=== PATIENT | female | born 1995 | race Caucasian/White ===

== ENCOUNTER 2016-10-02 14:37 | Emergency (ER) | payer OTHER, SELFPAY ==
[2016-10-02] MEDS ORDERED: AMOXICILLIN 500 MG CAP As Ordered ONE (18:23)
[2016-10-02] MEDS ORDERED: ONDANSETRON 4 MG ORAL DISINTEGRATING TAB (S0181) As Ordered ONE (18:23)
[2016-10-02] MEDS ORDERED: ACETAMINOPHEN 325 MG TAB As Ordered ONE (18:23)
--- NOTE | 2016-10-02 18:48 | EDDOCDS ---
Physician Documentation [facility] Name: Dilcia Spence Age: 21 yrs Sex: Female : 1995 Arrival Date: 10/02/2016 Time: 14:37 Bed Triage 2 Private MD: NO PRIMARY PHYSICIAN, . Disposition: 10/02/16 18:37 Discharged to Home/Self Care. Impression: Acute pharyngitis, Vomiting. - Condition is Stable. - Discharge Instructions: Nausea and Vomiting, Pharyngitis. - Prescriptions for Amoxicillin 500 mg Oral Capsule - take 1 capsule by ORAL route every 8 hours for 10 days; 30 tablet. ZOFRAN ODT 4 mg - dissolve 1 tablet by ORAL route 4 times per day As needed do not chew, do not swallow whole; 10 tablet. Albuterol Sulfate 90 mcg/actuation Inhalation HFA Aerosol Inhaler - inhale 2 puff by INHALATION route every 4 hours As needed; 1 Inhaler. - Medication Reconciliation, Local Pharmacy Hours, Work Release Form - 2 day form. - [facility]; When: Call to arrange an appointment; Reason: Recheck today's complaints, Continuance of care. - Problem is new. - Symptoms are unchanged. Historical: - Allergies: Cinnamon; - Home Meds: 1. Mucinex oral oral Unknown (Last dose: 10/02/2016 11:00) 2. Tylenol 325 mg oral tab 2 tabs (Last dose: 10/01/2016) - PMHx: none; - PSHx: none; - Social history: Smoking status: Patient uses tobacco products, current every day smoker. No barriers to communication noted, The patient speaks fluent Nigerian, Speaks appropriately for age. - Family history: Not pertinent. - : The pt / caregiver states he / she is not on anticoagulants. Home medication list is obtained from the patient. - Exposure Risk Screening:: None identified. 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 8 in. (172.72 cm) (R); Pain 4/10; 18:07 BP 159 / 94; Pulse 99; Resp 18; Temp 98.2(TE); Pulse Ox 96% on R/A; Pain 8/10; sew 14:40 Body Mass Index 39.53 (117.93 kg, 172.72 cm) gr2 MDM: 18:17 Strep Screen, Nursing ordered. mo1 18:18 Ondansetron ODT Oral Disintegrating Tablet 4 mg PO once ordered. mo1 18:18 Acetaminophen Tablet 975 mg PO once ordered. mo1 18:23 Amoxicillin 500 mg PO once ordered. mo1 18:30 GATS (NEGATIVE STREP SCREEN) Ordered. EDMS Administered Medications: 18:26 Drug: Amoxicillin 500 mg [amoxicillin 500 mg capsule (1 caps)] Route: PO; ld5 18:27 Drug: Ondansetron ODT 4 mg [ondansetron 4 mg disintegrating tablet (1 tabs)] Route: PO; ld5 18:27 Drug: Acetaminophen 975 mg [acetaminophen 325 mg tablet (3 tabs)] Route: PO; ld5 Signatures: Dispatcher [employer] EDMS Adelia Alston,RN RN ld5 Adelso Laura PA PA mo1 Syed SuRN RN jf3 MTDD
--- NOTE | 2016-10-02 18:48 | EDDOCDS ---
Nurse's Notes [facility] Name: Dilcia Spence Age: 21 yrs Sex: Female : 1995 Arrival Date: 10/02/2016 Time: 14:37 Bed Triage 2 Private MD: NO PRIMARY PHYSICIAN, . Diagnosis: Acute pharyngitis;Vomiting Presentation: 10/02 15:00 Presenting complaint: Patient states: Cough for past couple of days. Feels as though ld5 she has difficulty getting a good breath. "I also have stomach pains". Adult Sepsis Screening: The patient does not have new or worsening altered mentation. Patient's respiratory rate is less than 22. Systolic blood pressure is greater than 100. Patient has a qSOFA score of 0- Negative Sepsis Screen. Suicide/Homicide risk assessment- the patient denies having any suicidal and/or homicidal ideations and does not present with any other emotional, behavioral or mental health complaints. 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 Transition of care: patient was not received from another setting of care. 15:00 Acuity: BHAVIK Level 4 ld5 15:00 Method Of Arrival: Walkin/Carried/Asstd ld5 Triage Assessment: 15:03 General: Appears in no apparent distress. Pain: Location: abdomen Pain currently is 7 ld5 out of 10 on a pain scale. HIV screening NA for this visit Offered previously. Neurological: Level of Consciousness is awake, alert. Respiratory: Onset: The symptoms/episode began/occurred 2-3 days ago, Airway is patent Respiratory effort is even, unlabored, Reports cough that is non-productive. 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 Mucinex oral oral Unknown (Last dose: 10/02/2016 11:00) 2. Tylenol 325 mg oral tab 2 tabs (Last dose: 10/01/2016) - PMHx: none; - PSHx: none; - Social history: Smoking status: Patient uses tobacco products, current every day smoker. No barriers to communication noted, The patient speaks fluent Greek, Speaks appropriately for age. - Family history: Not pertinent. - : The pt / caregiver states he / she is not on anticoagulants. Home medication list is obtained from the patient. - Exposure Risk Screening:: None identified. Screenin:45 Screening information is obtained from the patient. Fall risk: No risks identified. jf3 Assistance ADL's: requires no assistance with activities of daily living. Abuse/DV Screen: The patient / caregiver reports he/she is: not in a situation that causes fear, pain or injury. Nutritional screening: No deficits noted. Advance Directives: There is no active DNR order. home support is adequate. Assessment: 18:45 General: Appears in no apparent distress, comfortable, Behavior is cooperative. jf3 Neurological: Level of Consciousness is awake, alert, Oriented to person, place, time. Cardiovascular: Capillary refill < 3 seconds Chest pain is denied. Respiratory: Airway is patent Respiratory effort is even, unlabored, Respiratory pattern is regular, symmetrical, Breath sounds are clear bilaterally. Derm: Skin is pink, warm & dry. Vital Signs: 14:40 BP 154 / 80; Pulse 108; Resp 18 S; Temp 98.8(O); Pulse Ox 98% on R/A; Weight 117.93 kg gr2 (R); Height 5 ft. 8 in. (172.72 cm) (R); Pain 4/10; 18:07 BP 159 / 94; Pulse 99; Resp 18; Temp 98.2(TE); Pulse Ox 96% on R/A; Pain 8/10; sew 14:40 Body Mass Index 39.53 (117.93 kg, 172.72 cm) gr2 Vitals: 14:40 Log In Time: October 02, 2016 at 14:40. gr2 18:30 Strep Screen is obtained and tested: Negative, a GATSNEG culture is ordered in [facility] ld5 and sent. ED Course: 14:39 Patient visited by Rashaun Simmons. gr2 14:39 NO PRIMARY PHYSICIAN, . is Private Physician. gr2 14:39 Patient moved to Waiting gr2 14:42 Patient visited by Rashaun Simmons. gr2 14:42 Patient moved to Pre RCE gr2 15:01 Triage Initiated ld5 15:05 Patient visited by Adelia Alston RN. ld5 17:49 Patient moved to Triage 2 kr3 18:06 Adelso Laura PA is PHCP. mo1 18:06 Joaquin Collado MD is Attending Physician. mo1 18:09 Patient visited by Kimberlee Ames. sew 18:17 Patient visited by Adelso Laura PA. mo1 18:33 GATS (NEGATIVE STREP SCREEN) Sent. ld5 18:37 [facility] is Referral Physician. mo1 18:45 The patient / caregiver is instructed regarding the plan of care and ED course. jf3 18:45 No IV's were initiated during this patient's visit. No procedures done that require jf3 assistance. Administered Medications: 18:26 Drug: Amoxicillin 500 mg [amoxicillin 500 mg capsule (1 caps)] Route: PO; ld5 18:27 Drug: Ondansetron ODT 4 mg [ondansetron 4 mg disintegrating tablet (1 tabs)] Route: PO; ld5 18:27 Drug: Acetaminophen 975 mg [acetaminophen 325 mg tablet (3 tabs)] Route: PO; ld5 Order Results: There are currently no results for this order. Outcome: 18:37 Discharge ordered by Provider. mo1 18:46 Discharge Assessment: Patient awake, alert and oriented x 3. No cognitive and/or jf3 functional deficits noted. Patient verbalized understanding of disposition instructions. patient administered narcotics - no. The following High Risk Discharge criteria are identified: None. Discharged to home ambulatory. Condition: good. Discharge instructions given to patient, Instructed on discharge instructions, follow up and referral plans. medication usage, Demonstrated understanding of instructions, medications, Pt was receptive of discharge instructions/ teaching. No special radiology studies were completed. Property :Personal belongings accompany Pt. 18:46 Patient left the ED. jf3 Signatures: Eulalia Orellana,RN RN kr3 Adelia Alston,RN RN ld5 Kimberlee Ames sew Rashaun Simmons gr2 Adelso Laura PA PA mo1 Syed Su,MONICA RN jf3 MTDD
--- NOTE | 2016-10-04 19:48 | EDDOCDS ---
Nurse's Notes [facility] Name: Dilcia Spnece Age: 21 yrs Sex: Female : 1995 Arrival Date: 10/02/2016 Time: 14:37 Bed Triage 2 Private MD: NO PRIMARY PHYSICIAN, . Diagnosis: Acute pharyngitis;Vomiting Presentation: 10/02 15:00 Presenting complaint: Patient states: Cough for past couple of days. Feels as though ld5 she has difficulty getting a good breath. "I also have stomach pains". Adult Sepsis Screening: The patient does not have new or worsening altered mentation. Patient's respiratory rate is less than 22. Systolic blood pressure is greater than 100. Patient has a qSOFA score of 0- Negative Sepsis Screen. Suicide/Homicide risk assessment- the patient denies having any suicidal and/or homicidal ideations and does not present with any other emotional, behavioral or mental health complaints. 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 Transition of care: patient was not received from another setting of care. 15:00 Acuity: BHAVIK Level 4 ld5 15:00 Method Of Arrival: Walkin/Carried/Asstd ld5 Triage Assessment: 15:03 General: Appears in no apparent distress. Pain: Location: abdomen Pain currently is 7 ld5 out of 10 on a pain scale. HIV screening NA for this visit Offered previously. Neurological: Level of Consciousness is awake, alert. Respiratory: Onset: The symptoms/episode began/occurred 2-3 days ago, Airway is patent Respiratory effort is even, unlabored, Reports cough that is non-productive. 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 Mucinex oral oral Unknown (Last dose: 10/02/2016 11:00) 2. Tylenol 325 mg oral tab 2 tabs (Last dose: 10/01/2016) - PMHx: none; - PSHx: none; - Social history: Smoking status: Patient uses tobacco products, current every day smoker. No barriers to communication noted, The patient speaks fluent Turkish, Speaks appropriately for age. - Family history: Not pertinent. - : The pt / caregiver states he / she is not on anticoagulants. Home medication list is obtained from the patient. - Exposure Risk Screening:: None identified. Screenin:45 Screening information is obtained from the patient. Fall risk: No risks identified. jf3 Assistance ADL's: requires no assistance with activities of daily living. Abuse/DV Screen: The patient / caregiver reports he/she is: not in a situation that causes fear, pain or injury. Nutritional screening: No deficits noted. Advance Directives: There is no active DNR order. home support is adequate. Assessment: 18:45 General: Appears in no apparent distress, comfortable, Behavior is cooperative. jf3 Neurological: Level of Consciousness is awake, alert, Oriented to person, place, time. Cardiovascular: Capillary refill < 3 seconds Chest pain is denied. Respiratory: Airway is patent Respiratory effort is even, unlabored, Respiratory pattern is regular, symmetrical, Breath sounds are clear bilaterally. Derm: Skin is pink, warm & dry. Vital Signs: 14:40 BP 154 / 80; Pulse 108; Resp 18 S; Temp 98.8(O); Pulse Ox 98% on R/A; Weight 117.93 kg gr2 (R); Height 5 ft. 8 in. (172.72 cm) (R); Pain 4/10; 18:07 BP 159 / 94; Pulse 99; Resp 18; Temp 98.2(TE); Pulse Ox 96% on R/A; Pain 8/10; sew 14:40 Body Mass Index 39.53 (117.93 kg, 172.72 cm) gr2 Vitals: 14:40 Log In Time: October 02, 2016 at 14:40. gr2 18:30 Strep Screen is obtained and tested: Negative, a GATSNEG culture is ordered in [facility] ld5 and sent. ED Course: 14:39 Patient visited by Rashaun Simmons. gr2 14:39 NO PRIMARY PHYSICIAN, . is Private Physician. gr2 14:39 Patient moved to Waiting gr2 14:42 Patient visited by Rashaun Simmons. gr2 14:42 Patient moved to Pre RCE gr2 15:01 Triage Initiated ld5 15:05 Patient visited by Adelia Alston RN. ld5 17:49 Patient moved to Triage 2 kr3 18:06 Adelso Laura PA is PHCP. mo1 18:06 Joaquin Collado MD is Attending Physician. mo1 18:09 Patient visited by Kimberlee Ames. sew 18:17 Patient visited by Adelso Laura PA. mo1 18:33 GATS (NEGATIVE STREP SCREEN) Sent. ld5 18:37 [facility] is Referral Physician. mo1 18:45 The patient / caregiver is instructed regarding the plan of care and ED course. jf3 18:45 No IV's were initiated during this patient's visit. No procedures done that require jf3 assistance. 10/03 15:24 T-Sheet-- Draft Copy was scanned into [employer] and attached to record. kf3 Administered Medications: 10/02 18:26 Drug: Amoxicillin 500 mg [amoxicillin 500 mg capsule (1 caps)] Route: PO; ld5 18:27 Drug: Ondansetron ODT 4 mg [ondansetron 4 mg disintegrating tablet (1 tabs)] Route: PO; ld5 18:27 Drug: Acetaminophen 975 mg [acetaminophen 325 mg tablet (3 tabs)] Route: PO; ld5 Order Results: Lab Order: GATS (NEGATIVE STREP SCREEN); SPEC'M 10/02/16 18:25 Test: GATS CULTURE (NEG STREP SCR); Value: GATS RESULT NEGATIVE FOR STREP PYOGENES (GROUP A); Status: F Outcome: 18:37 Discharge ordered by Provider. mo1 18:46 Discharge Assessment: Patient awake, alert and oriented x 3. No cognitive and/or jf3 functional deficits noted. Patient verbalized understanding of disposition instructions. patient administered narcotics - no. The following High Risk Discharge criteria are identified: None. Discharged to home ambulatory. Condition: good. Discharge instructions given to patient, Instructed on discharge instructions, follow up and referral plans. medication usage, Demonstrated understanding of instructions, medications, Pt was receptive of discharge instructions/ teaching. No special radiology studies were completed. Property :Personal belongings accompany Pt. 18:46 Patient left the ED. jf3 Signatures: Eulalia Orellana,RN RN kr3 Aydin Morales, Reg Reg kf3 Adelia Alston RN RN ld5 Kimberlee Ames sew Rashaun Simmons gr2 Adelso Laura PA PA mo1 Syed Su,MONICA ANDERSON jf3 Chart Complete MTDD
--- NOTE | 2016-10-04 19:48 | EDDOCDS ---
Physician Documentation [facility] Name: Dilcia Spence Age: 21 yrs Sex: Female : 1995 Arrival Date: 10/02/2016 Time: 14:37 Bed Triage 2 Private MD: NO PRIMARY PHYSICIAN, . Disposition: 10/02/16 18:37 Discharged to Home/Self Care. Impression: Acute pharyngitis, Vomiting. - Condition is Stable. - Discharge Instructions: Nausea and Vomiting, Pharyngitis. - Prescriptions for Amoxicillin 500 mg Oral Capsule - take 1 capsule by ORAL route every 8 hours for 10 days; 30 tablet. ZOFRAN ODT 4 mg - dissolve 1 tablet by ORAL route 4 times per day As needed do not chew, do not swallow whole; 10 tablet. Albuterol Sulfate 90 mcg/actuation Inhalation HFA Aerosol Inhaler - inhale 2 puff by INHALATION route every 4 hours As needed; 1 Inhaler. - Medication Reconciliation, Local Pharmacy Hours, Work Release Form - 2 day form. - Follow up: [facility]; When: Call to arrange an appointment; Reason: Recheck today's complaints, Continuance of care. - Problem is new. - Symptoms are unchanged. Historical: - Allergies: Cinnamon; - Home Meds: 1. Mucinex oral oral Unknown (Last dose: 10/02/2016 11:00) 2. Tylenol 325 mg oral tab 2 tabs (Last dose: 10/01/2016) - PMHx: none; - PSHx: none; - Social history: Smoking status: Patient uses tobacco products, current every day smoker. No barriers to communication noted, The patient speaks fluent Nigerian, Speaks appropriately for age. - Family history: Not pertinent. - : The pt / caregiver states he / she is not on anticoagulants. Home medication list is obtained from the patient. - Exposure Risk Screening:: None identified. 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 8 in. (172.72 cm) (R); Pain 4/10; 18:07 BP 159 / 94; Pulse 99; Resp 18; Temp 98.2(TE); Pulse Ox 96% on R/A; Pain 8/10; sew 14:40 Body Mass Index 39.53 (117.93 kg, 172.72 cm) gr2 MDM: 18:17 Strep Screen, Nursing ordered. mo1 18:18 Ondansetron ODT Oral Disintegrating Tablet 4 mg PO once ordered. mo1 18:18 Acetaminophen Tablet 975 mg PO once ordered. mo1 18:23 Amoxicillin 500 mg PO once ordered. mo1 18:30 GATS (NEGATIVE STREP SCREEN) Ordered. EDMS 10/03 15:24 T-Sheet-- Draft Copy was scanned into [employer] and attached to record. kf3 Administered Medications: 10/02 18:26 Drug: Amoxicillin 500 mg [amoxicillin 500 mg capsule (1 caps)] Route: PO; ld5 18:27 Drug: Ondansetron ODT 4 mg [ondansetron 4 mg disintegrating tablet (1 tabs)] Route: PO; ld5 18:27 Drug: Acetaminophen 975 mg [acetaminophen 325 mg tablet (3 tabs)] Route: PO; ld5 Signatures: Dispatcher [employer] EDMS Aydin Morales, Reg Reg kf3 Adelia Alston,RN RN ld5 Adelso Laura PA PA mo1 Syed Su,RN RN jf3 The chart was reviewed and I authenticate all verbal orders and agree with the evaluation and treatment provided.Attachments: 10/03 15:24 T-Sheet-- Draft Copy kf3 Chart Complete MTDD
--- NOTE | 2016-10-04 19:48 | EDDOCDS ---
Physician Documentation [facility] Name: Dilcia Spence Age: 21 yrs Sex: Female : 1995 Arrival Date: 10/02/2016 Time: 14:37 Bed Triage 2 Private MD: NO PRIMARY PHYSICIAN, . Disposition: 10/02/16 18:37 Discharged to Home/Self Care. Impression: Acute pharyngitis, Vomiting. - Condition is Stable. - Discharge Instructions: Nausea and Vomiting, Pharyngitis. - Prescriptions for Amoxicillin 500 mg Oral Capsule - take 1 capsule by ORAL route every 8 hours for 10 days; 30 tablet. ZOFRAN ODT 4 mg - dissolve 1 tablet by ORAL route 4 times per day As needed do not chew, do not swallow whole; 10 tablet. Albuterol Sulfate 90 mcg/actuation Inhalation HFA Aerosol Inhaler - inhale 2 puff by INHALATION route every 4 hours As needed; 1 Inhaler. - Medication Reconciliation, Local Pharmacy Hours, Work Release Form - 2 day form. - Follow up: [facility]; When: Call to arrange an appointment; Reason: Recheck today's complaints, Continuance of care. - Problem is new. - Symptoms are unchanged. Historical: - Allergies: Cinnamon; - Home Meds: 1. Mucinex oral oral Unknown (Last dose: 10/02/2016 11:00) 2. Tylenol 325 mg oral tab 2 tabs (Last dose: 10/01/2016) - PMHx: none; - PSHx: none; - Social history: Smoking status: Patient uses tobacco products, current every day smoker. No barriers to communication noted, The patient speaks fluent Puerto Rican, Speaks appropriately for age. - Family history: Not pertinent. - : The pt / caregiver states he / she is not on anticoagulants. Home medication list is obtained from the patient. - Exposure Risk Screening:: None identified. 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 8 in. (172.72 cm) (R); Pain 4/10; 18:07 BP 159 / 94; Pulse 99; Resp 18; Temp 98.2(TE); Pulse Ox 96% on R/A; Pain 8/10; sew 14:40 Body Mass Index 39.53 (117.93 kg, 172.72 cm) gr2 MDM: 18:17 Strep Screen, Nursing ordered. mo1 18:18 Ondansetron ODT Oral Disintegrating Tablet 4 mg PO once ordered. mo1 18:18 Acetaminophen Tablet 975 mg PO once ordered. mo1 18:23 Amoxicillin 500 mg PO once ordered. mo1 18:30 GATS (NEGATIVE STREP SCREEN) Ordered. EDMS 10/03 15:24 T-Sheet-- Draft Copy was scanned into [employer] and attached to record. kf3 Administered Medications: 10/02 18:26 Drug: Amoxicillin 500 mg [amoxicillin 500 mg capsule (1 caps)] Route: PO; ld5 18:27 Drug: Ondansetron ODT 4 mg [ondansetron 4 mg disintegrating tablet (1 tabs)] Route: PO; ld5 18:27 Drug: Acetaminophen 975 mg [acetaminophen 325 mg tablet (3 tabs)] Route: PO; ld5 Signatures: Dispatcher [employer] EDMS Aydin Morales, Reg Reg kf3 Adelia Alston,RN RN ld5 Adelso Lauar PA PA mo1 Syed Su,RN RN jf3 The chart was reviewed and I authenticate all verbal orders and agree with the evaluation and treatment provided.Attachments: 10/03 15:24 T-Sheet-- Draft Copy kf3 Chart Complete MTDD
== END 2016-10-02 18:46 | disposition home or self-care (01) ==
LOC: M ED 14:37
DX: J02.9 Acute pharyngitis, unspecified (principal); R11.2 Nausea with vomiting, unspecified; R50.9 Fever, unspecified; F17.210 Nicotine dependence, cigarettes, uncomplicated; Z91.018 Allergy to other foods

== ENCOUNTER 2016-12-23 17:31 | Emergency (ER) | payer OTHER, SELFPAY ==
[~2016-12-23] VITALS: Ht 172.7 cm; Wt 117.9 kg
[2016-12-23 23:02] VITALS: BP 159/92
== END 2016-12-23 23:04 | disposition home or self-care (01) ==
LOC: M ED 19:25
DX: N91.2 Amenorrhea, unspecified (principal); Z79.899 Other long term (current) drug therapy

== ENCOUNTER 2017-01-01 01:48 | Emergency (ER) | payer SELFPAY ==
[~2017-01-01] VITALS: Ht 172.7 cm; Wt 115.7 kg
[2017-01-01 01:52] VITALS: BP 158/92
[2017-01-01] MEDS ORDERED: MULT1TAB18 PO (01:55)
[2017-01-01] MEDS ORDERED: AMOX500C PO (03:25)
== END 2017-01-01 03:44 | disposition home or self-care (01) ==
LOC: M ED 03:34
DX: J02.9 Acute pharyngitis, unspecified (principal)

== ENCOUNTER 2017-02-26 17:50 | Emergency (ER) | payer SELFPAY ==
[~2017-02-26] VITALS: Ht 170.2 cm; Wt 115.6 kg
[~2017-02-26 17:50] MED LIST: AMOX500C PO; MULT1TAB18 PO
[2017-02-26] MEDS ORDERED: NS 1,000 ML IV ONE (18:30)
[2017-02-26] MEDS ORDERED: ONDANSETRON 4MG/2ML VIAL (J2405) IV ONE (18:30)
[2017-02-26 19:12] LABS: BASO # 0.1 K/mm3 (0.0-0.2); BASO % 0.8 % (0.0-1.0); EOS # 0.3 K/mm3 (0.0-0.50); EOS % 2.5 % (0.0-3.0); INR 0.95; LARGE UNSTAINED CELL # 0.2 K/mm3 (0.0-0.4); LYMPH # 1.9 K/mm3 (1.5-6.5); LYMPH % 15.1 % (24.0-44.0); MEAN CORPUSCULAR HEMOGLOBIN 30.4 pg (27.0-33.0); MEAN CORPUSCULAR HGB CONC 34.3 g/dl (32.0-36.5); MEAN CORPUSCULAR VOLUME 88.7 fl (80.0-96.0); MONO # 1.2 K/mm3 (0.0-0.8); MONO % 10.5 % (0.0-5.0); NEUTROPHILS # 7.7 K/mm3 (1.8-7.7); NEUTROPHILS % 69.1 % (36.0-66.0); PLATELET COUNT, AUTOMATED 311 k/mm3 (150-450); RED CELL DISTRIBUTION WIDTH 12.9 % (11.5-14.5); WHITE BLOOD COUNT 11.1 K/mm3 (4.0-10.0)
[2017-02-26 19:20] LABS: ALBUMIN/GLOBULIN RATIO 0.95 (1.00-1.93); ALKALINE PHOSPHATASE 115 U/L (45-117); ALT/SGPT 94 U/L (12-78); ANION GAP 6 MEQ/L (8-16); AST/SGOT 42 U/L (15-37); BILIRUBIN,DIRECT < 0.1 MG/DL (0.0-0.2); BILIRUBIN,TOTAL 0.3 MG/DL (0.2-1.0); BLOOD UREA NITROGEN 13 MG/DL (7-18); CALCIUM LEVEL 8.6 MG/DL (8.5-10.1); CARBON DIOXIDE LEVEL 24 MEQ/L (21-32); CHLORIDE LEVEL 107 MEQ/L (98-107); CREATININE FOR GFR 1.09 MG/DL (0.55-1.02); GLUCOSE, FASTING 96 MG/DL (70-105); POTASSIUM SERUM 3.8 MEQ/L (3.5-5.1); SODIUM LEVEL 137 MEQ/L (136-145); TOTAL PROTEIN 8.2 GM/DL (6.4-8.2)
[2017-02-26] MEDS ORDERED: ZOFR4TAB3 PO (19:41)
[2017-02-26 19:51] VITALS: BP 125/67
--- NOTE | 2017-02-27 09:25 | REP ---
Acute abdominal series: Three views. History: Abdominal pain. Comparison study: September 26, 2015. Findings: Upright chest radiograph is normal. There is no evidence of infiltrate or free subdiaphragmatic air. Heart is not enlarged. Supine and erect views of the abdomen demonstrate a normal bowel gas pattern. No mass, organomegaly, or pathologic calcification is seen. Psoas margins are intact. Flank stripes are unremarkable. Impression: Negative abdominal series. Signed by Aric Duran MD 02/27/2017 11:31 A
== END 2017-02-26 20:00 | disposition home or self-care (01) ==
LOC: M ED 18:31
DX: K52.9 Noninfective gastroenteritis and colitis, unspecified (principal)
CPT/HCPCS: 36415; 74022; 80048; 80076; 81025; 83690; 85025; 85610; 96374; 99283; J2405

== ENCOUNTER 2017-06-08 15:07 | Emergency (ER) | payer SELFPAY ==
[~2017-06-08] VITALS: Ht 170.2 cm; Wt 120.5 kg
[~2017-06-08 15:07] MED LIST changes: +ZOFR4TAB3 PO
[2017-06-08] MEDS ORDERED: NS 1,000 ML IV SCH (16:06)
[2017-06-08 16:35] LABS: BASO # 0.1 10^3/uL (0.0-0.2); BASO % 0.6 % (0.0-1.0); EOS # 0.5 10^3/uL (0.0-0.50); EOS % 3.9 % (0.0-3.0); IMMATURE GRANULOCYTE % 0.6 % (0-0); LYMPH # 2.9 10^3/uL (1.5-6.5); LYMPH % 22.6 % (24.0-44.0); MEAN CORPUSCULAR HEMOGLOBIN 29.6 pg (27.0-33.0); MEAN CORPUSCULAR HGB CONC 34.2 g/dl (32.0-36.5); MEAN CORPUSCULAR VOLUME 86.6 fl (80.0-96.0); MONO # 1.5 10^3/uL (0.0-0.8); NEUTROPHILS # 7.6 10^3/uL (1.8-7.7); NEUTROPHILS % 60.3 % (36.0-66.0); PLATELET COUNT, AUTOMATED 356 10^3/uL (150-450); RED CELL DISTRIBUTION WIDTH 12.7 % (11.5-14.5); WHITE BLOOD COUNT 12.6 10^3/uL (4.0-10.0)
[2017-06-08 16:36] LABS: ADD MORPHOLOGY? NO
[2017-06-08 16:58] LABS: CONTROL LINE HCG INT CTR LINE PRESENT
[2017-06-08 17:06] LABS: ALBUMIN 3.7 GM/DL (3.2-5.2); ALBUMIN/GLOBULIN RATIO 0.84 (1.00-1.93); ALKALINE PHOSPHATASE 90 U/L (45-117); ALT/SGPT 72 U/L (12-78); ANION GAP 7 MEQ/L (8-16); AST/SGOT 35 U/L (15-37); BILIRUBIN,DIRECT < 0.1 MG/DL (0.0-0.2); BILIRUBIN,TOTAL 0.4 MG/DL (0.2-1.0); BLOOD UREA NITROGEN 11 MG/DL (7-18); CARBON DIOXIDE LEVEL 26 MEQ/L (21-32); CHLORIDE LEVEL 106 MEQ/L (98-107); CREATININE FOR GFR 0.86 MG/DL (0.55-1.02); GLUCOSE, FASTING 93 MG/DL (70-105); POTASSIUM SERUM 3.7 MEQ/L (3.5-5.1); SODIUM LEVEL 139 MEQ/L (136-145); TOTAL PROTEIN 8.1 GM/DL (6.4-8.2)
--- NOTE | 2017-06-08 17:13 | REP ---
REASON: Ovarian cyst. COMPARISON: None. Transvesical and transvaginal imaging was performed. The uterus measures 7.7 x 3.1 x 4.1 cm. The parenchymal echo pattern is within normal limits. The endometrial echo complex measures 1.1 cm in thickness. It is slightly heterogenous. The right ovary measured 3.3 x 2.1 x 2.3 cm and is within normal limits with an RI of 0.43. The left ovary measured 2.7 x 1.8 x 3.0 cm and is within normal limits with an RI of 0.35. The urinary bladder measures 5 x 5 x 5 cm. IMPRESSION: Pelvic ultrasonography as described above, is within normal limits. Signed by Neri Rasmussen DO 06/08/2017 07:33 P
[2017-06-08] MEDS ORDERED: GASTROGRAFIN SOLUTION 30ML (Q9963) PO ONE ×2 (17:30→18:00)
[2017-06-08] MEDS ORDERED: ISOVUE-370 76% 100ML VIAL (Q9967) As Ordered ONE (18:20)
[2017-06-08] MEDS ORDERED: IBUP-1022 PO (19:32)
--- NOTE | 2017-06-08 19:53 | REP ---
REASON FOR EXAM: Left lower quadrant pain. COMPARISON: 02/12/2016 which showed fatty infiltration of the liver. CONTRAST: 100 mL [id number]. The lung bases are clear. Once again, there is diffuse low density throughout the hepatic parenchyma consistent with diffuse fatty infiltration of the liver status quo. There are no enhancing hepatic lesions. The gallbladder, spleen, pancreas, adrenal glands and kidneys are again seen to be within normal limits. The abdominal aorta and paraaortic regions are within normal limits. The bowel loops and their mesenteries are within normal limits. Once again there are small round mesenteric lymph nodes status quo. The appendix is well visualized and is unremarkable. CT PELVIS: There is no mass or adenopathy. There is no free fluid or free air. The bowel loops and their mesenteries are within normal limits. Bone window technique throughout the examination shows the osseous structures to be stable and intact. IMPRESSION: CT findings are essentially unchanged from the prior exam. There is no acute intraabdominal or intrapelvic disease. There is diffuse fatty infiltration of the liver. The examination is otherwise unremarkable. Signed by Neri Rasmussen DO 06/10/2017 05:11 P
[2017-06-08 20:12] VITALS: BP 154/86
== END 2017-06-08 20:13 | disposition home or self-care (01) ==
LOC: M ED 15:07
DX: R10.2 Pelvic and perineal pain (principal); F17.200 Nicotine dependence, unspecified, uncomplicated; K76.0 Fatty (change of) liver, not elsewhere classified
CPT/HCPCS: 74177; 76830; 76856; 80048; 80076; 81001; 83690; 84703; 85025; 87086; 93976; 99283; Q9963; Q9967

== ENCOUNTER 2017-06-27 19:55 | Emergency (ER) | payer SELFPAY ==
[~2017-06-27] VITALS: Ht 170.2 cm; Wt 117.9 kg
[~2017-06-27 19:55] MED LIST changes: +IBUP-1022 PO
[2017-06-27 19:56] VITALS: BP 133/73
[2017-06-27] MEDS: ONDANSETRON 4 MG ORAL DISINTEGRATING TAB (S0181) PO ONE (21:55)
== END 2017-06-27 21:57 | disposition home or self-care (01) ==
LOC: M ED 19:55
DX: J02.9 Acute pharyngitis, unspecified (principal); B34.9 Viral infection, unspecified; J35.1 Hypertrophy of tonsils; R11.2 Nausea with vomiting, unspecified

== ENCOUNTER 2017-08-13 19:23 | Emergency (ER) | payer SELFPAY ==
[~2017-08-13] VITALS: Ht 170.2 cm; Wt 119.1 kg
[2017-08-13 19:32] VITALS: BP 147/75
[2017-08-13] MEDS ORDERED: [UNRECOGNIZED DRUG - OTHER] PO (19:37)
[2017-08-13 20:35] LABS: MEAN CORPUSCULAR HEMOGLOBIN 29.4 pg (27.0-33.0); MEAN CORPUSCULAR HGB CONC 33.5 g/dl (32.0-36.5); MEAN CORPUSCULAR VOLUME 87.9 fl (80.0-96.0); PLATELET COUNT, AUTOMATED 366 10^3/uL (150-450); RED CELL DISTRIBUTION WIDTH 12.7 % (11.5-14.5); WHITE BLOOD COUNT 11.9 10^3/uL (4.0-10.0)
[2017-08-13 20:50] LABS: CONTROL LINE HCG INT CTR LINE PRESENT
[2017-08-13 20:54] LABS: ANION GAP 7 MEQ/L (8-16); BLOOD UREA NITROGEN 11 MG/DL (7-18); CALCIUM LEVEL 8.8 MG/DL (8.5-10.1); CARBON DIOXIDE LEVEL 26 MEQ/L (21-32); CHLORIDE LEVEL 106 MEQ/L (98-107); CREATININE FOR GFR 0.89 MG/DL (0.55-1.02); GLOMERULAR FILTRATION RATE > 60.0 (>60); GLUCOSE, FASTING 96 MG/DL (70-105); POTASSIUM SERUM 3.7 MEQ/L (3.5-5.1); SODIUM LEVEL 139 MEQ/L (136-145)
== END 2017-08-13 21:40 | disposition home or self-care (01) ==
LOC: M ED 19:23
DX: N92.0 Excessive and frequent menstruation with regular cycle (principal); F17.200 Nicotine dependence, unspecified, uncomplicated; Z91.018 Allergy to other foods

== ENCOUNTER → 2018-03-22 | Outpatient (CLI) | payer BC ==
[2018-03-22 20:02] LABS: BASO # 0.1 10^3/uL (0.0-0.2); EOS # 0.4 10^3/uL (0.0-0.50); EOS % 2.7 % (0.0-3.0); HEMATOCRIT 42.5 % (36.0-47.0); HEMOGLOBIN 14.1 g/dl (12.0-15.5); IMMATURE GRANULOCYTE % 1.1 % (0-3.0); LYMPH # 2.9 10^3/uL (1.5-6.5); LYMPH % 21.5 % (24.0-44.0); MEAN CORPUSCULAR HEMOGLOBIN 30.1 pg (27.0-33.0); MEAN CORPUSCULAR HGB CONC 33.2 g/dl (32.0-36.5); MEAN CORPUSCULAR VOLUME 90.8 fl (80.0-96.0); MONO # 1.6 10^3/uL (0.0-0.8); MONO % 11.6 % (0.0-5.0); NEUTROPHILS # 8.4 10^3/uL (1.8-7.7); NEUTROPHILS % 62.1 % (36.0-66.0); PLATELET COUNT, AUTOMATED 379 10^3/uL (150-450); RED BLOOD COUNT 4.68 10^6/uL (4.00-5.40); RED CELL DISTRIBUTION WIDTH 13.2 % (11.5-14.5); WHITE BLOOD COUNT 13.5 10^3/uL (4.0-10.0)
[2018-03-22 21:03] LABS: ALBUMIN 3.7 GM/DL (3.2-5.2); ALBUMIN/GLOBULIN RATIO 0.88 (1.00-1.93); ALKALINE PHOSPHATASE 107 U/L (45-117); ALT/SGPT 82 U/L (12-78); ANION GAP 7 MEQ/L (8-16); AST/SGOT 43 U/L (7-37); BILIRUBIN,TOTAL 0.3 MG/DL (0.2-1.0); BLOOD UREA NITROGEN 11 MG/DL (7-18); CALCIUM LEVEL 8.6 MG/DL (8.5-10.1); CARBON DIOXIDE LEVEL 27 MEQ/L (21-32); CHLORIDE LEVEL 106 MEQ/L (98-107); CREATININE FOR GFR 0.74 MG/DL (0.55-1.30); FREE T4 0.73 NG/DL (0.76-1.46); GLOMERULAR FILTRATION RATE > 60.0 (>60); GLUCOSE, FASTING 107 MG/DL (70-100); POTASSIUM SERUM 4.2 MEQ/L (3.5-5.1); SODIUM LEVEL 140 MEQ/L (136-145); TOTAL PROTEIN 7.9 GM/DL (6.4-8.2)
== END ==
LOC: M WUC 15:43
DX: N94.6 Dysmenorrhea, unspecified (principal)
CPT/HCPCS: 84443

== ENCOUNTER → 2018-03-22 | Outpatient (REF) | payer BC ==
[2018-03-22 22:51] LABS: CHLAMYDIA DNA AMPLIFICATION NEGATIVE (NEGATIVE); GC DNA AMPLIFICATION NEGATIVE (NEGATIVE)
== END ==
LOC: M LAB REF 19:32
DX: N94.6 Dysmenorrhea, unspecified (principal)

== ENCOUNTER 2018-04-03 23:20 | Emergency (ER) | payer BC | END 2018-04-03 23:23 | disposition left against medical advice (07) | LOC: M ED 23:20 | DX: R07.0 Pain in throat (principal); Z53.21 Procedure and treatment not carried out due to patient leaving prior to being seen by health care provider ==

== ENCOUNTER 2018-04-28 11:35 | Emergency (ER) | payer BC ==
[2018-04-28 12:50] LABS: BASO # 0.1 10^3/uL (0.0-0.2); BASO % 0.8 % (0.0-1.0); EOS # 0.4 10^3/uL (0.0-0.50); EOS % 3.3 % (0.0-3.0); HEMOGLOBIN 13.7 g/dl (12.0-15.5); IMMATURE GRANULOCYTE % 0.7 % (0-3.0); LYMPH # 2.6 10^3/uL (1.5-6.5); LYMPH % 23.1 % (24.0-44.0); MEAN CORPUSCULAR HEMOGLOBIN 29.7 pg (27.0-33.0); MEAN CORPUSCULAR HGB CONC 33.4 g/dl (32.0-36.5); MEAN CORPUSCULAR VOLUME 88.7 fl (80.0-96.0); MONO # 1.2 10^3/uL (0.0-0.8); MONO % 10.6 % (0.0-5.0); NEUTROPHILS # 6.8 10^3/uL (1.8-7.7); NEUTROPHILS % 61.5 % (36.0-66.0); PLATELET COUNT, AUTOMATED 324 10^3/uL (150-450); RED BLOOD COUNT 4.62 10^6/uL (4.00-5.40); WHITE BLOOD COUNT 11.1 10^3/uL (4.0-10.0)
[2018-04-28 13:13] LABS: INR 1.03; PROTHROMBIN TIME 13.6 SECONDS (12.1-14.4)
[2018-04-28 13:14] LABS: PARTIAL THROMBOPLASTIN TIME 34.6 SECONDS (25.4-37.6)
== END 2018-04-28 14:23 | disposition home or self-care (01) ==
LOC: M ED 11:35
DX: N92.0 Excessive and frequent menstruation with regular cycle (principal); N83.201 Unspecified ovarian cyst, right side; N85.8 Other specified noninflammatory disorders of uterus; E03.9 Hypothyroidism, unspecified; F17.210 Nicotine dependence, cigarettes, uncomplicated; Z91.018 Allergy to other foods; Z79.899 Other long term (current) drug therapy
CPT/HCPCS: 76856

== ENCOUNTER 2019-09-10 10:41 | Emergency (ER) | payer BC, SELFPAY ==
[~2019-09-10] VITALS: Ht 170.2 cm; Wt 138.2 kg
[~2019-09-10 10:41] MED LIST changes: +LEVO25TA5 PO; +ZOFR4TAB14 PO; -ZOFR4TAB3 PO; +[UNRECOGNIZED DRUG - OTHER] PO
[2019-09-10 11:50] LABS: BASO # 0.1 10^3/uL (0.0-0.2); EOS # 0.3 10^3/uL (0.0-0.5); EOS % 2.8 % (0.0-3.0); HEMATOCRIT 46.7 % (36.0-47.0); HEMOGLOBIN 14.9 g/dl (12.0-15.5); LYMPH # 2.4 10^3/uL (1.5-5.0); LYMPH % 20.9 % (24.0-44.0); MEAN CORPUSCULAR HEMOGLOBIN 28.8 pg (27.0-33.0); MEAN CORPUSCULAR HGB CONC 31.9 g/dl (32.0-36.5); MEAN CORPUSCULAR VOLUME 90.2 fl (80.0-96.0); MONO # 1.1 10^3/uL (0.0-0.8); MONO % 9.2 % (0.0-5.0); NEUTROPHILS # 7.4 10^3/uL (1.5-8.5); PLATELET COUNT, AUTOMATED 338 10^3/uL (150-450); RED BLOOD COUNT 5.18 10^6/uL (4.00-5.40); WHITE BLOOD COUNT 11.5 10^3/uL (4.0-10.0)
[2019-09-10 12:16] LABS: ALBUMIN 3.8 GM/DL (3.2-5.2); BILIRUBIN,DIRECT 0.1 MG/DL (0.0-0.2); BILIRUBIN,TOTAL 0.5 MG/DL (0.2-1.0); TOTAL PROTEIN 8.4 GM/DL (6.4-8.2)
[2019-09-10] MEDS ORDERED: NS 1,000 ML IV ONE (12:45)
[2019-09-10] MEDS ORDERED: KETOROLAC 30 MG/ML VIAL (J1885) IV ONE (12:45)
--- NOTE | 2019-09-10 14:19 | REP ---
Clinical: Left lower quadrant pain. Technique: Transabdominal pelvic ultrasound followed by transvaginal examination for better evaluation of the endometrium on Doppler evaluation of the ovaries. Findings: Anteverted uterus measures 8.0 x 4.0 and 4.9 cm. Endometrial complex is thickened to 18 mm related to menstrual cycle. No discrete uterine or endometrial abnormalities appreciated. The bilateral ovaries are normal in appearance and vascularity without torsion. Right ovary measures 2.3 x 2.0 x 1.9 cm (RI 0.50). The left ovary measures 3.4 x 2.4 x 2.2 cm (RI 0.46). There is a large predominantly anechoic lesion within the pelvis measuring 14.4 x 8.7 x 12.6 cm. Impression: 1. Thickened endometrial complex likely related to menstrual cycle. 2. Normal bilateral ovaries without torsion. 3. 14 cm cystic lesion in the pelvis. Electronically Signed by Tony Reyes MD 09/10/2019 02:10 P
[2019-09-10] MEDS ORDERED: ISOVUE-370 76% 100ML VIAL (Q9967) As Ordered ONE (15:50)
--- NOTE | 2019-09-10 16:45 | REP ---
Clinical: Pelvic cystic mass. Technique: Axial contrast enhanced images from the lung bases to the pubic symphysis with coronal and sagittal re-formations using 100 ml Isovue 370 intravenous contrast material. Findings: Lung bases are clear. Hepatomegaly and fatty infiltration to the liver is appreciated. Spleen, pancreas, gallbladder, bilateral adrenal glands and kidneys are normal. The enteric system is unremarkable and without obstruction or acute inflammatory process. Pelvis includes 13.7 x 10.5 x 11.7 cm cyst which appears to arise from the right ovary. Left ovary and uterus appear normal. No pelvic fluid. Bladder is unremarkable. No adenopathy. No free air. No ascites. Surrounding musculoskeletal structures are intact and normal. Impression: 1. 13.7 x 10.5 x 11.7 cm right ovarian cyst. 2. Hepatomegaly and fatty infiltration to the liver. Electronically Signed by Tnoy Reyes MD 09/10/2019 04:37 P
[2019-09-10 17:36] VITALS: BP 138/68
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
== END 2019-09-10 17:57 | disposition home or self-care (01) ==
LOC: M ED 10:41
DX: N83.201 Unspecified ovarian cyst, right side (principal); E03.9 Hypothyroidism, unspecified; Z91.018 Allergy to other foods; F17.210 Nicotine dependence, cigarettes, uncomplicated
CPT/HCPCS: 74177; 76830; 76856; 80047; 80076; 81001; 83690; 84702; 85025; 93041; 93976; 96374; 99284; J1885; Q9967

== ENCOUNTER 2019-10-27 01:09 | Emergency (ER) | payer BC, SELFPAY ==
[~2019-10-27] VITALS: Ht 170.2 cm; Wt 139.4 kg
[2019-10-27] MEDS ORDERED: LEVO25TA5 (01:18)
[2019-10-27] MEDS ORDERED: METF-791 (01:18)
[2019-10-27] MEDS ORDERED: TRI-TAB (01:18)
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
[2019-10-27 03:42] VITALS: BP 139/64
[2019-10-27] MEDS ORDERED: ONDANSETRON 4 MG ORAL DISINTEGRATING TAB (Q0162 PER 1MG) PO ONE (03:45)
== END 2019-10-27 03:42 | disposition home or self-care (01) ==
LOC: M ED 01:09
DX: S06.0X0A Concussion without loss of consciousness, initial encounter (principal); W50.0XXA Accidental hit or strike by another person, initial encounter; Y99.0 Civilian activity done for income or pay; F17.210 Nicotine dependence, cigarettes, uncomplicated; Z91.018 Allergy to other foods; Z79.84 Long term (current) use of oral hypoglycemic drugs; Z79.899 Other long term (current) drug therapy
CPT/HCPCS: 70450; 99283; Q0162

== ENCOUNTER 2019-11-08 17:43 | Emergency (ER) | payer BC ==
[~2019-11-08] VITALS: Ht 170.2 cm; Wt 139.1 kg
[~2019-11-08 17:43] MED LIST changes: +LEVO25TA5; +METF-791; +TRI-TAB
[2019-11-08] MEDS ORDERED: IBUP200C25 PO (17:51)
[2019-11-08 18:30] LABS: BASO # 0.1 10^3/uL (0.0-0.2); BASO % 0.9 % (0.0-1.0); EOS # 0.2 10^3/uL (0.0-0.5); EOS % 3.3 % (0.0-3.0); HEMATOCRIT 38.9 % (36.0-47.0); HEMOGLOBIN 12.8 g/dl (12.0-15.5); LYMPH # 1.7 10^3/uL (1.5-5.0); LYMPH % 24.8 % (24.0-44.0); MEAN CORPUSCULAR HEMOGLOBIN 29.6 pg (27.0-33.0); MEAN CORPUSCULAR HGB CONC 32.9 g/dl (32.0-36.5); MEAN CORPUSCULAR VOLUME 89.8 fl (80.0-96.0); MONO # 0.9 10^3/uL (0.0-0.8); MONO % 14.1 % (0.0-5.0); NEUTROPHILS # 3.7 10^3/uL (1.5-8.5); NEUTROPHILS % 55.7 % (36.0-66.0); PLATELET COUNT, AUTOMATED 324 10^3/uL (150-450); RED BLOOD COUNT 4.33 10^6/uL (4.00-5.40); WHITE BLOOD COUNT 6.7 10^3/uL (4.0-10.0)
[2019-11-08 18:39] LABS: ALBUMIN 3.2 GM/DL (3.2-5.2); ALT/SGPT 138 U/L (12-78); BILIRUBIN,DIRECT 0.1 MG/DL (0.0-0.2); BILIRUBIN,TOTAL 0.3 MG/DL (0.2-1.0); BLOOD UREA NITROGEN 12 MG/DL (7-18); CARBON DIOXIDE LEVEL 27 MEQ/L (21-32); CHLORIDE LEVEL 110 MEQ/L (98-107); CREATININE FOR GFR 0.84 MG/DL (0.55-1.30); GLOMERULAR FILTRATION RATE > 60.0 (>60); GLUCOSE, FASTING 78 MG/DL (70-100); LIPASE 78 U/L (73-393); POTASSIUM SERUM 3.7 MEQ/L (3.5-5.1); SODIUM LEVEL 141 MEQ/L (136-145); TOTAL PROTEIN 7.5 GM/DL (6.4-8.2)
[2019-11-08] MEDS ORDERED: ONDA4TAB6 PO (19:52)
[2019-11-08 20:00] VITALS: BP 120/73
== END 2019-11-08 20:03 | disposition home or self-care (01) ==
LOC: M ED 17:43
DX: K52.9 Noninfective gastroenteritis and colitis, unspecified (principal); E28.2 Polycystic ovarian syndrome; Z79.84 Long term (current) use of oral hypoglycemic drugs; Z79.899 Other long term (current) drug therapy

== ENCOUNTER → 2019-11-09 | Outpatient (REF) | payer BC ==
[~2019-11-09] MED LIST changes: +IBUP200C25 PO; +ONDA4TAB6 PO
== END ==
LOC: M LAB REF 12:41
PROVIDERS: ATTEND Emergency Medicine
DX: R19.7 Diarrhea, unspecified (principal)

== ENCOUNTER → 2020-04-25 | Outpatient (REF) | payer BC ==
[~2020-04-25] MED LIST changes: -METF-791; +METF-838
== END ==
LOC: M WUC 11:11
PROVIDERS: ATTEND Nurse Practitioner Family
DX: J02.9 Acute pharyngitis, unspecified (principal)

== ENCOUNTER → 2020-09-23 | Outpatient (CLI) | payer OTHER ==
--- NOTE | 2020-09-23 15:33 | REP ---
INDICATION: EVAL FOR OVARIAN CYST. COMPARISON: 09/10/2019. TECHNIQUE: Transabdominal and transvaginal scanning performed. FINDINGS: Uterine dimensions are 7.6 x 3.4 x 3.7 cm. Endometrial echo is 6 mm in AP dimension and centrally placed. The bladder measures 12.4 x 7.1 x 8.0 cm. The right ovary has been surgically removed. The left ovary dimensions are 2.8 x 2.0 x 2.2 cm. Blood flow is seen in the left ovary with duplex Doppler evaluation, with no torsion. There is no adnexal mass identified. No free fluid is seen in the cul-de-sac. IMPRESSION: Status post right oophorectomy. No torsion left ovary. No adnexal mass or free fluid. <Electronically signed by Abdulkadir Gustafson > 09/23/20 1524
== END ==
LOC: M RAD 14:34
PROVIDERS: ATTEND Physician Assistant Medical
DX: R10.9 Unspecified abdominal pain (principal)

== ENCOUNTER 2020-10-22 08:35 | Emergency (ER) | payer OTHER ==
[~2020-10-22] VITALS: Ht 172.7 cm; Wt 127.3 kg
--- OUTSIDE RECORDS SUMMARY | 2020-10-22 08:41 | CCD ---
Author Author [facility] Organization [facility] Address Unknown Phone Unavailable Care Team Providers Care Content Director Name Role Phone Vanessa Braden Unavailable PROBLEMS Type Condition ICD9-CM Code BHW72-YS Code Onset Dates Condition S tatus SNOMED Code Notes Problem Smoking F17.200 Active 53602790 Problem Body mass index (BMI) 45.0-49.9, adult Z68.42 A ctive 275100784 Problem Morbid (severe) obesity due to excess calories E66 .01 Active 35786531959303 Problem Chronic tonsillar hypertrophy J35.1 Active 46 138716 Problem Hypothyroidism, unspecified type E03.9 Active 78483848 Problem Body mass index [BMI] 45.0-49.9, adult Z68.42 A ctive 877522240 Problem Irregular menstrual bleeding N92.6 Active 801 42550 Problem Polycystic ovarian syndrome E28.2 Active 2370 82660 Problem Anxiety F41.9 Active 77461861 Problem Tonsillar calculus J35.8 Active 3774765 ALLERGIES No Known Allergies ENCOUNTERS from 1996 to 2020-08-01 Encounter Location Date Provider Diagnosis [address] [address] Jul, Vanessa Braden IMMUNIZATIONS No Information SOCIAL HISTORY Tobacco Use: Social History Observation Description Date Details (start date - stop date) Current Smoker Sex Assigned At : Social History Observation Description Sex Assigned At Unknown Tobacco Use/Smoking Question Answer Notes Are you a current smoker How many cigarettes a day do you smoke? 5 or less How often do you smoke cigarettes? every day REASON FOR REFERRAL No Information VITAL SIGNS No information MEDICATIONS Medication SIG (Take, Route, Frequency, Duration) Notes Start Da te End Date Status Levothyroxine Sodium 100 MCG 1 tablet in the morning o n an empty stomach Orally Once a day for 90 day(s) Jul, Active HydrOXYzine HCl 10 MG 1 tablet as needed Orally up to three times per day for 30 day(s) January, Not-Taking Synthroid 88 MCG 1 tablet in the morning on a n empty stomach Orally Once a day for 60 days Mar, Active Norgestim-Eth Estrad Triphasic 0.18/0.215/0.25 MG-35 M CG 1 tablet Orally Once a day for 84 day(s) Sep, Active PROCEDURES No Information RESULTS No Results REASON FOR VISIT letter MEDICAL (GENERAL) HISTORY Type Description Date Medical History hypothyroidism Surgical History right ovary removal. [facility] 09/19/2019 Goals Section No Information Health Concerns No Information MEDICAL EQUIPMENT No Information MENTAL STATUS No Information FUNCTIONAL STATUS No Information ASSESSMENTS No Information PLAN OF TREATMENT Medication Medication Name Sig Start Date Stop Date Levothyroxine Sodium 100 MCG 1 tablet in the morning o n an empty stomach Orally Once a day for 90 day(s) Jul, Next Appt Details Provider Name:Gema Gutierrez, 2020-08-27 11:00:00 AM, [address] [place] [address], [phone], Provider Name:Sagar Khan, 2020-09-24 09:00:00 AM, [address] [place] [address], [phone], Provider Name:Vanessa Braden, 2020-09-12 3 10:00:00 AM, [address] [place] [address], [phone], Insurance Providers Payer Name Payer Address Payer Phone Insured Name Patient Relati onship to Insured Coverage Start Date Coverage End Date [facility] [address] [address] [facility] [id number] Dilcia Eller self
--- OUTSIDE RECORDS SUMMARY | 2020-10-22 08:42 | CCD | Continuity of Care Document ---
Author Author Dilcia GARSIA [employer] Organization Unknown Address [address] [place] [id number] Phone [phone] Care Team Providers Care Accountant Assistant Name Role Phone [facility] [phone] Problems Description No Information Available Social History Type Date Description Comments Sex Unknown ETOH Use Denies alcohol use Tobacco Use Start: Unknown Patient is a current smoker, smo kes every day Tobacco Use Start: Unknown The Patient Has Never Vaped Smoking Status Reviewed: 07/24/20 The Patient Has Never Vaped Allergies, Adverse Reactions, Alerts Active Allergies Reaction Severity Comments Date NKDA 01/06/2016 Cinnamon tongue and lips swell. 03/22 Medications Active Medications SIG Qnty Indications Ordering Provide r Date Control Pill Humphrey burden JR., M.D. 04/12/2020 Synthroid 75mcg Tablets qd Unknown Hydroxyzine HCL 10mg/5ML Syrup bid prn Unknown Aleve 220mg Tablets 2prn Unknown History Medications Loratadine 10mg Tablets once a day as needed for allergy symptoms 14tabs J02.9 Humphrey Villagomez M.D. 04/25/2020 - 05/09/2020 Pseudoephedrine HCL ER 120mg Tablets ER 12HR 1 tab by mouth every 12 hours as directed 20tabs J06.9 Humphrey Jacobs JR., M.D. 04/12/2020 - 04/19/2020 Fluticasone Propionate 50mcg/Act Suspension 2 spray each nostril every day 16gm J06.9 Humphrey Jacobs JR., M.D. 04/12/2020 - 07/14/2020 Immunizations CPT Code Status Date Vaccine Lot # [id number] Given 04/27/2016 Tdap/Tetanus, Di phth Toxoids/Acellular Pertussis Vac 7Yr Or > [id number] Vital Signs Date Vital Result Comment 07/24/2020 9:02am BP Systolic 153 mmHg BP Diastolic 87 mmHg Heart Rate 88 /min Respiratory Rate 20 /min O2 % BldC Oximetry 98 % Body Temperature 97.8 F Weight 300.00 lb weighed Height 67 inches 5'7" BMI (Body Mass Index) 47.0 kg/m2 Pain Level 7 04/25/2020 10:21am BP Systolic 130 mmHg BP Diastolic 86 mmHg Heart Rate 98 /min O2 % BldC Oximetry 100 % Body Temperature 97.3 F Weight 305.00 lb Height 67 inches 5'7" BMI (Body Mass Index) 47.8 kg/m2 Pain Level 6 Results Test Acquired Date Facility Test Result H/L Range Note Throat Culture 04/25/2020 [facility] nter [address], [place] [id number] [phone] Throat Culture FULL REPORT IN L <SEE NOTE> Normal 1 1 FULL REPORT IN LAB NOTES (eC W and Med[facility]). NORMAL VIKI PRESENT ORGANISM 1: STREPTOCOCCUS GROUP C QUANTITY OF GROWTH MODERATE ORGANISM 1: STREPTOCOCCUS GROUP C Procedures Description No Information Available Medical Devices Description No Information Available Encounters Type Date Location Provider Dx Diagnosis Office Visit 07/24/2020 8:45a Main Office Nathalia Garsia NP E28. 2 Polycystic ovarian syndrome Office Visit 04/25/2020 9:50a Main Office Nathalia Garsia NP J02. 9 Acute pharyngitis, unspecified Office Visit 04/12/2020 5:00p Main Office Michael Ahumada, P.A. J0 6.9 Acute upper respiratory infection, unspecified Assessments Date Code Description Provider 07/24/2020 E28.2 Polycystic ovarian syndrome Lon Garsia NP 04/25/2020 J02.9 Acute pharyngitis, unspecified S jaret Garsia NP 04/12/2020 J06.9 Acute upper respiratory infectio n, unspecified Michael Ahumada, P.A. Plan of Treatment 07/24/2020 - Nathalia Garsia NP* E28.2 Polycystic ovarian syndrome* Comments: * continue supportive carerest/timef/u with PCP or GYNpatient v/u & agreeable to plan Functional Status Description No Information Available Mental Status Description No Information Available Referrals Description No Information Available
--- OUTSIDE RECORDS SUMMARY | 2020-10-22 08:42 | CCD ---
Author Author [facility] Organization [facility] Address Unknown Phone Unavailable Care Team Providers Care Healthcare Consulting Manager Name Role Phone Andreia Braden-C Unavailable Unavailable Sampson, Andreia GARCÍA-C Unavailable Unavailable Sampson, M Vanessa GARCÍA-C Unavailable Unavailable Sampson, Andreia GARCÍA-C Unavailable Unavailable Sampson, M Vanessa PA-C Unavailable Unavailable Sampson, M Vanessa PA-C Unavailable Unavailable Sampson, M Vanessa PA-C Unavailable Unavailable Sampson, M Vanessa PA-C Unavailable Unavailable Sampson, M Vanessa GARCÍA-C Unavailable Unavailable Sampson, M Vanessa PA-C Unavailable Unavailable Sampson, M Vanessa PA-C Unavailable Unavailable Sampson, M Vanessa PA-C Unavailable Unavailable Sampson, M Vanessa PA-C Unavailable Unavailable Sampson, M Vanessa PA-C Unavailable Unavailable Sampson, M Vanessa PA-C Unavailable Unavailable Sampson, M Vanessa PA-C Unavailable Unavailable Sampson, M Vanessa PA-C Unavailable Unavailable Sampson, M Vanessa PA-C Unavailable Unavailable Sampson, M Vanessa PA-C Unavailable Unavailable Sampson, M Vanessa PA-C Unavailable Unavailable Sampson, M Vanessa PA-C Unavailable Unavailable Sampson, M Vanessa PA-C Unavailable Unavailable Sampson, M Vanessa PA-C Unavailable Unavailable SORENSEN SR, JASSON AWAD MD Unavailable Unavailable SORENSEN SR, JASSON AWAD MD Unavailable Unavailable SORENSEN SR, JASSON AWAD MD Unavailable Unavailable SORENSEN SR, JASSON AWAD MD Unavailable Unavailable SORENSEN SR, JASSON AWAD MD Unavailable Unavailable SORENSEN SR, JASSON AWAD MD Unavailable Unavailable SORENSEN SR, JASSON AWAD MD Unavailable Unavailable SORENSEN SR, JASSON AWAD MD Unavailable Unavailable SORENSEN SR, JASSON AWAD MD Unavailable Unavailable SORENSEN SR, JASSON AWAD MD Unavailable Unavailable SORENSEN SR, JASSON AWAD MD Unavailable Unavailable SORENSEN SR, JASSON AWAD MD Unavailable Unavailable SORENSEN SR, JASSON AWAD MD Unavailable Unavailable SORENSEN SR, JASSON AWAD MD Unavailable Unavailable SORENSEN SR, JASSON AWAD MD Unavailable Unavailable SORENSEN SR, JASSON AWAD MD Unavailable Unavailable SORENSEN SR, JASSON AWAD MD Unavailable Unavailable SORENSEN SR, JASSON AWAD MD Unavailable Unavailable SORENSEN SR, JASSON AWAD MD Unavailable Unavailable SORENSEN SR, JASSON AWAD MD Unavailable Unavailable SORENSEN SR, JASSON AWAD MD Unavailable Unavailable SORENSEN SR, JASSON AWAD MD Unavailable Unavailable SORENSEN SR, JASSON AWAD MD Unavailable Unavailable SORENSEN SR, JASSON AWAD MD Unavailable Unavailable SORENSEN SR, JASSON AWAD MD Unavailable Unavailable SORENSEN SR, JASSON AWAD MD Unavailable Unavailable SORENSEN SR, JASSON AWAD MD Unavailable Unavailable SORENSNE SR, JASSON AWAD MD Unavailable Unavailable SORENSEN SR, JASSON AWAD MD Unavailable Unavailable SORENSEN SR, JASSON AWAD MD Unavailable Unavailable SORENSEN SR, JASSON AWAD MD Unavailable Unavailable SORENSEN SR, JASSON AWAD MD Unavailable Unavailable SORENSEN SR, JASSON AWAD MD Unavailable Unavailable SORENSEN SR, JASSON AWAD MD Unavailable Unavailable SORENSEN SR, JASSON AWAD MD Unavailable Unavailable SORENSEN SR, JASSON AWAD MD Unavailable Unavailable SORENSEN SR, JASSON AWAD MD Unavailable Unavailable SORENSEN SR, JASSON AWAD MD Unavailable Unavailable SORENSEN SR, JASSON AWAD MD Unavailable Unavailable SORENSEN SR, JASSON AWAD MD Unavailable Unavailable SORENSEN SR, JASSON AWAD MD Unavailable Unavailable SORENSEN SR, JASSON AWAD MD Unavailable Unavailable SORENSEN SR, JASSON AWAD MD Unavailable Unavailable SORENSEN SR, JASSON AWAD MD Unavailable Unavailable SORENSEN SR, JASSON AWAD MD Unavailable Unavailable SORENSEN SR, JASSON AWAD MD Unavailable Unavailable SORENSEN SR, JASSON AWAD MD Unavailable Unavailable SORENSEN SR, JASSON AWAD MD Unavailable Unavailable SORENSEN SR, JASSON AWAD MD Unavailable Unavailable SORENSEN SR, JASSON AWAD MD Unavailable Unavailable SORENSEN SR, JASSON AWAD MD Unavailable Unavailable SORENSEN SR, JASSON AWAD MD Unavailable Unavailable SORENSEN SR, JASSON AWAD MD Unavailable Unavailable SORENSEN SR, JASSON AWAD MD Unavailable Unavailable SAMIA, ANKITA PA Unavailable Unavailable SAMIA, ANKITA PA Unavailable Unavailable SAMIA, ANKITA PA Unavailable Unavailable SAMIA, ANKITA PA Unavailable Unavailable SAMIA, ANKITA PA Unavailable Unavailable SAMIA, ANKITA PA Unavailable Unavailable SAMIA, ANKITA PA Unavailable Unavailable SAMIA, ANKITA PA Unavailable Unavailable SAMIA, ANKITA PA Unavailable Unavailable SAMIA, ANKITA PA Unavailable Unavailable SAMIA, ANKITA PA Unavailable Unavailable SAMIA, ANKITA PA Unavailable Unavailable SAMIA, ANKITA PA Unavailable Unavailable SAMIA, ANKITA PA Unavailable Unavailable SAMIA, ANKITA PA Unavailable Unavailable SAMIA, ANKITA PA Unavailable Unavailable SAMIA, ANKITA PA Unavailable Unavailable SAMIA, ANKITA PA Unavailable Unavailable SAMIA, ANKITA PA Unavailable Unavailable SAMIA, ANKITA PA Unavailable Unavailable SAMIA, ANKITA PA Unavailable Unavailable SAMIA, ANKITA PA Unavailable Unavailable SAMIA, ANKITA PA Unavailable Unavailable SAMIA, ANKITA PA Unavailable Unavailable SAMIA, ANKITA PA Unavailable Unavailable SAMIA, ANKITA PA Unavailable Unavailable SAMIA, ANKITA PA Unavailable Unavailable SAMIA, ANKITA PA Unavailable Unavailable SAMIA, ANKITA PA Unavailable Unavailable SAMIA, ANKITA PA Unavailable Unavailable SAMIA, ANKITA PA Unavailable Unavailable SAMIA, ANKITA PA Unavailable Unavailable SAMIA, ANKITA PA Unavailable Unavailable SAMIA, ANKITA PA Unavailable Unavailable SAMIA, ANKITA PA Unavailable Unavailable SAMIA, ANKITA PA Unavailable Unavailable SAMIA, ANKITA PA Unavailable Unavailable SAMIA, ANKITA PA Unavailable Unavailable Rosario HEBERT DO Unavailable Unavailable EMILEERosario ADAMES DO Unavailable Unavailable EMILEE, J TIMMY DO Unavailable Unavailable EMILEE, Rosario CHAVEZW DO Unavailable Unavailable EMILEE, Rosario CHAVEZW DO Unavailable Unavailable EMILEE, Rosario CHAVEZW DO Unavailable Unavailable EMILEE, Rosario CHAVEZW DO Unavailable Unavailable EMILEE, J TIMMY DO Unavailable Unavailable EMILEE, J TIMMY DO Unavailable Unavailable EMILEE, J TIMMY DO Unavailable Unavailable EMILEE, J TIMMY DO Unavailable Unavailable EMILEE, J TIMMY DO Unavailable Unavailable EMILEE, J TIMMY DO Unavailable Unavailable EMILEE, J TIMMY DO Unavailable Unavailable EMILEE, J ITMMY DO Unavailable Unavailable EMILEE, J TIMMY DO Unavailable Unavailable EMILEE, J TIMMY DO Unavailable Unavailable EMILEE, J TIMMY DO Unavailable Unavailable EMILEE, J TIMMY DO Unavailable Unavailable EMILEE, J TIMMY DO Unavailable Unavailable EMILEE, J TIMMY DO Unavailable Unavailable EMILEE, J TIMMY DO Unavailable Unavailable EMILEE, Rosario CHAVEZW DO Unavailable Unavailable TONTARSKI, G MARTIN PA Unavailable Unavailable TONTARSKI, G MARTIN PA Unavailable Unavailable TONTARSKI, G MARTIN PA Unavailable Unavailable TONTARSKI, G MARTIN PA Unavailable Unavailable TONTARSKI, G MARTIN PA Unavailable Unavailable TONTARSKI, G MARTIN PA Unavailable Unavailable TONTARSKI, G MARTIN PA Unavailable Unavailable TONTARSKI, G MARTIN PA Unavailable Unavailable TONTARSKI, G MARTIN PA Unavailable Unavailable TONTARSKI, G MARTIN PA Unavailable Unavailable TONTARSKI, G MARTIN PA Unavailable Unavailable TONTARSKI, G MARTIN PA Unavailable Unavailable TONTARSKI, G MARTIN PA Unavailable Unavailable TONTARSKI, G MARTIN PA Unavailable Unavailable TONTARSKI, G MARTIN PA Unavailable Unavailable TONTARSKI, G MARTIN PA Unavailable Unavailable TONTARSKI, G MARTIN PA Unavailable Unavailable TONTARSKI, G MARTIN PA Unavailable Unavailable TONTARSKI, G MARTIN PA Unavailable Unavailable TONTARSKI, G MARTIN PA Unavailable Unavailable TONTARSKI, G MARTIN PA Unavailable Unavailable TONTARSKI, G MARTIN PA Unavailable Unavailable TONTARSKI, G MARTIN PA Unavailable Unavailable TONTARSKI, G MARTIN PA Unavailable Unavailable TONTARSKI, G MARTIN PA Unavailable Unavailable TONTARSKI, G MARTIN PA Unavailable Unavailable TONTARSKI, G MARTIN PA Unavailable Unavailable TONTARSKI, G MARTIN PA Unavailable Unavailable TONTARSKI, G MARTIN PA Unavailable Unavailable TONTARSKI, G MARTIN PA Unavailable Unavailable TONTARSKI, G MARTIN PA Unavailable Unavailable TONTARSKI, G MARTIN PA Unavailable Unavailable TONTARSKI, G MARTIN PA Unavailable Unavailable TONTARSKI, G MARTIN PA Unavailable Unavailable TONTARSKI, G MARTIN PA Unavailable Unavailable TONTARSKI, G MARTIN PA Unavailable Unavailable TONTARSKI, G MARTIN PA Unavailable Unavailable TONTARSKI, G MARTIN PA Unavailable Unavailable TONTARSKI, G MARTIN PA Unavailable Unavailable TONTARSKI, G MARTIN PA Unavailable Unavailable TONTARSKI, G MARTIN PA Unavailable Unavailable TONTARSKI, G MARTIN PA Unavailable Unavailable TONTARSKI, G MARTIN PA Unavailable Unavailable TONTARSKI, G MARTIN PA Unavailable Unavailable TONTARSKI, G MARTIN PA Unavailable Unavailable TONTARSKI, G MARTIN PA Unavailable Unavailable TONTARSKI, G MARTIN PA Unavailable Unavailable TONTARSMEE, G MARTIN PA Unavailable Unavailable Xiang, Regminerva W Gladys PET FEEDER-C Unavailable Unavailabl e Xiang, Regminerva W Gladys PET FEEDER-C Unavailable Unavailabl e Xiang, Regminerva W Gladys PET FEEDER-C Unavailable Unavailabl e Xiang, Regminerva W Gladys PET FEEDER-C Unavailable Unavailabl e Xiang, Regminerva W Gladys PET FEEDER-C Unavailable Unavailabl e Xiang, Reginaagustin W Gladys PET FEEDER-C Unavailable Unavailabl e Xiang, Reginaagustin W Gladys PET FEEDER-C Unavailable Unavailabl e Xiang, Regminerva W Gladys PET FEEDER-C Unavailable Unavailabl e Xiang, Regsuleimanagustin W Gladys PET FEEDER-C Unavailable Unavailabl e Xiang, Regsuleimanagustin W Gladys PET FEEDER-C Unavailable Unavailabl e Xiang, Regminerva W Gladys PET FEEDER-C Unavailable Unavailabl e Xiang, Reginaagustin W Gladys PET FEEDER-C Unavailable Unavailabl e Xiang, Reginaagustin W Gladys PET FEEDER-C Unavailable Unavailabl e Xiang, Eli Solise PET FEEDER-C Unavailable Unavailabl e Xiang, Eli W Gladys PET FEEDER-C Unavailable Unavailabl e Xiang, Eli W Gladys PET FEEDER-C Unavailable Unavailabl e Xiang, Eli W Gladys PET FEEDER-C Unavailable Unavailabl e Xiang, Eli W Gladys PET FEEDER-C Unavailable Unavailabl e Xiang, Eli W Gladys PET FEEDER-C Unavailable Unavailabl e Xiang, Eli W Gladys PET FEEDER-C Unavailable Unavailabl e Xiang, Eli W Gladys PET FEEDER-C Unavailable Unavailabl e Xiang, Eli W Gladys PET FEEDER-C Unavailable Unavailabl e Xiang, Eli W Gladys PET FEEDER-C Unavailable Unavailabl e Xiang, Eli Cruzyce PET FEEDER-C Unavailable Unavailabl e Xiang, Eli W Gladys PET FEEDER-C Unavailable Unavailabl e Xiang, Eli W Gladys PET FEEDER-C Unavailable Unavailabl e Xiang, Eli W Gladys PET FEEDER-C Unavailable Unavailabl e Xiang, Eli W Gladys PET FEEDER-C Unavailable Unavailabl e Xiang, Eli W Gladys PET FEEDER-C Unavailable Unavailabl e Xiang, Eli Cruzyce PET FEEDER-C Unavailable Unavailabl e Xiang, Eli W Gladys PET FEEDER-C Unavailable Unavailabl e Xiang, Eli W Gladys PET FEEDER-C Unavailable Unavailabl e Castro, Nathalia APPAREL MERCHANDISER Unavailable Unavailable Castro, Nathalia APPAREL MERCHANDISER Unavailable Unavailable Castro, Nathalia APPAREL MERCHANDISER Unavailable Unavailable Castro, Nathalia APPAREL MERCHANDISER Unavailable Unavailable Castro, Nathalia APPAREL MERCHANDISER Unavailable Unavailable Castro, Nathalia APPAREL MERCHANDISER Unavailable Unavailable Castro, Nathalia APPAREL MERCHANDISER Unavailable Unavailable Castro, Nathalia APPAREL MERCHANDISER Unavailable Unavailable Castro, Nathalia APPAREL MERCHANDISER Unavailable Unavailable Castro, Nathalia APPAREL MERCHANDISER Unavailable Unavailable Castro, Nathalia APPAREL MERCHANDISER Unavailable Unavailable Re-disclosure Warning The records that you are about to access may contain information from federally-assisted alcohol or drug abuse programs. If such information is present, then the following federally mandated warning applies: This information has been disclosed to you from records protected by federal confidentiality rules (42 CFR part 2). The federal rules prohibit you from making any further disclosure of this information unless further disclosure is expressly permitted by the written consent of the person to whom it pertains or as otherwise permitted by 42 CFR part 2. A general authorization for the release of medical or other information is NOT sufficient for this purpose. The Federal rules restrict any use of the information to criminally investigate or prosecute any alcohol or drug abuse patient.The records that you are about to access may contain highly sensitive health information, the redisclosure of which is protected by Article 27-F of the [facility] Public Health law. If you continue you may have access to information: Regarding HIV / AIDS; Provided by facilities licensed or operated by the [facility] Office of Mental Health; or Provided by the [facility] Office for People With Developmental Disabilities. If such information is present, then the following [facility] mandated warning applies: This information has been disclosed to you from confidential records which are protected by state law. State law prohibits you from making any further disclosure of this information without the specific written consent of the person to whom it pertains, or as otherwise permitted by law. Any unauthorized further disclosure in violation of state law may result in a fine or senior care sentence or both. A general authorization for the release of medical or other information is NOT sufficient authorization for further disc losure. Family History Family Member Name Family Member Gender Family Member Status Date o f Status Description Data Source(s) Unknown Unknown Problem [facility] ([facility]) mother, mgm, pgf Unknown Male Problem [facility] ([facility]) Encounters Encounter Providers Location Date Indications Data Source(s ) Outpatient [facility] 08/01/2020 12:00:00 AM EST eCW1 ([facility]) Outpatient Attender: Vanessa Braden PA-C 07/31/2020 02:30 :00 PM EST [facility] Outpatient Attender: Nathalia gao 07/24/2020 07:45:00 AM EST [facility] ([facility]) Outpatient Attender: Vanessa MURRAYCReferrer: Vanessa Braden PA-C EMERGENCY ROOM-LAB 07/23/2020 09:28:00 AM EST - 07/23/2020 09:28:00 AM [facility] Outpatient Attender: Vanessa Braden PA-C 07/16/2020 08:48 :00 AM EST [facility] Outpatient [facility] 07/16/2020 12:00:00 AM EST eCW1 ([facility]) Outpatient [facility] 05/08/2020 12:00:00 AM EDT eCW1 ([facility]) Outpatient Attender: DELMI SORENSEN SRReferrer: DELMI Massey SR 05/07/2020 02:00:00 PM EDT [facility] Outpatient [facility] 04/26/2020 12:00:00 AM EDT eCW1 ([facility]) Outpatient [facility] 04/26/2020 12:00:00 AM EDT eCW1 ([facility]) Outpatient Attender: Nathalia gao 04/25/2020 09:50:00 AM EDT MEDENT ([facility]) Outpatient Attender: ANKITA martin 04/12/2020 05:00:00 PM EDT MED[facility] ([facility]) Outpatient Attender: DELMI SORENSEN SRReferrer: NGOZI SORENSEN SR EMERGENCY ROOM-LAB 04/10/2020 12:19:00 PM EDT - 04/10/2020 12:19:00 PM EDT [facility] Outpatient [facility] 04/10/2020 12:00:00 AM EDT eCW1 ([facility]) Outpatient Attender: Gladys HOWARD 03/04/2020 10:58:0 0 AM EDT [facility] Outpatient [facility] 03/04/2020 12:00:00 AM EDT eCW1 ([facility]) Outpatient Attender: DELMI SORENSEN SR 01/23/2020 03:00:00 PM EDT [facility] ENTER 01/23/2020 12:00:00 AM EDT eCW1 ([facility]) [facility] 01/09/2020 12: 00:00 AM EDT eCW1 ([facility]) [facility] ENTER 01/03/2020 12:00:00 AM EDT eCW1 ([facility]) Outpatient Attender: DELMI SORENSEN SRReferrer: NGOZI SORENSEN SR EMERGENCY ROOM-LAB 12/19/2019 09:38:00 AM EDT - 12/19/2019 09:38:00 AM EDT [facility] Outpatient Attender: TIMMY Reyeser: DELMI SORENSEN SR 12/19/2019 09:36:00 AM EDT - 12/19/2019 09:36:00 [facility] TIMMY HEBERT DO 12/19/2019 09:18:00 A M EDT [facility] Outpatient [facility] 12/19/2019 12:00:00 AM EDT eCW1 ([facility]) Specialty Clinic [facility] 12/19/2019 12: 00:00 AM EDT eCW1 ([facility]) [facility] ENTER 12/07/2019 12:00:00 AM EDT eCW1 ([facility]) Outpatient Attender: DELMI SORENSEN SRReferrer: NGOZI SORENSEN SR EMERGENCY ROOM-LAB 11/14/2019 01:20:00 PM EST - 11/14/2019 01:20:00 PM EST [facility] ENTER 11/14/2019 12:00:00 AM EST eCW1 ([facility]) [facility] EN[facility] 11/02/2019 12:00:00 AM EST eCW1 ([facility]) [facility] EN[facility] 11/02/2019 12:00:00 AM EST eCW1 ([facility]) Outpatient 10/31/2019 02:39:00 PM EST [facility] Outpatient Attender: TIMMY HEBERT DO 10/11/2019 01:00:00 P M EST [facility] Specialty Clinic [facility] 10/11/2019 12: 00:00 AM EST eCW1 ([facility]) Outpatient Attender: TIMMY Keene: DELMI SORENSEN SR EMERGENCY ROOM-ULTRA 10/09/2019 12:53:00 PM EST - 10/09/2019 12:53:00 PM EST [facility] ENTER 10/08/2019 12:00:00 AM EST eCW1 ([facility]) Outpatient Attender: DELMI SORENSEN SR 10/05/2019 02:30:00 PM EST [facility] C ENTER 10/05/2019 12:00:00 AM EST eCW1 ([facility]) Outpatient 10/02/2019 07:13:00 AM EST [facility] Outpatient Attender: TIMMY HEBERT DO 09/26/2019 09:38:00 A M EST [facility] Specialty Clinic [facility] 09/26/2019 12: 00:00 AM EST eCW1 ([facility]) Outpatient Attender: DELMI SORENSEN SRReferrer: NGOZI SORENSEN SR EMERGENCY ROOM-LAB 09/21/2019 03:24:00 PM EST - 09/21/2019 03:24:00 PM [facility] Outpatient Attender: DELMI SORENSEN SR 09/21/2019 02:30:00 PM EST [facility] ENTER 09/21/2019 12:00:00 AM EST eCW1 ([facility]) Emergency Attender: MARTIN GARCÍA EMERGENCY ROOM- ER 05/29/2012 06:14:00 AM EDT - 05/29/2012 07:53:00 AM T [facility] Medications Medication Brand Name Start Date Product Form Dose Route Admi nistrative Instructions Pharmacy Instructions Status Indications Reaction Description Data Source(s) Levothyroxine Sodium 0.1 MG Oral Tablet Levothyroxine Sodium 100 MCG Levothyroxine Sodium 100 MCG 07/31/2020 12:00:00 AM EST active Levothyroxine Sodium 100 MCG eCW1 ([facility]) Sulfamethoxazole 800 MG / Trimethoprim 1 60 MG Oral Tablet [Bactrim] Bactrim DS 800-160 MG Bactrim DS 800-160 MG 07/16/2020 12:00:00 AM EST 1.0 {table t} active Bactrim DS 800-160 MG eCW1 ( [facility]) Levothyroxine Sodium 0.088 MG Oral Tablet [Synthroid] Synthroid 88 MCG Synthroid 88 MCG 05/08/2020 12:00:00 AM EDT active Synthroid 88 MCG eCW1 ([facility]) Loratadine 10 MG Oral Tablet Loratadine 04/25/2020 12:00:00 AM EDT completed MEDENT ([facility]) Control Pill 04/12/2020 12:00:00 AM EDT active MEDENT ([facility]) Fluticasone Propionate Fluticasone Propionate 04/12/2020 12:00:00 AM E DT completed MEDENT ([facility]) 12 HR Pseudoephedrine Hydrochloride 120 MG Extended Re lease Oral Tablet Pseudoephedrine HCL ER 04/12/2020 12:00:00 AM EDT ORAL completed MEDENT ([facility]) Levothyroxine Sodium 0.088 MG Oral Tablet [Synthroid] Synthroid 88 MCG Synthroid 88 MCG 04/10/2020 12:00:00 AM EDT active Synthroid 88 MCG eCW1 ([facility]) Levothyroxine Sodium 0.088 MG Oral Tablet [Synthroid] Synthroid 88 MCG Synthroid 88 MCG 04/10/2020 12:00:00 AM EDT active Synthroid 88 MCG eCW1 ([facility]) Levothyroxine Sodium 0.088 MG Oral Tablet [Synthroid] Synthroid 88 MCG Synthroid 88 MCG 04/10/2020 12:00:00 AM EDT active Synthroid 88 MCG eCW1 ([facility]) Levothyroxine Sodium 0.088 MG Oral Tablet [Synthroid] Synthroid 88 MCG Synthroid 88 MCG 04/10/2020 12:00:00 AM EDT active Synthroid 88 MCG eCW1 ([facility]) Levothyroxine Sodium 0.088 MG Oral Tablet [Synthroid] Synthroid 88 MCG Synthroid 88 MCG 04/10/2020 12:00:00 AM EDT active Synthroid 88 MCG eCW1 ([facility]) Levothyroxine Sodium 0.088 MG Oral Tablet [Synthroid] Synthroid 88 MCG Synthroid 88 MCG 04/10/2020 12:00:00 AM EDT active Synthroid 88 MCG eCW1 ([facility]) Amoxicillin 500 MG Oral Capsule Amoxicillin 500 MG 03/04/2020 12:00 :00 AM EDT 1.0 {capsule} active Amoxicillin 500 MG eCW1 ([facility]) Amoxicillin 500 MG Oral Capsule Amoxicillin 500 MG 03/04/2020 12:00 :00 AM EDT 1.0 {capsule} active Amoxicillin 500 MG eCW1 ([facility]) Amoxicillin 500 MG Oral Capsule Amoxicillin 500 MG 03/04/2020 12:00 :00 AM EDT 1.0 {capsule} active Amoxicillin 500 MG eCW1 ([facility]) Amoxicillin 500 MG Oral Capsule Amoxicillin 500 MG 03/04/2020 12:00 :00 AM EDT 1.0 {capsule} active Amoxicillin 500 MG eCW1 ([facility]) Amoxicillin 500 MG Oral Capsule Amoxicillin 500 MG 03/04/2020 12:00 :00 AM EDT 1.0 {capsule} active Amoxicillin 500 MG eCW1 ([facility]) Hydroxyzine Hydrochloride 10 MG Oral Tablet HydrOXYzin e HCl 10 MG HydrOXYzine HCl 10 MG 01/23/2020 12:00:00 AM EDT 1.0 {tablet_as_needed} suspended HydrOXYzine HCl 10 MG eCW1 ([facility]) Hydroxyzine Hydrochloride 10 MG Oral Tablet HydrOXYzin e HCl 10 MG HydrOXYzine HCl 10 MG 01/23/2020 12:00:00 AM EDT 1.0 {tablet_as_needed} suspended HydrOXYzine HCl 10 MG eCW1 ([facility]) Hydroxyzine Hydrochloride 10 MG Oral Tablet HydrOXYzin e HCl 10 MG HydrOXYzine HCl 10 MG 01/23/2020 12:00:00 AM EDT 1.0 {tablet_as_needed} active HydrOXYzine HCl 10 MG eCW1 ([facility]) Hydroxyzine Hydrochloride 10 MG Oral Tablet HydrOXYzin e HCl 10 MG HydrOXYzine HCl 10 MG 01/23/2020 12:00:00 AM EDT 1.0 {tablet_as_needed} suspended HydrOXYzine HCl 10 MG eCW1 ([facility]) Hydroxyzine Hydrochloride 10 MG Oral Tablet HydrOXYzin e HCl 10 MG HydrOXYzine HCl 10 MG 01/23/2020 12:00:00 AM EDT 1.0 {tablet_as_needed} suspended HydrOXYzine HCl 10 MG eCW1 ([facility]) Hydroxyzine Hydrochloride 10 MG Oral Tablet HydrOXYzin e HCl 10 MG HydrOXYzine HCl 10 MG 01/23/2020 12:00:00 AM EDT 1.0 {tablet_as_needed} suspended HydrOXYzine HCl 10 MG eCW1 ([facility]) Hydroxyzine Hydrochloride 10 MG Oral Tablet HydrOXYzin e HCl 10 MG HydrOXYzine HCl 10 MG 01/23/2020 12:00:00 AM EDT active 1 tablet as needed eCW1 ([facility]) Hydroxyzine Hydrochloride 10 MG Oral Tablet HydrOXYzin e HCl 10 MG HydrOXYzine HCl 10 MG 01/23/2020 12:00:00 AM EDT 1.0 {tablet_as_needed} suspended HydrOXYzine HCl 10 MG eCW1 ([facility]) Levothyroxine Sodium 0.075 MG Oral Tablet [Synthroid] Synthroid 75 MCG Synthroid 75 MCG 12/19/2019 12:00:00 AM EDT active Synthroid 75 MCG eCW1 ([facility]) Norgestim-Eth Estrad Triphasic 0.18/0.215/0.25 MG-35 M CG Norgestim-Eth Estrad Triphasic 0.18/0.215/0.25 MG-35 MCG 12/19/2019 12:00:00 AM EDT active 1 tablet eCW1 ([facility]) Levothyroxine Sodium 0.075 MG Oral Tablet [Synthroid] Synthroid 75 MCG Synthroid 75 MCG 12/19/2019 12:00:00 AM EDT active 1 tablet in the morning on an empty stomach eCW1 ([facility] rachid) Levothyroxine Sodium 0.075 MG Oral Tablet [Synthroid] Synthroid 75 MCG Synthroid 75 MCG 12/19/2019 12:00:00 AM EDT active Synthroid 75 MCG eCW1 ([facility]) Levothyroxine Sodium 0.075 MG Oral Tablet [Synthroid] Synthroid 75 MCG Synthroid 75 MCG 12/19/2019 12:00:00 AM EDT active Synthroid 75 MCG eCW1 ([facility]) Levothyroxine Sodium 0.075 MG Oral Tablet [Synthroid] Synthroid 75 MCG Synthroid 75 MCG 12/19/2019 12:00:00 AM EDT active Synthroid 75 MCG eCW1 ([facility]) Levothyroxine Sodium 0.075 MG Oral Tablet [Synthroid] Synthroid 75 MCG Synthroid 75 MCG 12/19/2019 12:00:00 AM EDT active Synthroid 75 MCG eCW1 ([facility]) Levothyroxine Sodium 0.075 MG Oral Tablet [Synthroid] Synthroid 75 MCG Synthroid 75 MCG 12/19/2019 12:00:00 AM EDT active Synthroid 75 MCG eCW1 ([facility]) Triamcinolone Acetonide 1 MG/ML Topical Cream Triamcin olone Acetonide 0.1 % Triamcinolone Acetonide 0.1 % 12/07/2019 12:00:00 AM EDT active 1 application to affected area eCW1 ([facility]) Triamcinolone Acetonide 1 MG/ML Topical Cream Triamcin olone Acetonide 0.1 % Triamcinolone Acetonide 0.1 % 12/07/2019 12:00:00 AM EDT active 1 application to affected area eCW1 ([facility]) Triamcinolone Acetonide 1 MG/ML Topical Cream Triamcin olone Acetonide 0.1 % Triamcinolone Acetonide 0.1 % 12/07/2019 12:00:00 AM EDT suspended 1 application to affected area eCW1 ([facility]) Levothyroxine Sodium 0.05 MG Oral Tablet [Synthroid] S ynthroid 50 MCG Synthroid 50 MCG 11/14/2019 12:00:00 AM EST active 1 tablet in the morning on an empty stomach eCW1 ([facility]) Levothyroxine Sodium 0.05 MG Oral Tablet [Synthroid] S ynthroid 50 MCG Synthroid 50 MCG 11/14/2019 12:00:00 AM EST active 1 tablet in the morning on an empty stomach eCW1 ([facility]) Norgestim-Eth Estrad Triphasic 0.18/0.215/0.25 MG-35 M CG Norgestim-Eth Estrad Triphasic 0.18/0.215/0.25 MG-35 MCG 10/11/2019 12:00:00 AM EST 1.0 {tablet} active Norgestim-Eth Estrad Trip hasic 0.18/0.215/0.25 MG-35 MCG eCW1 ([facility]) Norgestim-Eth Estrad Triphasic 0.18/0.215/0.25 MG-35 M CG Norgestim-Eth Estrad Triphasic 0.18/0.215/0.25 MG-35 MCG 10/11/2019 12:00:00 AM EST 1.0 {tablet} active Norgestim-Eth Estrad Trip hasic 0.18/0.215/0.25 MG-35 MCG eCW1 ([facility]) Norgestim-Eth Estrad Triphasic 0.18/0.215/0.25 MG-35 M CG Norgestim-Eth Estrad Triphasic 0.18/0.215/0.25 MG-35 MCG 10/11/2019 12:00:00 AM EST active 1 tablet eCW1 ([facility]) Norgestim-Eth Estrad Triphasic 0.18/0.215/0.25 MG-35 M CG Norgestim-Eth Estrad Triphasic 0.18/0.215/0.25 MG-35 MCG 10/11/2019 12:00:00 AM EST active 1 tablet eCW1 ([facility]) Norgestim-Eth Estrad Triphasic 0.18/0.215/0.25 MG-35 M CG Norgestim-Eth Estrad Triphasic 0.18/0.215/0.25 MG-35 MCG 10/11/2019 12:00:00 AM EST 1.0 {tablet} active Norgestim-Eth Estrad Trip hasic 0.18/0.215/0.25 MG-35 MCG eCW1 ([facility]) Norgestim-Eth Estrad Triphasic 0.18/0.215/0.25 MG-35 M CG Norgestim-Eth Estrad Triphasic 0.18/0.215/0.25 MG-35 MCG 10/11/2019 12:00:00 AM EST 1.0 {tablet} active Norgestim-Eth Estrad Trip hasic 0.18/0.215/0.25 MG-35 MCG eCW1 ([facility]) Norgestim-Eth Estrad Triphasic 0.18/0.215/0.25 MG-35 M CG Norgestim-Eth Estrad Triphasic 0.18/0.215/0.25 MG-35 MCG 10/11/2019 12:00:00 AM EST active 1 tablet eCW1 ([facility]) Norgestim-Eth Estrad Triphasic 0.18/0.215/0.25 MG-35 M CG Norgestim-Eth Estrad Triphasic 0.18/0.215/0.25 MG-35 MCG 10/11/2019 12:00:00 AM EST active 1 tablet eCW1 ([facility]) Norgestim-Eth Estrad Triphasic 0.18/0.215/0.25 MG-35 M CG Norgestim-Eth Estrad Triphasic 0.18/0.215/0.25 MG-35 MCG 10/11/2019 12:00:00 AM EST 1.0 {tablet} active Norgestim-Eth Estrad Trip hasic 0.18/0.215/0.25 MG-35 MCG eCW1 ([facility]) Norgestim-Eth Estrad Triphasic 0.18/0.215/0.25 MG-35 M CG Norgestim-Eth Estrad Triphasic 0.18/0.215/0.25 MG-35 MCG 10/11/2019 12:00:00 AM EST 1.0 {tablet} active Norgestim-Eth Estrad Trip hasic 0.18/0.215/0.25 MG-35 MCG eCW1 ([facility]) Norgestim-Eth Estrad Triphasic 0.18/0.215/0.25 MG-35 M CG Norgestim-Eth Estrad Triphasic 0.18/0.215/0.25 MG-35 MCG 10/11/2019 12:00:00 AM EST 1.0 {tablet} active Norgestim-Eth Estrad Trip hasic 0.18/0.215/0.25 MG-35 MCG eCW1 ([facility]) METFORMIN ER 500 MG UNK 10/05/2019 12:00:00 AM EST active 1 tab eCW1 ([facility]) METFORMIN ER 500 MG UNK 10/05/2019 12:00:00 AM EST active 1 tab eCW1 ([facility]) METFORMIN ER 500 MG UNK 10/05/2019 12:00:00 AM EST active METFORMIN ER 500 MG eCW1 ([facility]) METFORMIN ER 500 MG UNK 10/05/2019 12:00:00 AM EST active 1 tab eCW1 ([facility]) METFORMIN ER 500 MG UNK 10/05/2019 12:00:00 AM EST active 1 tab eCW1 ([facility]) METFORMIN ER 500 MG UNK 10/05/2019 12:00:00 AM EST active 1 tab eCW1 ([facility]) Levothyroxine Sodium 0.025 MG Oral Tablet [Synthroid] Synthroid 25 MCG Synthroid 25 MCG 09/21/2019 12:00:00 AM EST active 1 tablet in the morning on an empty stomach eCW1 ([facility]) Levothyroxine Sodium 0.025 MG Oral Tablet [Synthroid] Synthroid 25 MCG Synthroid 25 MCG 09/21/2019 12:00:00 AM EST active 1 tablet in the morning on an empty stomach eCW1 ([facility] rachid) Levothyroxine Sodium 0.025 MG Oral Tablet [Synthroid] Synthroid 25 MCG Synthroid 25 MCG 09/21/2019 12:00:00 AM EST active 1 tablet in the morning on an empty stomach eCW1 ([facility]) Levothyroxine Sodium 0.025 MG Oral Tablet [Synthroid] Synthroid 25 MCG Synthroid 25 MCG 09/21/2019 12:00:00 AM EST active 1 tablet in the morning on an empty stomach eCW1 ([facility] rachid) Synthroid 25 MCG UNK 09/21/2019 12:00:00 AM EST active 1 tablet in the morning on an empty stomach eCW1 ([facility]) Levothyroxine Sodium 0.025 MG Oral Tablet [Synthroid] Synthroid 25 MCG Synthroid 25 MCG 09/21/2019 12:00:00 AM EST active 1 tablet in the morning on an empty stomach eCW1 ([facility]) Insurance Providers Payer name Policy type / Coverage type Policy ID Covered alliance party ID Covered alliance party's relationship to torres Policy Torres Plan Information [facility] [id number] [facility]) O [id number] S [id number] UN COMMUNITY PLAN MCDO [id number] SP [id number] [employer] [place] [id number] S VYA [id number] [employer] [place] [id number] S VYA [id number] SELF PAY UNAVAILABLE CHILD UNAVAILA BLE EXCELLUS BC-BS PPO 306 [id number] SP [id number] [employer] [place] [id number] S VYA [id number] EXCELLUS BCBS B [id number] S VYA [id number] EXCELLUS BC-BS PPO 306 [id number] SP [id number] EXCELLUS BC-BS PPO 306 [id number] SP [id number] SELF PAY ONLY [id number] SP [id number] O UNAVAILABLE UNAVAILA BLE [employer] [place] WATN 306/806 [id number] SP [id number] [facility] Workers Compensation [id number] Self [id number] Blue Cross Blue Shield Commercial [id number] Self [id number] BLUE CROSS BLUE SHIELD CO [id number] 18 [id number] EXCELLUS BCBS B [id number] S YNC [id number] [place]BS [place] WATN PPO 302/307 [id number] SP [id number] [place]BS [place] WATN PPO 302/307 [id number] SP [id number] [employer] [place] WATN 306/806 [id number] SP [id number] BCBS/Excellus Medigap Part B [id number] Self [id number] [facility]() Workers Compensation [id number] Self [id number] BCBS/Excellus Medigap Part B [id number] Self [id number] [facility]() Workers Compensation [id number] Self [id number] SELF PAY ONLY [id number] SP [id number] SELF PAY ONLY UNAVAILABLE SP UNAV AILABLE UN COMMUNITY PLAN MCDO [id number] SP [id number] [facility]() Workers Compensation Self [facility] Health Maintenance Organization (HMO) Self SELF PAY SP [id number] S [id number] SELF PAY UNAVAILABLE MO2 UNAVAILA BLE SELF PAY P UNAVAILABLE UNAVAILA BLE [id number] Problems, Conditions, and Diagnoses Code Display Name Description Problem Type Effective Dates Data Source(s) Z68.42 [id number] Body mass index [BMI] 45.0-49.9, adult Pr oblem 07/16/2020 12:00:00 AM EST eCW1 ([facility]) J35.8 0399390 Tonsillar calculus Problem 03/04/2020 12:00: 00 AM EDT eCW1 ([facility]) J35.1 [id number] Chronic tonsillar hypertrophy Problem 2019 12:00:00 AM EDT eCW1 ([facility]) F41.9 [id number] Anxiety Problem 01/23/2020 12:00:00 AM ED T eCW1 ([facility]) F41.9 [id number] Anxiety Problem 01/23/2020 12:00:00 AM ED T eCW1 ([facility]) E28.2 [id number] Polycystic ovarian syndrome Problem 01/04/20 20 12:00:00 AM EDT eCW1 ([facility]) E28.2 [id number] Polycystic ovarian syndrome Problem 01/04/20 12:00:00 AM EDT eCW1 ([facility]) N92.6 [id number] Irregular menstrual bleeding Problem 020 12:00:00 AM EST eCW1 ([facility]) N92.6 19961235 Irregular menstrual bleeding Problem 020 12:00:00 AM EST eCW1 ([facility]) E66.01 [id number] Morbid (severe) obesity due to excess c alories Problem 10/05/2019 12:00:00 AM EST eCW1 ([facility]) Z68.42 [id number] Body mass index (BMI) 45.0-49.9, adult Pr oblem 10/05/2019 12:00:00 AM EST eCW1 ([facility]) E66.01 [id number] Morbid (severe) obesity due to excess c alories Problem 10/05/2019 12:00:00 AM EST eCW1 ([facility]) Z68.42 [id number] Body mass index (BMI) 45.0-49.9, adult Pr oblem 10/05/2019 12:00:00 AM EST eCW1 ([facility]) E03.9 09299978 Hypothyroidism, unspecified type Problem 09/21/2019 12:00:00 AM EST eCW1 ([facility]) F17.200 95222851 Smoking Problem 09/21/2019 12:00:00 AM ES T eCW1 ([facility]) F17.200 73701747 Smoking Problem 09/21/2019 12:00:00 AM ES T eCW1 ([facility]) E03.9 [id number] Hypothyroidism, unspecified type Problem 09/21/2019 12:00:00 AM EST eCW1 ([facility]) Z71.2 Person consulting for explanation of exa mination or test findings PERSON CONSULTING FOR EXPLANATION OF EXAM OR TEST Diagnosis 07/31/2020 02:30: 00 PM [facility] E03.9 Hypothyroidism, unspecified HYPOTHYROIDISM, UNSPECIFIE D Diagnosis 07/31/2020 02:30:00 PM [facility] F41.9 Anxiety disorder, unspecified ANXIETY DISORDER, UNSPEC IFIED Diagnosis 07/31/2020 02:30:00 PM [facility] L73.2 Hidradenitis suppurativa HIDRADENITIS SUPPURATIVA Diag nosis 07/31/2020 02:30:00 PM [facility] L02.818 Cutaneous abscess of other sites CUTANEOUS ABSCE SS OF OTHER SITES Diagnosis 07/31/2020 02:30:00 PM [facility] R73.03 PREDIABETES PREDIABETES Diagnosis 07/23/2020 09:28:00 AM [facility] Z13.220 Encounter for screening for lipoid disor ders ENCOUNTER FOR SCREENING FOR LIPOID DISORDERS Diagnosis 07/16/2020 08:48:00 AM [facility] Z68.42 Body mass index (BMI) 45.0-49.9, adult B AYLEEN MASS INDEX [BMI] 45.0-49.9, ADULT Diagnosis 07/16/2020 08:48:00 AM [facility] E66.01 Morbid (severe) obesity due to excess ca lories MORBID (SEVERE) OBESITY DUE TO EXCESS CALORIES Diagnosis 07/16/2020 08:48:00 AM [facility] Z80.3 Family history of malignant neoplasm of breast FAMILY HISTORY OF MALIGNANT NEOPLASM OF BREAST Diagnosis 07/16/2020 08:48:00 AM [facility] l Z12.39 Encounter for other screening for malign ant neoplasm of breast ENCOUNTER FOR OT SCREENING FOR MALIGNANT NEOPLASM Diagnosis 07/16/2020 08:48:00 AM [facility] Z90.721 Acquired absence of ovaries, unilateral ACQUIRED ABSENCE OF OVARIES, UNILATERAL Diagnosis 05/07/2020 02:00:00 PM [facility] l N85.4 Malposition of uterus MALPOSITION OF UTERUS Diagnosis 05/07/2020 02:00:00 PM [facility] R10.32 Left lower quadrant pain LEFT LOWER QUADRANT PAIN Diag nosis 05/07/2020 02:00:00 PM [facility] J35.8 Other chronic diseases of tonsils and ad enoids OTHER CHRONIC DISEASES OF TONSILS AND ADENOIDS Diagnosis 03/04/2020 10:58:[address] [facility] al J35.1 Hypertrophy of tonsils HYPERTROPHY OF TONSILS Diagnosi s 03/04/2020 10:58:00 AM [facility] J03.90 Acute tonsillitis, unspecified ACUTE TONSILLITIS, UNSP ECIFIED Diagnosis 03/04/2020 10:58:00 AM [facility] R21 Rash and other nonspecific skin eruption RASH AND OTHER NONSPECIFIC SKIN ERUPTION Diagnosis 01/23/2020 03:00:00 PM [facility] E28.2 Polycystic ovarian syndrome POLYCYSTIC OVARIAN SYNDROM E Diagnosis 12/19/2019 09:18:00 AM [facility] N92.6 Irregular menstruation, unspecified IRREGULAR ME NSTRUATION, UNSPECIFIED Diagnosis 10/11/2019 01:00:00 PM [facility] N85.00 Endometrial hyperplasia, unspecified END OMETRIAL HYPERPLASIA, UNSPECIFIED Diagnosis 10/09/2019 12:53:00 PM [facility] N83.511 Torsion of right ovary and ovarian pedic le TORSION OF RIGHT OVARY AND OVARIAN PEDICLE Diagnosis 09/26/2019 09:38:00 AM [facility] Z76.89 Persons encountering health services in other specified circumstances PERSONS ENCOUNTERING HEALTH SERVICES IN OTH CIRCUM Diagnosis 06/2020 02:30:00 PM [facility] F17.200 Nicotine dependence, unspecified, uncomp licated NICOTINE DEPENDENCE, UNSPECIFIED, UNCOMPLICATED Diagnosis 09/21/2019 02:30:00 PM [facility] N83.201 UNSPECIFIED OVARIAN CYST, RIGHT SIDE UNS PECIFIED OVARIAN CYST, RIGHT SIDE Diagnosis 09/21/2019 02:30:00 PM [facility] Results ID Date Data Source [id number] 07/23/2020 10:55:00 AM [facility] Name Value Range Interpretation Code Description Data Luisa rce(s) Supporting Document(s) FREE T4 1.18 ng/dL 0.76-1.46 [facility] ID Date Data Source [id number] 07/23/2020 10:41:00 AM [facility] Name Value Range Interpretation Code Description Data Luisa rce(s) Supporting Document(s) GLUCOSE 73 mg/dL 74-106 [facility] BLOOD UREA NITROGEN 9 mg/dL 7-18 [facility] ital CREATININE 0.8 mg/dL 0.6-1.0 [facility] SODIUM 140 mmol/L 136-145 [facility] POTASSIUM 4.3 mmol/L 3.5-5.1 [facility] CHLORIDE 102 mmol/L 98-107 [facility] CO2 24 mmol/L 21-32 [facility] CALCIUM 8.9 mg/dL 8.5-10.1 [facility] ANION GAP 14.0 mmol/L 5-12 H [facility] GLOMERULAR FILTRATION RATE 88 mL/min [facility] GFR IS CALCULATED IN mL/min/1.73m2 RAY L FUNCTION: >90MILDLY DECREASED: 60-89MILDY TO MODERATELY DECREASED: 45-59 MODERATELY TO SEVERELY DECREASED: 30-44SEVERELY DECREASED: 15-29RENAL FAILURE: <15 AST 55 U/L 15-37 H [facility] ALT 61 U/L 12-78 [facility] ALKALINE PHOSPHATASE 89 U/L 46-116 [facility] pital TOTAL BILIRUBIN 0.3 mg/dL 0.2-1.0 [facility] TOTAL PROTEIN 8.0 g/dl 6.4-8.2 [facility] ALBUMIN 3.3 gm/dL 3.4-5.0 [facility] ID Date Data Source [id number] 07/23/2020 10:41:00 AM [facility] Name Value Range Interpretation Code Description Data Luisa rce(s) Supporting Document(s) ESTIMATED AVERAGE GLUCOSE 116.9 mg/dL [facility] ID Date Data Source [id number] 07/23/2020 10:41:00 [facility] Name Value Range Interpretation Code Description Data [facility](s) Supporting Document(s) HGBA1C 5.7 % 3.8-5.6 H [facility] Diabetic > or = to 6.5%Prediabetes 5.7-6 .4%Normal <5.7 ID Date Data Source [id number] 07/23/2020 09:53:00 AM [facility] l Name Value Range Interpretation Code Description Data [facility] rce(s) Supporting Document(s) WHITE BLOOD COUNT 10.7 K/mm3 4.0-10.0 [facility] RED BLOOD COUNT 4.86 M/mm3 4.00-5.50 [facility] HEMOGLOBIN 13.1 gm/dL 12.0-16.0 [facility] HEMATOCRIT 40.2 % 36.0-48.8 [facility] MEAN CELL VOLUME 82.7 fl 80-96 [facility] MEAN CORPUSCULAR HEMOGLOBIN 27.0 pg 27.0-31.0 [facility] MEAN CORPUSCULAR HGB CONC 32.6 g/dl 32.0-36.0 [facility] RED CELL DISTRIBUTION WIDTH 14.5 % 10.0-14.5 [facility] PLATELET COUNT 384 K/mm3 172-450 [facility] MEAN PLATELET VOLUME 9.0 fl 9.0-13.0 [facility] pital GRAN % 63.4 % 50-80.0 [facility] IG% 0.8 % 0.0-0.2 H [facility] LYMPH % 21.0 % 25.0-50.0 L [facility] MONO % 10.9 % 2.0-10.0 H [facility] EOS % 3.3 % 0-5.0 [facility] BASO % 0.6 % 0.0-2.0 [facility] GRAN # 6.8 K/mm3 2.0-8.00 [facility] IG# 0.1 K/mm3 0.0-0.2 [facility] LYMPH # 2.3 K/mm3 1.0-5.0 [facility] MONO # 1.2 K/mm3 0.10-1.20 [facility] EOS # 0.4 K/mm3 0.0-0.5 [facility] BASO # 0.1 K/mm3 0.0-0.2 [facility] ID Date Data Source [id number] 07/23/2020 10:55:00 AM EST [facility] Name Value Range Interpretation Code Description Data Luisa rce(s) Supporting Document(s) TSH 4.56 uIU/mL 0.36-3.74 H [facility] ID Date Data Source [id number] 05/07/2020 02:38:00 PM [facility] DATED ON EXAMINATION: 05/07/2020 14:12 ED T PELVIC COMPLETE TRANS ABDOMEN HISTORY: Pain Real-time ultrasound imaging was performed utilizing B-mode/cooney scale and colorDoppler imaging where applicable. Patient is status post right oophorectomy. Uterus is anteverted. Endometrialstripe is 0.4 cm. Left ovary appears normal. There is no fluid in [id number]. IMPRESSION: Status post right oophorectomy. Anteverted uterus.. Electronically signed in [id number] by: Jamaal Reyes M.D. 05/07/2020 14:31 EDT Name Value Range Interpretation Code Description Data Luisa rce(s) Supporting Document(s) ID Date Data Source [id number] 04/25/2020 10:53:00 AM EDT [facility] ([facility]) Name Value Range Interpretation Code Description Data Luisa rce(s) Supporting Document(s) Throat Culture Laboratory test result [facility] ([facility]) FULL REPORT IN LAB NOTES (eCW and [facility] ). NORMAL VIKI PRESENT ORGANISM 1: STREPTOCOCCUS GROUP C QUANTITY OF GROWTH MODERATE ORGANISM 1: STREPTOCOCCUS GROUP C ID Date Data Source [id number] 04/25/2020 10:53:00 AM EDT [facility] ([facility]) Name Value Range Interpretation Code Description Data Luisa rce(s) Supporting Document(s) Bacteria identified in Throat by Culture Laboratory test result [facility] ([facility]) ID Date Data Source [id number] 04/10/2020 01:20:00 PM EDT [facility] l Name Value Range Interpretation Code Description Data Luisa rce(s) Supporting Document(s) TSH 6.25 uIU/mL 0.36-3.74 H [facility] ID Date Data Source [id number] 12/19/2019 10:57:00 AM EDT [facility] DATED ON EXAMINATION: 12/19/2019 9:40 EDT PELVIC COMPLETE TRANS ABDOMEN HISTORY: Pain. Left lower quadrant pain. Real-time ultrasound imaging was performed utilizing B-mode/cooney scale and colorDoppler imaging where applicable. Patient is status post right oophorectomy. The left ovary appears normalmeasuring 3 x 2 centimeters without torsion or masses. There is no fluid in [id number]. Uterus appears normal. Endometrial stripe is 0.3 cm. IMPRESSION: Status post right oophorectomy.. Electronically signed in [id number] by: Jamaal Reyes M.D. 12/19/2019 10:52 EDT Name Value Range Interpretation Code Description Data Luisa rce(s) Supporting Document(s) ID Date Data Source [id number] 12/19/2019 10:55:00 AM EDT [facility] Name Value Range Interpretation Code Description Data Luisa rce(s) Supporting Document(s) TSH 9.31 uIU/mL 0.36-3.74 H [facility] ID Date Data Source [id number] 11/14/2019 02:27:00 PM EST [facility] Name Value Range Interpretation Code Description Data Luisa rce(s) Supporting Document(s) TSH 9.11 uIU/mL 0.36-3.74 H [facility] ID Date Data Source [id number] 10/09/2019 01:19:00 PM EST [facility] DATED ON EXAMINATION: 10/09/2019 12:32 ES T PELVIC COMPLETE TRANS ABDOMEN HISTORY: Torsion right ovary Real-time ultrasound imaging was performed utilizing B- mode/cooney scale and colorDoppler imaging where applicable. Patient is status post right oophorectomy. Left ovary measures 4 x 3 cm, withouttorsion or any masses. Uterus is 8.4 x 3 x 5 cm. Endometrial stripe is 1.8 cm,well above normal range. This is likely related to stage of menstrual cycle. IMPRESSION: Status post right oophorectomy. Endometrial stripe above normal range at 18 mm. This is likely secondary tostage of menstrual cycle.. Electronically signed in [id number] by: Jamaal Reyes M.D. 10/09/2019 13:12 EST Name Value Range Interpretation Code Description Data Luisa rce(s) Supporting Document(s) ID Date Data Source [id number] 10/11/2019 06:05:00 PM EST [facility] Name Value Range Interpretation Code Description Data Luisa rce(s) Supporting Document(s) Written Authorization [facility] Written Authorization Received.Authoriza tion received from SIGNATURE ON FILE [id number] by Tiffanie Rivera ID Date Data Source [id number] 10/14/2019 08:05:00 PM EST [facility] Name Value Range Interpretation Code Description Data Luisa rce(s) Supporting Document(s) 17-OH Progesterone LCMS 10 ng/dL [facility] Adult Female Follicular 15 - 70 Luteal 35 - 290 ID Date Data Source [id number] 10/10/2019 08:06:00 AM EST [facility] Name Value Range Interpretation Code Description Data Luisa rce(s) Supporting Document(s) DHEA-SULFATE 260.3 ug/dL 110.0-431.7 [facility] Performed at: [facility] [address] [id number] Director: Cher Shrestha MD, Phone: [phone] ID Date Data Source [id number] 10/10/2019 06:09:00 PM EST [facility] Name Value Range Interpretation Code Description Data Luisa rce(s) Supporting Document(s) TESTOSTERONE, SERUM 21 ng/dL 8-48 [facility] FREE TESTOSTERONE(DIRECT) 2.6 pg/mL 0.0-4.2 [facility] Performed at: RN - [facility] [address] [id number] Director: Cher Shrestha MD, Phone: [phone] ID Date Data Source [id number] 10/10/2019 08:06:00 AM EST [facility] Name Value Range Interpretation Code Description Data Luisa rce(s) Supporting Document(s) DHEA-Sulfate 260.3 ug/dL 110.0-431.7 [facility] ID Date Data Source [id number] 10/10/2019 06:05:00 PM EST [facility] Name Value Range Interpretation Code Description Data Luisa rce(s) Supporting Document(s) Testosterone, Serum 21 ng/dL 8-48 [facility] Free Testosterone(Direct) 2.6 pg/mL 0.0-4.2 Lab orp ID Date Data Source [id number] 09/21/2019 04:23:00 PM EST [facility] Name Value Range Interpretation Code Description Data Luisa rce(s) Supporting Document(s) TSH 28.93 uIU/mL 0.36-3.74 H [facility] ID Date Data Source TSH 09/21/2019 12:00:00 AM EST eCW1 ([facility] [place] [facility] [place] Name Value Range Interpretation Code Description Data Luisa rce(s) Supporting Document(s) 28.93 0.36-3.74 TSH eCW1 ([facility]) Procedure Social History Code Duration Value Status Description Data Source(s ) Smoking 07/31/2020 12:00:00 AM EST Current Smoker completed Curre nt Smoker eCW1 ([facility]) Smoking 07/16/2020 12:00:00 AM EST Current Smoker completed Curre nt Smoker eCW1 ([facility]) Smoking 03/04/2020 12:00:00 AM EDT Current Smoker completed Curre nt Smoker eCW1 ([facility]) Smoking 03/04/2020 12:00:00 AM EDT Current Smoker completed Curre nt Smoker eCW1 ([facility]) Smoking 03/04/2020 12:00:00 AM EDT Current Smoker completed Curre nt Smoker eCW1 ([facility]) Smoking 03/04/2020 12:00:00 AM EDT Current Smoker completed Curre nt Smoker eCW1 ([facility]) Smoking 03/04/2020 12:00:00 AM EDT Current Smoker completed Curre nt Smoker eCW1 ([facility]) Vital Signs ID Date Data Source UNK Name Value Range Interpretation Code Description Data Source(s) Body mass index (BMI) [Ratio] 47.0 kg/m2 47.0 k g/m2 MEDENT ([facility], [facility]) Body height 67 [in_i] 67 [in_i] MEDENT ([facility], [facility]) 5'7" Body weight 300.00 [lb_av] 300.00 [lb_av] MEDEN T ([facility], [facility]) weighed Body temperature 97.8 [degF] 97.8 [degF] MEDENT ([facility], [facility]) Oxygen saturation in Arterial blood by Pulse oximetry 98 % 98 % MEDENT ([facility], [facility]) Respiratory rate 20 /min 20 /min MEDENT ( [facility], [facility]) Heart rate 88 /min 88 /min MEDENT ([facility], [facility]) Diastolic blood pressure 87 mm[Hg] 87 mm[Hg] MEDENT ([facility], [facility]) Systolic blood pressure 153 mm[Hg] 153 mm[Hg] M EDENT ([facility], [facility]) Oxygen saturation in Arterial blood by Pulse oximetry 97 % 97 % eCW1 ([facility]) Respiratory rate 18 /min 18 /min eCW1 ([facility]) Heart rate 87 /min 87 /min eCW1 ([facility]) Body temperature 98.0 [degF] 98.0 [degF] eCW1 ( [facility]) Body mass index (BMI) [Ratio] 47.29 kg/m2 47.29 kg/m2 eCW1 ([facility]) Body weight 302.0 [lb_av] 302.0 [lb_av] eCW1 ([facility]) Body height 67 [in_i] 67 [in_i] eCW1 [place] [facility] [place] Body mass index (BMI) [Ratio] 47.8 kg/m2 47.8 k g/m2 MEDENT ([facility], [facility]) Body height 67 [in_i] 67 [in_i] MEDENT ([facility], [facility]) 5'7" Body weight 305.00 [lb_av] 305.00 [lb_av] MEDEN T ([facility], [facility]) Body temperature 97.3 [degF] 97.3 [degF] MEDENT ([facility], [facility]) Oxygen saturation in Arterial blood by Pulse oximetry 100 % 100 % MEDENT ([facility], [facility]) Heart rate 98 /min 98 /min MEDENT ([facility], [facility]) Diastolic blood pressure 86 mm[Hg] 86 mm[Hg] MEDENT ([facility], [facility]) Systolic blood pressure 130 mm[Hg] 130 mm[Hg] M EDENT ([facility], [facility]) Body mass index (BMI) [Ratio] 47.8 kg/m2 47.8 k g/m2 MEDENT ([facility], [facility]) Body height 67 [in_i] 67 [in_i] MEDENT ([facility], [facility]) 5'7" Body weight 305.00 [lb_av] 305.00 [lb_av] MEDEN T ([facility], [facility]) Body temperature 97.3 [degF] 97.3 [degF] MEDENT ([facility], [facility]) Oxygen saturation in Arterial blood by Pulse oximetry 98 % 98 % MEDENT ([facility], [facility]) Respiratory rate 12 /min 12 /min MEDENT ( [facility], [facility]) Heart rate 116 /min 116 /[facility], [facility]) Diastolic blood pressure 94 mm[Hg] 94 mm[Hg] [facility], [facility]) Systolic blood pressure 144 mm[Hg] 144 mm[Hg] [facility], [facility]) Oxygen saturation in Arterial blood by Pulse oximetry 98 % 98 % eCW1 ([facility]) Respiratory rate 18 /min 18 /min eCW1 ([facility]) Heart rate 99 /min 99 /min eCW1 ([facility]) Body temperature 98.5 [degF] 98.5 [degF] eCW1 ( [facility]) Body mass index (BMI) [Ratio] 46.98 kg/m2 46.98 kg/m2 eCW1 ([facility]) Body height 67 [in_i] 67 [in_i] eCW1 ([facility] [place]) Deprecated Oxygen saturation in Capillary blood by Oximetry 100 % 100 % eCW1 ([facility]) Respiratory rate 18 /min 18 /min eCW1 ([facility]) Heart rate 99 /min 99 /min eCW1 ([facility]) Body temperature 98.6 [degF] 98.6 [degF] eCW1 ( [facility]) Body mass index (BMI) [Ratio] 47.76 kg/m2 47.76 kg/m2 eCW1 ([facility]) Body weight Measured 305.0 [lb_av] 305.0 [lb_av ] eCW1 ([facility]) Body height 67 [in_us] 67 [in_us] eCW1 ([facility] [place] Deprecated Oxygen saturation in Capillary blood by Oximetry 99 % 99 % eCW1 ([facility]) Respiratory rate 18 /min 18 /min eCW1 ([facility]) Heart rate 99 /min 99 /min eCW1 ([facility]) Body temperature 98.6 [degF] 98.6 [degF] eCW1 ( [facility]) Body mass index (BMI) [Ratio] 47.64 kg/m2 47.64 kg/m2 eCW1 ([facility]) Body weight Measured 304.2 [lb_av] 304.2 [lb_av ] eCW1 ([facility]) Body height 67 [in_us] 67 [in_us] eCW1 ([facility] [place] Deprecated Oxygen saturation in Capillary blood by Oximetry 97 % 97 % eCW1 ([facility]) Heart rate 93 /min 93 /min eCW1 ([facility]) Body temperature 98.0 [degF] 98.0 [degF] eCW1 ( [facility]) Body mass index (BMI) [Ratio] 47.11 kg/m2 47.11 kg/m2 eCW1 ([facility]) Body weight Measured 300.8 [lb_av] 300.8 [lb_av ] eCW1 ([facility]) Body height 67 [in_us] 67 [in_us] eCW1 ([facility] [place] Deprecated Oxygen saturation in Capillary blood by Oximetry 98 % 98 % eCW1 ([facility]) Respiratory rate 18 /min 18 /min eCW1 ([facility]) Heart rate 89 /min 89 /min eCW1 ([facility]) Body temperature 98.6 [degF] 98.6 [degF] eCW1 ( [facility]) Body mass index (BMI) [Ratio] 47.64 kg/m2 47.64 kg/m2 eCW1 ([facility]) Body weight Measured 304.2 [lb_av] 304.2 [lb_av ] eCW1 ([facility]) Body height 67 [in_us] 67 [in_us] eCW1 ([facility] [place]) Deprecated Oxygen saturation in Capillary blood by Oximetry 98 % 98 % eCW1 ([facility]) Respiratory rate 18 /min 18 /min eCW1 ([facility]) Heart rate 83 /min 83 /min eCW1 ([facility]) Body temperature 97.8 [degF] 97.8 [degF] eCW1 ( [facility]) Body mass index (BMI) [Ratio] 47.61 kg/m2 47.61 kg/m2 eCW1 ([facility]) Body weight Measured 304.0 [lb_av] 304.0 [lb_av ] eCW1 ([facility]) Body height 67 [in_us] 67 [in_us] eCW1 ([facility] [place]) Deprecated Oxygen saturation in Capillary blood by Oximetry 98 % 98 % eCW1 ([facility]) Respiratory rate 20 /min 20 /min eCW1 ([facility]) Heart rate 91 /min 91 /min eCW1 ([facility]) Body temperature 98.0 [degF] 98.0 [degF] eCW1 ( [facility]) Body mass index (BMI) [Ratio] 48.08 kg/m2 48.08 kg/m2 eCW1 ([facility]) Body weight Measured 307.0 [lb_av] 307.0 [lb_av ] eCW1 ([facility]) Body height 67 [in_us] 67 [in_us] eCW1 ([facility] [place] Patient Treatment Plan of Care Planned Activity Planned Date Details Description Data Source (s) Levothyroxine Sodium 0.1 MG Oral Tablet 07/31/2020 12:00:00 AM EST eCW1 ([facility]) Sulfamethoxazole 800 MG / Trimethoprim 160 MG Oral Tab let [Bactrim] 07/16/2020 12:00:00 AM EST eCW1 ([facility]) Levothyroxine Sodium 0.088 MG Oral Tablet [Synthroid] 05/08/2020 12:00:00 AM EDT eCW1 ([facility]) Levothyroxine Sodium 0.088 MG Oral Tablet [Synthroid] 04/10/2020 12:00:00 AM EDT eCW1 ([facility]) Levothyroxine Sodium 0.088 MG Oral Tablet [Synthroid] 04/10/2020 12:00:00 AM EDT eCW1 ([facility]) Levothyroxine Sodium 0.088 MG Oral Tablet [Synthroid] 04/10/2020 12:00:00 AM EDT eCW1 ([facility]) Amoxicillin 500 MG Oral Capsule 03/04/2020 12:00:00 AM EDT eCW1 ([facility]) Hydroxyzine Hydrochloride 10 MG Oral Tablet 01/23/2020 12:00:00 AM EDT eCW1 ([facility]) Levothyroxine Sodium 0.075 MG Oral Tablet [Synthroid] 12/19/2019 12:00:00 AM EDT eCW1 ([facility]) Norgestim-Eth Estrad Triphasic 0.18/0.215/0.25 MG-35 M CG 12/19/2019 12:00:00 AM EDT eCW1 ([facility]) Triamcinolone Acetonide 1 MG/ML Topical Cream 12/07/2019 12:00:00 A M EDT eCW1 ([facility]) Levothyroxine Sodium 0.05 MG Oral Tablet [Synthroid] 020 12:00:00 AM EST eCW1 ([facility]) Norgestim-Eth Estrad Triphasic 0.18/0.215/0.25 MG-35 M CG 10/11/2019 12:00:00 AM EST eCW1 ([facility]) Norgestim-Eth Estrad Triphasic 0.18/0.215/0.25 MG-35 M CG 10/11/2019 12:00:00 AM EST eCW1 ([facility]) METFORMIN ER 500 MG 10/05/2019 12:00:00 AM EST eCW1 ([facility]) Levothyroxine Sodium 0.025 MG Oral Tablet [Synthroid] 09/21/2019 12:00:00 AM EST eCW1 ([facility])
--- OUTSIDE RECORDS SUMMARY | 2020-10-22 08:42 | CCD | Continuity of Care Document ---
Author Author Dilcia GARSIA CONSERVATION SPECIALIST Organization Unknown Address [address] [place] [id number] Phone [phone] Care Team Providers Care Facer Operator Name Role Phone [facility] [phone] Problems Description No Information Available Social History [...] CPT Code Status Date Vaccine Lot # [id number] Given 04/27/2016 Tdap/Tetanus, Di phth Toxoids/Acellular Pertussis Vac 7Yr Or > [id number] Vital Signs Date Vital Result Comment 07/24/2020 [...] Result H/L Range Note Throat Culture 04/25/2020 [facility] [address]ter [address], [place] [id number] [phone] Throat Culture FULL REPORT IN L <SEE NOTE> Normal 1 1 FULL REPORT IN LAB NOTES (eC W and Medent). NORMAL VIKI PRESENT ORGANISM 1: STREPTOCOCCUS GROUP C QUANTITY OF GROWTH MODERATE ORGANISM 1: STREPTOCOCCUS GROUP C Procedures Description No Information Available Medical Devices Description No Information Available Encounters Type Date Location Provider Dx Diagnosis Office Visit 04/25/2020 9:50a Main Office Nathalia Garsia NP J02. 9 Acute pharyngitis, unspecified Office Visit 04/12/2020 5:00p Main Office Michael Ahumada, PRolaA. J0 6.9 Acute upper respiratory infection, unspecified Assessments Date Code Description Provider 07/24/2020 E28.2 Polycystic ovarian syndrome Lon Garsia NP 04/25/2020 J02.9 Acute pharyngitis, unspecified S jaret Garsia NP 04/12/2020 J06.9 Acute upper respiratory infectio n, unspecified Michael Ahumada, Carlota Plan of Treatment No Information Available Functional Status Description No Information Available Mental Status Description No Information Available Referrals Description No Information Available
[2020-10-22] MEDS ORDERED: ORTH1TAB8 PO (08:57)
--- OUTSIDE RECORDS SUMMARY | 2020-10-22 09:15 | CCD ---
Author Author [facility] Organization [facility] Address Unknown Phone Unavailable Care Team Providers Care Benefit Specialist Name Role Phone Andreia Braden-C Unavailable Unavailable [...] JASSON AWAD MD Unavailable Unavailable SORENSEN SR, JASSNO AWAD MD Unavailable Unavailable SORENSEN SR, JASSON AWAD MD Unavailable Unavailable SORENSEN SR, JASSON AWAD MD Unavailable Unavailable SORENSEN SR, JASSON WAAD MD Unavailable Unavailable SORENSEN SR, JASSON AWAD [...] SORENSEN SR, JASSON AWAD MD Unavailable Unavailable LAYLA HOLLINGSWORTH Unavailable Unavailable SAMIA, ANKITA PA Unavailable Unavailable [...] Unavailable Unavailable Rosario HEBERT DO Unavailable Unavailable EMILEE, J TIMMY DO Unavailable Unavailable EMILEE, Rosairo CHAVEZW DO Unavailable Unavailable EMILEE, Rosario CHAVEZW [...] Unavailable TONTARSMEE, G MARTIN PA Unavailable Unavailable TONTARSKI, G MARTIN PA Unavailable Unavailable TONTARSKI, G MARTIN PA Unavailable Unavailable TONTARSKI, G MARTIN PA Unavailable Unavailable TONTARSKI, G MARTIN PA Unavailable Unavailable TONTARSKI, G MARTIN PA Unavailable Unavailable TONTARSKI, G MARTIN PA Unavailable Unavailable TONTARSKI, G MARTIN PA Unavailable Unavailable TONTARSKI, G MARTIN PA Unavailable Unavailable TONTARSMEE, G MARTIN PA Unavailable Unavailable TONTARSMEE, G MARTIN PA Unavailable Unavailable TONTARSMEE, G MARTIN PA Unavailable Unavailable TONTARSMEE, G MARTIN PA Unavailable Unavailable TONTARSMEE, G MARTIN PA Unavailable Unavailable TONTARSMEE, G MARTIN PA Unavailable Unavailable TONTARSMEE, G MARTIN PA Unavailable Unavailable TONTARSMEE, G MARTIN PA Unavailable Unavailable Xiang, Reginaagustin W Gladys OPERATIONS AGENT-C Unavailable Unavailabl e Xiang, Regsuleimanagustin W Gladys OPERATIONS AGENT-C Unavailable Unavailabl e Xiang, Reginaagustin W Gladys OPERATIONS AGENT-C Unavailable Unavailabl e Xiang, Regminerva W Gladys OPERATIONS AGENT-C Unavailable Unavailabl e Xiang, Regminerva W Gladys OPERATIONS AGENT-C Unavailable Unavailabl e Xiang, Reginaagustin W Gladys OPERATIONS AGENT-C Unavailable Unavailabl e Xiang, Regminerva W Gladys OPERATIONS AGENT-C Unavailable Unavailabl e Xiang, Regsuleimanagustin W Gladys OPERATIONS AGENT-C Unavailable Unavailabl e Xiang, Regsuleimanagustin W Gladys OPERATIONS AGENT-C Unavailable Unavailabl e Xiang, Regsuleimanagustin W Gladys OPERATIONS AGENT-C Unavailable Unavailabl e Xiang, Regminerva W Gladys OPERATIONS AGENT-C Unavailable Unavailabl e Xiang, Regsuleimanagustin W Gladys OPERATIONS AGENT-C Unavailable Unavailabl e Xiang, Reginaagustin W Gladys OPERATIONS AGENT-C Unavailable Unavailabl e Xiang, Eli Cruzyce OPERATIONS AGENT-C Unavailable Unavailabl e Xiang, Eli Cruzyce OPERATIONS AGENT-C Unavailable Unavailabl e Xiang, Eli Rivera Gladys OPERATIONS AGENT-C Unavailable Unavailabl e Xiang, Eli Cruzyce OPERATIONS AGENT-C Unavailable Unavailabl e Xiang, Eli W Gladys OPERATIONS AGENT-C Unavailable Unavailabl e Xiang, Eli W Gladys OPERATIONS AGENT-C Unavailable Unavailabl e Xiang, Eli W Gladys OPERATIONS AGENT-C Unavailable Unavailabl e Xiang, Eli W Gladys OPERATIONS AGENT-C Unavailable Unavailabl e Xiang, Eli W Gladys OPERATIONS AGENT-C Unavailable Unavailabl e Xiang, Eli Cruzyce OPERATIONS AGENT-C Unavailable Unavailabl e Xiang, Eli Cruzyce OPERATIONS AGENT-C Unavailable Unavailabl e Xiang, Eli Cruzyce OPERATIONS AGENT-C Unavailable Unavailabl e Xiang, Eli Cruzyce OPERATIONS AGENT-C Unavailable Unavailabl e Xiang, Eli Cruzyce OPERATIONS AGENT-C Unavailable Unavailabl e Xiang, Eli Cruzyce OPERATIONS AGENT-C Unavailable Unavailabl e Xiang, Eli Cruzyce OPERATIONS AGENT-C Unavailable Unavailabl e Xiang, Eli Cruzyce OPERATIONS AGENT-C Unavailable Unavailabl e Xiang, Eli Cruzyce OPERATIONS AGENT-C Unavailable Unavailabl e Xiang, Eli Rivera Gladys OPERATIONS AGENT-C Unavailable Unavailabl e Castro, Nathalia GUARD SERGEANT Unavailable Unavailable Castro, Nathalia GUARD SERGEANT Unavailable Unavailable Castro, Nathalia GUARD SERGEANT Unavailable Unavailable Castro, Nathalia GUARD SERGEANT Unavailable Unavailable Castro, Nathalia GUARD SERGEANT Unavailable Unavailable Castro, Nathalia GUARD SERGEANT Unavailable Unavailable Castro, Nathalia GUARD SERGEANT Unavailable Unavailable Castro, Nathalia GUARD SERGEANT Unavailable Unavailable Castro, Nathalia GUARD SERGEANT Unavailable Unavailable Castro, Nathalia GUARD SERGEANT Unavailable Unavailable Castro, Nathalia GUARD SERGEANT Unavailable Unavailable Re-disclosure Warning The records that [...] is protected by Article 27-F of the [facility] Public Health law. If you continue you may have access to information: Regarding HIV / AIDS; Provided by facilities licensed or operated by the [facility] Office of Mental Health; or Provided by the [facility] Office for People With Developmental Disabilities. If such information is present, then the following [facility] mandated warning applies: This information [...] law may result in a fine or fdc sentence or both. A general authorization for the release of medical or other information is NOT sufficient authorization for further disc losure. Family History Family Member Name Family Member Gender Family Member Status Date o f Status Description Data Source(s) Unknown Unknown Problem MEDENT ([facility]) mother, mgm, pgf Unknown Male Problem MEDENT ([facility]) Encounters Encounter Providers Location Date Indications Data Source(s ) Outpatient Attender: LAYLA HOLLINGSWORTH 10/22/2020 09:05:00 AM [facility] Outpatient [facility] 08/01/2020 12:00:00 AM EST eCW1 ([facility]) Outpatient Attender: Vanessa Braden PA-C 07/31/2020 02:30 :00 PM [facility] Outpatient Attender: Nathalia gao 07/24/2020 07:45:00 AM EST MEDENT ([facility]) Outpatient Attender: Vanessa Hargroveferrer: Vanessa Braden PA-C EMERGENCY ROOM-LAB 07/23/2020 09:28:00 AM EST - 07/23/2020 09:28:00 AM EST [facility] Outpatient Attender: Vanessa Braden PA-C 07/16/2020 08:48 :00 AM EST [facility] Outpatient [facility] 07/16/2020 12:00:00 AM EST eCW1 ([facility]) Outpatient [facility] 05/08/2020 12:00:00 AM EDT eCW1 ([facility]) Outpatient Attender: DELMI SORENSEN SRReferrer: DELMI Massey SR 05/07/2020 02:00:00 PM EDT [facility] 04/26/2020 12:00:00 AM EDT eCW1 ([facility]) Outpatient [facility] 04/26/2020 12:00:00 AM EDT eCW1 ([facility]) Outpatient Attender: Nathalia gao 04/25/2020 09:50:00 AM EDT MEDENT ([facility]) Outpatient Attender: ANKITA martin 04/12/2020 05:00:00 PM EDT MEDENT ([facility]) Outpatient Attender: DELMI SORENSEN SRReferrer: NGOZI SORENSEN SR EMERGENCY ROOM-LAB 04/10/2020 12:19:00 PM EDT - 04/10/2020 12:19:00 PM EDT [facility] 04/10/2020 12:00:00 AM EDT eCW1 ([facility]) Outpatient Attender: Gladys REGALADOC 03/04/2020 10:58:0 0 AM EDT [facility] 03/04/2020 12:00:00 AM EDT eCW1 ([facility]) Outpatient Attender: DELMI SORENSEN SR 01/23/2020 03:00:[address] [facility] ENTER 01/23/2020 12:00:00 AM EDT eCW1 ([facility]) Specialty Clinic [facility] 01/09/2020 12: 00:00 AM EDT eCW1 ([facility]) [facility] 01/03/2020 12:00:00 AM EDT eCW1 ([facility]) Outpatient Attender: DELMI SORENSEN SRReferrer: NGOZI SORENSEN SR EMERGENCY ROOM-LAB 12/19/2019 09:38:00 AM EDT - 12/19/2019 09:38:00 AM EDT [facility] Outpatient Attender: TIMMY Dicksonerrer: DELMI SORENSEN SR 12/19/2019 09:36:00 AM EDT - 12/19/2019 09:36:00 AM EDT [facility] pital Outpatient Attender: TIMMY HEBERT DO 12/19/2019 09:18:00 A M EDT [facility] Outpatient [facility] 12/19/2019 12:00:00 AM EDT eCW1 ([facility]) Specialty Clinic [facility] 12/19/2019 12: 00:00 AM EDT eCW1 ([facility]) [facility] 12/07/2019 12:00:00 AM EDT eCW1 ([facility]) Outpatient Attender: DELMI SORENSEN SRReferrer: NGOZI SORENSEN SR EMERGENCY ROOM-LAB 11/14/2019 01:20:00 PM EST - 11/14/2019 01:20:00 PM EST [facility] ENTER 11/14/2019 12:00:00 AM EST eCW1 ([facility]) [facility] EN[facility] 11/02/2019 12:00:00 AM EST eCW1 ([facility]) [facility] 11/02/2019 12:00:00 AM EST eCW1 ([facility]) Outpatient 10/31/2019 02:39:00 PM EST [facility] Outpatient Attender: TIMMY HEBERT DO 10/11/2019 01:00:00 P M EST [facility] Specialty Clinic [facility] 10/11/2019 12: 00:00 AM EST eCW1 ([facility]) Outpatient Attender: TIMMY Dicksonerrer: DELMI SORENSEN SR EMERGENCY ROOM-ULTRA 10/09/2019 12:53:00 PM EST - 10/09/2019 12:53:00 PM EST [facility] C ENTER 10/08/2019 12:00:00 AM EST eCW1 ([facility]) Outpatient Attender: DELMI SORENSEN SR 10/05/2019 02:30:00 PM EST [facility] C ENTER 10/05/2019 12:00:00 AM EST eCW1 ([facility]) Outpatient 10/02/2019 07:13:00 AM EST [facility] Outpatient Attender: TIMMY HEBERT DO 09/26/2019 09:38:00 A M [facility] Specialty Clinic [facility] 09/26/2019 12: 00:00 AM EST eCW1 ([facility]) Outpatient Attender: DELMI SORENSEN SRReferrer: NGOZI SORENSEN SR EMERGENCY ROOM-LAB 09/21/2019 03:24:00 PM EST - 09/21/2019 03:24:00 PM [facility] Outpatient Attender: DELMI SORENSEN SR 09/21/2019 02:30:00 PM [facility] C ENTER 09/21/2019 12:00:00 AM EST eCW1 ([facility]) Emergency Attender: MARTIN GARCÍA EMERGENCY ROOM- ER 05/29/2012 06:14:00 AM EDT - 05/29/2012 07:53:[address] [facility] Medications Medication Brand Name Start Date Product Form Dose Route Admi nistrative Instructions Pharmacy Instructions Status Indications Reaction Description Data Source(s) Levothyroxine Sodium 0.1 MG Oral Tablet Levothyroxine Sodium 100 MCG Levothyroxine Sodium 100 MCG 07/31/2020 12:00:00 AM EST active Levothyroxine Sodium 100 MCG eCW1 ([facility]) Sulfamethoxazole 800 MG / Trimethoprim 1 60 MG Oral Tablet [Bactrim] Bactrim DS 800-160 MG Bactrim DS 800-160 MG 07/16/2020 12:00:00 AM EST 1.0 {table t} active Bactrim DS 800-160 MG eCW1 ( [facility]) Levothyroxine Sodium 0.088 MG Oral Tablet [Synthroid] Synthroid 88 MCG Synthroid 88 MCG 05/08/2020 12:00:00 AM EDT active Synthroid 88 MCG eCW1 ([facility]) Loratadine 10 MG Oral Tablet Loratadine 04/25/2020 12:00:00 AM EDT completed MEDENT ([facility], [facility]) Control Pill 04/12/2020 12:00:00 AM EDT active MEDENT ([facility]) Fluticasone Propionate Fluticasone Propionate 04/12/2020 12:00:00 AM E DT completed MEDENT ([facility]) 12 HR Pseudoephedrine Hydrochloride 120 MG Extended Re lease Oral Tablet Pseudoephedrine HCL ER 04/12/2020 12:00:00 AM EDT ORAL completed MEDENT ([facility], [facility]) Levothyroxine Sodium 0.088 MG Oral Tablet [Synthroid] Synthroid 88 MCG Synthroid 88 MCG 04/10/2020 12:00:00 AM EDT active Synthroid 88 MCG eCW1 ([facility]) Levothyroxine Sodium 0.088 MG Oral Tablet [Synthroid] Synthroid 88 MCG Synthroid 88 MCG 04/10/2020 12:00:00 AM EDT active Synthroid 88 MCG eCW1 ([facility]) Levothyroxine Sodium 0.088 MG Oral Tablet [Synthroid] Synthroid 88 MCG Synthroid 88 MCG 04/10/2020 12:00:00 AM EDT active Synthroid 88 MCG eCW1 ([facility]) Levothyroxine Sodium 0.088 MG Oral Tablet [Synthroid] Synthroid 88 MCG Synthroid 88 MCG 04/10/2020 12:00:00 AM EDT active Synthroid 88 MCG eCW1 ([facility]) Levothyroxine Sodium 0.088 MG Oral Tablet [Synthroid] Synthroid 88 MCG Synthroid 88 MCG 04/10/2020 12:00:00 AM EDT active Synthroid 88 MCG eCW1 ([facility]) Levothyroxine Sodium 0.088 MG Oral Tablet [Synthroid] Synthroid 88 MCG Synthroid 88 MCG 04/10/2020 12:00:00 AM EDT active Synthroid 88 MCG eCW1 ([facility]) Amoxicillin 500 MG Oral Capsule Amoxicillin 500 MG 03/04/2020 12:00 :00 AM EDT 1.0 {capsule} active Amoxicillin 500 MG eCW1 ([facility]) Amoxicillin 500 MG Oral Capsule Amoxicillin 500 MG 03/04/2020 12:00 :00 AM EDT 1.0 {capsule} active Amoxicillin 500 MG eCW1 ([facility]) Amoxicillin 500 MG Oral Capsule Amoxicillin 500 MG 03/04/2020 12:00 :00 AM EDT 1.0 {capsule} active Amoxicillin 500 MG eCW1 ([facility]) Amoxicillin 500 MG Oral Capsule Amoxicillin 500 MG 03/04/2020 12:00 :00 AM EDT 1.0 {capsule} active Amoxicillin 500 MG eCW1 ([facility]) Amoxicillin 500 MG Oral Capsule Amoxicillin 500 MG 03/04/2020 12:00 :00 AM EDT 1.0 {capsule} active Amoxicillin 500 MG eCW1 ([facility]) Hydroxyzine Hydrochloride 10 MG Oral Tablet HydrOXYzin e HCl 10 MG HydrOXYzine HCl 10 MG 01/23/2020 12:00:00 AM EDT 1.0 {tablet_as_needed} suspended HydrOXYzine HCl 10 MG eCW1 ([facility]) Hydroxyzine Hydrochloride 10 MG Oral Tablet HydrOXYzin e HCl 10 MG HydrOXYzine HCl 10 MG 01/23/2020 12:00:00 AM EDT 1.0 {tablet_as_needed} suspended HydrOXYzine HCl 10 MG eCW1 ([facility]) Hydroxyzine Hydrochloride 10 MG Oral Tablet HydrOXYzin e HCl 10 MG HydrOXYzine HCl 10 MG 01/23/2020 12:00:00 AM EDT 1.0 {tablet_as_needed} active HydrOXYzine HCl 10 MG eCW1 ([facility]) Hydroxyzine Hydrochloride 10 MG Oral Tablet HydrOXYzin e HCl 10 MG HydrOXYzine HCl 10 MG 01/23/2020 12:00:00 AM EDT 1.0 {tablet_as_needed} suspended HydrOXYzine HCl 10 MG eCW1 ([facility]) Hydroxyzine Hydrochloride 10 MG Oral Tablet HydrOXYzin e HCl 10 MG HydrOXYzine HCl 10 MG 01/23/2020 12:00:00 AM EDT 1.0 {tablet_as_needed} suspended HydrOXYzine HCl 10 MG eCW1 ([facility]) Hydroxyzine Hydrochloride 10 MG Oral Tablet HydrOXYzin e HCl 10 MG HydrOXYzine HCl 10 MG 01/23/2020 12:00:00 AM EDT 1.0 {tablet_as_needed} suspended HydrOXYzine HCl 10 MG eCW1 ([facility]) Hydroxyzine Hydrochloride 10 MG Oral Tablet HydrOXYzin e HCl 10 MG HydrOXYzine HCl 10 MG 01/23/2020 12:00:00 AM EDT active 1 tablet as needed eCW1 ([facility]) Hydroxyzine Hydrochloride 10 MG Oral Tablet HydrOXYzin e HCl 10 MG HydrOXYzine HCl 10 MG 01/23/2020 12:00:00 AM EDT 1.0 {tablet_as_needed} suspended HydrOXYzine HCl 10 MG eCW1 ([facility]) Levothyroxine Sodium 0.075 MG Oral Tablet [Synthroid] Synthroid 75 MCG Synthroid 75 MCG 12/19/2019 12:00:00 AM EDT active Synthroid 75 MCG eCW1 ([facility]) Norgestim-Eth Estrad Triphasic 0.18/0.215/0.25 MG-35 M CG Norgestim-Eth Estrad Triphasic 0.18/0.215/0.25 MG-35 MCG 12/19/2019 12:00:00 AM EDT active 1 tablet eCW1 ([facility]) Levothyroxine Sodium 0.075 MG Oral Tablet [Synthroid] Synthroid 75 MCG Synthroid 75 MCG 12/19/2019 12:00:00 AM EDT active 1 tablet in the morning on an empty stomach eCW1 ([facility]) Levothyroxine Sodium 0.075 MG Oral Tablet [Synthroid] Synthroid 75 MCG Synthroid 75 MCG 12/19/2019 12:00:00 AM EDT active Synthroid 75 MCG eCW1 ([facility]) Levothyroxine Sodium 0.075 MG Oral Tablet [Synthroid] Synthroid 75 MCG Synthroid 75 MCG 12/19/2019 12:00:00 AM EDT active Synthroid 75 MCG eCW1 ([facility]) Levothyroxine Sodium 0.075 MG Oral Tablet [Synthroid] Synthroid 75 MCG Synthroid 75 MCG 12/19/2019 12:00:00 AM EDT active Synthroid 75 MCG eCW1 ([facility]) Levothyroxine Sodium 0.075 MG Oral Tablet [Synthroid] Synthroid 75 MCG Synthroid 75 MCG 12/19/2019 12:00:00 AM EDT active Synthroid 75 MCG eCW1 ([facility]) Levothyroxine Sodium 0.075 MG Oral Tablet [Synthroid] Synthroid 75 MCG Synthroid 75 MCG 12/19/2019 12:00:00 AM EDT active Synthroid 75 MCG eCW1 ([facility]) Triamcinolone Acetonide 1 MG/ML Topical Cream Triamcin olone Acetonide 0.1 % Triamcinolone Acetonide 0.1 % 12/07/2019 12:00:00 AM EDT active 1 application to affected area eCW1 ([facility]id) Triamcinolone Acetonide 1 MG/ML Topical Cream Triamcin olone Acetonide 0.1 % Triamcinolone Acetonide 0.1 % 12/07/2019 12:00:00 AM EDT active 1 application to affected area eCW1 ([facility]id) Triamcinolone Acetonide 1 MG/ML Topical Cream Triamcin olone Acetonide 0.1 % Triamcinolone Acetonide 0.1 % 12/07/2019 12:00:00 AM EDT suspended 1 application to affected area eCW1 ([facility]) Levothyroxine Sodium 0.05 MG Oral Tablet [Synthroid] S ynthroid 50 MCG Synthroid 50 MCG 11/14/2019 12:00:00 AM EST active 1 tablet in the morning on an empty stomach eCW1 ([facility]) Levothyroxine Sodium 0.05 MG Oral Tablet [Synthroid] S ynthroid 50 MCG Synthroid 50 MCG 11/14/2019 12:00:00 AM EST active 1 tablet in the morning on an empty stomach eCW1 ([facility]id) Norgestim-Eth Estrad Triphasic 0.18/0.215/0.25 MG-35 M CG Norgestim-Eth Estrad Triphasic 0.18/0.215/0.25 MG-35 MCG 10/11/2019 12:00:00 AM EST 1.0 {tablet} active Norgestim-Eth Estrad Trip hasic 0.18/0.215/0.25 MG-35 MCG eCW1 ([facility]) Norgestim-Eth Estrad Triphasic 0.18/0.215/0.25 MG-35 M CG Norgestim-Eth Estrad Triphasic 0.18/0.215/0.25 MG-35 MCG 10/11/2019 12:00:00 AM EST 1.0 {tablet} active Norgestim-Eth Estrad Trip hasic 0.18/0.215/0.25 MG-35 MCG eCW1 ([facility]) Norgestim-Eth Estrad Triphasic 0.18/0.215/0.25 MG-35 M CG Norgestim-Eth Estrad Triphasic 0.18/0.215/0.25 MG-35 MCG 10/11/2019 12:00:00 AM EST active 1 tablet eCW1 ([facility]) Norgestim-Eth Estrad Triphasic 0.18/0.215/0.25 MG-35 M CG Norgestim-Eth Estrad Triphasic 0.18/0.215/0.25 MG-35 MCG 10/11/2019 12:00:00 AM EST active 1 tablet eCW1 ([facility]) Norgestim-Eth Estrad Triphasic 0.18/0.215/0.25 MG-35 M CG Norgestim-Eth Estrad Triphasic 0.18/0.215/0.25 MG-35 MCG 10/11/2019 12:00:00 AM EST 1.0 {tablet} active Norgestim-Eth Estrad Trip hasic 0.18/0.215/0.25 MG-35 MCG eCW1 ([facility]) Norgestim-Eth Estrad Triphasic 0.18/0.215/0.25 MG-35 M CG Norgestim-Eth Estrad Triphasic 0.18/0.215/0.25 MG-35 MCG 10/11/2019 12:00:00 AM EST 1.0 {tablet} active Norgestim-Eth Estrad Trip hasic 0.18/0.215/0.25 MG-35 MCG eCW1 ([facility]) Norgestim-Eth Estrad Triphasic 0.18/0.215/0.25 MG-35 M CG Norgestim-Eth Estrad Triphasic 0.18/0.215/0.25 MG-35 MCG 10/11/2019 12:00:00 AM EST active 1 tablet eCW1 ([facility]) Norgestim-Eth Estrad Triphasic 0.18/0.215/0.25 MG-35 M CG Norgestim-Eth Estrad Triphasic 0.18/0.215/0.25 MG-35 MCG 10/11/2019 12:00:00 AM EST active 1 tablet eCW1 ([facility]) Norgestim-Eth Estrad Triphasic 0.18/0.215/0.25 MG-35 M CG Norgestim-Eth Estrad Triphasic 0.18/0.215/0.25 MG-35 MCG 10/11/2019 12:00:00 AM EST 1.0 {tablet} active Norgestim-Eth Estrad Trip hasic 0.18/0.215/0.25 MG-35 MCG eCW1 ([facility]) Norgestim-Eth Estrad Triphasic 0.18/0.215/0.25 MG-35 M CG Norgestim-Eth Estrad Triphasic 0.18/0.215/0.25 MG-35 MCG 10/11/2019 12:00:00 AM EST 1.0 {tablet} active Norgestim-Eth Estrad Trip hasic 0.18/0.215/0.25 MG-35 MCG eCW1 ([facility]) Norgestim-Eth Estrad Triphasic 0.18/0.215/0.25 MG-35 M CG Norgestim-Eth Estrad Triphasic 0.18/0.215/0.25 MG-35 MCG 10/11/2019 12:00:00 AM EST 1.0 {tablet} active Norgestim-Eth Estrad Trip hasic 0.18/0.215/0.25 MG-35 MCG eCW1 ([facility]) METFORMIN ER 500 MG UNK 10/05/2019 12:00:00 AM EST active 1 tab eCW1 ([facility]) METFORMIN ER 500 MG UNK 10/05/2019 12:00:00 AM EST active 1 tab eCW1 ([facility]) METFORMIN ER 500 MG UNK 10/05/2019 12:00:00 AM EST active METFORMIN ER 500 MG eCW1 ([facility]) METFORMIN ER 500 MG UNK 10/05/2019 12:00:00 AM EST active 1 tab eCW1 ([facility]) METFORMIN ER 500 MG UNK 10/05/2019 12:00:00 AM EST active 1 tab eCW1 ([facility]) METFORMIN ER 500 MG UNK 10/05/2019 12:00:00 AM EST active 1 tab eCW1 ([facility]) Levothyroxine Sodium 0.025 MG Oral Tablet [Synthroid] Synthroid 25 MCG Synthroid 25 MCG 09/21/2019 12:00:00 AM EST active 1 tablet in the morning on an empty stomach eCW1 ([facility]) Levothyroxine Sodium 0.025 MG Oral Tablet [Synthroid] Synthroid 25 MCG Synthroid 25 MCG 09/21/2019 12:00:00 AM EST active 1 tablet in the morning on an empty stomach eCW1 ([facility]) Levothyroxine Sodium 0.025 MG Oral Tablet [Synthroid] Synthroid 25 MCG Synthroid 25 MCG 09/21/2019 12:00:00 AM EST active 1 tablet in the morning on an empty stomach eCW1 ([facility] rachid) Levothyroxine Sodium 0.025 MG Oral Tablet [Synthroid] Synthroid 25 MCG Synthroid 25 MCG 09/21/2019 12:00:00 AM EST active 1 tablet in the morning on an empty stomach eCW1 ([facility] rachid) Synthroid 25 MCG UNK 09/21/2019 12:00:00 AM EST active 1 tablet in the morning on an empty stomach eCW1 ([facility]) Levothyroxine Sodium 0.025 MG Oral Tablet [Synthroid] Synthroid 25 MCG Synthroid 25 MCG 09/21/2019 12:00:00 AM EST active 1 tablet in the morning on an empty stomach eCW1 ([facility]) Insurance Providers Payer name Policy type / Coverage type Policy ID Covered democrat ID Covered democrat's relationship to torres Policy Torres Plan Information [facility] [id number] SP [id number] [employer] [place] [id number] S VYA [id number] [employer] [place] [id number] S VYA [id number] SELF PAY UNAVAILABLE CHILD UNAVAILA BLE [facility] MEDICAID [id number] S [id number] [facility](MCAID) O [id number] S [id number] [employer] COMMUNITY PLAN MCDO [id number] SP [id number] [employer] BC-BS PPO 306 [id number] SP [id number] [employer] [place] [id number] S VYA [id number] [employer] BCBS B [id number] S VYA [id number] [employer] PPO 306 [id number] SP [id number] [employer] BC-BS PPO 306 [id number] SP [id number] SELF PAY ONLY [id number] SP [id number] O UNAVAILABLE UNAVAILA BLE [employer] [place] WATN 306/806 [id number] SP [id number] [facility]() Workers Compensation [id number] Self [id number] Blue Cross Blue Shield Commercial [id number] Self [id number] BLUE CROSS BLUE SHIELD CO [id number] 18 [id number] [employer] BCBS B [id number] S YNC [id number] [place] WAT[place] PPO 302/307 [id number] SP [id number] [place] WAT[place] PPO 302/307 [id number] SP [id number] [employer] [place] WATN 306/806 [id number] SP [id number] BCBS/[employer]cell[employer] Medigap Part B [id number] Self [id number] [facility] Workers Compensation [id number] Self [id number] BCBS/[employer] Medigap Part B [id number] Self [id number] [facility]() Workers Compensation [id number] Self [id number] SELF PAY ONLY [id number] SP [id number] SELF PAY ONLY UNAVAILABLE SP UNAV AILABLE [employer] COMMUNITY PLAN [facility] [id number] SP [id number] [facility](WC) Workers Compensation Self [facility] [employer] (HMO) Self SELF PAY SP [id number] S [id number] SELF PAY UNAVAILABLE MO2 UNAVAILA BLE SELF PAY P UNAVAILABLE UNAVAILA BLE [id number] Problems, Conditions, and Diagnoses Code Display Name Description Problem Type Effective Dates Data Source(s) Z68.42 [id number] Body mass index [BMI] 45.0-49.9, adult Pr oblem 07/16/2020 12:00:00 AM EST eCW1 ([facility] rachid) J35.8 [id number] Tonsillar calculus Problem 03/04/2020 12:00: 00 AM EDT eCW1 ([facility]) J35.1 [id number] Chronic tonsillar hypertrophy Problem 2019 12:00:00 AM EDT eCW1 ([facility]) F41.9 [id number] Anxiety Problem 01/23/2020 12:00:00 AM ED T eCW1 ([facility]) F41.9 [id number] Anxiety Problem 01/23/2020 12:00:00 AM ED T eCW1 ([facility]) E28.2 [id number] Polycystic ovarian syndrome Problem 01/04/20 20 12:00:00 AM EDT eCW1 ([facility]) E28.2 [id number] Polycystic ovarian syndrome Problem 01/04/20 20 12:00:00 AM EDT eCW1 ([facility]) N92.6 55362701 Irregular menstrual bleeding Problem 020 12:00:00 AM EST eCW1 ([facility]) N92.6 [id number] Irregular menstrual bleeding Problem 020 12:00:00 AM EST eCW1 ([facility]) E66.01 [id number] Morbid (severe) obesity due to excess c alories Problem 10/05/2019 12:00:00 AM EST [facility]CW1 [facility]) Z68.42 [id number] Body mass index (BMI) 45.0-49.9, adult Pr oblem 10/05/2019 12:00:00 AM EST eCW1 ([facility]) E66.01 [id number] Morbid (severe) obesity due to excess c alories Problem 10/05/2019 12:00:00 AM EST eCW1 ([facility]) Z68.42 [id number] Body mass index (BMI) 45.0-49.9, adult Pr oblem 10/05/2019 12:00:00 AM EST eCW1 ([facility]) E03.9 [id number] Hypothyroidism, unspecified type Problem 09/21/2019 12:00:00 AM EST eCW1 ([facility]) F17.200 [id number] Smoking Problem 09/21/2019 12:00:00 AM ES T eCW1 ([facility]) F17.200 [id number] Smoking Problem 09/21/2019 12:00:00 AM ES T eCW1 ([facility]) E03.9 [id number] Hypothyroidism, unspecified type Problem 09/21/2019 12:00:00 AM EST W1 ([facility]) Z71.2 Person consulting for explanation of exa mination or test findings PERSON CONSULTING FOR EXPLANATION OF EXAM OR TEST Diagnosis 07/31/2020 02:30: 00 PM [facility] F41.9 Anxiety disorder, unspecified ANXIETY DISORDER, UNSPEC IFIED Diagnosis 07/31/2020 02:30:00 PM [facility] L73.2 Hidradenitis suppurativa HIDRADENITIS SUPPURATIVA Diag nosis 07/31/2020 02:30:00 PM [facility] L02.818 Cutaneous abscess of other sites CUTANEOUS ABSCE SS OF OTHER SITES Diagnosis 07/31/2020 02:30:00 PM [facility] E03.9 Hypothyroidism, unspecified HYPOTHYROIDISM, UNSPECIFIE D Diagnosis 07/23/2020 09:28:00 AM [facility] R73.03 PREDIABETES PREDIABETES Diagnosis 07/23/2020 09:28:00 AM [facility] Z13.220 Encounter for screening for lipoid disor ders ENCOUNTER FOR SCREENING FOR LIPOID DISORDERS Diagnosis 07/16/2020 08:48[facility] Body mass index (BMI) 45.0-49.9, adult B AYLEEN MASS INDEX [BMI] 45.0-49.9, ADULT Diagnosis 07/16/2020 08:48:00 AM [facility] l E66.01 Morbid (severe) obesity due to excess ca lories MORBID (SEVERE) OBESITY DUE TO EXCESS CALORIES Diagnosis 07/16/2020 08:48:00 AM [facility] ital Z80.3 Family history of malignant neoplasm of breast FAMILY HISTORY OF MALIGNANT NEOPLASM OF BREAST Diagnosis 07/16/2020 08:48:00 AM [facility] l Z12.39 Encounter for other screening for malign ant neoplasm of breast ENCOUNTER FOR OTH SCREENING FOR MALIGNANT NEOPLASM Diagnosis 07/16/2020 08:48:00 AM [facility] 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 R10.32 Left lower quadrant pain LEFT LOWER QUADRANT PAIN Diag nosis 05/07/2020 02:00:[address] [facility] J35.8 Other chronic diseases of tonsils and ad enoids OTHER CHRONIC DISEASES OF TONSILS AND ADENOIDS Diagnosis 03/04/2020 10:58:00 AM [facility] al J35.1 Hypertrophy of tonsils HYPERTROPHY OF TONSILS Diagnosi s 03/04/2020 10:58:[address] [facility] J03.90 Acute tonsillitis, unspecified ACUTE TONSILLITIS, UNSP ECIFIED Diagnosis 03/04/2020 10:58:[address] [facility] R21 Rash and other nonspecific skin eruption RASH AND OTHER NONSPECIFIC SKIN ERUPTION Diagnosis 01/23/2020 03:00:00 PM [facility] l E28.2 Polycystic ovarian syndrome POLYCYSTIC OVARIAN SYNDROM E Diagnosis 12/19/2019 09:18:[address] [facility] N92.6 Irregular menstruation, unspecified IRREGULAR ME NSTRUATION, UNSPECIFIED Diagnosis 10/11/2019 01:00:00 PM [facility] N83.511 Torsion of right ovary and ovarian pedic le TORSION OF RIGHT OVARY AND OVARIAN PEDIC Diagnosis 10/09/2019 12:53:00 PM [facility] l N85.00 Endometrial hyperplasia, unspecified END OMETRIAL HYPERPLASIA, UNSPECIFIED Diagnosis 10/09/2019 12:53:00 PM [facility] l Z76.89 Persons encountering health services in other specified circumstances PERSONS ENCOUNTERING HEALTH SERVICES IN OTH CIRCUM Diagnosis 06/2020 02:30:00 PM [facility] F17.200 Nicotine dependence, unspecified, uncomp licated NICOTINE DEPENDENCE, UNSPECIFIED, UNCOMPLICATED Diagnosis 09/21/2019 02:30:00 PM [facility] N83.201 UNSPECIFIED OVARIAN CYST, RIGHT SIDE UNS PECIFIED OVARIAN CYST, RIGHT SIDE Diagnosis 09/21/2019 02:30:00 PM [facility] l Results ID Date Data Source [id number] 07/23/2020 10:55:00 AM [facility] Name Value Range Interpretation Code Description Data Luisa rce(s) Supporting Document(s) FREE T4 1.18 ng/dL 0.76-1.46 [facility] ID Date Data Source [id number] 07/23/2020 10:41:00 AM [facility] Name Value Range Interpretation Code Description Data Luisa rce(s) Supporting Document(s) GLUCOSE 73 mg/dL 74-106 [facility] BLOOD UREA NITROGEN 9 mg/dL 7-18 [facility] ital CREATININE 0.8 mg/dL 0.6-1.0 [facility] SODIUM 140 mmol/L 136-145 [facility] POTASSIUM 4.3 mmol/L 3.5-5.1 [facility] CHLORIDE 102 mmol/L 98-107 [facility] CO2 24 mmol/L 21-32 [facility] CALCIUM 8.9 mg/dL 8.5-10.1 [facility] ANION GAP 14.0 mmol/L 5-12 H [facility] GLOMERULAR FILTRATION RATE 88 mL/min [facility] GFR IS CALCULATED IN mL/min/1.73m2 RAY L FUNCTION: >90MILDLY DECREASED: 60-89MILDY TO MODERATELY DECREASED: 45-59 MODERATELY TO SEVERELY DECREASED: 30-44SEVERELY DECREASED: 15-29RENAL FAILURE: <15 AST 55 U/L 15-37 H [facility] ALT 61 U/L 12-78 [facility] ALKALINE PHOSPHATASE 89 U/L 46-116 [facility] pital TOTAL BILIRUBIN 0.3 mg/dL 0.2-1.0 [facility] TOTAL PROTEIN 8.0 g/dl 6.4-8.2 [facility] ALBUMIN 3.3 gm/dL 3.4-5.0 [facility] ID Date Data Source [id number] 07/23/2020 10:41:00 AM [facility] l Name Value Range Interpretation Code Description Data Luisa rce(s) Supporting Document(s) ESTIMATED AVERAGE GLUCOSE 116.9 mg/dL [facility] ID Date Data Source [id number] 07/23/2020 10:41:00 AM [facility] l Name Value Range Interpretation Code Description Data Luisa rce(s) Supporting Document(s) HGBA1C 5.7 % 3.8-5.6 H [facility] Diabetic > or = to 6.5%Prediabetes 5.7-6 .4%Normal <5.7 ID Date Data Source [id number] 07/23/2020 09:53:00 AM [facility] l Name Value Range Interpretation Code Description Data [facility] rce(s) Supporting Document(s) WHITE BLOOD COUNT 10.7 K/mm3 4.0-10.0 [facility] RED BLOOD COUNT 4.86 M/mm3 4.00-5.50 [facility] HEMOGLOBIN 13.1 gm/dL 12.0-16.0 [facility] HEMATOCRIT 40.2 % 36.0-48.8 [facility] MEAN CELL VOLUME 82.7 fl 80-96 [facility] MEAN CORPUSCULAR HEMOGLOBIN 27.0 pg 27.0-31.0 [facility] MEAN CORPUSCULAR HGB CONC 32.6 g/dl 32.0-36.0 [facility] RED CELL DISTRIBUTION WIDTH 14.5 % 10.0-14.5 [facility] PLATELET COUNT 384 K/mm3 172-450 [facility] MEAN PLATELET VOLUME 9.0 fl 9.0-13.0 [facility] pital GRAN % 63.4 % 50-80.0 [facility] IG% 0.8 % 0.0-0.2 H [facility] LYMPH % 21.0 % 25.0-50.0 L [facility] MONO % 10.9 % 2.0-10.0 H [facility] EOS % 3.3 % 0-5.0 [facility] BASO % 0.6 % 0.0-2.0 [facility] GRAN # 6.8 K/mm3 2.0-8.00 [facility] IG# 0.1 K/mm3 0.0-0.2 [facility] LYMPH # 2.3 K/mm3 1.0-5.0 [facility] MONO # 1.2 K/mm3 0.10-1.20 [facility] EOS # 0.4 K/mm3 0.0-0.5 [facility] BASO # 0.1 K/mm3 0.0-0.2 [facility] ID Date Data Source [id number] 07/23/2020 10:55:00 AM EST [facility] Name Value Range Interpretation Code Description Data Luisa rce(s) Supporting Document(s) TSH 4.56 uIU/mL 0.36-3.74 H [facility] ID Date Data Source [id number] 05/07/2020 02:38:00 PM EDT [facility] DATED ON EXAMINATION: 05/07/2020 14:12 ED T PELVIC COMPLETE TRANS ABDOMEN HISTORY: Pain Real-time ultrasound imaging was performed utilizing B-mode/cooney scale and colorDoppler imaging where applicable. Patient is status post right oophorectomy. Uterus is anteverted. Endometrialstripe is 0.4 cm. Left ovary appears normal. There is no fluid in [id number]. IMPRESSION: Status post right oophorectomy. Anteverted uterus.. Electronically signed in PS360 by: Jamaal Reyes M.D. 05/07/2020 14:31 EDT Name Value Range Interpretation Code Description Data Luisa rce(s) Supporting Document(s) ID Date Data Source [id number] 04/25/2020 10:53:00 AM EDT MED[facility] ([facility]) Name Value Range Interpretation Code Description Data Luisa rce(s) Supporting Document(s) Throat Culture Laboratory test result MEDENT ([facility]) FULL REPORT IN LAB NOTES (eCW and [facility] ). NORMAL VIKI PRESENT ORGANISM 1: STREPTOCOCCUS GROUP C QUANTITY OF GROWTH MODERATE ORGANISM 1: STREPTOCOCCUS GROUP C ID Date Data Source [id number] 04/25/2020 10:53:00 AM EDT MED[facility] ([facility]) Name Value Range Interpretation Code Description Data Luisa rce(s) Supporting Document(s) Bacteria identified in Throat by Culture Laboratory test result MEDENT ([facility]) ID Date Data Source [id number] 04/10/2020 01:20:00 PM EDT [facility] Name Value Range Interpretation Code Description Data Luisa rce(s) Supporting Document(s) TSH 6.25 uIU/mL 0.36-3.74 H [facility] ID Date Data Source [id number] 12/19/2019 10:57:00 AM EDT [facility] DATED ON EXAMINATION: 12/19/2019 9:40 EDT PELVIC COMPLETE TRANS ABDOMEN HISTORY: Pain. Left lower quadrant pain. Real-time ultrasound imaging was performed utilizing B-mode/cooney scale and colorDoppler imaging where applicable. Patient is status post right oophorectomy. The left ovary appears normalmeasuring 3 x 2 centimeters without torsion or masses. There is no fluid in [id number]. Uterus appears normal. Endometrial stripe is 0.3 cm. IMPRESSION: Status post right oophorectomy.. Electronically signed in PS360 by: Jamaal Reyes M.D. 12/19/2019 10:52 EDT Name Value Range Interpretation Code Description Data Luisa rce(s) Supporting Document(s) ID Date Data Source [id number] 12/19/2019 10:55:00 AM EDT [facility] Name Value Range Interpretation Code Description Data Luisa rce(s) Supporting Document(s) TSH 9.31 uIU/mL 0.36-3.74 H [facility] ID Date Data Source [id number] 11/14/2019 02:27:00 PM EST [facility] Name Value Range Interpretation Code Description Data Luisa rce(s) Supporting Document(s) TSH 9.11 uIU/mL 0.36-3.74 H [facility] ID Date Data Source [id number] 10/09/2019 01:19:00 PM EST [facility] [...] rce(s) Supporting Document(s) ID Date Data Source [id number] 10/11/2019 06:05:00 PM EST [facility] Name Value Range Interpretation Code Description Data Luisa rce(s) Supporting Document(s) Written Authorization [facility] Written Authorization Received.Authoriza tion received from SIGNATURE ON FILE [id number] by Tiffanie Rivera ID Date Data Source [id number] 10/14/2019 08:05:00 PM EST [facility] Name Value Range Interpretation Code Description Data L[place]ia rce(s) Supporting Document(s) 17-OH Progesterone LCMS 10 ng/dL [facility] Adult Female Follicular 15 - 70 Luteal 35 - 290 ID Date Data Source [id number] 10/10/2019 08:06:00 AM EST [facility] Name Value Range Interpretation Code Description Data Luisa rce(s) Supporting Document(s) DHEA-SULFATE 260.3 ug/dL 110.0-431.7 [facility] Performed at: [facility] [address] [place] [address] [id number] Director: Cher Shrestha MD, Phone: [phone] ID Date Data Source [id number] 10/10/2019 06:09:00 PM EST [facility] Name Value Range Interpretation Code Description Data Luisa rce(s) Supporting Document(s) TESTOSTERONE, SERUM 21 ng/dL 8-48 [facility] FREE TESTOSTERONE(DIRECT) 2.6 pg/mL 0.0-4.2 [facility] Performed at: [facility] [place], [place] [id number] Director: Cher Shrestha MD, Phone: [phone] ID Date Data Source [id number] 10/10/2019 08:06:00 AM EST [facility] Name Value Range Interpretation Code Description Data Luisa rce(s) Supporting Document(s) DHEA-Sulfate 260.3 ug/dL 110.0-431.7 [facility] ID Date Data Source [id number] 10/10/2019 06:05:00 PM EST [facility] Name Value Range Interpretation Code Description Data Luisa rce(s) Supporting Document(s) Testosterone, Serum 21 ng/dL 8-48 [facility] Free Testosterone(Direct) 2.6 pg/mL 0.0-4.2 [facility] ID Date Data Source [id number] 09/21/2019 04:23:00 PM EST [facility] Name Value Range Interpretation Code Description Data Luisa rce(s) Supporting Document(s) TSH 28.93 uIU/mL 0.36-3.74 H [facility] ID Date Data Source [id number] 09/21/2019 12:00:00 AM EST eCW1 ([facility]) Name Value Range Interpretation Code Description Data Luisa rce(s) Supporting Document(s) 28.93 0.36-3.74 TSH eCW1 ([facility]) Procedure Social History Code Duration Value Status Description Data Source(s ) Smoking 07/31/2020 12:00:00 AM EST Current Smoker completed Curre nt Smoker eCW1 ([facility]) Smoking 07/16/2020 12:00:00 AM EST Current Smoker completed Curre nt Smoker eCW1 ([facility]) Smoking 03/04/2020 12:00:00 AM EDT Current Smoker completed Curre nt Smoker eCW1 ([facility]) Smoking 03/04/2020 12:00:00 AM EDT Current Smoker completed Curre nt Smoker eCW1 ([facility]) Smoking 03/04/2020 12:00:00 AM EDT Current Smoker completed Curre nt Smoker eCW1 ([facility]) Smoking 03/04/2020 12:00:00 AM EDT Current Smoker completed Curre nt Smoker eCW1 ([facility]) Smoking 03/04/2020 12:00:00 AM EDT Current Smoker completed Curre nt Smoker eCW1 ([facility]) Vital Signs ID Date Data Source [id number] Name Value Range Interpretation Code Description Data Source(s) Body mass index (BMI) [Ratio] 47.0 kg/m2 47.0 k g/m2 MEDENT ([facility]) Body height 67 [in_i] 67 [in_i] MEDENT ([facility]) 5'7" Body weight 300.00 [lb_av] 300.00 [lb_av] MEDEN T ([facility]) weighed Body temperature 97.8 [degF] 97.8 [degF] MEDENT ([facility], [facility]) Oxygen saturation in Arterial blood by Pulse oximetry 98 % 98 % [facility] ([facility], [facility]) Respiratory rate 20 /min 20 /min [facility] ( [facility], [facility]) Heart rate 88 /min 88 /min MEDENT ([facility], [facility]) Diastolic blood pressure 87 mm[Hg] 87 mm[Hg] MEDENT ([facility], [facility]) Systolic blood pressure 153 mm[Hg] 153 mm[Hg] M EDENT ([facility], [facility]) Oxygen saturation in Arterial blood by Pulse oximetry 97 % 97 % eCW1 ([facility]) Respiratory rate 18 /min 18 /min eCW1 ([facility]) Heart rate 87 /min 87 /min eCW1 ([facility]) Body temperature 98.0 [degF] 98.0 [degF] eCW1 ( [facility]) Body mass index (BMI) [Ratio] 47.29 kg/m2 47.29 kg/m2 eCW1 ([facility]) Body weight 302.0 [lb_av] 302.0 [lb_av] eCW1 ([facility]) Body height 67 [in_i] 67 [in_i] eCW1 ([facility]) Body mass index (BMI) [Ratio] 47.8 kg/m2 47.8 k g/m2 MEDENT ([facility], [facility]) Body height 67 [in_i] 67 [in_i] MEDENT ([facility], [facility]) 5'7" Body weight 305.00 [lb_av] 305.00 [lb_av] MEDEN T ([facility], [facility]) Body temperature 97.3 [degF] 97.3 [degF] MEDENT ([facility], [facility]) Oxygen saturation in Arterial blood by Pulse oximetry 100 % 100 % MED[facility] ([facility], [facility]) Heart rate 98 /min 98 /min MED[facility] ([facility], [facility]) Diastolic blood pressure 86 mm[Hg] 86 mm[Hg] MEDENT ([facility], [facility]) Systolic blood pressure 130 mm[Hg] 130 mm[Hg] M EDENT ([facility], [facility]) Body mass index (BMI) [Ratio] 47.8 kg/m2 47.8 k g/m2 MED[facility] ([facility], [facility]) Body height 67 [in_i] 67 [in_i] MEDENT ([facility], [facility]) 5'7" Body weight 305.00 [lb_av] 305.00 [lb_av] MEDEN T ([facility], [facility]) Body temperature 97.3 [degF] 97.3 [degF] MEDENT ([facility], [facility]) Oxygen saturation in Arterial blood by Pulse oximetry 98 % 98 % [facility] ([facility], [facility]) Respiratory rate 12 /min 12 /min MED[facility] ( [facility], [facility]) Heart rate 116 /min 116 /min [facility], [facility]) Diastolic blood pressure 94 mm[Hg] 94 mm[Hg] [facility] ([facility], [facility]) Systolic blood pressure 144 mm[Hg] 144 mm[Hg] [facility], [facility]) Oxygen saturation in Arterial blood by Pulse oximetry 98 % 98 % eCW1 ([facility]) Respiratory rate 18 /min 18 /min eCW1 ([facility]) Heart rate 99 /min 99 /min eCW1 ([facility]) Body temperature 98.5 [degF] 98.5 [degF] eCW1 ( [facility]) Body mass index (BMI) [Ratio] 46.98 kg/m2 46.98 kg/m2 eCW1 ([facility]) Body height 67 [in_i] 67 [in_i] eCW1 ([facility]) Deprecated Oxygen saturation in Capillary blood by Oximetry 100 % 100 % eCW1 ([facility]) Respiratory rate 18 /min 18 /min eCW1 ([facility]) Heart rate 99 /min 99 /min eCW1 ([facility]) Body temperature 98.6 [degF] 98.6 [degF] eCW1 ( [facility]) Body mass index (BMI) [Ratio] 47.76 kg/m2 47.76 kg/m2 eCW1 ([facility]) Body weight Measured 305.0 [lb_av] 305.0 [lb_av ] eCW1 ([facility]) Body height 67 [in_us] 67 [in_us] eCW1 ([facility]) Deprecated Oxygen saturation in Capillary blood by Oximetry 99 % 99 % eCW1 ([facility]) Respiratory rate 18 /min 18 /min eCW1 ([facility]) Heart rate 99 /min 99 /min eCW1 ([facility]) Body temperature 98.6 [degF] 98.6 [degF] eCW1 ( [facility]) Body mass index (BMI) [Ratio] 47.64 kg/m2 47.64 kg/m2 eCW1 ([facility]) Body weight Measured 304.2 [lb_av] 304.2 [lb_av ] eCW1 ([facility]) Body height 67 [in_us] 67 [in_us] eCW1 ([facility]) Deprecated Oxygen saturation in Capillary blood by Oximetry 97 % 97 % eCW1 ([facility]) Heart rate 93 /min 93 /min eCW1 ([facility]) Body temperature 98.0 [degF] 98.0 [degF] eCW1 ( [facility]) Body mass index (BMI) [Ratio] 47.11 kg/m2 47.11 kg/m2 eCW1 ([facility]) Body weight Measured 300.8 [lb_av] 300.8 [lb_av ] eCW1 ([facility]) Body height 67 [in_us] 67 [in_us] eCW1 ([facility]) Deprecated Oxygen saturation in Capillary blood by Oximetry 98 % 98 % eCW1 ([facility]) Respiratory rate 18 /min 18 /min eCW1 ([facility]) Heart rate 89 /min 89 /min eCW1 ([facility]) Body temperature 98.6 [degF] 98.6 [degF] eCW1 ( [facility]) Body mass index (BMI) [Ratio] 47.64 kg/m2 47.64 kg/m2 eCW1 ([facility]) Body weight Measured 304.2 [lb_av] 304.2 [lb_av ] eCW1 ([facility]) Body height 67 [in_us] 67 [in_us] eCW1 ([facility]) Deprecated Oxygen saturation in Capillary blood by Oximetry 98 % 98 % eCW1 ([facility]) Respiratory rate 18 /min 18 /min eCW1 ([facility]) Heart rate 83 /min 83 /min eCW1 ([facility]) Body temperature 97.8 [degF] 97.8 [degF] eCW1 ( [facility]) Body mass index (BMI) [Ratio] 47.61 kg/m2 47.61 kg/m2 eCW1 ([facility]) Body weight Measured 304.0 [lb_av] 304.0 [lb_av ] eCW1 ([facility]) Body height 67 [in_us] 67 [in_us] eCW1 ([facility]) Deprecated Oxygen saturation in Capillary blood by Oximetry 98 % 98 % eCW1 ([facility]) Respiratory rate 20 /min 20 /min eCW1 ([facility]) Heart rate 91 /min 91 /min eCW1 ([facility]) Body temperature 98.0 [degF] 98.0 [degF] eCW1 ( [facility]) Body mass index (BMI) [Ratio] 48.08 kg/m2 48.08 kg/m2 eCW1 ([facility]) Body weight Measured 307.0 [lb_av] 307.0 [lb_av ] eCW1 ([facility]) Body height 67 [in_us] 67 [in_us] eCW1 ([facility]) Patient Treatment Plan of Care Planned Activity Planned Date Details Description Data Source (s) Levothyroxine Sodium 0.1 MG Oral Tablet 07/31/2020 12:00:00 AM EST eCW1 ([facility]) Sulfamethoxazole 800 MG / Trimethoprim 160 MG Oral Tab let [Bactrim] 07/16/2020 12:00:00 AM EST eCW1 ([facility]) Levothyroxine Sodium 0.088 MG Oral Tablet [Synthroid] 05/08/2020 12:00:00 AM EDT eCW1 ([facility]) Levothyroxine Sodium 0.088 MG Oral Tablet [Synthroid] 04/10/2020 12:00:00 AM EDT eCW1 ([facility]) Levothyroxine Sodium 0.088 MG Oral Tablet [Synthroid] 04/10/2020 12:00:00 AM EDT eCW1 ([facility]) Levothyroxine Sodium 0.088 MG Oral Tablet [Synthroid] 04/10/2020 12:00:00 AM EDT eCW1 ([facility]) Amoxicillin 500 MG Oral Capsule 03/04/2020 12:00:00 AM EDT eCW1 ([facility]) Hydroxyzine Hydrochloride 10 MG Oral Tablet 01/23/2020 12:00:00 AM EDT eCW1 ([facility]) Levothyroxine Sodium 0.075 MG Oral Tablet [Synthroid] 12/19/2019 12:00:00 AM EDT eCW1 ([facility]) Norgestim-Eth Estrad Triphasic 0.18/0.215/0.25 MG-35 M CG 12/19/2019 12:00:00 AM EDT eCW1 ([facility]) Triamcinolone Acetonide 1 MG/ML Topical Cream 12/07/2019 12:00:00 A M EDT eCW1 ([facility]) Levothyroxine Sodium 0.05 MG Oral Tablet [Synthroid] 03/04/2 020 12:00:00 AM EST eCW1 ([facility]) Norgestim-Eth Estrad Triphasic 0.18/0.215/0.25 MG-35 M CG 10/11/2019 12:00:00 AM EST eCW1 ([facility]) Norgestim-Eth Estrad Triphasic 0.18/0.215/0.25 MG-35 M CG 10/11/2019 12:00:00 AM EST eCW1 ([facility]) METFORMIN ER 500 MG 10/05/2019 12:00:00 AM EST eCW1 ([facility]) Levothyroxine Sodium 0.025 MG Oral Tablet [Synthroid] 09/21/2019 12:00:00 AM EST eCW1 ([facility])
--- NOTE | 2020-10-22 09:49 | REP ---
INDICATION: trauma, pain COMPARISON: None. TECHNIQUE: AP, lateral, bilateral oblique views. FINDINGS: Lateral swelling noted. No acute fracture or dislocation. Joint spaces and ankle mortise are intact. IMPRESSION: Lateral swelling. No acute fracture. <Electronically signed by Tony Reyes > 10/22/20 0938
[2020-10-22 10:04] VITALS: BP 143/78
== END 2020-10-22 10:05 | disposition home or self-care (01) ==
LOC: M ED 08:35
DX: S93.491A Sprain of other ligament of right ankle, initial encounter (principal); W10.8XXA Fall (on) (from) other stairs and steps, initial encounter; Y92.019 Unspecified place in single-family (private) house as the place of occurrence of the external cause; Y93.9 Activity, unspecified; Y99.9 Unspecified external cause status; F17.200 Nicotine dependence, unspecified, uncomplicated; Z79.3 Long term (current) use of hormonal contraceptives

== ENCOUNTER 2020-12-24 14:51 | Emergency (ER) | payer OTHER ==
[~2020-12-24] VITALS: Ht 170.2 cm; Wt 127.6 kg
[~2020-12-24 14:51] MED LIST changes: +ORTH1TAB8 PO
[2020-12-24 15:40] LABS: BASO # 0.1 10^3/uL (0.0-0.2); BASO % 0.7 % (0.0-1.0); EOS # 0.3 10^3/uL (0.0-0.5); EOS % 1.9 % (0.0-3.0); HEMOGLOBIN 13.4 g/dl (12.0-15.5); LYMPH # 2.6 10^3/uL (1.5-5.0); LYMPH % 18.8 % (24.0-44.0); MEAN CORPUSCULAR HEMOGLOBIN 27.1 pg (27.0-33.0); MEAN CORPUSCULAR HGB CONC 31.9 g/dl (32.0-36.5); MEAN CORPUSCULAR VOLUME 84.8 fl (80.0-96.0); MONO # 1.4 10^3/uL (0.0-0.8); MONO % 10.2 % (2.0-8.0); NEUTROPHILS # 9.2 10^3/uL (1.5-8.5); NEUTROPHILS % 67.6 % (36.0-66.0); PLATELET COUNT, AUTOMATED 452 10^3/uL (150-450); RED BLOOD COUNT 4.95 10^6/uL (4.00-5.40); WHITE BLOOD COUNT 13.6 10^3/uL (4.0-10.0)
[2020-12-24 16:05] LABS: ALBUMIN 3.7 GM/DL (3.2-5.2); ALT/SGPT 56 U/L (12-78); BILIRUBIN,DIRECT 0.2 MG/DL (0.0-0.2); BILIRUBIN,TOTAL 0.7 MG/DL (0.2-1.0); LIPASE 67 U/L (73-393)
[2020-12-24 16:35] LABS: HCG, SERUM QUALITATIVE NEGATIVE (NEGATIVE)
[2020-12-24] MEDS ORDERED: IBUPROFEN 600MG TAB PO ONE (16:35)
--- NOTE | 2020-12-24 17:17 | REP ---
INDICATION: left pelvic pain; r/o cyst vs torsion. COMPARISON: Comparison pelvic sonography 23 September 2020.. TECHNIQUE: Transabdominal and transvaginal scanning were performed. FINDINGS: Uterine dimensions are normal at 7.4 x 3.0 x 4.9 cm. Endometrial echo is 0.8 cm thick and centrally placed. No free fluid is seen in the cul-de-sac. Visualized bladder dougherty are smooth. The right ovary is surgically absent. No right adnexal mass or cyst is seen. No free fluid is noted in the cul-de-sac.. The left ovary dimensions are normal as well at 3.1 x 2.0 x 2.7 cm. It's Doppler flow was normal with resistive index of 0.66. No left adnexal abnormality. IMPRESSION: Normal pelvic sonography. Post right oophorectomy. <Electronically signed by Hector Duran > 12/24/20 3631
[2020-12-24 17:56] VITALS: BP 158/90
== END 2020-12-24 17:59 | disposition home or self-care (01) ==
LOC: M ED 14:51
DX: R10.2 Pelvic and perineal pain (principal); Z90.721 Acquired absence of ovaries, unilateral; Z91.018 Allergy to other foods

== ENCOUNTER 2020-12-31 20:10 | Emergency (ER) | payer OTHER ==
[~2020-12-31] VITALS: Ht 172.7 cm; Wt 126.9 kg
[2020-12-31 23:11] LABS: BASO # 0.1 10^3/uL (0.0-0.2); BASO % 0.8 % (0.0-1.0); EOS # 0.3 10^3/uL (0.0-0.5); EOS % 2.2 % (0.0-3.0); HEMATOCRIT 43.3 % (36.0-47.0); HEMOGLOBIN 13.6 g/dl (12.0-15.5); LYMPH # 3.4 10^3/uL (1.5-5.0); LYMPH % 22.9 % (24.0-44.0); MEAN CORPUSCULAR HEMOGLOBIN 26.7 pg (27.0-33.0); MEAN CORPUSCULAR HGB CONC 31.4 g/dl (32.0-36.5); MEAN CORPUSCULAR VOLUME 85.1 fl (80.0-96.0); MONO # 1.3 10^3/uL (0.0-0.8); MONO % 8.8 % (2.0-8.0); NEUTROPHILS # 9.6 10^3/uL (1.5-8.5); NEUTROPHILS % 64.6 % (36.0-66.0); PLATELET COUNT, AUTOMATED 448 10^3/uL (150-450); RED BLOOD COUNT 5.09 10^6/uL (4.00-5.40); WHITE BLOOD COUNT 14.8 10^3/uL (4.0-10.0)
[2020-12-31 23:24] LABS: INR 0.94; PROTHROMBIN TIME 12.8 SECONDS (12.5-14.3)
[2020-12-31 23:53] LABS: ALBUMIN 3.9 GM/DL (3.2-5.2); BILIRUBIN,DIRECT 0.1 MG/DL (0.0-0.2); BILIRUBIN,TOTAL 0.4 MG/DL (0.2-1.0); TOTAL PROTEIN 8.1 GM/DL (6.4-8.2)
[2021-01-01 00:15] LABS: D-DIMER QUANT < 270 ng/ml (<500)
[2021-01-01 00:23] LABS: THYROID STIMULATING HORMONE 2.9 uIU/ML (0.358-3.740)
--- NOTE | 2021-01-01 00:44 | REPVR ---
PROCEDURE INFORMATION: Exam: XR Chest Exam date and time: 12/31/2020 10:52 PM Age: 25 years old Clinical indication: Other: Cp; Additional info: Chest pain TECHNIQUE: Imaging protocol: XR of the chest. Views: 1 view. COMPARISON: CR Abdomen,Flat Upright,PA CHEST 02/26/2017 6:36 PM FINDINGS: Lungs: Unremarkable. No consolidation. Pleural spaces: Unremarkable. No pleural effusion. No pneumothorax. Heart/Mediastinum: Unremarkable. No cardiomegaly. Bones/joints: Unremarkable. IMPRESSION: No acute findings. Electronically signed by: Tyler Osorio On 01/01/2021 00:44:25 AM
[2021-01-01 02:11] VITALS: BP 136/71
--- NOTE | 2021-01-01 13:04 | ECGEPIP ---
[facility] - ED Test Date: 2020-12-31 Pat Name: LEANDER EMERY Department: Room: - Gender: Female Presser Hand: : 1995 Requested By: DELMI Rivera Order Number: [id number] Reading MD: Kimberlee Garcia Measurements Intervals Leslie Rate: 77 P: 12 ID: [id number] QRS: 67 QRSD: 96 T: 24 QT: 396 QTc: 448 Interpretive Statements Normal sinus rhythm NSTTW abnormalities No prior Electronically Signed on 01-01-2021 13:04:14 EDT by Kimberlee Garcia
== END 2021-01-01 02:12 | disposition home or self-care (01) ==
LOC: M ED 20:10
DX: R07.89 Other chest pain (principal); E66.9 Obesity, unspecified; E03.9 Hypothyroidism, unspecified; E28.2 Polycystic ovarian syndrome; F17.290 Nicotine dependence, other tobacco product, uncomplicated; Z79.3 Long term (current) use of hormonal contraceptives; Z79.890 Hormone replacement therapy; Z91.018 Allergy to other foods; Z98.890 Other specified postprocedural states; Z83.2 Family history of diseases of the blood and blood-forming organs and certain disorders involving the immune mechanism

== ENCOUNTER → 2021-03-11 | Outpatient (REF) | payer OTHER ==
[2021-03-11 21:40] LABS: APPEARANCE, URINE CLEAR (CLEAR); BACTERIA, URINE AUTO NEGATIVE (NEGATIVE); BILIRUBIN, URINE AUTO NEGATIVE (NEGATIVE); BLOOD, URINE BLOOD NEGATIVE (NEGATIVE); COLOR, URINE YELLOW (YELLOW); GLUCOSE, URINE (UA) AUTO NEGATIVE (NEGATIVE); KETONE, URINE AUTO NEGATIVE (NEGATIVE); LEUKOCYTE ESTERASE, URINE AUTO NEGATIVE (NEGATIVE); MUCUS, URINE SMALL (NEGATIVE); NITRITE, URINE AUTO NEGATIVE (NEGATIVE); PROTEIN, URINE AUTO NEGATIVE (NEGATIVE); RBC, URINE AUTO 0 /HPF (0-3); SPECIFIC GRAVITY URINE AUTO 1.023 (1.002-1.035); SQUAMOUS EPITHELIAL CELL UR AU 0 /HPF (0-6); UROBILINOGEN, URINE AUTO 0.2 mg/dL (0.0-2.0); WBC, URINE AUTO 0 /HPF (0-3)
[2021-03-11 22:59] LABS: GC DNA AMPLIFICATION NEGATIVE (NEGATIVE)
== END ==
LOC: M LAB REF 21:08
PROVIDERS: ATTEND Physician Assistant
DX: N39.0 Urinary tract infection, site not specified (principal)

== ENCOUNTER 2021-03-17 17:57 | Emergency (ER) | payer OTHER ==
[~2021-03-17] VITALS: Ht 170.2 cm; Wt 123.9 kg
[2021-03-17 23:00] LABS: BASO # 0.1 10^3/uL (0.0-0.2); BASO % 0.8 % (0.0-1.0); EOS # 0.3 10^3/uL (0.0-0.5); EOS % 1.7 % (0.0-3.0); HEMATOCRIT 40.9 % (36.0-47.0); LYMPH # 3.7 10^3/uL (1.5-5.0); LYMPH % 25.6 % (24.0-44.0); MEAN CORPUSCULAR HEMOGLOBIN 27.3 pg (27.0-33.0); MEAN CORPUSCULAR HGB CONC 31.8 g/dl (32.0-36.5); MEAN CORPUSCULAR VOLUME 85.9 fl (80.0-96.0); MONO # 1.6 10^3/uL (0.0-0.8); MONO % 10.9 % (2.0-8.0); NEUTROPHILS # 8.8 10^3/uL (1.5-8.5); NEUTROPHILS % 60.3 % (36.0-66.0); PLATELET COUNT, AUTOMATED 436 10^3/uL (150-450); RED BLOOD COUNT 4.76 10^6/uL (4.00-5.40); WHITE BLOOD COUNT 14.6 10^3/uL (4.0-10.0)
[2021-03-17 23:57] LABS: BLOOD UREA NITROGEN 10 MG/DL (7-18); CALCIUM LEVEL 8.7 MG/DL (8.5-10.1); CARBON DIOXIDE LEVEL 26 MEQ/L (21-32); CHLORIDE LEVEL 104 MEQ/L (98-107); CREATININE FOR GFR 0.82 MG/DL (0.55-1.30); GLOMERULAR FILTRATION RATE > 60.0 (>60); GLUCOSE, FASTING 74 MG/DL (70-100); HCG, SERUM QUANTITATIVE 11692 MIU/ML; POTASSIUM SERUM 3.8 MEQ/L (3.5-5.1); SODIUM LEVEL 136 MEQ/L (136-145)
--- NOTE | 2021-03-18 00:06 | REPVR ---
PROCEDURE INFORMATION: Exam: US First Trimester, Transabdominal Exam date and time: 03/17/21 (10:10pm) Age: 25 years old Clinical indication: female. First trimester. LLQ pain. Left-sided pelvic pain. S/P right oophorectomy. TECHNIQUE: Imaging protocol: Real-time transabdominal obstetrical ultrasound of the maternal pelvis and a first trimester , less than 14 weeks 0 days, with image documentation. COMPARISON: US PELVIS of 12/24/20 FINDINGS: The LMP is reported to be: 12/13/20 An early live intrauterine gestation is identified, approx. 6 weeks 1 day gestational age, based on the crown-rump length (CRL = 3.9 mm). Based on the CRL measurement, the ESTRELLA = 11/09/21. The mean sac diameter (MSD = 17 mm) also corresponds to an expected age = 6 weeks 1 day. There is an approx. 7-week discrepancy with the menstrual history provided. heart rate is recorded at 113 bpm. A yolk sac is visualized. The uterus is anteverted, measuring 9.1 x 5.1 x 6.5 cm in dimensions. The maternal right ovary is surgically absent. The left ovary measures 3.1 x 3.1 x 2.0 cm in dimensions, with no evidence of torsion. There is no evidence of torsion on Doppler evaluation. No free pelvic fluid is appreciated. No solid adnexal mass. IMPRESSION: A single live IUP is seen, at 6 weeks 1 day gestational age (based on the CRL). heartbeat is recorded. No adnexal pathology is seen. S/P right oophorectomy. No free pelvic fluid is noted. Electronically signed by: Mariah Salinas On 03/18/2021 00:05:22 AM
[2021-03-18 00:09] VITALS: BP 145/80
== END 2021-03-18 00:26 | disposition home or self-care (01) ==
LOC: M ED 17:57
DX: O99.891 Other specified diseases and conditions complicating pregnancy (principal); R10.2 Pelvic and perineal pain; Z3A.01 Less than 8 weeks gestation of pregnancy; O99.331 Smoking (tobacco) complicating pregnancy, first trimester; F17.200 Nicotine dependence, unspecified, uncomplicated; Z90.721 Acquired absence of ovaries, unilateral

== ENCOUNTER 2021-03-21 23:47 | Emergency (ER) | payer OTHER ==
[~2021-03-21] VITALS: Ht 170.2 cm; Wt 123.1 kg
[2021-03-21 23:48] VITALS: BP 127/69
[2021-03-21] MEDS ORDERED: GNP28TAB2 PO (23:53)
== END 2021-03-22 02:12 | disposition left against medical advice (07) ==
LOC: M ED 23:47
DX: Z53.21 Procedure and treatment not carried out due to patient leaving prior to being seen by health care provider (principal)

== ENCOUNTER → 2021-03-25 | Outpatient (REF) | payer OTHER ==
[~2021-03-25] MED LIST changes: +GNP28TAB2 PO
[2021-03-25 17:08] LABS: HEMOGLOBIN 12.5 g/dl (12.0-15.5); MEAN CORPUSCULAR HEMOGLOBIN 27.5 pg (27.0-33.0); MEAN CORPUSCULAR HGB CONC 32.1 g/dl (32.0-36.5); MEAN CORPUSCULAR VOLUME 85.9 fl (80.0-96.0); PLATELET COUNT, AUTOMATED 382 10^3/uL (150-450); RED BLOOD COUNT 4.54 10^6/uL (4.00-5.40); WHITE BLOOD COUNT 12.6 10^3/uL (4.0-10.0)
[2021-03-25 18:25] LABS: FREE T3 2.5 PG/ML (2.2-4.0); FREE T4 1.09 NG/DL (0.76-1.46); HCG, SERUM QUANTITATIVE 29455 MIU/ML; HEPATITIS B SURFACE ANTIGEN NEGATIVE (NEGATIVE); HIV 1&2 SCREEN CENTAUR NEGATIVE (NEGATIVE)
== END ==
LOC: M LAB REF 16:22
PROVIDERS: ATTEND Advanced Practice Midwife
DX: Z34.01 Encounter for supervision of normal first pregnancy, first trimester (principal); Z3A.00 Weeks of gestation of pregnancy not specified

== ENCOUNTER 2021-04-10 09:41 | Emergency (ER) | payer OTHER ==
[~2021-04-10] VITALS: Ht 170.2 cm; Wt 123.1 kg
[2021-04-10] MEDS ORDERED: ONDA4TAB6 PO (13:15)
[2021-04-10] MEDS ORDERED: MAGICMW SSP (13:15)
[2021-04-10] MEDS ORDERED: AMOX875T PO (13:15)
[2021-04-10 13:29] VITALS: BP 138/87
== END 2021-04-10 13:30 | disposition home or self-care (01) ==
LOC: M ED 09:41
DX: O99.619 Diseases of the digestive system complicating pregnancy, unspecified trimester (principal); K02.9 Dental caries, unspecified; K03.81 Cracked tooth; O99.280 Endocrine, nutritional and metabolic diseases complicating pregnancy, unspecified trimester; E03.9 Hypothyroidism, unspecified; Z3A.00 Weeks of gestation of pregnancy not specified; Z79.890 Hormone replacement therapy; Z91.018 Allergy to other foods; Z98.890 Other specified postprocedural states

== ENCOUNTER 2021-04-18 16:46 | Emergency (ER) | payer OTHER ==
[~2021-04-18] VITALS: Ht 170.2 cm; Wt 123.8 kg
[~2021-04-18 16:46] MED LIST changes: +AMOX875T PO; +MAGICMW SSP
[2021-04-18] MEDS ORDERED: NS 1,000 ML IV SCH (17:20)
[2021-04-18 17:45] LABS: APPEARANCE, URINE CLEAR (CLEAR); BACTERIA, URINE AUTO NEGATIVE (NEGATIVE); BILIRUBIN, URINE AUTO NEGATIVE (NEGATIVE); BLOOD, URINE BLOOD NEGATIVE (NEGATIVE); COLOR, URINE STRAW (YELLOW); GLUCOSE, URINE (UA) AUTO NEGATIVE (NEGATIVE); KETONE, URINE AUTO NEGATIVE (NEGATIVE); LEUKOCYTE ESTERASE, URINE AUTO NEGATIVE (NEGATIVE); NITRITE, URINE AUTO NEGATIVE (NEGATIVE); PROTEIN, URINE AUTO NEGATIVE (NEGATIVE); RBC, URINE AUTO 1 /HPF (0-3); SPECIFIC GRAVITY URINE AUTO 1.009 (1.002-1.035); SQUAMOUS EPITHELIAL CELL UR AU 1 /HPF (0-6); UROBILINOGEN, URINE AUTO 0.2 mg/dL (0.0-2.0); WBC, URINE AUTO 1 /HPF (0-3)
[2021-04-18 17:46] LABS: BASO # 0.1 10^3/uL (0.0-0.2); BASO % 0.5 % (0.0-1.0); EOS # 0.3 10^3/uL (0.0-0.5); EOS % 1.7 % (0.0-3.0); HEMATOCRIT 40.6 % (36.0-47.0); HEMOGLOBIN 13.1 g/dl (12.0-15.5); LYMPH # 2.9 10^3/uL (1.5-5.0); LYMPH % 18.5 % (24.0-44.0); MEAN CORPUSCULAR HEMOGLOBIN 27.6 pg (27.0-33.0); MEAN CORPUSCULAR HGB CONC 32.3 g/dl (32.0-36.5); MEAN CORPUSCULAR VOLUME 85.5 fl (80.0-96.0); MONO # 1.4 10^3/uL (0.0-0.8); MONO % 8.6 % (2.0-8.0); NEUTROPHILS % 69.9 % (36.0-66.0); PLATELET COUNT, AUTOMATED 405 10^3/uL (150-450); RED BLOOD COUNT 4.75 10^6/uL (4.00-5.40); WHITE BLOOD COUNT 15.8 10^3/uL (4.0-10.0)
[2021-04-18 18:49] LABS: ALBUMIN 3.3 GM/DL (3.2-5.2); ALT/SGPT 28 U/L (12-78); BILIRUBIN,DIRECT < 0.1 MG/DL (0.0-0.2); BILIRUBIN,TOTAL 0.2 MG/DL (0.2-1.0); BLOOD UREA NITROGEN 10 MG/DL (7-18); CARBON DIOXIDE LEVEL 24 MEQ/L (21-32); CHLORIDE LEVEL 105 MEQ/L (98-107); CREATININE FOR GFR 0.65 MG/DL (0.55-1.30); GLOMERULAR FILTRATION RATE > 60.0 (>60); GLUCOSE, FASTING 83 MG/DL (70-100); HCG, SERUM QUANTITATIVE 65306 MIU/ML; LIPASE 77 U/L (73-393); POTASSIUM SERUM 4.2 MEQ/L (3.5-5.1); SODIUM LEVEL 136 MEQ/L (136-145); TOTAL PROTEIN 7.8 GM/DL (6.4-8.2)
[2021-04-18 19:09] LABS: GC DNA AMPLIFICATION NEGATIVE (NEGATIVE)
--- NOTE | 2021-04-18 20:00 | REP ---
INDICATION: vag bleed pain eval for IUP. COMPARISON: Obstetric ultrasound dated 03/17/2021. TECHNIQUE: Multiple ultrasonographic images of the gravid uterus FINDINGS: There is an intrauterine gestational sac with a pole. In a The heart rate is 167 beats per minute. The the pole crown-rump length is 3.9 cm corresponding to 10 weeks 6 days gestational age. The ESTRELLA by today's ultrasound is 11/08/2021. Gestational age by the 1st ultrasound is 10 weeks 4 days with an ESTRELLA of 11/10/2021. Gestational age by LMP is 18 weeks 0 days with an ESTRELLA of 09/19/2021. There is no subchorionic hematoma. IMPRESSION: Viable intrauterine gestation at 10 weeks 6 days gestational age. No subchorionic hematoma. <Electronically signed by Abdulkadir Uriarte > 04/18/211955
[2021-04-18 20:20] VITALS: BP 137/80
== END 2021-04-18 20:34 | disposition home or self-care (01) ==
LOC: M ED 16:46
DX: O20.0 Threatened abortion (principal); O99.282 Endocrine, nutritional and metabolic diseases complicating pregnancy, second trimester; O34.82 Maternal care for other abnormalities of pelvic organs, second trimester; Z3A.10 10 weeks gestation of pregnancy; Z79.890 Hormone replacement therapy; Z79.899 Other long term (current) drug therapy

== ENCOUNTER → 2021-04-23 | Outpatient (REF) | payer OTHER, MEDICAID | LOC: M LAB REF 17:07 | PROVIDERS: ATTEND Obstetrics & Gynecology | DX: Z34.01 Encounter for supervision of normal first pregnancy, first trimester (principal); Z3A.00 Weeks of gestation of pregnancy not specified ==

== ENCOUNTER → 2021-06-04 | Outpatient (REF) | payer OTHER | LOC: M LAB REF 21:29 | PROVIDERS: ATTEND Physician Assistant | DX: J02.9 Acute pharyngitis, unspecified (principal) ==

== ENCOUNTER 2021-06-28 13:12 | Emergency (ER) | payer OTHER ==
[~2021-06-28] VITALS: Ht 170.2 cm; Wt 122.7 kg
--- OUTSIDE RECORDS SUMMARY | 2021-06-28 13:19 | CCD | Continuity of Care Document ---
Author Author [facility] Organization [facility] Address Unknown Phone Unavailable Care Team Providers Care Molten Iron Pourer Name Role Phone Rosa Maria Olivera MD Unavailable Unavailable Allergies, Adverse Reactions, Alerts Substance Reaction Status Criticality No Known Allergies Active No Information Medications Medication Instructions Dosage Effective Dates (start - stop) Sta tus Comments No Information Problems Condition Effective Dates (start - stop) Clinical Status C omments Overweight - Unspecified ovarian cyst, right side Encounter for test, result negative Encntr screen for infections w sexl mode of transmiss Other sex counseling Encounter for oth general cnsl and advice on contraception Secondary amenorrhea Encounter for screening for human immunodeficiency virus Human immunodeficiency virus [HIV] counseling Encounter for test, result negative Encntr screen for infections w sexl mode of transmiss High risk heterosexual behavior Abnormal uterine and vaginal bleeding, unspecified Other sex counseling Encounter for oth general cnsl and advice on contraception Chlamydia Family Planning Counseling Chlamydia Family Planning Counseling HIV Counseling BCM Other, Start Dysmenorrhea 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 MANAGER Exam, Routine WWE HIV, Screening STI Counseling STI Screening Family Planning Counseling PT, Negative SAWMILL MANAGER Exam, Routine WWE STI Screening OCP, Start HIV Counseling PT, Negative OCP, Start PT, Negative Depressive disorder - Active Chlamydia PCR positive - Active Procedures Procedure Date No Information Results Test Name Date and Time Measure Units Reference Range Abnormal Flag St atus Comments No Information Advance Directives Directive Yes / No Effective Date File Name No Information Encounters Encounter Description Practice Location Reason(s) For Visit Diagnose s Date Provider Providers Copied on Encounter [facility], [address], [place], [place], [id number], tel:[phone] [facility] No Information W alon Crane. [address] [place], [place], [id number], [place]. tel:[phone] [facility], [address] [place], [place], [id number], [place] tel:[phone] [facility] Unspecified ovarian cyst, right side Berta Wang. [address] [place], [place], [id number], [place]. tel:[phone] [facility], [address] [place] [address], [id number], [place] tel:[phone] [facility] [place] Encounter for pregn lobo test, result negativeEncntr screen for infections w sexl mode of transmissOther sex counselingEncounter for oth general cnsl and advice on contraceptionSecondary amenorrhea Berta Wang. [address] [place], [place], [id number], [place]. tel:[phone] Referring Provider: Kathleen Hampton, [address] [place], [place], [id number]. tel:[phone] [facility], [address] [place] [address], [id number], [place] tel:[phone] [facility] Encounter for scree justina for human immunodeficiency virusHuman immunodeficiency virus [HIV] counselingEncounter for test, result negativeEncntr screen for infections w sexl mode of transmissHigh risk heterosexual behaviorAbnormal uterine and vaginal bleeding, unspecifiedOther sex counselingEncounter for oth general cnsl and advice on contraception Francisco Lee. [address] [place] [address], [id number], [place]. tel:[phone] Referring Provider: Rosa Singh, [address], [place], [id number]. tel:[phone] [facility], [address] [place] [address], [id number], [place] tel:[phone] [facility] [place] ChlamydiaFamily Planning C ounseling Anaid Keenan. [address], [place], [id number], [place]. tel:[phone] [facility] [place], [address] [place] [address], [id number], [place] tel:[phone] [facility] [place] ChlamydiaFamily Planning C ounseling Eloise Zamudio. [address] [place], [place], [id number]. tel:[phone] [facility] [place], [address] [place] [address], [id number], [place] tel:[phone] [facility] [place] HIV CounselingBCM O ther, StartDysmenorrheaGYN Exam, Routine WWEHIV, ScreeningSTI CounselingSTI ScreeningFamily Planning CounselingOverweight Angel espinosa. [address], [place], [id number], [place]. tel:[phone] [facility] [place], [address] [place] [address], [id number], [place] tel:[phone] [facility] [place] PT, NegativeGYN Exa m, Routine WWESTI ScreeningOCP, StartHIV Counseling Angel Mohan. [address] [place], [place], [id number], [place]. tel:[phone] [facility] [place], [address] [place] [address], [id number], [place] tel:[phone] [facility] [place] PT, NegativeOCP, Start Arlen Barlow. [address] [place] [address], [id number], [place]. tel:[phone] [facility] [place], [address] [place] [address], [id number], [place] tel:[phone] [facility] [place] PT, Negative ONe ill Ree. [address], [place], [id number], [place]. tel:[phone] Consulting Provider: WILIAM Nurse/CA. Family History Family Member Diagnosis Age At Onset Father Mental illness Mother Cancer - Mother Myocardial infarction Mother Alcoholism Mother Coronary heart disease before age 65 30 Mother Venous thromboembolism 30 Mother Diabetes mellitus Mother Stroke Family history of Hypertension Father Alcoholism Father Cancer, unknown Maternal grandmother Alzheimer's Disease Mother Cancer, endometrial 30 Maternal grandmother Hyperlipidemia Immunizations Vaccine Date Status Comments Tetanus administered Source: New Immu nization Record Payers Payer name Insurance type Covered constitution party ID Authorization(s ) No Information Social History Type Description Quantity Date Captured Comments Alcohol Use Details Unknown Caffeine Use Details Unknown Tobacco Use Status Smoking Status Heavy tobacco smoker Sex Female Vital Signs Date / Time: Height Weight BMI Pulse Rate Blood Pressure Temperatu re Respiratory Rate Body Surface Area Head Circumference BMI percentile Pulse Ox In haled Ox No Information Chief Complaint And Reason For Visit No Information Reason For Referral Reason For Referral No Information Plan Of Treatment Date Type Action Status Goal Tobacco cessation counseling com pleted Goal Tobacco cessation counseling com pleted Goal Dietary management education, gu idance, and counseling completed Referral Ordered: Referrals: Field Naturalist. Evaluate and treat Appointment date/timeframe: 1 Month ordered History Of Present Illness Encounter Date Complaint History Of Present I llness No Information Functional Status Date Functional Assessment No Information Medications Administered Medication Instructions Dosage Effective Dates (start - stop) Sta tus Comments No Information Instructions Date Instruction Additional Informati on Dietary management education, guidance, and counseling Related to Overweight Assessments Type Assessment Date No Information Goals Health Concern Goal Type Priority Status Date No Information Medical Equipment Description Device [place] Device Identifier Effective Rich es (start - stop) Status No Information Mental Status Date Cognitive Assessment No Information Health Concerns Observation Date No Information Concern Status Date No Information Physical Examination Exam Findings Details No Information
--- OUTSIDE RECORDS SUMMARY | 2021-06-28 13:19 | CCD ---
Author Author [facility] Organization [facility] Address Unknown Phone Unavailable Care Team Providers Care Maintenance Machine Repairer Name Role Phone Vanessa Braden Unavailable PROBLEMS Type Condition ICD9-CM Code [id number] Code Onset Dates Condition S tatus W/U Status Risk SNOMED Code Notes Problem Smoking F17.200 Active confirmed 90331336 Problem Hypothyroidism, unspecified type E03.9 Active conf irmed 97235153 Problem Irregular menstrual bleeding N92.6 Active confirme d 74809039 Problem Polycystic ovarian syndrome E28.2 Active confirmed 711939892 Problem Anxiety F41.9 Active confirmed 15889562 Problem Amenorrhea N91.2 Active confirmed 29119739 Problem Morbid (severe) obesity due to excess calories E66 .01 Active confirmed 43777414476051 Problem Depression, unspecified depression type F32.9 Active confirmed 74241146 Problem Body mass index (BMI) 45.0-49.9, adult Z68.42 A ctive confirmed 276162779 Problem Tonsillar calculus J35.8 Active confirmed 6 967057 Problem Chronic tonsillar hypertrophy J35.1 Active confirm ed 64551174 Problem Body mass index [BMI] 45.0-49.9, adult Z68.42 A ctive confirmed 219957605 Problem Post traumatic stress disorder F43.10 Active confir med 13519536 ALLERGIES Allergen (clinical drug ingredient) Drug/Non Drug Allergy do cumented on EMR Reaction Allergy Type Onset Date Status cinnamon tongue swelling Non Drug Allergy Act ld ENCOUNTERS from 1995 to 2021-04-01 Encounter Location Date Provider Diagnosis [address] [address] Mar, Vanessa Sampson Hypothyroidism, unspecified type E03.9 IMMUNIZATIONS No Information SOCIAL HISTORY Tobacco Use: Social History Observation Description Date Details (start date - stop date) Current Smoker Sex Assigned At : Social History Observation Description Sex Assigned At Unknown Tobacco Use/Smoking Question Answer Notes Are you a current smoker Are you interested in quitting? Not ready to quit How many cigarettes a day do you smoke? 5 or less How soon after you wake up do you smoke your first cigarette ? 6-30 minutes How often do you smoke cigarettes? every day REASON FOR REFERRAL No Information VITAL SIGNS No information MEDICATIONS Medication SIG (Take, Route, Frequency, Duration) Notes Start Da te End Date Status 1 1 tablet Orally Once a day Active Multivitamin Plus DHA 27-0.8-250 MG 1 capsule Orally Once a day for 90 days Mar, Active Norgestim-Eth Estrad Triphasic 0.18/0.215/0.25 MG-35 M CG 1 tablet Orally Once a day for 84 day(s) Sep, Not-Taking Levothyroxine Sodium 100 MCG 1 tablet in the morning o n an empty stomach Orally Once a day for 90 day(s) Jul, Active hydrOXYzine HCl 10 MG 1 tablet as needed Orally up to three times per day for 30 day(s) January, Not-Taking PROCEDURES No Information RESULTS No Results REASON FOR VISIT thyroid medication MEDICAL (GENERAL) HISTORY Type Description Date Medical History hypothyroidism Medical History ovarian cyst Medical History PCOS Surgical History right ovary removal. [facility] 09/19/2019 Hospitalization History surgical Goals Section No Information Health Concerns No Information MEDICAL EQUIPMENT No Information MENTAL STATUS No Information FUNCTIONAL STATUS No Information ASSESSMENTS Encounter Date Diagnosis Assessment Notes Treatment Notes Treatm ent Clinical Notes Mar, Hypothyroidism, unspecified type (ICD-10 - E03.9 ) PLAN OF TREATMENT Treatment Notes Test Name Order Date TSH 2021-03-31 FREE T4 2021-03-31 Next Appt Details Provider Name:Gema Gutierrez, 2021-04-09 12:30:00 AM, [address] [place], [address], Provider Name:Viktor Anjelica, 2022-02-04 0 1:00:00 PM, [address] [place], [address], Insurance Providers Payer Name Payer Address Payer Phone Insured Name Patient Relati onship to Insured Coverage Start Date Coverage End Date [employer] [address] [facility] [address] [id number] Dilcia Eller self
--- OUTSIDE RECORDS SUMMARY | 2021-06-28 13:19 | CCD ---
Author Author [facility] Organization [facility] Address Unknown Phone Unavailable Care Team Providers Care Aerial Installer Name Role Phone Viktor Dejesus Unavailable PROBLEMS Type Condition ICD9-CM Code [id number] Code Onset Dates Condition S tatus W/U Status Risk SNOMED Code Notes Problem Smoking F17.200 Active confirmed 18659435 Problem Hypothyroidism, unspecified type E03.9 Active conf irmed 69101978 Problem Irregular menstrual bleeding N92.6 Active confirme d 85826956 Problem Polycystic ovarian syndrome E28.2 Active confirmed 296372139 Problem Anxiety F41.9 Active confirmed 28696162 Problem Amenorrhea N91.2 Active confirmed 71251744 Problem Morbid (severe) obesity due to excess calories E66 .01 Active confirmed 39688764388995 Problem Depression, unspecified depression type F32.9 Active confirmed 79860308 Problem Body mass index (BMI) 45.0-49.9, adult Z68.42 A ctive confirmed 335259160 Problem Tonsillar calculus J35.8 Active confirmed 6 254617 Problem Chronic tonsillar hypertrophy J35.1 Active confirm ed 62714075 Problem Body mass index [BMI] 45.0-49.9, adult Z68.42 A ctive confirmed 143937826 Problem Post traumatic stress disorder F43.10 Active confir med 06673025 ALLERGIES Allergen (clinical drug ingredient) Drug/Non Drug Allergy do cumented on EMR Reaction Allergy Type Onset Date Status Cinnamon cinnamon tongue swelling Non Drug Allergy Act ld ENCOUNTERS from 1996 to 2021-06-08 Encounter Location Date Provider Diagnosis [address] [address] May, Viktor Dejesus IMMUNIZATIONS No Information SOCIAL HISTORY Tobacco Use: [...] 1 tablet Orally Once a day Active Levothyroxine Sodium 100 MCG 1 tablet in the morning o n an empty stomach Orally Once a day for 90 day(s) Jul, Active Norgestim-Eth Estrad Triphasic 0.18/0.215/0.25 MG-35 M CG 1 tablet Orally Once a day for 84 day(s) Sep, Not-Taking hydrOXYzine HCl 10 MG 1 tablet as needed Orally up to three times per day for 30 day(s) PRN January, Not-Taking Multivitamin Plus DHA 27-0.8-250 MG 1 capsule Orally Once a day for 90 days Mar, Active PROCEDURES No Information RESULTS No Results REASON FOR VISIT letter for covid shot MEDICAL (GENERAL) HISTORY Type Description Date Medical History hypothyroidism Medical History ovarian cyst Medical History PCOS Surgical History right ovary removal. [facility] 09/19/2019 Hospitalization History surgical Goals Section No Information Health Concerns No Information MEDICAL EQUIPMENT No Information MENTAL STATUS No Information FUNCTIONAL STATUS No Information ASSESSMENTS No Information PLAN OF TREATMENT Next Appt Details Provider Name:Gema Brenda, 2021-06-11 11:00:00 AM, [address] [place], [address], Provider Name:Viktor Anjelica, 2022-02-04 0 1:00:00 PM, [address] [place], [address], Insurance Providers Payer Name Payer Address Payer Phone Insured Name Patient Relati onship to Insured Coverage Start Date Coverage End Date [employer] - [employer] MEDICAID [address] [address] Dilcia Eller self
--- OUTSIDE RECORDS SUMMARY | 2021-06-28 13:19 | CCD ---
Author Author [facility] Organization [facility] Address Unknown Phone Unavailable Care Team Providers Care Coin Purse Framer Name Role Phone Vanessa Braden Unavailable PROBLEMS Type Condition ICD9-CM Code [id number] Code Onset Dates Condition S tatus W/U Status Risk SNOMED Code Notes Problem Smoking F17.200 Active confirmed 80033074 Problem Hypothyroidism, unspecified type E03.9 Active conf irmed 60082184 Problem Irregular menstrual bleeding N92.6 Active confirme d 24913368 Problem Polycystic ovarian syndrome E28.2 Active confirmed 415319977 Problem Anxiety F41.9 Active confirmed 52500748 Problem Amenorrhea N91.2 Active confirmed 58797058 Problem Morbid (severe) obesity due to excess calories E66 .01 Active confirmed 88734071787264 Problem Depression, unspecified depression type F32.9 Active confirmed 37033534 Problem Body mass index (BMI) 45.0-49.9, adult Z68.42 A ctive confirmed 156051836 Problem Tonsillar calculus J35.8 Active confirmed 6 813664 Problem Chronic tonsillar hypertrophy J35.1 Active confirm ed 95761680 Problem Body mass index [BMI] 45.0-49.9, adult Z68.42 A ctive confirmed 376666274 Problem Post traumatic stress disorder F43.10 Active confir med 01986584 ALLERGIES Allergen (clinical drug ingredient) Drug/Non Drug Allergy do cumented on EMR Reaction Allergy Type Onset Date Status cinnamon tongue swelling Non Drug Allergy Act ld ENCOUNTERS from 1996 to 2021-04-20 Encounter Location Date Provider Diagnosis [address] [address] Apr, Vanessa Sampson IMMUNIZATIONS No Information SOCIAL HISTORY Tobacco Use: [...] Notes Start Da te End Date Status Norgestim-Eth Estrad Triphasic 0.18/0.215/0.25 MG-35 M CG 1 tablet Orally Once a day for 84 day(s) Sep, Not-Taking hydrOXYzine HCl 10 MG 1 tablet as needed Orally up to three times per day for 30 day(s) January, Not-Taking 1 1 tablet Orally Once a day Active Levothyroxine Sodium 100 MCG 1 tablet in the morning o n an empty stomach Orally Once a day for 90 day(s) Jul, Active Multivitamin Plus DHA 27-0.8-250 MG 1 capsule Orally Once a day for 90 days Mar, Active PROCEDURES No Information RESULTS No Results REASON FOR VISIT mtcm MEDICAL (GENERAL) HISTORY Type Description Date Medical History hypothyroidism Medical History ovarian cyst Medical History PCOS Surgical History right ovary removal. [facility] 09/19/2019 Hospitalization History surgical Goals Section No Information Health Concerns No Information MEDICAL EQUIPMENT No Information MENTAL STATUS No Information FUNCTIONAL STATUS No Information ASSESSMENTS No Information PLAN OF TREATMENT Next Appt Details Provider Name:Gema Brenda, 2021-04-21 03:45:00 PM, [address] [place], [address], Provider Name:Viktor Anjelica, 2022-02-04 0 1:00:00 PM, [address] [place], [address], Insurance Providers Payer Name Payer Address Payer Phone Insured Name Patient Relati onship to Insured Coverage Start Date Coverage End Date [employer] - [employer] MEDICAID [address] [address] Dilcia Eller self
--- OUTSIDE RECORDS SUMMARY | 2021-06-28 13:19 | CCD ---
Author Author [facility] Organization [facility] Address Unknown Phone Unavailable Care Team Providers Care Lead Ramp Agent Name Role Phone Viktor Dejesus Unavailable PROBLEMS Type Condition ICD9-CM Code TFJ54-MU Code Onset Dates Condition S tatus W/U Status Risk SNOMED Code Notes Problem Smoking F17.200 Active confirmed 33326399 Problem Hypothyroidism, unspecified type E03.9 Active conf irmed 46420222 Problem Irregular menstrual bleeding N92.6 Active confirme d 73223471 Problem Polycystic ovarian syndrome E28.2 Active confirmed 659436743 Problem Anxiety F41.9 Active confirmed 15499829 Problem Amenorrhea N91.2 Active confirmed 85911934 Problem Morbid (severe) obesity due to excess calories E66 .01 Active confirmed 03259295545479 Problem Depression, unspecified depression type F32.9 Active confirmed 97247915 Problem Body mass index (BMI) 45.0-49.9, adult Z68.42 A ctive confirmed 659304031 Problem Tonsillar calculus J35.8 Active confirmed 6 567744 Problem Chronic tonsillar hypertrophy J35.1 Active confirm ed 38068637 Problem Body mass index [BMI] 45.0-49.9, adult Z68.42 A ctive confirmed 613593960 Problem Post traumatic stress disorder F43.10 Active confir med 15187264 ALLERGIES Allergen (clinical drug ingredient) Drug/Non Drug Allergy do cumented on EMR Reaction Allergy Type Onset Date Status cinnamon tongue swelling Non Drug Allergy Act ld ENCOUNTERS from 1996 to 2021-04-14 Encounter Location Date Provider Diagnosis [facility] [address] [place] [address] [address] [facility] Viktor Dejesus Encounter for childcare instruction Z32. 3 ; Less than 8 weeks gestation of Z3A.01 ; Anxiety F41.9 and Depression, unspecified depression type F32.9 IMMUNIZATIONS No Information SOCIAL HISTORY Tobacco Use: [...] REASON FOR REFERRAL No Information VITAL SIGNS Height 67 in Mar, Weight 269.8 lbs Mar, BMI 42.25 kg/m2 Mar, Heart Rate 96 /min Mar, Respiratory Rate 15 /min Mar, Oximetry 98 % Mar, Blood pressure systolic 126 mmHg Mar, Blood pressure diastolic 83 mmHg Mar, MEDICATIONS Medication SIG (Take, Route, Frequency, Duration) [...] Information RESULTS No Results REASON FOR VISIT ER F/U MEDICAL (GENERAL) HISTORY Type Description Date Medical History hypothyroidism Medical History ovarian cyst Medical History PCOS Surgical History right ovary removal. [facility] 09/19/2019 Hospitalization History surgical Goals Section No Information Health Concerns No Information MEDICAL EQUIPMENT No Information MENTAL STATUS No Information FUNCTIONAL STATUS No Information ASSESSMENTS Encounter Date Diagnosis Assessment Notes Treatment Notes Treatm ent Clinical Notes Mar, Encounter for childcare instruction (ICD-10 - Z3 2.3) Mar, Less than 8 weeks gestation of (ICD-10 - Z3A.01) Patient given info for WIC. Started on vitamins. Referral started for OB. Go to ER for abdominal pain and/or spotting. , Pt agrees with plan as outlined above. All questions were answered to the best of the providers ability. Patient verbalized understanding of instructions and education provided. Patient agrees if symptoms worsen or fail to improve they will return to [facility] or go to the ER. Mar, Anxiety (ICD-10 - F41.9) Referral started for counseling at patient request. Mar, Depression, unspecified depression type (ICD-10 - F32.9) PLAN OF TREATMENT Treatment Notes Assessment Notes Clinical Notes Less than 8 weeks gestation of Patient given info for WIC. Started on vitamins. Referral started for OB. Go to ER for abdominal pain and/or spotting. , Pt agrees with plan as outlined above. All questions were answered to the best of the providers ability. Patient verbalized understanding of instructions and education provided. Patient agrees if symptoms worsen or fail to improve they will return to [facility] or go to the ER. Anxiety Referral started for counseling at patie nt request. Next Appt Details prn Reason: Provider Name:Gema Brenda, 2021-04-21 03:45:00 PM, [address] [place] [address], [address], Provider Name:Viktor Anjelica, 2022-02-04 0 1:00:00 PM, [address] [place], [address], Insurance Providers Payer Name Payer Address Payer Phone Insured Name Patient Relati onship to Insured Coverage Start Date Coverage End Date [facility] - [employer] MEDICAID [address] [facility] [id number] Dilcia Eller
--- OUTSIDE RECORDS SUMMARY | 2021-06-28 13:19 | CCD ---
Author Author [facility] Organization [facility] Address Unknown Phone Unavailable Care Team Providers Care Hot Plate Plywood Press Feeder Name Role Phone Vanessa Braden Unavailable PROBLEMS Type Condition ICD9-CM Code KBN56-TM Code Onset Dates Condition S tatus W/U Status Risk SNOMED Code Notes Problem Smoking F17.200 Active confirmed 55305922 Problem Hypothyroidism, unspecified type E03.9 Active conf irmed 42741310 Problem Irregular menstrual bleeding N92.6 Active confirme d 52058538 Problem Polycystic ovarian syndrome E28.2 Active confirmed 070042549 Problem Anxiety F41.9 Active confirmed 09265332 Problem Amenorrhea N91.2 Active confirmed 50176319 Problem Morbid (severe) obesity due to excess calories E66 .01 Active confirmed 65338974295440 Problem Depression, unspecified depression type F32.9 Active confirmed 90346187 Problem Body mass index (BMI) 45.0-49.9, adult Z68.42 A ctive confirmed 676987776 Problem Tonsillar calculus J35.8 Active confirmed 6 694154 Problem Chronic tonsillar hypertrophy J35.1 Active confirm ed 34229649 Problem Body mass index [BMI] 45.0-49.9, adult Z68.42 A ctive confirmed 255407162 Problem Post traumatic stress disorder F43.10 Active confir med 39386542 ALLERGIES Allergen (clinical drug ingredient) Drug/Non Drug Allergy do cumented on EMR Reaction Allergy Type Onset Date Status cinnamon tongue swelling Non Drug Allergy Act ld ENCOUNTERS from 1996 to 2021-04-14 Encounter [place] [address] Apr, Vanessa Sampson IMMUNIZATIONS No Information SOCIAL [...] History PCOS Surgical History right ovary removal. [facility] 09/19/2019 Hospitalization History surgical Goals Section No Information Health Concerns No Information MEDICAL EQUIPMENT No Information MENTAL STATUS No Information FUNCTIONAL STATUS No Information ASSESSMENTS No Information PLAN OF TREATMENT Next Appt Details Provider Name:Gema Gutierrez, 2021-04-21 03:45:00 PM, [address] [place], [address], Provider Name:Viktor Anjelica, 2022-02-04 0 1:00:00 PM, [address] [place], [address], Insurance Providers Payer Name Payer Address Payer Phone Insured Name Patient Relati onship to Insured Coverage Start Date Coverage End Date [employer] - [employer] MEDICAID P[facility]O [facility] [address] [place] [id number] Dilcia Eller self
--- OUTSIDE RECORDS SUMMARY | 2021-06-28 13:20 | CCD ---
Author Author [facility] Organization [facility] Address Unknown Phone Unavailable Care Team Providers Care Acid Tank Cleaner Name Role Phone Gema Hollingsworth Unavailable Gema Hollingsworth Unavailable Nathalia Castro ELECTRICIAN MARINE Unavailable Unavailable Nathalia Castro ELECTRICIAN MARINE Unavailable Unavailable Nathalia Castro ELECTRICIAN MARINE Unavailable Unavailable Nathalia Castro ELECTRICIAN MARINE Unavailable Unavailable Nathalia Castro ELECTRICIAN MARINE Unavailable Unavailable Nathalia Castro ELECTRICIAN MARINE Unavailable Unavailable Castro, Nathalia ELECTRICIAN MARINE Unavailable Unavailable Castro, Nathalia ELECTRICIAN MARINE Unavailable Unavailable Castro, Nathalia ELECTRICIAN MARINE Unavailable Unavailable Castro, Nathalia ELECTRICIAN MARINE Unavailable Unavailable Castro, Nathalia ELECTRICIAN MARINE Unavailable Unavailable Castro, Nathalia ELECTRICIAN MARINE Unavailable Unavailable Castro, Nathalia ELECTRICIAN MARINE Unavailable Unavailable Xiang, Eli W Gladys CAFETERIA MONITOR-C Unavailable Unavailabl e Xiang, Reginaagustin W Gladys CAFETERIA MONITOR-C Unavailable Unavailabl e Xiang, Reginaagustin W Gladys CAFETERIA MONITOR-C Unavailable Unavailabl e Xiang, Reginaagustin W Gladys CAFETERIA MONITOR-C Unavailable Unavailabl e Xiang, Reginaagustin W Gladys CAFETERIA MONITOR-C Unavailable Unavailabl e Xiang, Reginaagustin W Gladys CAFETERIA MONITOR-C Unavailable Unavailabl e Xiang, Reginaagustin W Gladys CAFETERIA MONITOR-C Unavailable Unavailabl e Xiang, Reginaagustin W Gladys CAFETERIA MONITOR-C Unavailable Unavailabl e Xiang, Reginaagustin W Gladys CAFETERIA MONITOR-C Unavailable Unavailabl e Xiang, Reginaagustin W Gladys CAFETERIA MONITOR-C Unavailable Unavailabl e Xiang, Reginaagustin W Gladys CAFETERIA MONITOR-C Unavailable Unavailabl e Xiang, Reginaagustin W Gladys CAFETERIA MONITOR-C Unavailable Unavailabl e Xiang, Reginaagustin W Gladys CAFETERIA MONITOR-C Unavailable Unavailabl e Xiang, Reginaagustin W Gladys CAFETERIA MONITOR-C Unavailable Unavailabl e Xiang, Reginaagustin W Gladys CAFETERIA MONITOR-C Unavailable Unavailabl e Xiang, Reginaagustin W Gladys CAFETERIA MONITOR-C Unavailable Unavailabl e Xiang, Reginaagustin W Gladys CAFETERIA MONITOR-C Unavailable Unavailabl e Xiang, Reginaagustin W Gladys CAFETERIA MONITOR-C Unavailable Unavailabl e Xiang, Reginaagustin W Gladys CAFETERIA MONITOR-C Unavailable Unavailabl e Xiang, Reginaagustin W Gladys CAFETERIA MONITOR-C Unavailable Unavailabl e Xiang, Reginaagustin W Gladys CAFETERIA MONITOR-C Unavailable Unavailabl e Xiang, Reginaagustin W Gladys CAFETERIA MONITOR-C Unavailable Unavailabl e Xiang, Reginaagustin W Gladys CAFETERIA MONITOR-C Unavailable Unavailabl e Xiang, Eli Solise CAFETERIA MONITOR-C Unavailable Unavailabl e Xiang, Eli Graham CAFETERIA MONITOR-C Unavailable Unavailabl e Xiang, Eli Solise CAFETERIA MONITOR-C Unavailable Unavailabl e Xiang, Eli Solise CAFETERIA MONITOR-C Unavailable Unavailabl e Xiang, Eli Graham CAFETERIA MONITOR-C Unavailable Unavailabl e Xiang, Eli Solise CAFETERIA MONITOR-C Unavailable Unavailabl e Xiang, Eli Cruzyce CAFETERIA MONITOR-C Unavailable Unavailabl e Xiang, Eli Cruzyce CAFETERIA MONITOR-C Unavailable Unavailabl e Xiang, Eli Rivera Gladys CAFETERIA MONITOR-C Unavailable Unavailabl e EMILEERosario ADAMES DO Unavailable Unavailable EMILEE, Rosario WARNER DO Unavailable Unavailable EMILEERosario ADAMES DO Unavailable Unavailable EMILEE, Rosario WARNER DO Unavailable Unavailable Rosario HEBERT DO Unavailable Unavailable EMILEE, Rosario WARNER DO Unavailable Unavailable EMILEERosario ADAMES DO Unavailable Unavailable EMILEE, Rosario WARNER DO Unavailable Unavailable EMILEERosario ADAMES DO Unavailable Unavailable EMILEERosario ADAMES DO Unavailable Unavailable EMILEE, Rosario WARNER DO Unavailable Unavailable EMILEERosario ADAMES DO Unavailable Unavailable EMILEE, Rosario WARNER DO Unavailable Unavailable EMILEERosario ADAMES DO Unavailable Unavailable EMILEE, Rosario WARNER DO Unavailable Unavailable EMILEERosario ADAMES DO Unavailable Unavailable Rosario HEBERT DO Unavailable Unavailable Rosario HEBERT DO Unavailable Unavailable Rosario HEBERT DO Unavailable Unavailable EMILEERosario ADAMES DO Unavailable Unavailable EMILEERosario ADAMES DO Unavailable Unavailable EMILEERosario ADAMES DO Unavailable Unavailable EMILEERosario ADAMES DO Unavailable Unavailable EMILEERosario ADAMES DO Unavailable Unavailable EMILEERosario ADAMES DO Unavailable Unavailable Lazaro Olivera MD Unavailable Unavailable Jarod, Lazaro Crane MD Unavailable Unavailable Jarod, Lazaro Crane MD Unavailable Unavailable Jarod, Lazaro Crane MD Unavailable Unavailable Jarod, Lazaro Crane MD Unavailable Unavailable Jarod, Lazaro Crane MD Unavailable Unavailable Lazaro Olivera MD Unavailable Unavailable Jarod, Lazaro Crane MD Unavailable Unavailable Lazaro Olivera MD Unavailable Unavailable Lazaro Olivera MD Unavailable Unavailable Lazaro Olivera MD Unavailable Unavailable Lazaro Olivera MD Unavailable Unavailable Lazaro Olivera MD Unavailable Unavailable Jarod, Lazaro Crane MD Unavailable Unavailable Jarod, Lazaro Crane MD Unavailable Unavailable Jarod, Lazaro Crane MD Unavailable Unavailable Jarod, Lazaro Crane MD Unavailable Unavailable Jarod, Lazaro Crane MD Unavailable Unavailable Jarod, Lazaro Crane MD Unavailable Unavailable Jarod, Lazaro Crane MD Unavailable Unavailable Jarod, Lazaro Crane MD Unavailable Unavailable Jarod, Lazaro Crane MD Unavailable Unavailable Jarod, Lazaro Crane MD Unavailable Unavailable Jarod, Lazaro Crane MD Unavailable Unavailable Jarod, Lazaro Crane MD Unavailable Unavailable Jarod, Lazaro Crane MD Unavailable Unavailable Jarod, Lazaro Crane MD Unavailable Unavailable Jarod, Lazaro Crane MD Unavailable Unavailable Jarod, Lazaro Crane MD Unavailable Unavailable Jarod, Lazaro Crane MD Unavailable Unavailable Jarod, Laazro Crane MD Unavailable Unavailable Jarod, Lazaro Crane MD Unavailable Unavailable Jarod, A Rosa Maria MCKEON Unavailable Unavailable Jarod, A Rosa Maria MCKEON Unavailable Unavailable Jarod, Lazaro Crane MD Unavailable Unavailable Jarod, Lazaro Crane MD Unavailable Unavailable Jarod, Lazaro Crane MD Unavailable Unavailable Jarod, Lazaro Crane MD Unavailable Unavailable Jarod, A Rosa Maria MCKEON Unavailable Unavailable Jarod, A Rosa Maria MCKEON Unavailable Unavailable Jarod, A Rosa Maria MCKEON Unavailable Unavailable Jarod, A Rosa Maria MCKEON Unavailable Unavailable Jarod, Lazaro Crane MD Unavailable Unavailable Jarod, Lazaro Crane MD Unavailable Unavailable Jarod, Lazaro Crane MD Unavailable Unavailable Jarod, Lazaro Crane MD Unavailable Unavailable Jarod, A Rosa Maria MCKEON Unavailable Unavailable Jarod, A Rosa Maria MCKEON Unavailable Unavailable Jarod, A Rosa Maria MCKEON Unavailable Unavailable Jarod, Lazaro Crane MD Unavailable Unavailable Jarod, Lazaro Crane MD Unavailable Unavailable Jarod, Lazaro Crane MD Unavailable Unavailable Jarod, Lazaro Crane MD Unavailable Unavailable Jarod, Lazaro Crane MD Unavailable Unavailable Jarod, Lazaro Crane MD Unavailable Unavailable Jarod, Lazaro Crane MD Unavailable Unavailable Jarod, Lazaro Crane MD Unavailable Unavailable Jarod, Lazaro Crane MD Unavailable Unavailable Jarod, Lazaro Crane MD Unavailable Unavailable Jarod, Lazaro Crane MD Unavailable Unavailable Jarod, Lazaro Crane MD Unavailable Unavailable Jarod, Lazaro Crane MD Unavailable Unavailable Jarod, Lazaro Crane MD Unavailable Unavailable Jarod, Lazaro Crane MD Unavailable Unavailable Jarod, Lazaro Crane MD Unavailable Unavailable Jarod, Lazaro Crane MD Unavailable Unavailable Jarod, Lazaro Crane MD Unavailable Unavailable Jarod, Lazaro Crane MD Unavailable Unavailable Jarod, Lazaro Crane MD Unavailable Unavailable Jarod, Lazaro Crane MD Unavailable Unavailable Jarod, Lazaro Crane MD Unavailable Unavailable Jarod, Lazaro Crane MD Unavailable Unavailable Jarod, Lazaro Crane MD Unavailable Unavailable Jarod, Lazaro Crane MD Unavailable Unavailable Jarod, Lazaro Crane MD Unavailable Unavailable Jarod, Lazaro Crane MD Unavailable Unavailable Jarod, Lazaro Crane MD Unavailable Unavailable Jarod, Lazaro Crane MD Unavailable Unavailable Jarod, Lazaro Crane MD Unavailable Unavailable Jarod, Lazaro Crane MD Unavailable Unavailable Jarod, Lazaro Crane MD Unavailable Unavailable Jarod, Lazaro Crane MD Unavailable Unavailable Corbine, Cindy Unavailable Corbine, Cindy Unavailable Corbine, Cindy Unavailable CORBINE, S CINDY Unavailable Unavailable CORBINE, S CINDY Unavailable Unavailable SORENSEN SR, JASSON AWAD MD [...] SORENSEN SR, JASSON AWAD MD Unavailable Unavailable SORNESEN SR, JASSON AWAD MD Unavailable Unavailable SORENSEN [...] SORENSEN SR, JASSON AWAD MD Unavailable Unavailable Sampson, M Vanessa PA-C Unavailable Unavailable Sampson, M Vanessa PA-C Unavailable Unavailable Sampson, M Vanessa PA-C Unavailable Unavailable Sampson, M Vanessa PA-C Unavailable Unavailable Sampson, M Vanessa PA-C Unavailable Unavailable Sampson, M Vanessa PA-C Unavailable Unavailable Sampson, M Vanessa PA-C Unavailable Unavailable Sampson, M Vaenssa PA-C Unavailable Unavailable Sampson, M Vanessa PA-C [...] Unavailable Sampson, M Vanessa PA-C Unavailable Unavailable TONTARSMEE, G MARTIN PA Unavailable [...] Unavailable TONTARSKI, G MARTIN PA Unavailable Unavailable HICKEY GEMA Unavailable Unavailable Marsland, Berna Viktor CAFETERIA MONITOR Unavailable Unavailable Anjelica, Berna Viktor CAFETERIA MONITOR Unavailable Unavailable Marsland, Berna Viktor CAFETERIA MONITOR Unavailable Unavailable [place]land, Berna Viktor CAFETERIA MONITOR Unavailable Unavailable [place], Berna Viktor CAFETERIA MONITOR Unavailable Unavailable Anjelica, Berna Viktor CAFETERIA MONITOR Unavailable Unavailable Anjelica, Berna Viktor CAFETERIA MONITOR Unavailable Unavailable [place], Berna Viktor CAFETERIA MONITOR Unavailable Unavailable Anjelica, Berna Viktor CAFETERIA MONITOR Unavailable Unavailable [place], Berna Viktor CAFETERIA MONITOR Unavailable Unavailable [place], Berna Viktor CAFETERIA MONITOR Unavailable Unavailable Anjelica, Berna Vitkor CAFETERIA MONITOR Unavailable Unavailable Anjelica, Berna Viktor CAFETERIA MONITOR Unavailable Unavailable Marsland, Berna Viktor CAFETERIA MONITOR Unavailable Unavailable Re-disclosure Warning The records that [...] is protected by Article 27-F of the [facility] Public Health law. If you continue you may have access to information: Regarding HIV / AIDS; Provided by facilities licensed or operated by the [facility] Office of Mental Health; or Provided by the [facility] Office for People With Developmental Disabilities. If such information is present, then the following [facility] mandated warning applies: This information has been [...] law may result in a fine or correction sentence or both. A general authorization for the release of medical or other information is NOT sufficient authorization for further disc losure. Family History Family Member Name Family Member Gender Family Member Status Date o f Status Description Data Source(s) Unknown Male Diagnosis 08/15/2013 12:00:00 AM EST [facility] ([facility]) Unknown Male Diagnosis 08/15/2013 12:00:00 AM EST [facility] ([facility]) Unknown Male Diagnosis 06/28/2013 12:00:00 AM EDT [facility] ([facility]) Encounters Encounter Providers Location Date Indications Data Source(s ) Attender: Rosa Maria Olivera MD [facility] 12:41:00 PM EDT - 06/25/2021 12:41:00 PM EDT [facility] ([facility]) Outpatient Attender: Gema Holl[facility]worth [facility] 06/05/2021 12:00:00 AM EDT eCW1 ([facility]) Outpatient Attender: Gema Hollingsworth 05/05/2021 03:45:00 PM [facility] Outpatient Attender: Gema Hollingsworth 04/21/2021 03:45:00 PM [facility] Outpatient [facility] 04/20/2021 12:00:00 AM EDT eCW1 ([facility]) Outpatient [facility] 04/14/2021 12:00:00 AM EDT eCW1 ([facility]) Outpatient Attender: Gema Hollingsworth 04/09/2021 12:40:00 PM [facility] Outpatient Attender: Gema Hollingsworth 04/01/2021 10:00:00 AM [facility] 03/31/2021 12:00:00 AM EDT eCW1 ([facility]) Outpatient [facility] 03/23/2021 12:00:00 AM EDT eCW1 ([facility]) Outpatient Attender: Viktor ALY 03/19/2021 03:30:00 PM EDT [facility] Outpatient [facility] 03/19/2021 12:00:00 AM EDT eCW1 ([facility]) Outpatient [facility] 03/18/2021 12:00:00 AM EDT eCW1 ([facility]) Outpatient [facility] 03/04/2021 12:00:00 AM EDT eCW1 ([facility]) Outpatient Attender: Viktor RASMUSSENPReferrer: Vanessa lehman PA-C 02/12/2021 01:00:00 PM T [facility] Outpatient Attender: Cindy Lundberg 02/04/2021 09:03:00 AM EDT [facility] Outpatient [facility] 02/04/2021 12:00:00 AM EDT eCW1 ([facility]) Outpatient Attender: Viktor Cadetferrekee: Calista Braden PA-C EMERGENCY ROOM-LAB REF 02/03/2021 02:53:00 PM EDT - 02/03/2021 02:53:00 PM T [facility] Outpatient Attender: Viktor Cadetferharini: Calista Braden PA-C EMERGENCY ROOM-CLNSPECGYN 02/03/2021 01:00:00 PM EDT - 02/03/2021 01:00:00 PM EDT [facility] Outpatient [facility] 02/03/2021 12:00:00 AM EDT eCW1 ([facility]) Outpatient Attender: Cindy Lundberg 01/28/2021 08:59:00 AM [facility] Outpatient Attender: Cindy Lundberg 01/21/2021 09:00:00 AM EDT [facility] Outpatient [facility] 01/12/2021 12:00:00 AM EDT eCW1 ([facility]) Outpatient Attender: Cindy Palacios: CINDY LUNDBERG 01/01/2021 10:00:00 AM [facility] Outpatient Attender: Cindy Palacios: CINDY LUNDBERG 12/03/2020 04:00:00 PM [facility] Outpatient Attender: Cindy Palacios: CINDY LUNDBERG 11/26/2020 04:00:00 PM [facility] Outpatient Attender: Cindy Palacios: CINDY LUNDBERG 11/19/2020 03:59:00 PM [facility] Outpatient [facility] 11/14/2020 12:00:00 AM EST eCW1 ([facility]) Outpatient Attender: Cindy Palacios: CINDY LUNDBERG 11/12/2020 04:00:00 PM [facility] Outpatient Attender: Cindy Sultanaender: CINDY LUNDBERG 11/05/2020 01:00:00 PM [facility] Outpatient Attender: Gema HollingsworthAttender: GEMA HOLLINGSWORTH 10/22/2020 09:05:00 AM [facility] Outpatient [facility] 08/01/2020 12:00:00 AM EST eCW1 ([facility]) Outpatient Attender: Vanessa Braden PA-C 07/31/2020 02:30 :00 PM [facility] Outpatient Attender: Nathalia gao 07/24/2020 07:45:00 AM EST [facility] ([facility] Outpatient Attender: Vanessa Hargroveferrer: Vanessa Braden PA-C EMERGENCY ROOM-LAB 07/23/2020 09:28:00 AM EST - 07/23/2020 09:28:00 AM [facility] Outpatient Attender: Vanessa Braden PA-C 07/16/2020 08:48 :00 AM [facility] Outpatient [facility] 07/16/2020 12:00:00 AM EST eCW1 ([facility]) Outpatient [facility] 05/08/2020 12:00:00 AM EDT eCW1 ([facility]) Outpatient Attender: DELMI SORENSEN SRReferrer: DELMI Massey SR 05/07/2020 02:00:00 PM [facility] Outpatient Attender: DELMI SORENSEN SRReferrer: NGOZI SORENSEN SR EMERGENCY ROOM-LAB 04/10/2020 12:19:00 PM EDT - 04/10/2020 12:19:00 PM [facility] Outpatient Attender: Gladys Otoole CAFETERIA MONITOR-C 03/04/2020 10:58:0 0 AM [facility] Outpatient Attender: DELMI SORNESEN SR 01/23/2020 03:00:00 PM [facility] Outpatient Attender: TIMMY Dicksonerrer: DELMI SORENSEN SR 12/19/2019 09:36:00 AM EDT - 12/19/2019 09:36:00 AM [facility] Outpatient Attender: TIMMY HEBERT DO 10/11/2019 01:00:00 P [facility] Outpatient Attender: TIMMY Dicksonerrer: DELMI SORENSEN SR EMERGENCY ROOM-ULTRA 10/09/2019 12:53:00 PM [facility] - 10/09/2019 12:53:00 PM [facility] Outpatient Attender: TIMMY HEBERT DO 09/26/2019 09:38:00 A [facility] Outpatient Attender: DELMI SORENSEN SRReferrer: NGOZI SORENSEN SR EMERGENCY ROOM-LAB 09/21/2019 03:24:00 PM [facility] - 09/21/2019 03:24:00 PM [facility] Outpatient Attender: DELMI SORENSEN SR 09/21/2019 02:30:00 PM [facility] Emergency Attender: MARTIN GARCÍA EMERGENCY ROOM- ER 05/29/2012 06:14:00 AM EDT - 05/29/2012 07:53:00 AM [facility] Medications Medication Brand Name Start Date Product Form Dose Route Admi nistrative Instructions Pharmacy Instructions Status Indications Reaction Description Data Source(s) Multivitamin Plus DHA 27-0.8-250 MG Multivitamin Plus DHA 27-0.8-250 MG 03/19/2021 12:00:00 AM EDT 1.0 {capsule} active Multivitamin Plus DHA 27-0.8-250 MG eCW1 ([facility]) Multivitamin Plus DHA 27-0.8-250 MG Multivitamin Plus DHA 27-0.8-250 MG 03/19/2021 12:00:00 AM EDT 1.0 {capsule} active Multivitamin Plus DHA 27-0.8-250 MG eCW1 ([facility]) Multivitamin Plus DHA 27-0.8-250 MG Multivitamin Plus DHA 27-0.8-250 MG 03/19/2021 12:00:00 AM EDT 1.0 {capsule} active Multivitamin Plus DHA 27-0.8-250 MG eCW1 ([facility]) Multivitamin Plus DHA 27-0.8-250 MG Multivitamin Plus DHA 27-0.8-250 MG 03/19/2021 12:00:00 AM EDT 1.0 {capsule} active Multivitamin Plus DHA 27-0.8-250 MG eCW1 ([facility]) Multivitamin Plus DHA 27-0.8-250 MG Multivitamin Plus DHA 27-0.8-250 MG 03/19/2021 12:00:00 AM EDT 1.0 {capsule} active Multivitamin Plus DHA 27-0.8-250 MG eCW1 ([facility]) Multivitamin Plus DHA 27-0.8-250 MG Multivitamin Plus DHA 27-0.8-250 MG 03/19/2021 12:00:00 AM EDT 1.0 {capsule} active Multivitamin Plus DHA 27-0.8-250 MG eCW1 ([facility]) Levothyroxine Sodium 0.1 MG Oral Tablet Levothyroxine Sodium 100 MCG Levothyroxine Sodium 100 MCG 07/31/2020 12:00:00 AM EST active Levothyroxine Sodium 100 MCG eCW1 ([facility]) Levothyroxine Sodium 0.1 MG Oral Tablet Levothyroxine Sodium 100 MCG Levothyroxine Sodium 100 MCG 07/31/2020 12:00:00 AM EST active Levothyroxine Sodium 100 MCG eCW1 ([facility]) Levothyroxine Sodium 0.1 MG Oral Tablet Levothyroxine Sodium 100 MCG Levothyroxine Sodium 100 MCG 07/31/2020 12:00:00 AM EST active Levothyroxine Sodium 100 MCG eCW1 ([facility]) Levothyroxine Sodium 0.1 MG Oral Tablet Levothyroxine Sodium 100 MCG Levothyroxine Sodium 100 MCG 07/31/2020 12:00:00 AM EST active Levothyroxine Sodium 100 MCG eCW1 ([facility]) Levothyroxine Sodium 0.1 MG Oral Tablet Levothyroxine Sodium 100 MCG Levothyroxine Sodium 100 MCG 07/31/2020 12:00:00 AM EST active Levothyroxine Sodium 100 MCG eCW1 ([facility]) Levothyroxine Sodium 0.1 MG Oral Tablet Levothyroxine Sodium 100 MCG Levothyroxine Sodium 100 MCG 07/31/2020 12:00:00 AM EST active Levothyroxine Sodium 100 MCG eCW1 ([facility]) Levothyroxine Sodium 0.1 MG Oral Tablet Levothyroxine Sodium 100 MCG Levothyroxine Sodium 100 MCG 07/31/2020 12:00:00 AM EST active Levothyroxine Sodium 100 MCG eCW1 ([facility]) Levothyroxine Sodium 0.1 MG Oral Tablet Levothyroxine Sodium 100 MCG Levothyroxine Sodium 100 MCG 07/31/2020 12:00:00 AM EST active Levothyroxine Sodium 100 MCG eCW1 ([facility]) Levothyroxine Sodium 0.1 MG Oral Tablet Levothyroxine Sodium 100 MCG Levothyroxine Sodium 100 MCG 07/31/2020 12:00:00 AM EST active Levothyroxine Sodium 100 MCG eCW1 ([facility]) Levothyroxine Sodium 0.1 MG Oral Tablet Levothyroxine Sodium 100 MCG Levothyroxine Sodium 100 MCG 07/31/2020 12:00:00 AM EST active Levothyroxine Sodium 100 MCG eCW1 ([facility]) Levothyroxine Sodium 0.1 MG Oral Tablet Levothyroxine Sodium 100 MCG Levothyroxine Sodium 100 MCG 07/31/2020 12:00:00 AM EST active eCW1 ([facility]) Levothyroxine Sodium 0.1 MG Oral Tablet Levothyroxine Sodium 100 MCG Levothyroxine Sodium 100 MCG 07/31/2020 12:00:00 AM EST active Levothyroxine Sodium 100 MCG eCW1 ([facility]) Levothyroxine Sodium 0.1 MG Oral Tablet Levothyroxine Sodium 100 MCG Levothyroxine Sodium 100 MCG 07/31/2020 12:00:00 AM EST active Levothyroxine Sodium 100 MCG eCW1 ([facility]) Sulfamethoxazole 800 MG / Trimethoprim 1 60 MG Oral Tablet [Bactrim] Bactrim DS 800-160 MG Bactrim DS 800-160 MG 07/16/2020 12:00:00 AM EST 1.0 {table t} active Bactrim DS 800-160 MG eCW1 ( [facility]) Levothyroxine Sodium 0.088 MG Oral Tablet [Synthroid] Synthroid 88 MCG Synthroid 88 MCG 05/08/2020 12:00:00 AM EDT active Synthroid 88 MCG eCW1 ([facility]) Loratadine 10 MG Oral Tablet Loratadine 04/25/2020 12:00:00 AM EDT completed [facility] ([facility]) Fluticasone Propionate Fluticasone Propionate 04/12/2020 12:00:00 AM E DT completed [facility] ([facility]) Insurance Providers Payer name Policy type / Coverage type Policy ID Covered libertarian ID Covered libertarian's relationship to torres Policy Torres Plan Information [facility] Compensation [id number] Self [id number] [facility]() Workers Compensation [id number] Self [id number] [facility]() Workers Compensation [id number] Self [place] PPO 302/307 [id number] SP [id number] [place] PPO 302/307 [id number] SP [id number] [facility]() Workers Compensation [id number] Self [id number] [place] [id number] S [id number] [id number] [facility] MEDICAID [id number] S [id number] [facility](MCAID) O [id number] S [id number] [place] [employer]-BS PPO 306 [id number] SP [id number] [place] [place] [id number] S [id number] [id number] [place] [employer] B [id number] S [id number] [employer] [employer] PPO 306 [id number] SP [id number] [place] [employer] PPO 306 [id number] SP [id number] SELF PAY ONLY [id number] SP [id number] O UNAVAILABLE UNAVAILA BLE [place] [place] WATN 306/806 [id number] SP [id number] Blue Cross Blue Shield Commercial [id number] Self Y [id number] BLUE [employer]OSS BLUE [employer] [place] [id number] [place] BCBS B [id number] S [id number] [employer] [place]AT[place] 306/806 [id number] SP [id number] [employer] Medigap Part B [id number] Self [id number] [employer] Med[employer]ap Part B [id number] Self [id number] SELF PAY ONLY [id number] SP [id number] SELF PAY ONLY UNAVAILABLE SP UNAV AILABLE [facility] [id number] SP [id number] [facility] Organization (HMO) [id number] Self SELF PAY SP [id number] S [id number] SELF PAY UNAVAILABLE MO2 UNAVAILA BLE SELF PAY P UNAVAILABLE UNAVAILA BLE [facility] [id number] SP [id number] [facility] [id number] S [id number] [facility] MEDICAID [id number] S [id number] [place] [id number] SP [id number] B [facility] [id number] SP [id number] [employer] [place] [id number] S VYA [id number] SELF PAY UNAVAILABLE CHILD UNAVAILA BLE [facility] [id number] S [id number] Problems, Conditions, and Diagnoses Code Display Name Description Problem Type Effective Dates Data Source(s) Z3A.10 10 weeks gestation of 10 WEEKS GESTATI ON OF Diagnosis 05/05/2021 03:45:00 PM [facility] F32.9 Major depressive disorder, single episod e, unspecified MAJOR DEPRESSIVE DISORDER, SINGLE EPISODE, UNSPECI Diagnosis 05/05/2021 03:45:00 PM [facility] F41.9 Anxiety disorder, unspecified ANXIETY DISORDER, UNSPEC IFIED Diagnosis 05/05/2021 03:45:00 PM [facility] F43.10 Post-traumatic stress disorder, unspecif ied POST-TRAUMATIC STRESS DISORDER, UNSPECIFIED Diagnosis 05/05/2021 03:45:00 PM [facility] zenaida O99.341 Other mental disorders complicating preg barbra, first trimester OTH MENTAL DISORDERS COMPLICATING , FIRST TRIMESTER Diagnosis 05/05/2021 03:45:00 PM [facility] Z3A.00 Weeks of gestation of not spec ified WEEKS OF GESTATION OF NOT SPECIFIED Diagnosis 04/21/2021 03:45:00 PM [facility] O99.340 Other mental disorders complicating preg barbra, unspecified trimester OTH MENTAL DISORDERS COMPLICATING , UNSP TRIMESTER Diagnosis 04/21/2021 03:45:00 PM [facility] Z3A.09 9 weeks gestation of 9 WEEKS GESTATION OF [place] EGNANCY Diagnosis 04/09/2021 12:40:00 PM [facility] Z3A.08 8 weeks gestation of 8 WEEKS GESTATION OF [place] EGNANCY Diagnosis 04/01/2021 10:00:00 AM [facility] Z3A.01 Less than 8 weeks gestation of LESS THAN 8 WEEKS GESTATION OF Diagnosis 03/19/2021 03:30:00 PM [facility] l Z32.3 Encounter for childcare instruction ENCOUNTER FO R CHILDCARE INSTRUCTION Diagnosis 03/19/2021 03:30:00 PM [facility] N93.8 Other specified abnormal uterine and vag inal bleeding OTHER SPECIFIED ABNORMAL UTERINE AND VAGINAL BLEED Diagnosis 02/12/2021 01:00:00 PM [facility] Z12.4 Encounter for screening for malignant ne oplasm of cervix ENCOUNTER FOR SCREENING FOR MALIGNANT NE Diagnosis 02/03/2021 02:53:00 PM [facility] Z11.3 Encounter for screening for infections with a predominantly sexual mode of transmission ENCNTR SCREEN FOR INFECTIONS W SEXL MODE OF TRANSM Diagnosis 02/03/2021 01:00:00 PM [facility] N91.2 Amenorrhea, unspecified AMENORRHEA, UNSPECIFIED Diagno sis 02/03/2021 01:00:00 PM [facility] Z01.419 Encounter for gynecological examination (general) (routine) without abnormal findings ENCNTR FOR SIDE LASTER TACK EXAM (GENERAL) (ROUTINE) W/O ABN FINDIN GS Diagnosis 02/03/2021 01:00:00 PM [facility] Z71.2 Person consulting for explanation of exa mination or test findings PERSON CONSULTING FOR EXPLANATION OF EXAM OR TEST Diagnosis 07/31/2020 02:30: 00 PM [facility] E03.9 Hypothyroidism, unspecified HYPOTHYROIDISM, UNSPECIFIE D Diagnosis 07/31/2020 02:30:00 PM [facility] L73.2 Hidradenitis suppurativa HIDRADENITIS SUPPURATIVA Diag nosis 07/31/2020 02:30:00 PM [facility] L02.818 Cutaneous abscess of other sites CUTANEOUS ABSCE SS OF OTHER SITES Diagnosis 07/31/2020 02:30:00 PM [facility] Z13.220 Encounter for screening for lipoid disor ders ENCOUNTER FOR SCREENING FOR LIPOID DISORDERS Diagnosis 07/16/2020 08:48:00 AM [facility] l Z68.42 Body mass index (BMI) 45.0-49.9, adult B AYLEEN MASS INDEX [BMI] 45.0-49.9, ADULT Diagnosis 07/16/2020 08:48:00 AM [facility] l E66.01 Morbid (severe) obesity due to excess ca lories MORBID (SEVERE) OBESITY DUE TO EXCESS CALORIES Diagnosis 07/16/2020 08:48:00 AM [facility] ital Z80.3 Family history of malignant neoplasm of breast FAMILY HISTORY OF MALIGNANT NEOPLASM OF BREAST Diagnosis 07/16/2020 08:48:00 AM [facility] l R73.03 PREDIABETES PREDIABETES Diagnosis 07/16/2020 08:48:00 AM [facility] Z12.39 Encounter for other screening for malign ant neoplasm of breast ENCOUNTER FOR OTH SCREENING FOR MALIGNANT NEOPLASM Diagnosis 07/16/2020 08:48:00 AM [facility] 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) F43.10 [id number] Post traumatic stress disorder Problem 12/09/2020 12:00:00 AM EDT eCW1 ([facility]) Z68.42 [id number] Body mass index [BMI] 45.0-49.9, adult Pr oblem 07/16/2020 12:00:00 AM EST eCW1 ([facility] rachid) Surgeries/Procedures No Information Results ID Date Data Source [id number] 02/12/2021 01:20:00 PM EDT [facility] DATED ON EXAMINATION: 02/12/2021 12:57 EDT PELVIC COMPLETE TRANS ABDOMEN HISTORY: Amenorrhea Real-time ultrasound imaging was performed utilizing B-mode/cooney scale and colorDoppler imaging where applicable. FINDINGS: Soft tissue contents of the pelvic cavity appear normal. There is no free fluidnor any discernible adnexal mass. Endometrial stripe is above normal range at 13mm IMPRESSION: Endometrial stripe is above normal range at 13 mm. This may be related to stageof menstrual cycle.. Electronically signed in PS360 by: Jamaal Reyes M.D. 02/12/2021 13:15 EDT Name Value Range Interpretation Code Description Data Luisa rce(s) Supporting Document(s) ID Date Data Source [id number] 02/04/2021 08:07:00 AM EDT [facility] Name Value Range Interpretation Code Description Data Luisa rce(s) Supporting Document(s) RPR Non Reactive Non Reactive [facility] ID Date Data Source [id number] 02/04/2021 08:07:00 AM EDT [facility] Name Value Range Interpretation Code Description Data Luisa rce(s) Supporting Document(s) HIV Screen 4th Generation wRfx Non Reactive Non Reactive [facility] ID Date Data Source [id number] 02/04/2021 08:07:00 AM EDT [facility] Name Value Range Interpretation Code Description Data Luisa rce(s) Supporting Document(s) Hep C Virus Ab 0.0-0.9 [facility] Negative: < 0.8 Indeterminate: 0.8 - 0.9 Positive: > 0.9 The CDC recommends that a positive HCV antibody result be followed up with a HCV Nucleic Acid Amplification test (771853). ID Date Data Source [id number] 02/04/2021 08:06:00 AM EDT [facility] Name Value Range Interpretation Code Description Data Luisa rce(s) Supporting Document(s) RPR Non Reactive Non Reactive [facility] ID Date Data Source [id number] 02/04/2021 08:06:00 AM EDT [facility] Name Value Range Interpretation Code Description Data Luisa rce(s) Supporting Document(s) HIV SCREEN 4TH GEN Non Reactive Non Reactive [facility] ID Date Data Source [id number] 02/04/2021 08:06:00 AM EDT [facility] Name Value Range Interpretation Code Description Data Luisa rce(s) Supporting Document(s) HCV ANTIBODY <0.1 0.0-0.9 [facility] INFCE Result Units: s/co ratio Negative: < 0.8 Indeterminate: 0.8 - 0.9 Positive: > 0.9 The CDC recommends that a positive HCV antibody result be followed up with a HCV Nucleic Acid Amplification test (798619).Performed at: RN - [facility] [address] [id number] Director: Cher Shrestha MD, Phone: [phone] ID Date Data Source [id number] 02/03/2021 02:52:00 PM EDT [facility] Name Value Range Interpretation Code Description Data Luisa rce(s) Supporting Document(s) HCG,SERUM NEGATIVE NEGATIVE [facility] False negative results may occur when th e levels of hCG arebelow the sensitivity level of the test. If isstill suspected, a first morning urine specimen should becollected 48hrs later.This test has a sensitivity of 10mIU/mL in serum gzy09fEO/mL in urine. ID Date Data Source [id number] 02/04/2021 08:06:00 PM EDT [facility] Comment: Source.............Cer vix;EndocervixSpecimen Comment: LMP / Prev Treat...NoneSpecimen Comment: Other..............Oral ContraceptivesSpecimen Comment: No. of containers..01 ThinPrep Vial Name Value Range Interpretation Code Description Data [facility] rce(s) Supporting Document(s) CHLAMYDIA TRACHOMATIS, ASHLIE Negative Negative [facility] NEISSERIA GONORRHOEAE, ASHLIE Negative Negative [facility] Performed at: [address] [id number] Director: Cher Shrestha MD, Phone: [phone] ID Date Data Source [id number] 02/05/2021 02:06:00 PM EDT [facility] ital Specimen Comment: Source.............Cer vix;EndocervixSpecimen Comment: LMP / Prev Treat...NoneSpecimen Comment: Other..............Oral ContraceptivesSpecimen Comment: No. of containers..01 ThinPrep Vial Name Value Range Interpretation Code Description Data [facility] rce(s) Supporting Document(s) REFLEX PAP Comment . [facility] The HPV DNA reflex criteria were not met with this specimenresult therefore, no HPV testing was performed.Performed at: [facility] Histo [address] [id number] Director: Samuel Shukla MD, Phone: [phone] at: [address] [id number] Director: Cher Shrestha MD, Phone: [phone] DIAGNOSIS: Comment . [facility] NEGATIVE FOR INTRAEPITHELIAL LESION OR M ALIGNANCY.THE CYTOLOGY PROCESSING WAS PERFORMED AT THE [facility] LOCATED AT[address] [place] [phone]. SPECIMEN ADEQUACY: Comment . [facility] Satisfactory for evaluation. Endocervic al and/or squamous metaplasticcells (endocervical component) are present. PERFORMED BY: Comment . [facility] Rosa [employer]icer [employer] (ASCP) . . . [facility] NOTE: Comment . [facility] The Pap smear is a screening test design ed to aid in thedetection of premalignant and malignant conditions of theuterine cervix. It is not a diagnostic procedure andshould not be used as the sole means of detecting cervicalcancer. Both false-positive and false-negative reports dooccur. HPV METHODOLOGY Comment . [facility] This liquid based ThinPrep(R) pap test w as screened withthe use of an image guided system. ID Date Data Source [id number] 02/05/2021 02:05:00 PM EDT [facility] Name Value Range Interpretation Code Description Data Luisa rce(s) Supporting Document(s) IGP,rfx Aptima HPV all [facility] TESTS RESULT FLAG UNI TS REF RANGE LAB Clinician Provided Cytology Information Source.............Cervix;Endocervix LMP / Prev Treat...None Other..............Oral Contraceptives No. of containers..01 ThinPrep VialDIAGNOSIS: 01 NEGATIVE FOR INTRAEPITHELIAL LESION OR MALIGNANCY. THE CYTOLOGY PROCESSING WAS PERFORMED AT THE [facility] LOCATED AT [address] [place] [phone].Specimen adequacy: 01 Satisfactory for evaluation. Endocervical and/or squamous metaplastic cells (endocervical component) are present.Performed by: Dylan [employer] (ASCP). 01Note: Note 02 The Pap smear is a screening test designed to aid in the detection of premalignant and malignant conditions of the uterine cervix. It is not a diagnostic procedure and should not be used as the sole means of detecting cervical cancer. Both false-positive and false-negative reports do occur. Test Methodology: Note 02 This liquid based ThinPrep(R) pap test was screened with the use of an image guided system.. 01 The HPV DNA reflex criteria were not met with this specimen result therefore, no HPV testing was performed. FLAG LEGEND: L-Low Normal,H-High Normal,LL-Alert Low,HH-Alert High <-Panic Low,>-Panic High,A-Abnormal,AA-Critical Abnormal Performed at:01 YT [facility] [address] [phone] Samuel Shukla MD, [address] [address] Cher Shrestha MD, ID Date Data Source [id number] 02/04/2021 08:05:00 PM EDT [facility] Name Value Range Interpretation Code Description Data Luisa rce(s) Supporting Document(s) Chlamydia/GC Amplification [facility] TESTS RESULT FLAG UNI TS REF RANGE LAB C trachomatis, ASHLIE Negative (Negative) 01N gonorrhoeae, ASHLIE Negative (Negative) 01 FLAG LEGEND: L-Low Normal,H-High Normal,LL-Alert Low,HH-Alert High <-Panic Low,>-Panic High,A-Abnormal,AA-Critical Abnormal Performed at:01 RN [facility] [address] [phone] Cher Shrestha MD, ID Date Data Source [id number] 10/17/2020 12:00:00 AM EST [facility] Name Value Range Interpretation Code Description Data Luisa rce(s) Supporting Document(s) SARS coronavirus 2 RNA Not Detected [facility] This lab was ordered by [employer] and rep orted by [facility]. ID Date Data Source [id number] 07/23/2020 10:55:00 AM [facility] l Name Value Range Interpretation Code Description Data Luisa rce(s) Supporting Document(s) FREE T4 1.18 ng/dL 0.76-1.46 [facility] ID Date Data Source [id number] 07/23/2020 10:41:00 AM [facility] l Name Value Range Interpretation Code Description Data Luisa rce(s) Supporting Document(s) GLUCOSE 73 mg/dL 74-106 [facility] BLOOD UREA NITROGEN 9 mg/dL 7-18 [facility] ital CREATININE 0.8 mg/dL 0.6-1.0 [facility] SODIUM 140 mmol/L 136-145 [facility] POTASSIUM 4.3 mmol/L 3.5-5.1 [facility] CHLORIDE 102 mmol/L 98-107 [facility] CO2 24 mmol/L 21-32 [facility] CALCIUM 8.9 mg/dL 8.5-10.1 [facility] ANION GAP 14.0 mmol/L 5-12 H [facility] GLOMERULAR FILTRATION RATE 88 mL/min [facility] GFR IS CALCULATED IN mL/min/1.73m2 RAY L FUNCTION: >90MILDLY DECREASED: 60-89MILDY TO MODERATELY DECREASED: 45-59 MODERATELY TO SEVERELY DECREASED: 30-44SEVERELY DECREASED: 15-29RENAL FAILURE: <15 AST 55 U/L 15-37 H [facility] ALT 61 U/L 12-78 [facility] ALKALINE PHOSPHATASE 89 U/L 46-116 [facility] TOTAL BILIRUBIN 0.3 mg/dL 0.2-1.0 [facility] TOTAL PROTEIN 8.0 g/dl 6.4-8.2 [facility] ALBUMIN 3.3 gm/dL 3.4-5.0 [facility] ID Date Data Source [id number] 07/23/2020 10:41:00 AM [facility] l Name Value Range Interpretation Code Description Data Luisa rce(s) Supporting Document(s) ESTIMATED AVERAGE GLUCOSE 116.9 mg/dL [facility] ID Date Data Source [id number] 07/23/2020 10:41:00 AM [facility] Name Value Range Interpretation Code Description Data Luisa rce(s) Supporting Document(s) HGBA1C 5.7 % 3.8-5.6 H [facility] Diabetic > or = to 6.5%Prediabetes 5.7-6 .4%Normal <5.7 ID Date Data Source [id number] 07/23/2020 09:53:00 AM [facility] Name Value Range Interpretation Code Description Data [facility] Document(s) WHITE BLOOD COUNT 10.7 K/mm3 4.0-10.0 [facility] zenaida RED BLOOD COUNT 4.86 M/mm3 4.00-5.50 [facility] HEMOGLOBIN 13.1 gm/dL 12.0-16.0 [facility] HEMATOCRIT 40.2 % 36.0-48.8 [facility] MEAN CELL VOLUME 82.7 fl 80-96 [facility] MEAN CORPUSCULAR HEMOGLOBIN 27.0 pg 27.0-31.0 [facility] MEAN CORPUSCULAR HGB CONC 32.6 g/dl 32.0-36.0 [facility] RED CELL DISTRIBUTION WIDTH 14.5 % 10.0-14.5 [facility] PLATELET COUNT 384 K/mm3 172-450 [facility] MEAN PLATELET VOLUME 9.0 fl 9.0-13.0 [facility] pital GRAN % 63.4 % 50-80.0 [facility] IG% 0.8 % 0.0-0.2 H [facility] LYMPH % 21.0 % 25.0-50.0 L [facility] MONO % 10.9 % 2.0-10.0 H [facility] EOS % 3.3 % 0-5.0 [facility] BASO % 0.6 % 0.0-2.0 [facility] GRAN # 6.8 K/mm3 2.0-8.00 [facility] IG# 0.1 K/mm3 0.0-0.2 [facility] LYMPH # 2.3 K/mm3 1.0-5.0 [facility] MONO # 1.2 K/mm3 0.10-1.20 [facility] EOS # 0.4 K/mm3 0.0-0.5 [facility] BASO # 0.1 K/mm3 0.0-0.2 [facility] ID Date Data Source [id number] 07/23/2020 10:55:00 AM EST [facility] Name Value Range Interpretation Code Description Data Luisa rce(s) Supporting Document(s) TSH 4.56 uIU/mL 0.36-3.74 H [facility] ID Date Data Source [id number] 05/07/2020 02:38:00 PM EDT [facility] l DATED ON EXAMINATION: 05/07/2020 14:12 ED T PELVIC COMPLETE TRANS ABDOMEN HISTORY: Pain Real-time ultrasound imaging was performed utilizing B-mode/cooney scale and colorDoppler imaging where applicable. Patient is status post right oophorectomy. Uterus is anteverted. Endometrialstripe is 0.4 cm. Left ovary appears normal. There is no fluid in [id number]. IMPRESSION: Status post right oophorectomy. Anteverted uterus.. Electronically signed in PS360 by: Jamaal Reyes M.D. 05/07/2020 14:31 EDT Name Value Range Interpretation Code Description Data Luisa rce(s) Supporting Document(s) Procedure Social History Code Duration Value Status Description Data Source(s ) Smoking 06/25/2021 12:00:00 AM EDT Heavy tobacco smoker comple junaid Heavy tobacco smoker [facility] ([facility]) Smoking 03/19/2021 12:00:00 AM EDT Current Smoker completed Curre nt Smoker eCW1 ([facility]) Smoking 03/19/2021 12:00:00 AM EDT Current Smoker completed Curre nt Smoker eCW1 ([facility]) Smoking 03/19/2021 12:00:00 AM EDT Current Smoker completed Curre nt Smoker eCW1 ([facility]) Smoking 03/19/2021 12:00:00 AM EDT Current Smoker completed Curre nt Smoker eCW1 ([facility]) Smoking 03/19/2021 12:00:00 AM EDT Current Smoker completed Curre nt Smoker eCW1 ([facility]) Smoking 03/19/2021 12:00:00 AM EDT Current Smoker completed Curre nt Smoker eCW1 ([facility]) Smoking 02/03/2021 12:00:00 AM EDT Current Smoker completed Curre nt Smoker eCW1 ([facility]) Smoking 02/03/2021 12:00:00 AM EDT Current Smoker completed Curre nt Smoker eCW1 ([facility]) Smoking 02/03/2021 12:00:00 AM EDT Current Smoker completed Curre nt Smoker eCW1 ([facility]) Smoking 02/03/2021 12:00:00 AM EDT Current Smoker completed Curre nt Smoker eCW1 ([facility]) Smoking 07/31/2020 12:00:00 AM EST Current Smoker completed Curre nt Smoker eCW1 ([facility]) Smoking 07/31/2020 12:00:00 AM EST Current Smoker completed Curre nt Smoker eCW1 ([facility]) Smoking 07/31/2020 12:00:00 AM EST Current Smoker completed Curre nt Smoker eCW1 ([facility]) Smoking 07/16/2020 12:00:00 AM EST Current Smoker completed Curre nt Smoker eCW1 ([facility]) Vital Signs ID Date Data Source UNK Name Value Range Interpretation Code Description Data Source(s) Body height 67 [in_i] 67 [in_i] eCW1 ([facility]) Body weight 269.8 [lb_av] 269.8 [lb_av] eCW1 ([facility]) Body mass index (BMI) [Ratio] 42.25 kg/m2 42.25 kg/m2 eCW1 ([facility]) Heart rate 96 /min 96 /min eCW1 ([facility]) Respiratory rate 15 /min 15 /min eCW1 ([facility]) Oxygen saturation in Arterial blood by Pulse oximetry 98 % 98 % eCW1 ([facility]) Body height 67 [in_i] 67 [in_i] eCW1 ([facility]) Body weight 276.6 [lb_av] 276.6 [lb_av] eCW1 ([facility]) Body mass index (BMI) [Ratio] 43.32 kg/m2 43.32 kg/m2 eCW1 ([facility]) Body temperature 98.0 [degF] 98.0 [degF] eCW1 ( [facility]) Heart rate 82 /min 82 /min eCW1 ([facility]) Respiratory rate 17 /min 17 /min eCW1 ([facility]) Oxygen saturation in Arterial blood by Pulse oximetry 99 % 99 % eCW1 ([facility]) Systolic blood pressure 153 mm[Hg] 153 mm[Hg] M EDENT ([facility]) Diastolic blood pressure 87 mm[Hg] 87 mm[Hg] MEDENT ([facility], [facility]) Heart rate 88 /min 88 /min MEDENT ([facility], [facility]) Respiratory rate 20 /min 20 /min MEDENT ( [facility]) Oxygen saturation in Arterial blood by Pulse oximetry 98 % 98 % MEDENT ([facility], [facility]) Body temperature 97.8 [degF] 97.8 [degF] MEDENT ([facility], [facility]) Body weight 300.00 [lb_av] 300.00 [lb_av] MEDEN T ([facility], [facility]) weighed Body height 67 [in_i] 67 [in_i] MEDENT ([facility], [facility]) 5'7" Body mass index (BMI) [Ratio] 47.0 kg/m2 47.0 k g/m2 MEDENT ([facility], [facility]) Body height 67 [in_i] 67 [in_i] eCW1 ([facility]) Body weight 302.0 [lb_av] 302.0 [lb_av] eCW1 ([facility]) Body mass index (BMI) [Ratio] 47.29 kg/m2 47.29 kg/m2 eCW1 ([facility]) Body temperature 98.0 [degF] 98.0 [degF] eCW1 ( [facility]) Heart rate 87 /min 87 /min eCW1 ([facility]) Respiratory rate 18 /min 18 /min eCW1 ([facility]) Oxygen saturation in Arterial blood by Pulse oximetry 97 % 97 % eCW1 ([facility]) Patient Treatment Plan of Care Planned Activity Planned Date Details Description Data Source (s) Multivitamin Plus DHA 27-0.8-250 MG 03/19/2021 12:00:00 AM EDT eCW1 ([facility]) Levothyroxine Sodium 0.1 MG Oral Tablet 07/31/2020 12:00:00 AM EST eCW1 ([facility]) Levothyroxine Sodium 0.1 MG Oral Tablet 07/31/2020 12:00:00 AM EST eCW1 ([facility]) Levothyroxine Sodium 0.1 MG Oral Tablet 07/31/2020 12:00:00 AM EST eCW1 ([facility]) Sulfamethoxazole 800 MG / Trimethoprim 160 MG Oral Tab let [Bactrim] 07/16/2020 12:00:00 AM EST eCW1 ([facility]) Levothyroxine Sodium 0.088 MG Oral Tablet [Synthroid] 05/08/2020 12:00:00 AM EDT eCW1 ([facility])
--- OUTSIDE RECORDS SUMMARY | 2021-06-28 13:57 | CCD ---
Author Author [facility] Organization [facility] Address Unknown Phone Unavailable Care Team Providers Care Fun House Operator Name Role Phone Gema Hollingsworth Unavailable Gema Hollingsworth Unavailable Nathalia Castro CERTIFIED PEST CONTROL TECHNICIAN Unavailable Unavailable Nathalia Castro CERTIFIED PEST CONTROL TECHNICIAN Unavailable Unavailable Nathalia Castro CERTIFIED PEST CONTROL TECHNICIAN Unavailable Unavailable Nathalia Castro CERTIFIED PEST CONTROL TECHNICIAN Unavailable Unavailable Nathalia Castro CERTIFIED PEST CONTROL TECHNICIAN Unavailable Unavailable Nathalia Castro CERTIFIED PEST CONTROL TECHNICIAN Unavailable Unavailable Castro, Nathalia CERTIFIED PEST CONTROL TECHNICIAN Unavailable Unavailable Castro, Nathalia CERTIFIED PEST CONTROL TECHNICIAN Unavailable Unavailable Castro, Nathalia CERTIFIED PEST CONTROL TECHNICIAN Unavailable Unavailable Castro, Nathalia CERTIFIED PEST CONTROL TECHNICIAN Unavailable Unavailable Castro, Nathalia CERTIFIED PEST CONTROL TECHNICIAN Unavailable Unavailable Castro, Nathalia CERTIFIED PEST CONTROL TECHNICIAN Unavailable Unavailable Castro, Nathalia CERTIFIED PEST CONTROL TECHNICIAN Unavailable Unavailable Xiang, Eli W Gladys WIC SITE COORDINATOR-C Unavailable Unavailabl e Xiang, Reginaagustin W Gladys WIC SITE COORDINATOR-C Unavailable Unavailabl e Xiang, Reginaagustin W Gladys WIC SITE COORDINATOR-C Unavailable Unavailabl e Xiang, Reginaagustin W Gladys WIC SITE COORDINATOR-C Unavailable Unavailabl e Xiang, Reginaagustin W Gladys WIC SITE COORDINATOR-C Unavailable Unavailabl e Xiang, Reginaagustin W Gladys WIC SITE COORDINATOR-C Unavailable Unavailabl e Xiang, Reginaagustin W Gladys WIC SITE COORDINATOR-C Unavailable Unavailabl e Xiang, Reginaagustin W Gladys WIC SITE COORDINATOR-C Unavailable Unavailabl e Xiang, Reginaagustin W Gladys WIC SITE COORDINATOR-C Unavailable Unavailabl e Xiang, Reginaagustin W Gladys WIC SITE COORDINATOR-C Unavailable Unavailabl e Xiang, Reginaagustin W Gladys WIC SITE COORDINATOR-C Unavailable Unavailabl e Xiang, Reginaagustin W Gladys WIC SITE COORDINATOR-C Unavailable Unavailabl e Xiang, Reginaagustin W Gladys WIC SITE COORDINATOR-C Unavailable Unavailabl e Xiang, Reginaagustin W Gladys WIC SITE COORDINATOR-C Unavailable Unavailabl e Xiang, Reginaagustin W Gladys WIC SITE COORDINATOR-C Unavailable Unavailabl e Xiang, Reginaagustin W Gladys WIC SITE COORDINATOR-C Unavailable Unavailabl e Xiang, Reginaagustin W Gladys WIC SITE COORDINATOR-C Unavailable Unavailabl e Xiang, Reginaagustin W Gladys WIC SITE COORDINATOR-C Unavailable Unavailabl e Xiang, Reginaagustin W Gladys WIC SITE COORDINATOR-C Unavailable Unavailabl e Xiang, Reginaagustin W Gladys WIC SITE COORDINATOR-C Unavailable Unavailabl e Xiang, Reginaagustin W Gladys WIC SITE COORDINATOR-C Unavailable Unavailabl e Xiang, Reginaagustin W Gladys WIC SITE COORDINATOR-C Unavailable Unavailabl e Xiang, Reginaagustin W Gladys WIC SITE COORDINATOR-C Unavailable Unavailabl e Xiang, Eli Solise WIC SITE COORDINATOR-C Unavailable Unavailabl e Xiang, Eli Graham WIC SITE COORDINATOR-C Unavailable Unavailabl e Xiang, Eli Solise WIC SITE COORDINATOR-C Unavailable Unavailabl e Xiang, Eli Solise WIC SITE COORDINATOR-C Unavailable Unavailabl e Xiang, Eli Graham WIC SITE COORDINATOR-C Unavailable Unavailabl e Xiang, Eli Solise WIC SITE COORDINATOR-C Unavailable Unavailabl e Xiang, Eli Cruzyce WIC SITE COORDINATOR-C Unavailable Unavailabl e Xiang, Eli Cruzyce WIC SITE COORDINATOR-C Unavailable Unavailabl e Xiang, Eli Rivera Gladys WIC SITE COORDINATOR-C Unavailable Unavailabl e EMILEERosario ADAMES DO Unavailable [...] Unavailable Unavailable Lazaro Olivera MD Unavailable Unavailable Ajrod, Lazaro Crane MD Unavailable Unavailable Jarod, Lazaro [...] SORENSEN SR, JASSON AWAD MD Unavailable Unavailable SORESNEN SR, JASSON AWAD MD Unavailable Unavailable SORENSEN [...] G MARTIN PA Unavailable Unavailable TONTARSMEE, G MARITN PA Unavailable Unavailable TONTARSMEE, G MARTIN PA [...] PA Unavailable Unavailable HICKEY GEMA Unavailable Unavailable [place], Berna Viktor WIC SITE COORDINATOR Unavailable Unavailable Anjelica, Berna Viktor WIC SITE COORDINATOR Unavailable Unavailable [place], Berna Viktor WIC SITE COORDINATOR Unavailable Unavailable [place], Berna Viktor WIC SITE COORDINATOR Unavailable Unavailable [place], Berna Viktor WIC SITE COORDINATOR Unavailable Unavailable Anjelica, Berna Viktor WIC SITE COORDINATOR Unavailable Unavailable Anjelica, Berna Viktor WIC SITE COORDINATOR Unavailable Unavailable [place], Berna Viktor WIC SITE COORDINATOR Unavailable Unavailable Anjelica, Berna Viktor WIC SITE COORDINATOR Unavailable Unavailable [place], Berna Viktor WIC SITE COORDINATOR Unavailable Unavailable [place], Berna Viktor WIC SITE COORDINATOR Unavailable Unavailable Anjelica, Berna Viktor WIC SITE COORDINATOR Unavailable Unavailable Anjelica, Berna Viktor WIC SITE COORDINATOR Unavailable Unavailable [place], Berna Viktor WIC SITE COORDINATOR Unavailable Unavailable Re-disclosure Warning The records that [...] is protected by Article 27-F of the [facility] Public Health law. If you continue you may have access to information: Regarding HIV / AIDS; Provided by facilities licensed or operated by the [facility] Office of Mental Health; or Provided by the [facility] Office for People With Developmental Disabilities. If such information is present, then the following [facility] mandated warning applies: This information has [...] law may result in a fine or care home sentence or both. A general authorization for the release of medical or other information is NOT sufficient authorization for further disc losure. Family History Family Member Name Family Member Gender Family Member Status Date o f Status Description Data Source(s) Unknown Male Diagnosis 08/15/2013 12:00:00 AM EST [facility] ([facility]) Unknown Male Diagnosis 08/15/2013 12:00:00 AM EST [facility] ([facility]) Unknown Male Diagnosis 06/28/2013 12:00:00 AM EDT [facility] ([facility]) Encounters Encounter Providers Location Date Indications Data Source(s ) Attender: Rosa Maria Olivera MD [facility] 12:41:00 PM EDT - 06/25/2021 12:41:00 PM EDT [facility] ([facility]) Outpatient Attender: Gema Hollingsworth [facility] 06/05/2021 12:00:00 AM EDT eCW1 ([facility]) Outpatient Attender: Gema Hollingsworth 05/05/2021 03:45:00 PM [facility] Outpatient Attender: Gema Hollingsworth 04/21/2021 03:45:00 PM [facility] Outpatient PENDING SALE TO [facility] 04/20/2021 12:00:00 AM EDT eCW1 ([facility]) Outpatient PENDING SALE TO [facility] 04/14/2021 12:00:00 AM EDT eCW1 ([facility]) Outpatient Attender: Gema Hollingsworth 04/09/2021 12:40:00 PM [facility] Outpatient Attender: Gema Hollingsworth 04/01/2021 10:00:00 AM [facility] 03/31/2021 12:00:00 AM EDT eCW1 ([facility]) Outpatient PENDING SALE TO [facility] 03/23/2021 12:00:00 AM EDT eCW1 ([facility]) Outpatient Attender: Viktor ALY 03/19/2021 03:30:00 PM EDT [facility] Outpatient PENDING SALE TO [facility] 03/19/2021 12:00:00 AM EDT eCW1 ([facility]) Outpatient PENDING SALE TO [facility] 03/18/2021 12:00:00 AM EDT eCW1 ([facility]) Outpatient PENDING SALE TO [facility] 03/04/2021 12:00:00 AM EDT eCW1 ([facility]) Outpatient Attender: Viktor RASMUSSENPReferrer: Vanessa lehman PA-C 02/12/2021 01:00:00 PM T [facility] Outpatient Attender: Cindy Lundberg 02/04/2021 09:03:00 AM EDT [facility] Outpatient PENDING SALE TO [facility] 02/04/2021 12:00:00 AM EDT eCW1 ([facility]) Outpatient Attender: Viktor Cadetferrekee: Calista Braden PA-C EMERGENCY ROOM-LAB REF 02/03/2021 02:53:00 PM EDT - 02/03/2021 02:53:00 PM T [facility] Outpatient Attender: Viktor Cadetferharini: Calista Braden PA-C EMERGENCY ROOM-CLNSPECGYN 02/03/2021 01:00:00 PM EDT - 02/03/2021 01:00:00 PM EDT [facility] Outpatient PENDING SALE TO [facility] 02/03/2021 12:00:00 AM EDT eCW1 ([facility]) Outpatient Attender: Cindy Lundberg 01/28/2021 08:59:00 AM [facility] Outpatient Attender: Cindy Lundberg 01/21/2021 09:00:00 AM EDT [facility] Outpatient PENDING SALE TO [facility] 01/12/2021 12:00:00 AM EDT eCW1 ([facility]) Outpatient Attender: Cindy Palacios: CINDY LUNDBERG 01/01/2021 10:00:00 AM [facility] Outpatient Attender: Cindy Palacios: CINDY LUNDBERG 12/03/2020 04:00:00 PM [facility] Outpatient Attender: Cindy Palacios: CINDY LUNDBERG 11/26/2020 04:00:00 PM [facility] Outpatient Attender: Cindy Palacios: CINDY LUNDBERG 11/19/2020 03:59:00 PM [facility] Outpatient PENDING SALE TO [facility] 11/14/2020 12:00:00 AM EST eCW1 ([facility]) Outpatient Attender: Cindy Palacios: CINDY LUNDBERG 11/12/2020 04:00:00 PM [facility] Outpatient Attender: Cindy Sultanaender: CINDY LUNDBERG 11/05/2020 01:00:00 PM [facility] Outpatient Attender: Gema HollingsworthAttender: GEMA HOLLINGSWORTH 10/22/2020 09:05:00 AM [facility] Outpatient PENDING SALE TO [facility] 08/01/2020 12:00:00 AM EST eCW1 ([facility]) Outpatient Attender: Vanessa Braden PA-C 07/31/2020 02:30 :00 PM [facility] Outpatient Attender: Nathalia gao 07/24/2020 07:45:00 AM EST [facility] Outpatient Attender: Vanessa Hargroveferrer: Vanessa Braden PA-C EMERGENCY ROOM-LAB 07/23/2020 09:28:00 AM EST - 07/23/2020 09:28:00 AM [facility] Outpatient Attender: Vanessa Braden PA-C 07/16/2020 08:48 :00 AM [facility] Outpatient PENDING SALE TO [facility] 07/16/2020 12:00:00 AM EST eCW1 ([facility]) Outpatient PENDING SALE TO [facility] 05/08/2020 12:00:00 AM EDT eCW1 ([facility]) Outpatient Attender: DELMI SORENSEN SRReferrer: DELMI Massey SR 05/07/2020 02:00:00 PM [facility] Outpatient Attender: DELMI SORENSEN SRReferrer: NGOZI SORENSEN SR EMERGENCY ROOM-LAB 04/10/2020 12:19:00 PM EDT - 04/10/2020 12:19:00 PM [facility] Outpatient Attender: Gladys Otoole WIC SITE COORDINATOR-C 03/04/2020 10:58:0 0 AM [facility] Outpatient Attender: DELMI SORENSEN SR 01/23/2020 03:00:00 PM [facility] Outpatient Attender: TIMMY Dicksonerrer: DELMI SORENSEN SR 12/19/2019 09:36:00 AM EDT - 12/19/2019 09:36:00 AM [facility] Outpatient Attender: TIMMY HEBERT DO 10/11/2019 01:00:00 P [facility] Outpatient Attender: TIMMY Dicksonerrer: DELMI SORENSEN SR EMERGENCY ROOM-ULTRA 10/09/2019 12:53:00 PM [facility] - 10/09/2019 12:53:00 PM [facility] Outpatient Attender: TIMMY HEBERT DO 09/26/2019 09:38:00 A [facility] Outpatient Attender: DELMI SORENSEN SRReferrer: NGOZI SORENSEN SR EMERGENCY ROOM-LAB 09/21/2019 03:24:00 PM [facility] - 09/21/2019 03:24:00 PM [facility] Outpatient Attender: DELMI SORENSEN SR 09/21/2019 02:30:00 PM [facility] Emergency Attender: MARTIN GARCÍA EMERGENCY ROOM- ER 05/29/2012 06:14:00 AM EDT - 05/29/2012 07:53:00 AM [facility] Medications Medication Brand Name Start Date Product Form Dose Route Admi nistrative Instructions Pharmacy Instructions Status Indications Reaction Description Data Source(s) Multivitamin Plus DHA 27-0.8-250 MG Multivitamin Plus DHA 27-0.8-250 MG 03/19/2021 12:00:00 AM EDT 1.0 {capsule} active Multivitamin Plus DHA 27-0.8-250 MG eCW1 ([facility]) Multivitamin Plus DHA 27-0.8-250 MG Multivitamin Plus DHA 27-0.8-250 MG 03/19/2021 12:00:00 AM EDT 1.0 {capsule} active Multivitamin Plus DHA 27-0.8-250 MG eCW1 ([facility]) Multivitamin Plus DHA 27-0.8-250 MG Multivitamin Plus DHA 27-0.8-250 MG 03/19/2021 12:00:00 AM EDT 1.0 {capsule} active Multivitamin Plus DHA 27-0.8-250 MG eCW1 ([facility]) Multivitamin Plus DHA 27-0.8-250 MG Multivitamin Plus DHA 27-0.8-250 MG 03/19/2021 12:00:00 AM EDT 1.0 {capsule} active Multivitamin Plus DHA 27-0.8-250 MG eCW1 ([facility]) Multivitamin Plus DHA 27-0.8-250 MG Multivitamin Plus DHA 27-0.8-250 MG 03/19/2021 12:00:00 AM EDT 1.0 {capsule} active Multivitamin Plus DHA 27-0.8-250 MG eCW1 ([facility]) Multivitamin Plus DHA 27-0.8-250 MG Multivitamin Plus DHA 27-0.8-250 MG 03/19/2021 12:00:00 AM EDT 1.0 {capsule} active Multivitamin Plus DHA 27-0.8-250 MG eCW1 ([facility]) Levothyroxine Sodium 0.1 MG Oral Tablet Levothyroxine Sodium 100 MCG Levothyroxine Sodium 100 MCG 07/31/2020 12:00:00 AM EST active Levothyroxine Sodium 100 MCG eCW1 ([facility]) Levothyroxine Sodium 0.1 MG Oral Tablet Levothyroxine Sodium 100 MCG Levothyroxine Sodium 100 MCG 07/31/2020 12:00:00 AM EST active Levothyroxine Sodium 100 MCG eCW1 ([facility]) Levothyroxine Sodium 0.1 MG Oral Tablet Levothyroxine Sodium 100 MCG Levothyroxine Sodium 100 MCG 07/31/2020 12:00:00 AM EST active Levothyroxine Sodium 100 MCG eCW1 ([facility] racihd) Levothyroxine Sodium 0.1 MG Oral Tablet Levothyroxine Sodium 100 MCG Levothyroxine Sodium 100 MCG 07/31/2020 12:00:00 AM EST active Levothyroxine Sodium 100 MCG eCW1 ([facility]) Levothyroxine Sodium 0.1 MG Oral Tablet Levothyroxine Sodium 100 MCG Levothyroxine Sodium 100 MCG 07/31/2020 12:00:00 AM EST active Levothyroxine Sodium 100 MCG eCW1 ([facility]) Levothyroxine Sodium 0.1 MG Oral Tablet Levothyroxine Sodium 100 MCG Levothyroxine Sodium 100 MCG 07/31/2020 12:00:00 AM EST active Levothyroxine Sodium 100 MCG eCW1 ([facility]) Levothyroxine Sodium 0.1 MG Oral Tablet Levothyroxine Sodium 100 MCG Levothyroxine Sodium 100 MCG 07/31/2020 12:00:00 AM EST active Levothyroxine Sodium 100 MCG eCW1 ([facility]) Levothyroxine Sodium 0.1 MG Oral Tablet Levothyroxine Sodium 100 MCG Levothyroxine Sodium 100 MCG 07/31/2020 12:00:00 AM EST active Levothyroxine Sodium 100 MCG eCW1 ([facility]) Levothyroxine Sodium 0.1 MG Oral Tablet Levothyroxine Sodium 100 MCG Levothyroxine Sodium 100 MCG 07/31/2020 12:00:00 AM EST active Levothyroxine Sodium 100 MCG eCW1 ([facility]) Levothyroxine Sodium 0.1 MG Oral Tablet Levothyroxine Sodium 100 MCG Levothyroxine Sodium 100 MCG 07/31/2020 12:00:00 AM EST active Levothyroxine Sodium 100 MCG eCW1 ([facility]) Levothyroxine Sodium 0.1 MG Oral Tablet Levothyroxine Sodium 100 MCG Levothyroxine Sodium 100 MCG 07/31/2020 12:00:00 AM EST active eCW1 ([facility]) Levothyroxine Sodium 0.1 MG Oral Tablet Levothyroxine Sodium 100 MCG Levothyroxine Sodium 100 MCG 07/31/2020 12:00:00 AM EST active Levothyroxine Sodium 100 MCG eCW1 ([facility]) Levothyroxine Sodium 0.1 MG Oral Tablet Levothyroxine Sodium 100 MCG Levothyroxine Sodium 100 MCG 07/31/2020 12:00:00 AM EST active Levothyroxine Sodium 100 MCG eCW1 ([facility]) Sulfamethoxazole 800 MG / Trimethoprim 1 60 MG Oral Tablet [Bactrim] Bactrim DS 800-160 MG Bactrim DS 800-160 MG 07/16/2020 12:00:00 AM EST 1.0 {table t} active Bactrim DS 800-160 MG eCW1 ( [facility]) Levothyroxine Sodium 0.088 MG Oral Tablet [Synthroid] Synthroid 88 MCG Synthroid 88 MCG 05/08/2020 12:00:00 AM EDT active Synthroid 88 MCG eCW1 ([facility]) Loratadine 10 MG Oral Tablet Loratadine 04/25/2020 12:00:00 AM EDT completed [facility] ([facility]) Fluticasone Propionate Fluticasone Propionate 04/12/2020 12:00:00 AM E DT completed [facility] ([facility]) Insurance Providers Payer name Policy type / Coverage type Policy ID Covered republican ID Covered republican's relationship to torres Policy Torres Plan Information [facility] Compensation [id number] Self [id number] [facility]() Workers Compensation [id number] Self [id number] [facility]() Workers Compensation [id number] Self [place] PPO 302/307 [id number] SP [id number] [place] PPO 302/307 [id number] SP [id number] [facility]() Workers Compensation [id number] Self [id number] [place] [id number] S [id number] [facility] MEDICAID [id number] S [id number] [facility](MCAID) O [id number] S [id number] [employer] BC-BS PPO 306 [id number] SP [id number] [employer] [place] [id number] S [id number] [employer] BCBS B [id number] S [id number] [employer]-BS PPO 306 [id number] SP [id number] [employer]-BS PPO 306 [id number] SP [id number] SELF PAY ONLY [id number] SP [id number] O UNAVAILABLE UNAVAILA BLE [employer] [place] WATN 306/806 [id number] SP [id number] Blue Cross Blue Shield Commercial [id number] Self Y [id number] BLUE CROSS BLUE SHIELD CO [id number] [employer] BCBS B [id number] S [id number] [employer] [place] WAT[place] 306/806 [id number] SP [id number] BCBS/[employer] Medigap Part B [id number] Self [id number] BC[employer] Medigap Part B [id number] Self [id number] SELF PAY ONLY [id number] SP [id number] SELF PAY ONLY UNAVAILABLE SP UNAV AILABLE [facility] [id number] SP [id number] [facility] Health Maintenance Organization (HMO) [id number] Self SELF PAY SP [id number] S [id number] SELF PAY UNAVAILABLE MO2 UNAVAILA BLE SELF PAY P UNAVAILABLE UNAVAILA BLE [facility] [id number] SP [id number] [facility] [id number] S [id number] [facility] MEDICAID [id number] S [id number] [place] [id number] SP [id number] [facility] [id number] SP [id number] [employer] [place] [id number] S [id number] SELF PAY UNAVAILABLE CHILD UNAVAILA BLE [facility] [id number] S [id number] Problems, Conditions, and Diagnoses Code Display Name Description Problem Type Effective Dates Data Source(s) Z3A.10 10 weeks gestation of 10 WEEKS GESTATI ON OF Diagnosis 05/05/2021 03:45:00 PM [facility] F32.9 Major depressive disorder, single episod e, unspecified MAJOR DEPRESSIVE DISORDER, SINGLE EPISODE, UNSPECI Diagnosis 05/05/2021 03:45:00 PM [facility] F41.9 Anxiety disorder, unspecified ANXIETY DISORDER, UNSPEC IFIED Diagnosis 05/05/2021 03:45:00 PM [facility] F43.10 Post-traumatic stress disorder, unspecif ied POST-TRAUMATIC STRESS DISORDER, UNSPECIFIED Diagnosis 05/05/2021 03:45:00 PM [facility] zenaida O99.341 Other mental disorders complicating preg barbra, first trimester OTH MENTAL DISORDERS COMPLICATING , FIRST TRIMESTER Diagnosis 05/05/2021 03:45:00 PM [facility] Z3A.00 Weeks of gestation of not spec ified WEEKS OF GESTATION OF NOT SPECIFIED Diagnosis 04/21/2021 03:45:00 PM [facility] pital O99.340 Other mental disorders complicating preg barbra, unspecified trimester OTH MENTAL DISORDERS COMPLICATING , UNSP TRIMESTER Diagnosis 04/21/2021 03:45:00 PM [facility] Z3A.09 9 weeks gestation of 9 WEEKS GESTATION OF [place] EGNANCY Diagnosis 04/09/2021 12:40:00 PM [facility] Z3A.08 8 weeks gestation of 8 WEEKS GESTATION OF [place] EGNANCY Diagnosis 04/01/2021 10:00:00 AM [facility] Z3A.01 Less than 8 weeks gestation of LESS THAN 8 WEEKS GESTATION OF Diagnosis 03/19/2021 03:30:00 PM [facility] l Z32.3 Encounter for childcare instruction ENCOUNTER FO R CHILDCARE INSTRUCTION Diagnosis 03/19/2021 03:30:00 PM [facility] N93.8 Other specified abnormal uterine and vag inal bleeding OTHER SPECIFIED ABNORMAL UTERINE AND VAGINAL BLEED Diagnosis 02/12/2021 01:00:00 PM [facility] Z12.4 Encounter for screening for malignant ne oplasm of cervix ENCOUNTER FOR SCREENING FOR MALIGNANT NE Diagnosis 02/03/2021 02:53:00 PM [facility] Z11.3 Encounter for screening for infections with a predominantly sexual mode of transmission ENCNTR SCREEN FOR INFECTIONS W SEXL MODE OF TRANSM Diagnosis 02/03/2021 01:00:00 PM [facility] N91.2 Amenorrhea, unspecified AMENORRHEA, UNSPECIFIED Diagno sis 02/03/2021 01:00:00 PM [facility] Z01.419 Encounter for gynecological examination (general) (routine) without abnormal findings ENCNTR FOR GENERAL DOC EXAM (GENERAL) (ROUTINE) W/O ABN FINDIN GS Diagnosis 02/03/2021 01:00:00 PM [facility] Z71.2 Person consulting for explanation of exa mination or test findings PERSON CONSULTING FOR EXPLANATION OF EXAM OR TEST Diagnosis 07/31/2020 02:30: 00 PM [facility] E03.9 Hypothyroidism, unspecified HYPOTHYROIDISM, UNSPECIFIE D Diagnosis 07/31/2020 02:30:00 PM [facility] L73.2 Hidradenitis suppurativa HIDRADENITIS SUPPURATIVA Diag nosis 07/31/2020 02:30:00 PM [facility] L02.818 Cutaneous abscess of other sites CUTANEOUS ABSCE SS OF OTHER SITES Diagnosis 07/31/2020 02:30:00 PM [facility] Z13.220 Encounter for screening for lipoid disor ders ENCOUNTER FOR SCREENING FOR LIPOID DISORDERS Diagnosis 07/16/2020 08:48:00 AM [facility] l Z68.42 Body mass index (BMI) 45.0-49.9, adult B AYLEEN MASS INDEX [BMI] 45.0-49.9, ADULT Diagnosis 07/16/2020 08:48:00 AM [facility] l E66.01 Morbid (severe) obesity due to excess ca lories MORBID (SEVERE) OBESITY DUE TO EXCESS CALORIES Diagnosis 07/16/2020 08:48:00 AM [facility] ital Z80.3 Family history of malignant neoplasm of breast FAMILY HISTORY OF MALIGNANT NEOPLASM OF BREAST Diagnosis 07/16/2020 08:48:00 AM [facility] l R73.03 PREDIABETES PREDIABETES Diagnosis 07/16/2020 08:48:00 AM [facility] Z12.39 Encounter for other screening for malign ant neoplasm of breast ENCOUNTER FOR OTH SCREENING FOR MALIGNANT NEOPLASM Diagnosis 07/16/2020 08:48:00 AM [facility] Z90.721 Acquired absence of ovaries, unilateral ACQUIRED ABSENCE OF OVARIES, UNILATERAL Diagnosis 05/07/2020 02:00:[address] [facility] N85.4 Malposition of uterus MALPOSITION OF UTERUS Diagnosis 05/07/2020 02:00:00 PM EDT [facility] R10.32 Left lower quadrant pain LEFT LOWER QUADRANT PAIN Diag nosis 05/07/2020 02:00:00 PM EDT [facility] F32.9 [id number] Depression, unspecified depression type P roblem 03/19/2021 12:00:00 AM EDT eCW1 ([facility]) N91.2 [id number] Amenorrhea Problem 02/03/2021 12:00:00 AM ED T eCW1 ([facility]) F43.10 [id number] Post traumatic stress disorder Problem 12/09/2020 12:00:00 AM EDT eCW1 ([facility]) Z68.42 [id number] Body mass index [BMI] 45.0-49.9, adult Pr oblem 07/16/2020 12:00:00 AM EST eCW1 ([facility]) Surgeries/Procedures No Information Results ID Date Data Source [id number] 02/12/2021 01:20:[address] [facility] DATED ON EXAMINATION: 02/12/2021 12:57 EDT PELVIC [...] rce(s) Supporting Document(s) ID Date Data Source [id number] 02/04/2021 08:07:00 AM EDT [facility] Name Value Range Interpretation Code Description Data Luisa rce(s) Supporting Document(s) RPR Non Reactive Non Reactive [facility] ID Date Data Source [id number] 02/04/2021 08:07:00 AM EDT [facility] Name Value Range Interpretation Code Description Data Luisa rce(s) Supporting Document(s) HIV Screen 4th Generation wRfx Non Reactive Non Reactive [facility] ID Date Data Source [id number] 02/04/2021 08:07:00 AM EDT [facility] Name Value Range Interpretation Code Description Data Luisa rce(s) Supporting Document(s) Hep C Virus Ab 0.0-0.9 [facility] Negative: < 0.8 Indeterminate: 0.8 - 0.9 Positive: > 0.9 The CDC recommends that a positive HCV antibody result be followed up with a HCV Nucleic Acid Amplification test (233025). ID Date Data Source [id number] 02/04/2021 08:06:00 AM EDT [facility] Name Value Range Interpretation Code Description Data Luisa rce(s) Supporting Document(s) RPR Non Reactive Non Reactive [facility] ID Date Data Source [id number] 02/04/2021 08:06:00 AM EDT [facility] Name Value Range Interpretation Code Description Data Luisa rce(s) Supporting Document(s) HIV SCREEN 4TH GEN Non Reactive Non Reactive [facility] ID Date Data Source [id number] 02/04/2021 08:06:00 AM EDT [facility] Name Value Range Interpretation Code Description Data Luisa rce(s) Supporting Document(s) HCV ANTIBODY <0.1 0.0-0.9 [facility] INFCE Result Units: s/co ratio Negative: < 0.8 Indeterminate: 0.8 - 0.9 Positive: > 0.9 The CDC recommends that a positive HCV antibody result be followed up with a HCV Nucleic Acid Amplification test ([id number]).Performed at: [facility] [address] [id number] Director: Cher Shrestha MD, Phone: [phone] ID Date Data Source [id number] 02/03/2021 02:52:00 PM EDT [facility] Name Value Range Interpretation Code Description Data Luisa rce(s) Supporting Document(s) HCG,SERUM NEGATIVE NEGATIVE [facility] False negative results may occur when th e levels of hCG arebelow the sensitivity level of the test. If isstill suspected, a first morning urine specimen should becollected 48hrs later.This test has a sensitivity of 10mIU/mL in serum kpe50oCH/mL in urine. ID Date Data Source [id number] 02/04/2021 08:06:[address] Comment: Source.............Cer vix;EndocervixSpecimen Comment: LMP / Prev Treat...NoneSpecimen Comment: Other..............Oral ContraceptivesSpecimen Comment: No. of containers..01 ThinPrep Vial Name Value Range Interpretation Code Description Data [facility] rce(s) Supporting Document(s) CHLAMYDIA TRACHOMATIS, ASHLIE Negative Negative [facility] NEISSERIA GONORRHOEAE, ASHLIE Negative Negative [facility] Performed at: [address] [id number] Director: Cher Shrestha MD, Phone: [phone] ID Date Data Source [id number] 02/05/2021 02:06:[address] [facility] ital Specimen Comment: Source.............Cer vix;EndocervixSpecimen Comment: LMP / Prev Treat...NoneSpecimen Comment: Other..............Oral ContraceptivesSpecimen Comment: No. of containers..01 ThinPrep Vial Name Value Range Interpretation Code Description Data [facility] rce(s) Supporting Document(s) REFLEX PAP Comment . [facility] The HPV DNA reflex criteria were not met with this specimenresult therefore, no HPV testing was performed.Performed at: [facility] [address] [id number] Director: Samuel Shukla MD, Phone: [phone] at: [address] [id number] Director: Cher Shrestha MD, Phone: [phone] DIAGNOSIS: Comment . [facility] NEGATIVE FOR INTRAEPITHELIAL LESION OR M ALIGNANCY.THE CYTOLOGY PROCESSING WAS PERFORMED AT THE [facility] LOCATED AT[address] [place] [phone]. SPECIMEN ADEQUACY: Comment . [facility] Satisfactory for evaluation. Endocervic al and/or squamous metaplasticcells (endocervical component) are present. PERFORMED BY: Comment . [facility] Rosa Spicer Tool Liaison (ASCP) . . . [facility] NOTE: Comment . [facility] The Pap smear is a screening test design ed to aid in thedetection of premalignant and malignant conditions of theuterine cervix. It is not a diagnostic procedure andshould not be used as the sole means of detecting cervicalcancer. Both false-positive and false-negative reports dooccur. HPV METHODOLOGY Comment . [facility] This liquid based ThinPrep(R) pap test w as screened withthe use of an image guided system. ID Date Data Source [id number] 02/05/2021 02:05:00 PM EDT [facility] Name Value Range Interpretation Code Description Data Luisa rce(s) Supporting Document(s) IGP,rfx [facility] HPV all [facility] TESTS RESULT FLAG UNI TS REF RANGE LAB Clinician Provided Cytology Information Source.............Cervix;Endocervix LMP / Prev Treat...None Other..............Oral Contraceptives No. of containers..01 ThinPrep VialDIAGNOSIS: 01 NEGATIVE FOR INTRAEPITHELIAL LESION OR MALIGNANCY. THE CYTOLOGY PROCESSING WAS PERFORMED AT THE [facility] LOCATED AT [address] [place] [phone].Specimen adequacy: 01 Satisfactory for evaluation. Endocervical and/or squamous metaplastic cells (endocervical component) are present.Performed by: Dylan Spicer Tool Liaison (ASCP). 01Note: Note 02 The Pap smear [...] Low,>-Panic High,A-Abnormal,AA-Critical Abnormal Performed at:01 YT [facility] [facility] [address] [phone] Samuel Shukla MD, [address] [phone] Cher Shrestha MD, ID Date Data Source [id number] 02/04/2021 08:05:00 PM EDT [facility] Name Value Range Interpretation Code Description Data Luisa rce(s) Supporting Document(s) Chlamydia/GC Amplification Lab [facility] TESTS RESULT FLAG UNI TS REF RANGE LAB C trachomatis, ASHLIE Negative (Negative) 01N gonorrhoeae, ASHLIE Negative (Negative) 01 FLAG LEGEND: L-Low Normal,H-High Normal,LL-Alert Low,HH-Alert High <-Panic Low,>-Panic High,A-Abnormal,AA-Critical Abnormal Performed at:01 RN [facility] [address] [phone] Cher Shrestha MD, ID Date Data Source [id number] 10/17/2020 12:00:00 AM EST [facility] Name Value Range Interpretation Code Description Data Luisa rce(s) Supporting Document(s) SARS coronavirus 2 RNA Not Detected [facility] This lab was ordered by [employer] and rep orted by [facility]. ID Date Data Source [id number] 07/23/2020 10:55:00 AM [facility] Name Value Range Interpretation Code Description Data Luisa rce(s) Supporting Document(s) FREE T4 1.18 ng/dL 0.76-1.46 [facility] ID Date Data Source [id number] 07/23/2020 10:41:00 AM [facility] Name Value Range Interpretation Code Description Data Luisa rce(s) Supporting Document(s) GLUCOSE 73 mg/dL 74-106 [facility] BLOOD UREA NITROGEN 9 mg/dL 7-18 [facility] ital CREATININE 0.8 mg/dL 0.6-1.0 [facility] SODIUM 140 mmol/L 136-145 [facility] POTASSIUM 4.3 mmol/L 3.5-5.1 [facility] CHLORIDE 102 mmol/L 98-107 [facility] CO2 24 mmol/L 21-32 [facility] CALCIUM 8.9 mg/dL 8.5-10.1 [facility] ANION GAP 14.0 mmol/L 5-12 H [facility] GLOMERULAR FILTRATION RATE 88 mL/min [facility] GFR IS CALCULATED IN mL/min/1.73m2 RAY L FUNCTION: >90MILDLY DECREASED: 60-89MILDY TO MODERATELY DECREASED: 45-59 MODERATELY TO SEVERELY DECREASED: 30-44SEVERELY DECREASED: 15-29RENAL FAILURE: <15 AST 55 U/L 15-37 H [facility] ALT 61 U/L 12-78 [facility] ALKALINE PHOSPHATASE 89 U/L 46-116 [facility] TOTAL BILIRUBIN 0.3 mg/dL 0.2-1.0 [facility] TOTAL PROTEIN 8.0 g/dl 6.4-8.2 [facility] ALBUMIN 3.3 gm/dL 3.4-5.0 [facility] ID Date Data Source [id number] 07/23/2020 10:41:00 AM [facility] Name Value Range Interpretation Code Description Data Luisa rce(s) Supporting Document(s) ESTIMATED AVERAGE GLUCOSE 116.9 mg/dL [facility] ID Date Data Source [id number] 07/23/2020 10:41:00 AM [facility] Name Value Range Interpretation Code Description Data Luisa rce(s) Supporting Document(s) HGBA1C 5.7 % 3.8-5.6 H [facility] Diabetic > or = to 6.5%Prediabetes 5.7-6 .4%Normal <5.7 ID Date Data Source [id number] 07/23/2020 09:53:00 AM [facility] Name Value Range Interpretation Code Description Data [facility] Supporting Document(s) WHITE BLOOD COUNT 10.7 K/mm3 4.0-10.0 [facility] zenaida RED BLOOD COUNT 4.86 M/mm3 4.00-5.50 [facility] HEMOGLOBIN 13.1 gm/dL 12.0-16.0 [facility] HEMATOCRIT 40.2 % 36.0-48.8 [facility] MEAN CELL VOLUME 82.7 fl 80-96 [facility] MEAN CORPUSCULAR HEMOGLOBIN 27.0 pg 27.0-31.0 [facility] MEAN CORPUSCULAR HGB CONC 32.6 g/dl 32.0-36.0 [facility] RED CELL DISTRIBUTION WIDTH 14.5 % 10.0-14.5 [facility] PLATELET COUNT 384 K/mm3 172-450 [facility] MEAN PLATELET VOLUME 9.0 fl 9.0-13.0 [facility] pital GRAN % 63.4 % 50-80.0 [facility] IG% 0.8 % 0.0-0.2 H [facility] LYMPH % 21.0 % 25.0-50.0 L [facility] MONO % 10.9 % 2.0-10.0 H [facility] EOS % 3.3 % 0-5.0 [facility] BASO % 0.6 % 0.0-2.0 [facility] GRAN # 6.8 K/mm3 2.0-8.00 [facility] IG# 0.1 K/mm3 0.0-0.2 [facility] LYMPH # 2.3 K/mm3 1.0-5.0 [facility] MONO # 1.2 K/mm3 0.10-1.20 [facility] EOS # 0.4 K/mm3 0.0-0.5 [facility] BASO # 0.1 K/mm3 0.0-0.2 [facility] ID Date Data Source [id number] 07/23/2020 10:55:00 AM EST [facility] Name Value Range Interpretation Code Description Data Luisa rce(s) Supporting Document(s) TSH 4.56 uIU/mL 0.36-3.74 H [facility] ID Date Data Source [id number] 05/07/2020 02:38:00 PM EDT [facility] l DATED ON EXAMINATION: 05/07/2020 14:12 ED T PELVIC COMPLETE TRANS ABDOMEN HISTORY: Pain Real-time ultrasound imaging was performed utilizing B-mode/cooney scale and colorDoppler imaging where applicable. Patient is status post right oophorectomy. Uterus is anteverted. Endometrialstripe is 0.4 cm. Left ovary appears normal. There is no fluid in [id number]. IMPRESSION: Status post right oophorectomy. Anteverted uterus.. Electronically signed in [id number] by: Jamaal Reyes M.D. 05/07/2020 14:31 EDT Name Value Range Interpretation Code Description Data Luisa rce(s) Supporting Document(s) Procedure Social History Code Duration Value Status Description Data Source(s ) Smoking 06/25/2021 12:00:00 AM EDT Heavy tobacco smoker comple junaid Heavy tobacco smoker [facility] ([facility]) Smoking 03/19/2021 12:00:00 AM EDT Current Smoker completed Curre nt Smoker eCW1 ([facility]) Smoking 03/19/2021 12:00:00 AM EDT Current Smoker completed Curre nt Smoker eCW1 ([facility]) Smoking 03/19/2021 12:00:00 AM EDT Current Smoker completed Curre nt Smoker eCW1 ([facility]) Smoking 03/19/2021 12:00:00 AM EDT Current Smoker completed Curre nt Smoker eCW1 ([facility]) Smoking 03/19/2021 12:00:00 AM EDT Current Smoker completed Curre nt Smoker eCW1 ([facility]) Smoking 03/19/2021 12:00:00 AM EDT Current Smoker completed Curre nt Smoker eCW1 ([facility]) Smoking 02/03/2021 12:00:00 AM EDT Current Smoker completed Curre nt Smoker eCW1 ([facility]) Smoking 02/03/2021 12:00:00 AM EDT Current Smoker completed Curre nt Smoker eCW1 ([facility]) Smoking 02/03/2021 12:00:00 AM EDT Current Smoker completed Curre nt Smoker eCW1 ([facility]) Smoking 02/03/2021 12:00:00 AM EDT Current Smoker completed Curre nt Smoker eCW1 ([facility]) Smoking 07/31/2020 12:00:00 AM EST Current Smoker completed Curre nt Smoker eCW1 ([facility]) Smoking 07/31/2020 12:00:00 AM EST Current Smoker completed Curre nt Smoker eCW1 ([facility]) Smoking 07/31/2020 12:00:00 AM EST Current Smoker completed Curre nt Smoker eCW1 ([facility]) Smoking 07/16/2020 12:00:00 AM EST Current Smoker completed Curre nt Smoker eCW1 ([facility]) Vital Signs ID Date Data Source UNK Name Value Range Interpretation Code Description Data Source(s) Body height 67 [in_i] 67 [in_i] eCW1 ([facility]) Body weight 269.8 [lb_av] 269.8 [lb_av] eCW1 ([facility]) Body mass index (BMI) [Ratio] 42.25 kg/m2 42.25 kg/m2 eCW1 ([facility]) Heart rate 96 /min 96 /min eCW1 ([facility]) Respiratory rate 15 /min 15 /min eCW1 ([facility]) Oxygen saturation in Arterial blood by Pulse oximetry 98 % 98 % eCW1 ([facility]) Body weight 276.6 [lb_av] 276.6 [lb_av] eCW1 ([facility]) Body height 67 [in_i] 67 [in_i] eCW1 ([facility]) Body mass index (BMI) [Ratio] 43.32 kg/m2 43.32 kg/m2 eCW1 ([facility]) Body temperature 98.0 [degF] 98.0 [degF] eCW1 ( [facility]) Heart rate 82 /min 82 /min eCW1 ([facility]) Respiratory rate 17 /min 17 /min eCW1 ([facility]) Oxygen saturation in Arterial blood by Pulse oximetry 99 % 99 % eCW1 ([facility]) Systolic blood pressure 153 mm[Hg] 153 mm[Hg] M EDENT ([facility]) Diastolic blood pressure 87 mm[Hg] 87 mm[Hg] MEDENT ([facility], [facility]) Heart rate 88 /min 88 /min MEDENT ([facility], [facility]) Respiratory rate 20 /min 20 /min MEDENT ( [facility], [facility]) Oxygen saturation in Arterial blood by Pulse oximetry 98 % 98 % MEDENT ([facility], [facility]) Body temperature 97.8 [degF] 97.8 [degF] MEDENT ([facility], [facility]) Body weight 300.00 [lb_av] 300.00 [lb_av] MEDEN T ([facility], [facility]) weighed Body height 67 [in_i] 67 [in_i] MEDENT ([facility], [facility]) 5'7" Body mass index (BMI) [Ratio] 47.0 kg/m2 47.0 k g/m2 MEDENT ([facility], [facility]) Body height 67 [in_i] 67 [in_i] eCW1 ([facility]) Body weight 302.0 [lb_av] 302.0 [lb_av] eCW1 ([facility]) Body mass index (BMI) [Ratio] 47.29 kg/m2 47.29 kg/m2 eCW1 ([facility]) Body temperature 98.0 [degF] 98.0 [degF] eCW1 ( [facility]) Heart rate 87 /min 87 /min eCW1 ([facility]) Respiratory rate 18 /min 18 /min eCW1 ([facility]) Oxygen saturation in Arterial blood by Pulse oximetry 97 % 97 % eCW1 ([facility]) Patient Treatment Plan of Care Planned Activity Planned Date Details Description Data Source (s) Multivitamin Plus DHA 27-0.8-250 MG 03/19/2021 12:00:00 AM EDT eCW1 ([facility]) Levothyroxine Sodium 0.1 MG Oral Tablet 07/31/2020 12:00:00 AM EST eCW1 ([facility]) Levothyroxine Sodium 0.1 MG Oral Tablet 07/31/2020 12:00:00 AM EST eCW1 ([facility]) Levothyroxine Sodium 0.1 MG Oral Tablet 07/31/2020 12:00:00 AM EST eCW1 ([facility]) Sulfamethoxazole 800 MG / Trimethoprim 160 MG Oral Tab let [Bactrim] 07/16/2020 12:00:00 AM EST eCW1 ([facility]) Levothyroxine Sodium 0.088 MG Oral Tablet [Synthroid] 05/08/2020 12:00:00 AM EDT eCW1 ([facility])
[2021-06-28 15:02] LABS: BASO # 0.1 10^3/uL (0.0-0.2); BASO % 0.6 % (0.0-1.0); EOS # 0.2 10^3/uL (0.0-0.5); EOS % 1.1 % (0.0-3.0); HEMATOCRIT 34.6 % (36.0-47.0); HEMOGLOBIN 11.6 g/dl (12.0-15.5); LYMPH # 2.2 10^3/uL (1.5-5.0); LYMPH % 16.5 % (24.0-44.0); MEAN CORPUSCULAR HEMOGLOBIN 28.5 pg (27.0-33.0); MEAN CORPUSCULAR HGB CONC 33.5 g/dl (32.0-36.5); MONO # 1.1 10^3/uL (0.0-0.8); MONO % 7.9 % (2.0-8.0); NEUTROPHILS # 9.8 10^3/uL (1.5-8.5); NEUTROPHILS % 72.3 % (36.0-66.0); PLATELET COUNT, AUTOMATED 341 10^3/uL (150-450); RED BLOOD COUNT 4.07 10^6/uL (4.00-5.40); WHITE BLOOD COUNT 13.5 10^3/uL (4.0-10.0)
[2021-06-28 15:12] LABS: INR 0.97; PROTHROMBIN TIME 13.3 SECONDS (12.7-14.5)
[2021-06-28 15:13] LABS: PARTIAL THROMBOPLASTIN TIME 34.3 SECONDS (25.9-37.0)
[2021-06-28 15:36] LABS: ALBUMIN 2.5 GM/DL (3.2-5.2); ALT/SGPT 33 U/L (12-78); BILIRUBIN,DIRECT < 0.1 MG/DL (0.0-0.2); BILIRUBIN,TOTAL 0.3 MG/DL (0.2-1.0); TOTAL PROTEIN 6.7 GM/DL (6.4-8.2)
[2021-06-28 16:04] VITALS: BP 132/68
== END 2021-06-28 16:49 | disposition home or self-care (01) ==
LOC: M ED 13:12
DX: R04.0 Epistaxis (principal); D64.9 Anemia, unspecified; R42 Dizziness and giddiness; E03.9 Hypothyroidism, unspecified; Z79.899 Other long term (current) drug therapy; Z79.890 Hormone replacement therapy

== ENCOUNTER → 2021-07-19 | Outpatient (REF) | payer OTHER | LOC: M LAB REF 19:06 | PROVIDERS: ATTEND Physician Assistant Medical | DX: R05.9 Cough, unspecified (principal) ==

== ENCOUNTER → 2021-08-10 | Outpatient (CLI) | payer OTHER ==
[~2021-08-10] MED LIST changes: +CEPH500C PO; +COLA100C5 PO; +GLYB2.5T7 PO; +GLYB5TAB6 PO; +IBUP80TA PO; +LABE20TAB PO; +LEVO125T4 PO; +PERCOCET PO
[2021-08-10 17:36] LABS: HEMATOCRIT 33.9 % (36.0-47.0); HEMOGLOBIN 10.9 g/dl (12.0-15.5); MEAN CORPUSCULAR HEMOGLOBIN 27.4 pg (27.0-33.0); MEAN CORPUSCULAR HGB CONC 32.2 g/dl (32.0-36.5); MEAN CORPUSCULAR VOLUME 85.2 fl (80.0-96.0); PLATELET COUNT, AUTOMATED 359 10^3/uL (150-450); RED BLOOD COUNT 3.98 10^6/uL (4.00-5.40); WHITE BLOOD COUNT 13.3 10^3/uL (4.0-10.0)
[2021-08-10 17:59] LABS: FREE T3 2.7 PG/ML (2.2-4.0); FREE T4 0.91 NG/DL (0.76-1.46); THYROID STIMULATING HORMONE 4.52 uIU/ML (0.358-3.740)
== END ==
LOC: M LAB 15:01
PROVIDERS: ATTEND Advanced Practice Midwife
DX: O99.282 Endocrine, nutritional and metabolic diseases complicating pregnancy, second trimester (principal); E03.9 Hypothyroidism, unspecified; Z3A.00 Weeks of gestation of pregnancy not specified

== ENCOUNTER → 2021-08-25 | Outpatient (CLI) | payer OTHER | LOC: M LAB 08:10 | PROVIDERS: ATTEND Advanced Practice Midwife | DX: O99.810 Abnormal glucose complicating pregnancy (principal); Z3A.00 Weeks of gestation of pregnancy not specified ==

== ENCOUNTER 2021-09-03 11:00 | Outpatient (CLI) | payer OTHER ==
[~2021-09-03] VITALS: Ht 170.2 cm; Wt 133.3 kg
[~2021-09-03 11:00] MED LIST changes: -CEPH500C PO; -COLA100C5 PO; -GLYB2.5T7 PO; -GLYB5TAB6 PO; -IBUP80TA PO; -LABE20TAB PO; -LEVO125T4 PO; -PERCOCET PO
[2021-09-03 11:34] VITALS: BP 134/63
[2021-09-03] MEDS ORDERED: GLYB5TAB6 PO (11:47)
[2021-09-03] MEDS ORDERED: HOME MED LIST COMPLETE! XX SCH (11:55)
[2021-09-03 12:54] LABS: APPEARANCE, URINE HAZY (CLEAR); BACTERIA, URINE AUTO NEGATIVE (NEGATIVE); BILIRUBIN, URINE AUTO NEGATIVE (NEGATIVE); BLOOD, URINE BLOOD NEGATIVE (NEGATIVE); COLOR, URINE YELLOW (YELLOW); GLUCOSE, URINE (UA) AUTO NEGATIVE (NEGATIVE); KETONE, URINE AUTO 1+ mg/dL (NEGATIVE); LEUKOCYTE ESTERASE, URINE AUTO 1+ (NEGATIVE); MUCUS, URINE SMALL (NEGATIVE); NITRITE, URINE AUTO NEGATIVE (NEGATIVE); PROTEIN, URINE AUTO NEGATIVE (NEGATIVE); RBC, URINE AUTO 1 /HPF (0-3); SPECIFIC GRAVITY URINE AUTO 1.017 (1.002-1.035); SQUAMOUS EPITHELIAL CELL UR AU 6 /HPF (0-6); UROBILINOGEN, URINE AUTO 0.2 mg/dL (0.0-2.0); WBC, URINE AUTO 2 /HPF (0-3)
[2021-09-03 13:51] VITALS: BP 119/80
[2021-09-03 14:53] VITALS: BP 138/60
[2021-09-03 15:50] LABS: HEMATOCRIT 33.2 % (36.0-47.0); HEMOGLOBIN 10.6 g/dl (12.0-15.5); MEAN CORPUSCULAR HEMOGLOBIN 26.4 pg (27.0-33.0); MEAN CORPUSCULAR HGB CONC 31.9 g/dl (32.0-36.5); MEAN CORPUSCULAR VOLUME 82.6 fl (80.0-96.0); PLATELET COUNT, AUTOMATED 350 10^3/uL (150-450); RED BLOOD COUNT 4.02 10^6/uL (4.00-5.40); WHITE BLOOD COUNT 13.4 10^3/uL (4.0-10.0)
[2021-09-03 16:00] VITALS: BP 127/70
[2021-09-03 16:28] LABS: ALBUMIN 2.4 GM/DL (3.2-5.2); ALT/SGPT 29 U/L (12-78); BILIRUBIN,TOTAL 0.3 MG/DL (0.2-1.0); BLOOD UREA NITROGEN 8 MG/DL (7-18); CALCIUM LEVEL 8.5 MG/DL (8.5-10.1); CARBON DIOXIDE LEVEL 21 MEQ/L (21-32); CHLORIDE LEVEL 110 MEQ/L (98-107); CREATININE FOR GFR 0.58 MG/DL (0.55-1.30); GLOMERULAR FILTRATION RATE > 60.0 (>60); GLUCOSE, FASTING 101 MG/DL (70-100); POTASSIUM SERUM 4.2 MEQ/L (3.5-5.1); SODIUM LEVEL 138 MEQ/L (136-145); TOTAL PROTEIN 6.5 GM/DL (6.4-8.2)
[2021-09-03 16:43] VITALS: BP 126/56
[2021-09-03 17:15] VITALS: BP 146/71
== END 2021-09-03 17:45 | disposition home or self-care (01) ==
LOC: M LDO 11:00
PROVIDERS: ATTEND Obstetrics & Gynecology
DX: O99.810 Abnormal glucose complicating pregnancy (principal); E16.2 Hypoglycemia, unspecified; Z3A.30 30 weeks gestation of pregnancy
CPT/HCPCS: 36415; 59025; 80053; 81001; 85027; 93005; U0002

== ENCOUNTER 2021-09-18 09:50 | Emergency (ER) | payer OTHER ==
[~2021-09-18] VITALS: Ht 172.7 cm; Wt 135.3 kg
[~2021-09-18 09:50] MED LIST changes: +GLYB5TAB6 PO
[2021-09-18] MEDS ORDERED: METOCLOPRAMIDE INJ 10MG/2ML VIAL (J2765 PER 1) IV ONE (12:30)
[2021-09-18] MEDS ORDERED: NS 1,000 ML IV ONE ×2 (12:30)
[2021-09-18] MEDS ORDERED: METOCLOPRAMIDE INJ 10MG/2ML VIAL (J2765 PER 1) As Ordered ONE (12:32)
[2021-09-18 12:53] LABS: RSV AMPLIFICATION NEGATIVE (NEGATIVE)
[2021-09-18 12:54] LABS: BASO # 0.1 10^3/uL (0.0-0.2); BASO % 0.4 % (0.0-1.0); EOS % 0.1 % (0.0-3.0); HEMATOCRIT 33.8 % (36.0-47.0); HEMOGLOBIN 10.9 g/dl (12.0-15.5); LYMPH # 0.5 10^3/uL (1.5-5.0); LYMPH % 4.2 % (24.0-44.0); MEAN CORPUSCULAR HEMOGLOBIN 25.9 pg (27.0-33.0); MEAN CORPUSCULAR HGB CONC 32.2 g/dl (32.0-36.5); MEAN CORPUSCULAR VOLUME 80.3 fl (80.0-96.0); MONO # 1.5 10^3/uL (0.0-0.8); MONO % 12.2 % (2.0-8.0); NEUTROPHILS # 9.7 10^3/uL (1.5-8.5); NEUTROPHILS % 81.1 % (36.0-66.0); PLATELET COUNT, AUTOMATED 292 10^3/uL (150-450); RED BLOOD COUNT 4.21 10^6/uL (4.00-5.40); WHITE BLOOD COUNT 11.9 10^3/uL (4.0-10.0)
[2021-09-18] MEDS ORDERED: LIDOCAINE 5% (LIDODERM) PATCH TD ONE (12:55)
[2021-09-18 13:25] LABS: ALBUMIN 2.4 GM/DL (3.2-5.2); ALT/SGPT 34 U/L (12-78); BILIRUBIN,TOTAL 0.4 MG/DL (0.2-1.0); BLOOD UREA NITROGEN 7 MG/DL (7-18); CALCIUM LEVEL 8.8 MG/DL (8.5-10.1); CARBON DIOXIDE LEVEL 18 MEQ/L (21-32); CHLORIDE LEVEL 107 MEQ/L (98-107); CREATININE FOR GFR 0.68 MG/DL (0.55-1.30); GLOMERULAR FILTRATION RATE > 60.0 (>60); GLUCOSE, FASTING 87 MG/DL (70-100); POTASSIUM SERUM 4.1 MEQ/L (3.5-5.1); SODIUM LEVEL 136 MEQ/L (136-145); TOTAL PROTEIN 6.6 GM/DL (6.4-8.2)
[2021-09-18] MEDS ORDERED: cefTRIAXone SOD 1 GM in D5W MINI-BAG PLUS 50 ML IV ONE (13:50)
[2021-09-18] MEDS ORDERED: ACETAMINOPHEN 500 MG TAB PO ONE (16:05)
[2021-09-18] MEDS ORDERED: ONDANSETRON 4 MG ORAL DISINTEGRATING TAB PO ONE (16:05)
[2021-09-18] MEDS ORDERED: CEPH500C PO (16:55)
[2021-09-18] MEDS ORDERED: ONDA4TAB6 PO (16:55)
[2021-09-18 17:20] VITALS: BP 114/72
[2021-09-18] MEDS ORDERED: **NOTE PATIENT COMMENT** MISC XX SCH (21:00)
== END 2021-09-18 17:20 | disposition home or self-care (01) ==
LOC: M ED 09:50
DX: O98.513 Other viral diseases complicating pregnancy, third trimester (principal); Z3A.32 32 weeks gestation of pregnancy; Z91.018 Allergy to other foods
CPT/HCPCS: 36415; 76775; 76815; 76817; 76820; 80053; 81001; 85025; 87086; 87631; 96361; 96365; 96366; 99284; J0696; Q0162

== ENCOUNTER 2021-10-06 12:21 | Outpatient (CLI) | payer OTHER ==
[2021-10-06] VITALS (13 sets, daily range): BP systolic 114–145; BP diastolic 60–86
[~2021-10-06] VITALS: Ht 170.2 cm; Wt 146.9 kg
[~2021-10-06 12:21] MED LIST changes: +CEPH500C PO
[2021-10-06] MEDS ORDERED: GLYB2.5T7 PO (13:11)
[2021-10-06] MEDS ORDERED: HOME MED LIST COMPLETE! XX SCH (13:15)
[2021-10-06 14:28] LABS: HEMATOCRIT 31.5 % (36.0-47.0); HEMOGLOBIN 10.1 g/dl (12.0-15.5); MEAN CORPUSCULAR HEMOGLOBIN 25.4 pg (27.0-33.0); MEAN CORPUSCULAR HGB CONC 32.1 g/dl (32.0-36.5); MEAN CORPUSCULAR VOLUME 79.3 fl (80.0-96.0); PLATELET COUNT, AUTOMATED 248 10^3/uL (150-450); RED BLOOD COUNT 3.97 10^6/uL (4.00-5.40)
[2021-10-06 14:46] LABS: ALT/SGPT 22 U/L (12-78); BILIRUBIN,TOTAL 0.3 MG/DL (0.2-1.0); CREATININE FOR GFR 0.76 MG/DL (0.55-1.30); GLOMERULAR FILTRATION RATE > 60.0 (>60); LDH LACTATE DEHYDROGENASE 176 U/L (84-246); URIC ACID 6.7 MG/DL (2.6-6.0)
[2021-10-06 14:48] LABS: TOTAL PROTEIN,RANDOM URINE 53.5 MG/DL (0.0-12.0)
[2021-10-06] MEDS ORDERED: BETAMETHASONE SOLUSPAN 6MG/ML 5ML VIAL (J0702 PER 3MG) IM ONE (17:00)
== END 2021-10-06 17:47 | disposition home or self-care (01) ==
LOC: M LDO 12:21
PROVIDERS: ATTEND Specialist
DX: O26.03 Excessive weight gain in pregnancy, third trimester (principal); Z3A.35 35 weeks gestation of pregnancy
CPT/HCPCS: 36415; 59025; 82247; 82565; 82570; 83615; 84156; 84450; 84460; 84550; 85027; 96372; J0702

== ENCOUNTER 2021-10-07 17:02 | Inpatient (IN) | payer OTHER ==
[~2021-10-07] VITALS: Ht 170.2 cm; Wt 148.2 kg
[~2021-10-07 17:02] MED LIST changes: +GLYB2.5T7 PO
[2021-10-07] MEDS ORDERED: BETAMETHASONE SOLUSPAN 6MG/ML 5ML VIAL (J0702 PER 3MG) IM ONE (17:25)
[2021-10-07 17:31] VITALS: BP 132/65
[2021-10-07 18:08] LABS: HEMATOCRIT 30.2 % (36.0-47.0); HEMOGLOBIN 9.8 g/dl (12.0-15.5); MEAN CORPUSCULAR HEMOGLOBIN 25.7 pg (27.0-33.0); MEAN CORPUSCULAR HGB CONC 32.5 g/dl (32.0-36.5); MEAN CORPUSCULAR VOLUME 79.3 fl (80.0-96.0); PLATELET COUNT, AUTOMATED 255 10^3/uL (150-450); RED BLOOD COUNT 3.81 10^6/uL (4.00-5.40)
[2021-10-07 18:30] LABS: ALT/SGPT 22 U/L (12-78); BILIRUBIN,TOTAL 0.2 MG/DL (0.2-1.0); CREATININE FOR GFR 0.76 MG/DL (0.55-1.30); GLOMERULAR FILTRATION RATE > 60.0 (>60); LDH LACTATE DEHYDROGENASE 178 U/L (84-246); URIC ACID 7.2 MG/DL (2.6-6.0)
[2021-10-07 19:26] LABS: TOTAL PROTEIN,RANDOM URINE 52.9 MG/DL (0.0-12.0)
[2021-10-07] MEDS ORDERED: FUROSEMIDE 20MG/2ML VIAL (J1940) IV ONE (19:50)
[2021-10-07] MEDS ORDERED: GLUCAGON INJ 1MG VIAL SC PRN (20:00)
[2021-10-07] MEDS ORDERED: DEXTROSE 50% 50 ML SYRINGE IV PRN (20:00)
[2021-10-07] MEDS ORDERED: GLUCOSE 4GM CHEW TABLET PO PRN (20:00)
[2021-10-08 07:28] VITALS: BP 136/71
[2021-10-08 08:02] LABS: HEMATOCRIT 32.8 % (36.0-47.0); HEMOGLOBIN 10.5 g/dl (12.0-15.5); MEAN CORPUSCULAR HEMOGLOBIN 25.5 pg (27.0-33.0); MEAN CORPUSCULAR VOLUME 79.8 fl (80.0-96.0); PLATELET COUNT, AUTOMATED 295 10^3/uL (150-450); RED BLOOD COUNT 4.11 10^6/uL (4.00-5.40); WHITE BLOOD COUNT 14.8 10^3/uL (4.0-10.0)
[2021-10-08] MEDS: LEVOTHYROXINE 125MCG TABLET (0.125MG) PO SCH (08:12)
[2021-10-08 08:31] LABS: ALT/SGPT 23 U/L (12-78); BILIRUBIN,TOTAL 0.4 MG/DL (0.2-1.0); CREATININE FOR GFR 0.73 MG/DL (0.55-1.30); GLOMERULAR FILTRATION RATE > 60.0 (>60); LDH LACTATE DEHYDROGENASE 182 U/L (84-246); URIC ACID 7.4 MG/DL (2.6-6.0)
[2021-10-08] MEDS: HumaLOG INSULIN (NovoLOG) PER UNIT SC SCH ×5 (10:12→21:29)
[2021-10-08 10:49] VITALS: BP 135/75
[2021-10-08 12:56] VITALS: BP 139/77
[2021-10-08 14:39] VITALS: BP 143/75
[2021-10-08 17:49] VITALS: BP 148/87
[2021-10-08] MEDS ORDERED: FUROSEMIDE 10MG PER 1/2 TABLET PO ONE (18:00)
[2021-10-08] MEDS: CALCIUM CARBONATE 500 MG CHEW U/D PO PRN (18:11)
[2021-10-09] VITALS (33 sets, daily range): BP systolic 128–183; BP diastolic 60–103
[2021-10-09] MEDS: CALCIUM CARBONATE 500 MG CHEW U/D PO PRN (00:44)
[2021-10-09] MEDS: LEVOTHYROXINE 125MCG TABLET (0.125MG) PO SCH (06:00)
[2021-10-09] MEDS ORDERED: LABETALOL 100MG/20ML VIAL As Ordered ONE (08:51)
[2021-10-09] MEDS ORDERED: LABETALOL 100MG/20ML VIAL IV STA ×3 (08:59→09:33)
[2021-10-09] MEDS ORDERED: NS 1,000 ML IV SCH (09:00)
[2021-10-09] MEDS: PRENATAL VITAMINS CHEWABLE TABLET PO SCH ×2 (09:00→09:14)
[2021-10-09 09:42] LABS: HEMATOCRIT 31.3 % (36.0-47.0); HEMOGLOBIN 9.8 g/dl (12.0-15.5); MEAN CORPUSCULAR HEMOGLOBIN 25.1 pg (27.0-33.0); MEAN CORPUSCULAR HGB CONC 31.3 g/dl (32.0-36.5); MEAN CORPUSCULAR VOLUME 80.1 fl (80.0-96.0); PLATELET COUNT, AUTOMATED 303 10^3/uL (150-450); RED BLOOD COUNT 3.91 10^6/uL (4.00-5.40); WHITE BLOOD COUNT 15.1 10^3/uL (4.0-10.0)
[2021-10-09 09:46] LABS: ALT/SGPT 26 U/L (12-78); BILIRUBIN,TOTAL 0.3 MG/DL (0.2-1.0); BLOOD UREA NITROGEN 16 MG/DL (7-18); CALCIUM LEVEL 8.3 MG/DL (8.5-10.1); CARBON DIOXIDE LEVEL 20 MEQ/L (21-32); CHLORIDE LEVEL 111 MEQ/L (98-107); CREATININE FOR GFR 0.76 MG/DL (0.55-1.30); GLOMERULAR FILTRATION RATE > 60.0 (>60); GLUCOSE, FASTING 94 MG/DL (70-100); LDH LACTATE DEHYDROGENASE 171 U/L (84-246); POTASSIUM SERUM 4.4 MEQ/L (3.5-5.1); SODIUM LEVEL 139 MEQ/L (136-145); TOTAL PROTEIN 5.8 GM/DL (6.4-8.2); URIC ACID 8.3 MG/DL (2.6-6.0)
[2021-10-09] MEDS ORDERED: MAGNESIUM *L&D* 4GM/100ML BAG (40MG/ML) IV ONE (10:30)
[2021-10-09] MEDS ORDERED: MAGNESIUM *L&D* 4GM/100ML BAG (40MG/ML) As Ordered ONE (10:31)
[2021-10-09] MEDS ORDERED: MAGNESIUM SULFATE 4% INJ 20GM/500ML (40MG/ML) As Ordered ONE (10:32)
[2021-10-09] MEDS: MAG Sulf (OBGYN) 20GM/500ML 20,000 MG in IV 1 EA IV SCH ×2 (10:41→21:26)
[2021-10-09] MEDS ORDERED: OXYTOCIN DRIP 30 UNITS in IV 1 EA IV SCH (10:55)
[2021-10-09] MEDS: HumaLOG INSULIN (NovoLOG) PER UNIT SC SCH ×3 (10:55→20:00)
[2021-10-09] MEDS ORDERED: D5W/0.9% SODIUM CHLORIDE 1,000 ML IV SCH (14:25)
[2021-10-09 20:05] LABS: HEMATOCRIT 30.8 % (36.0-47.0); HEMOGLOBIN 9.7 g/dl (12.0-15.5); MEAN CORPUSCULAR HEMOGLOBIN 25.3 pg (27.0-33.0); MEAN CORPUSCULAR HGB CONC 31.5 g/dl (32.0-36.5); MEAN CORPUSCULAR VOLUME 80.2 fl (80.0-96.0); PLATELET COUNT, AUTOMATED 279 10^3/uL (150-450); RED BLOOD COUNT 3.84 10^6/uL (4.00-5.40); WHITE BLOOD COUNT 15.4 10^3/uL (4.0-10.0)
[2021-10-09 20:29] LABS: ALT/SGPT 28 U/L (12-78); BILIRUBIN,TOTAL 0.2 MG/DL (0.2-1.0); CREATININE FOR GFR 0.82 MG/DL (0.55-1.30); GLOMERULAR FILTRATION RATE > 60.0 (>60); LDH LACTATE DEHYDROGENASE 193 U/L (84-246); MAGNESIUM LEVEL 4.3 MG/DL (1.8-2.4); URIC ACID 8.5 MG/DL (2.6-6.0)
[2021-10-09] MEDS ORDERED: AMPICILLIN SOD 2 GM in D5W 50 ML IV ONE (21:35)
[2021-10-10] VITALS (43 sets, daily range): BP systolic 137–172; BP diastolic 73–99
[2021-10-10] MEDS ORDERED: AMPICILLIN SOD 1 GM in D5W 50 ML IV SCH (02:03)
[2021-10-10] MEDS ORDERED: ceFAZolin 2 GM/D5W 50 ML IV BAG (J0690 PER 500MG) As Ordered ONE (05:32)
[2021-10-10] MEDS ORDERED: PHENYLephrine 500MCG 5ML (100MCG/ML) SYRINGE As Ordered ONE (05:50)
[2021-10-10] MEDS ORDERED: MORPHINE PRES-FREE INJ 10 MG/10 ML VIAL (J2274) As Ordered ONE (05:50)
[2021-10-10] MEDS ORDERED: ePHEDrine SULFATE 25 MG/5 ML(5MG/ML) SYRINGE As Ordered ONE (05:50)
[2021-10-10] MEDS ORDERED: OXYTOCIN 30 UNITS IN 0.9% NaCl 500ML IV BAG (J2590) As Ordered ONE ×2 (05:51→07:52)
[2021-10-10] MEDS ORDERED: AZITHROMYCIN INJ 500 MG, VIAL MATE ADAPTER 1 EACH in NS 250 ML IV ONE (06:00)
[2021-10-10] MEDS ORDERED: ceFAZolin SOD 2 GM in IV 1 EA IV ONE (06:00)
[2021-10-10] MEDS ORDERED: BICITRA 30ML SOLN UDC PO ONE (06:00)
[2021-10-10] MEDS ORDERED: METOCLOPRAMIDE INJ 10MG/2ML VIAL (J2765 PER 1) IV PRN (06:53)
[2021-10-10] MEDS ORDERED: NALOXONE INJ 0.4MG/1ML VIAL (J2310 PER 1MG) IV PRN ×2 (06:53)
[2021-10-10] MEDS ORDERED: ONDANSETRON 4MG/2ML VIAL IV PRN ×2 (06:53→08:40)
[2021-10-10] MEDS ORDERED: fentaNYL 100 MCG/2 ML INJECTION As Ordered ONE ×2 (06:53→09:04)
[2021-10-10] MEDS ORDERED: NALBUPHINE HCL 10 MG/ML AMP (J2300) IV PRN (06:53)
[2021-10-10] MEDS ORDERED: diphenhydrAMINE 50MG/ML VIAL (J1200) IV PRN (06:53)
[2021-10-10] MEDS ORDERED: ONDANSETRON 4MG/2ML VIAL As Ordered ONE (06:56)
[2021-10-10] MEDS ORDERED: KETOROLAC 60MG 2ML VIAL As Ordered ONE (06:56)
[2021-10-10] MEDS ORDERED: MIDAZOLAM INJ 2MG/2ML VIAL (J2250 PER 1MG) As Ordered ONE (07:00)
[2021-10-10] MEDS ORDERED: KETAMINE HCL 200 MG/20 ML VIAL As Ordered ONE (07:01)
[2021-10-10 07:13] LABS: CORD GAS ABE A -4.9; CORD GAS HCO3 A 22.3 MEQ/L; CORD GAS O2 SAT A 42.1 %; CORD GAS PH A 7.276 UNITS; CORD GAS PO2 A 20.1 mmHg; CORD GAS TCO2 A 23.8 MEQ/L
[2021-10-10 07:15] LABS: CORD GAS ABE V -3.9; CORD GAS HCO3 V 21.6 MEQ/L; CORD GAS PCO2 V 41.2 mmHg; CORD GAS PH V 7.338 UNITS; CORD GAS PO2 V 24.8 mmHg; CORD GAS SBC V 20.2 MEQ/L; CORD GAS TCO2 V 22.9 MEQ/L
[2021-10-10] MEDS ORDERED: MEASLES,MUMPS,RUBELLA VACCINE INJ (MMR-II) (90707) SC SCH (07:45)
[2021-10-10] MEDS ORDERED: RHOGAM 300 MCG (1500 IU) INJ (J2790) IM SCH (07:45)
[2021-10-10] MEDS ORDERED: ONDANSETRON 4 MG TAB PO PRN (07:45)
[2021-10-10] MEDS ORDERED: PERCOCET 5MG/325MG TAB PO PRN (07:45)
[2021-10-10] MEDS: MAG Sulf (OBGYN) 20GM/500ML 20,000 MG in IV 1 EA IV SCH ×2 (07:59→16:58)
[2021-10-10] MEDS ORDERED: OXYTOCIN DRIP 30 UNITS in IV 1 EA IV SCH (08:10)
[2021-10-10] MEDS ORDERED: oxyCODONE 5MG TAB PO PRN (08:40)
[2021-10-10] MEDS ORDERED: fentaNYL 100 MCG/2 ML INJECTION IV PRN (08:40)
[2021-10-10] MEDS: LEVOTHYROXINE 125MCG TABLET (0.125MG) PO SCH (10:48)
[2021-10-10] MEDS: DOCUSATE SODIUM 100MG CAPSULE PO SCH ×2 (13:08→21:16)
[2021-10-10] MEDS: PRENATAL VITAMINS CHEWABLE TABLET PO SCH (13:08)
[2021-10-10] MEDS: PERCOCET 5MG/325MG TAB PO PRN (13:21)
[2021-10-10] MEDS: NS 1,000 ML IV SCH (15:07)
[2021-10-10] MEDS ORDERED: GLUCOSE 4GM CHEW TABLET PO PRN (16:50)
[2021-10-10] MEDS ORDERED: GLUCAGON INJ 1MG VIAL SC PRN (16:50)
[2021-10-10] MEDS ORDERED: DEXTROSE 50% 50 ML SYRINGE IV PRN (16:50)
[2021-10-10] MEDS: LABETALOL 200 MG TAB PO SCH ×2 (16:58→21:16)
[2021-10-10] MEDS ORDERED: HumaLOG INSULIN (NovoLOG) PER UNIT SC SCH (17:30)
[2021-10-10] MEDS: ACETAMINOPHEN 500 MG TAB PO PRN (23:52)
[2021-10-11] VITALS (12 sets, daily range): BP systolic 130–165; BP diastolic 68–93
[2021-10-11] MEDS: HumaLOG INSULIN (NovoLOG) PER UNIT SC SCH ×5 (02:51→19:00)
[2021-10-11] MEDS: MAG Sulf (OBGYN) 20GM/500ML 20,000 MG in IV 1 EA IV SCH (02:55)
[2021-10-11] MEDS: NS 1,000 ML IV SCH (04:30)
[2021-10-11] MEDS: LEVOTHYROXINE 125MCG TABLET (0.125MG) PO SCH (06:33)
[2021-10-11 07:19] LABS: HEMOGLOBIN 8.6 g/dl (12.0-15.5); MEAN CORPUSCULAR HEMOGLOBIN 24.9 pg (27.0-33.0); MEAN CORPUSCULAR HGB CONC 30.7 g/dl (32.0-36.5); MEAN CORPUSCULAR VOLUME 80.9 fl (80.0-96.0); PLATELET COUNT, AUTOMATED 246 10^3/uL (150-450); RED BLOOD COUNT 3.46 10^6/uL (4.00-5.40); WHITE BLOOD COUNT 11.2 10^3/uL (4.0-10.0)
[2021-10-11] MEDS: PRENATAL VITAMINS CHEWABLE TABLET PO SCH (08:51)
[2021-10-11] MEDS: DOCUSATE SODIUM 100MG CAPSULE PO SCH ×2 (08:51→20:30)
[2021-10-11] MEDS: PERCOCET 5MG/325MG TAB PO PRN ×3 (08:55→18:51)
[2021-10-11] MEDS: LABETALOL 200 MG TAB PO SCH ×2 (08:57→20:30)
[2021-10-11] MEDS ORDERED: INFLUENZA QUADRIVALENT PF VACCINE 0.5ML SYRINGE IM ONE (09:00)
[2021-10-11] MEDS ORDERED: BOOSTRIX/ADACEL VACCINE (DIPHTH/PERTUSS/ACELL/TETANUS) 0.5ML SYR IM ONE (09:00)
[2021-10-11] MEDS: SIMETHICONE 80MG CHEW TAB PO PRN ×2 (09:04→20:35)
[2021-10-12] MEDS: ACETAMINOPHEN 500 MG TAB PO PRN (01:40)
[2021-10-12] MEDS: SIMETHICONE 80MG CHEW TAB PO PRN ×2 (01:40→09:39)
[2021-10-12 02:00] VITALS: BP 136/78
[2021-10-12 06:00] VITALS: BP 142/74
[2021-10-12] MEDS: HumaLOG INSULIN (NovoLOG) PER UNIT SC SCH ×2 (06:00→12:05)
[2021-10-12] MEDS: LEVOTHYROXINE 125MCG TABLET (0.125MG) PO SCH (07:15)
[2021-10-12] MEDS: PERCOCET 5MG/325MG TAB PO PRN (07:25)
[2021-10-12 07:45] VITALS: BP 142/74
[2021-10-12] MEDS: DOCUSATE SODIUM 100MG CAPSULE PO SCH (09:39)
[2021-10-12] MEDS: PRENATAL VITAMINS CHEWABLE TABLET PO SCH (09:39)
[2021-10-12 09:40] VITALS: BP 139/77
[2021-10-12] MEDS: LABETALOL 200 MG TAB PO SCH (09:40)
[2021-10-12 09:50] VITALS: BP 139/77
[2021-10-12] MEDS ORDERED: MOM 30ML SUSPENSION UDC PO PRN (11:00)
[2021-10-12] MEDS ORDERED: LEVO125T4 PO (13:48)
[2021-10-12] MEDS ORDERED: IBUP80TA PO (13:48)
[2021-10-12] MEDS ORDERED: COLA100C5 PO (13:48)
[2021-10-12] MEDS ORDERED: LABE20TAB PO (13:48)
[2021-10-12] MEDS ORDERED: PERCOCET PO (13:48)
== END 2021-10-12 14:55 | disposition home or self-care (01) | DRG 540 ==
LOC: M LDO 17:02 → M LDI 10-09 09:04 → M OBS 10-11 08:27
PROVIDERS: ADMIT Obstetrics & Gynecology; ATTEND Advanced Practice Midwife
PROC: 3E033VJ Introduction of Other Hormone into Peripheral Vein, Percutaneous Approach (ICD-10-PCS; 2021-10-09)
PROC: 10D00Z1 Extraction of Products of Conception, Low, Open Approach (ICD-10-PCS; principal; 2021-10-10 06:22)
DX: O14.14 Severe pre-eclampsia complicating childbirth (principal); E66.01 Morbid (severe) obesity due to excess calories; O24.415 Gestational diabetes mellitus in pregnancy, controlled by oral hypoglycemic drugs; O99.213 Obesity complicating pregnancy, third trimester; O99.334 Smoking (tobacco) complicating childbirth; F17.210 Nicotine dependence, cigarettes, uncomplicated; Z3A.35 35 weeks gestation of pregnancy; O61.1 Failed instrumental induction of labor; Z37.0 Single live birth

== ENCOUNTER 2021-11-23 15:50 | Emergency (ER) | payer OTHER ==
[~2021-11-23 15:50] MED LIST changes: +COLA100C5 PO; +IBUP80TA PO; +LABE20TAB PO; +LEVO125T4 PO; +PERCOCET PO
[2021-11-23] MEDS ORDERED: NORE0.353 (15:58)
[2021-11-23 16:52] LABS: BASO # 0.1 10^3/uL (0.0-0.2); BASO % 0.6 % (0.0-1.0); EOS # 0.2 10^3/uL (0.0-0.5); EOS % 1.9 % (0.0-3.0); HEMOGLOBIN 10.3 g/dl (12.0-15.5); LYMPH # 1.9 10^3/uL (1.5-5.0); LYMPH % 20.4 % (24.0-44.0); MEAN CORPUSCULAR HEMOGLOBIN 23.4 pg (27.0-33.0); MEAN CORPUSCULAR HGB CONC 31.2 g/dl (32.0-36.5); MONO # 1.4 10^3/uL (0.0-0.8); MONO % 15.4 % (2.0-8.0); NEUTROPHILS # 5.6 10^3/uL (1.5-8.5); NEUTROPHILS % 61.3 % (36.0-66.0); PLATELET COUNT, AUTOMATED 428 10^3/uL (150-450); WHITE BLOOD COUNT 9.1 10^3/uL (4.0-10.0)
[2021-11-23 17:38] LABS: ALBUMIN 3.6 GM/DL (3.2-5.2); ALT/SGPT 156 U/L (12-78); BILIRUBIN,DIRECT 0.2 MG/DL (0.0-0.2); BILIRUBIN,TOTAL 0.4 MG/DL (0.2-1.0); BLOOD UREA NITROGEN 12 MG/DL (7-18); CALCIUM LEVEL 9.4 MG/DL (8.5-10.1); CARBON DIOXIDE LEVEL 29 MEQ/L (21-32); CHLORIDE LEVEL 108 MEQ/L (98-107); CREATININE FOR GFR 0.69 MG/DL (0.55-1.30); GLOMERULAR FILTRATION RATE > 60.0 (>60); GLUCOSE, FASTING 87 MG/DL (70-100); LIPASE 79 U/L (73-393); POTASSIUM SERUM 4.6 MEQ/L (3.5-5.1); SODIUM LEVEL 140 MEQ/L (136-145); TOTAL PROTEIN 7.8 GM/DL (6.4-8.2)
[2021-11-23 18:04] LABS: HCG, SERUM QUALITATIVE NEGATIVE (NEGATIVE)
[2021-11-23 19:16] VITALS: BP 111/54
== END 2021-11-23 19:54 | disposition home or self-care (01) ==
LOC: M ED 15:50
DX: L76.34 Postprocedural seroma of skin and subcutaneous tissue following other procedure (principal); K80.20 Calculus of gallbladder without cholecystitis without obstruction; R16.1 Splenomegaly, not elsewhere classified; R74.01 Elevation of levels of liver transaminase levels; K76.0 Fatty (change of) liver, not elsewhere classified; K21.9 Gastro-esophageal reflux disease without esophagitis; E28.2 Polycystic ovarian syndrome; J35.8 Other chronic diseases of tonsils and adenoids; Z91.018 Allergy to other foods; Z79.899 Other long term (current) drug therapy

== ENCOUNTER 2021-11-29 22:12 | Emergency (ER) | payer OTHER ==
[~2021-11-29] VITALS: Ht 170.2 cm; Wt 119.1 kg
[~2021-11-29 22:12] MED LIST changes: +NORE0.353
[2021-11-29 22:17] VITALS: BP 134/75
[2021-11-29] MEDS ORDERED: NYST10CR TOP (23:41)
== END 2021-11-29 23:57 | disposition home or self-care (01) ==
LOC: M ED 22:12
DX: B37.2 Candidiasis of skin and nail (principal); E11.9 Type 2 diabetes mellitus without complications; I10 Essential (primary) hypertension; K21.9 Gastro-esophageal reflux disease without esophagitis; E28.2 Polycystic ovarian syndrome; F17.200 Nicotine dependence, unspecified, uncomplicated; Z91.018 Allergy to other foods; Z79.899 Other long term (current) drug therapy

== ENCOUNTER 2021-12-19 18:34 | Emergency (ER) | payer OTHER ==
[~2021-12-19] VITALS: Ht 170.2 cm; Wt 119.3 kg
[~2021-12-19 18:34] MED LIST changes: +NYST10CR TOP
[2021-12-19 18:35] VITALS: BP 136/73
== END 2021-12-19 21:04 | disposition left against medical advice (07) ==
LOC: M ED 18:34
DX: Z53.21 Procedure and treatment not carried out due to patient leaving prior to being seen by health care provider (principal)

== ENCOUNTER 2022-04-15 21:51 | Emergency (ER) | payer OTHER ==
[~2022-04-15] VITALS: Ht 170.2 cm; Wt 129.1 kg
[~2022-04-15 21:51] MED LIST changes: +NYST-13 TOP; -NYST10CR TOP
[2022-04-15 23:20] LABS: BASO # 0.1 10^3/uL (0.0-0.2); BASO % 0.8 % (0.0-1.0); EOS # 0.3 10^3/uL (0.0-0.5); EOS % 2.5 % (0.0-3.0); HEMATOCRIT 35.1 % (36.0-47.0); HEMOGLOBIN 11.4 g/dl (12.0-15.5); LYMPH % 27.5 % (24.0-44.0); MEAN CORPUSCULAR HGB CONC 32.5 g/dl (32.0-36.5); MONO % 9.6 % (2.0-8.0); NEUTROPHILS # 6.4 10^3/uL (1.5-8.5); NEUTROPHILS % 58.9 % (36.0-66.0); PLATELET COUNT, AUTOMATED 345 10^3/uL (150-450); RED BLOOD COUNT 4.23 10^6/uL (4.00-5.40); WHITE BLOOD COUNT 10.9 10^3/uL (4.0-10.0)
[2022-04-16 00:09] LABS: ALBUMIN 3.4 GM/DL (3.2-5.2); ALT/SGPT 37 U/L (12-78); BILIRUBIN,DIRECT < 0.1 MG/DL (0.0-0.2); BILIRUBIN,TOTAL 0.4 MG/DL (0.2-1.0); BLOOD UREA NITROGEN 12 MG/DL (7-18); CALCIUM LEVEL 9.1 MG/DL (8.5-10.1); CARBON DIOXIDE LEVEL 26 MEQ/L (21-32); CHLORIDE LEVEL 106 MEQ/L (98-107); CREATININE FOR GFR 0.93 MG/DL (0.55-1.30); GLOMERULAR FILTRATION RATE > 60.0 (>60); GLUCOSE, FASTING 91 MG/DL (70-100); LIPASE 96 U/L (73-393); POTASSIUM SERUM 4.2 MEQ/L (3.5-5.1); SODIUM LEVEL 138 MEQ/L (136-145); TOTAL PROTEIN 7.9 GM/DL (6.4-8.2)
[2022-04-16 02:22] VITALS: BP 133/62
== END 2022-04-16 03:18 | disposition left against medical advice (07) ==
LOC: M ED 21:51
DX: Z53.21 Procedure and treatment not carried out due to patient leaving prior to being seen by health care provider (principal)

== ENCOUNTER 2022-05-17 17:25 | Emergency (ER) | payer OTHER ==
[~2022-05-17] VITALS: Ht 170.2 cm; Wt 127.8 kg
[2022-05-17 19:24] VITALS: BP 160/87
== END 2022-05-17 19:28 | disposition home or self-care (01) ==
LOC: M ED 17:25
DX: S63.502A Unspecified sprain of left wrist, initial encounter (principal); W01.0XXA Fall on same level from slipping, tripping and stumbling without subsequent striking against object, initial encounter; K21.9 Gastro-esophageal reflux disease without esophagitis; E03.9 Hypothyroidism, unspecified; E28.2 Polycystic ovarian syndrome; F17.200 Nicotine dependence, unspecified, uncomplicated; Y92.009 Unspecified place in unspecified non-institutional (private) residence as the place of occurrence of the external cause; Y93.9 Activity, unspecified; Y99.9 Unspecified external cause status; Z91.02 Food additives allergy status; Z79.899 Other long term (current) drug therapy

== ENCOUNTER → 2022-06-04 | Outpatient (CLI) | payer OTHER ==
[2022-06-04 18:25] LABS: FREE T4 0.83 NG/DL (0.76-1.46); THYROID STIMULATING HORMONE 12.1 uIU/ML (0.358-3.740)
== END ==
LOC: M WUC 14:51
PROVIDERS: ATTEND Student in an Organized Health Care Education/Training Program
DX: E03.9 Hypothyroidism, unspecified (principal)

== ENCOUNTER → 2022-06-24 | Outpatient (REF) | payer OTHER | LOC: M LAB REF 08:49 | PROVIDERS: ATTEND Physician Assistant | DX: R50.9 Fever, unspecified (principal); R05.9 Cough, unspecified; R51.9 Headache, unspecified ==

== ENCOUNTER 2022-07-05 15:52 | Emergency (ER) | payer OTHER ==
[~2022-07-05] VITALS: Ht 170.2 cm; Wt 127.1 kg
[2022-07-05 15:53] VITALS: BP 135/86
== END 2022-07-05 21:29 | disposition left against medical advice (07) ==
LOC: M ED 15:52
DX: Z53.21 Procedure and treatment not carried out due to patient leaving prior to being seen by health care provider (principal)

== ENCOUNTER → 2022-07-05 | Outpatient (REF) | payer OTHER ==
[2022-07-05 17:54] LABS: HEMATOCRIT 37.6 % (36.0-47.0); HEMOGLOBIN 11.8 g/dl (12.0-15.5); MEAN CORPUSCULAR HEMOGLOBIN 26.2 pg (27.0-33.0); MEAN CORPUSCULAR HGB CONC 31.4 g/dl (32.0-36.5); MEAN CORPUSCULAR VOLUME 83.4 fl (80.0-96.0); PLATELET COUNT, AUTOMATED 361 10^3/uL (150-450); RED BLOOD COUNT 4.51 10^6/uL (4.00-5.40); WHITE BLOOD COUNT 10.8 10^3/uL (4.0-10.0)
[2022-07-05 18:17] LABS: ALBUMIN 3.4 GM/DL (3.2-5.2); ALT/SGPT 20 U/L (12-78); BILIRUBIN,TOTAL 0.4 MG/DL (0.2-1.0); BLOOD UREA NITROGEN 12 MG/DL (7-18); CALCIUM LEVEL 8.7 MG/DL (8.5-10.1); CARBON DIOXIDE LEVEL 23 MEQ/L (21-32); CHLORIDE LEVEL 107 MEQ/L (98-107); CHOLESTEROL LEVEL 178 MG/DL (<200); CHOLESTEROL RISK RATIO 4.564 (<5); CREATININE FOR GFR 0.82 MG/DL (0.55-1.30); GLOMERULAR FILTRATION RATE > 60.0 (>60); GLUCOSE, FASTING 75 MG/DL (70-100); HDL CHOLESTEROL 39 MG/DL (>40); LDL CHOLESTEROL 103 MG/DL (<100); NON-HDL-C 139 MG/DL; POTASSIUM SERUM 4.1 MEQ/L (3.5-5.1); SODIUM LEVEL 137 MEQ/L (136-145); TOTAL PROTEIN 7.7 GM/DL (6.4-8.2); TRIGLYCERIDES LEVEL 180 MG/DL (<150)
[2022-07-05 18:29] LABS: HEMOGLOBIN A1c 5.5 %
[2022-07-05 19:45] LABS: HIV 1&2 SCREEN CENTAUR NEGATIVE (NEGATIVE)
== END ==
LOC: M LAB REF 16:27
PROVIDERS: ATTEND Physician Assistant
DX: E03.9 Hypothyroidism, unspecified (principal); Z11.4 Encounter for screening for human immunodeficiency virus [HIV]; Z11.59 Encounter for screening for other viral diseases; Z86.32 Personal history of gestational diabetes

== ENCOUNTER → 2022-08-25 | Outpatient (REF) | payer OTHER | LOC: M LAB REF 16:45 | PROVIDERS: ATTEND Physician Assistant | DX: E03.9 Hypothyroidism, unspecified (principal) ==

== ENCOUNTER → 2022-09-09 | Outpatient (CLI) | payer OTHER | LOC: M RAD 14:12 | PROVIDERS: ATTEND Physician Assistant | DX: E03.9 Hypothyroidism, unspecified (principal); E04.1 Nontoxic single thyroid nodule ==

== ENCOUNTER → 2022-09-27 | Outpatient (REF) | payer OTHER | LOC: M WUC 16:16 | PROVIDERS: ATTEND Physician Assistant | DX: J02.9 Acute pharyngitis, unspecified (principal) ==

== ENCOUNTER → 2022-10-09 | Outpatient (CLI) | payer OTHER ==
[2022-10-09 13:13] LABS: THYROXINE (T4) 10.1 UG/DL (4.5-10.9)
[2022-10-09 13:14] LABS: FREE THYROXINE INDEX 3.1 % (1.3-4.8); T UPTAKE 31.1 % (22.5-37.0)
[2022-10-09 13:30] LABS: THYROGLOBULIN ANTIBODY > 500.0 U/ML (<60.0); THYROID PEROXIDASE ANTIBODY > 1300.0 U/ML (<60.0)
== END ==
LOC: M LAB 12:00
PROVIDERS: ATTEND Physician Assistant
DX: E03.9 Hypothyroidism, unspecified (principal)

== ENCOUNTER → 2022-10-14 | Outpatient (CLI) | payer OTHER | LOC: M LAB 14:40 | PROVIDERS: ATTEND Physician Assistant | DX: Z12.4 Encounter for screening for malignant neoplasm of cervix (principal); Z11.3 Encounter for screening for infections with a predominantly sexual mode of transmission; N91.2 Amenorrhea, unspecified ==

== ENCOUNTER 2022-11-03 08:40 | Emergency (ER) | payer OTHER ==
[~2022-11-03] VITALS: Ht 170.2 cm; Wt 135.1 kg
[2022-11-03] MEDS ORDERED: LEVO112T2 (08:58)
[2022-11-03 10:26] LABS: BASO # 0.1 10^3/uL (0.0-0.2); BASO % 0.8 % (0.0-1.0); EOS # 0.3 10^3/uL (0.0-0.5); EOS % 2.7 % (0.0-3.0); HEMATOCRIT 39.3 % (36.0-47.0); HEMOGLOBIN 12.3 g/dl (12.0-15.5); LYMPH # 1.7 10^3/uL (1.5-5.0); LYMPH % 17.3 % (24.0-44.0); MEAN CORPUSCULAR HEMOGLOBIN 25.4 pg (27.0-33.0); MEAN CORPUSCULAR HGB CONC 31.3 g/dl (32.0-36.5); MONO # 1.2 10^3/uL (0.0-0.8); MONO % 11.8 % (2.0-8.0); NEUTROPHILS # 6.6 10^3/uL (1.5-8.5); NEUTROPHILS % 66.5 % (36.0-66.0); PLATELET COUNT, AUTOMATED 383 10^3/uL (150-450); RED BLOOD COUNT 4.85 10^6/uL (4.00-5.40); WHITE BLOOD COUNT 9.9 10^3/uL (4.0-10.0)
[2022-11-03 10:48] LABS: BLOOD UREA NITROGEN 11 MG/DL (9-23); CALCIUM LEVEL 8.9 MG/DL (8.5-10.1); CARBON DIOXIDE LEVEL 24 MMOL/L (20-31); CHLORIDE LEVEL 107 MMOL/L (98-107); CREATININE FOR GFR 0.59 MG/DL (0.55-1.30); GLOMERULAR FILTRATION RATE > 60.0 (>60); GLUCOSE, FASTING 99 MG/DL (60-100); POTASSIUM SERUM 4.1 MMOL/L (3.5-5.1); SODIUM LEVEL 138 MMOL/L (136-145)
[2022-11-03 10:52] LABS: THYROID STIMULATING HORMONE 6.796 uIU/ML (0.55-4.78); THYROXINE (T4) 7.2 UG/DL (4.5-10.9)
[2022-11-03 10:53] LABS: T UPTAKE 27.7 % (22.5-37.0)
[2022-11-03] MEDS ORDERED: LEVOTHYROXINE 112MCG TABLET (0.112MG) PO ONE (11:25)
[2022-11-03 11:36] LABS: HCG, SERUM QUALITATIVE NEGATIVE (NEGATIVE)
[2022-11-03] MEDS ORDERED: ISOVUE-370 76% 100ML VIAL As Ordered ONE (12:13)
[2022-11-03 13:33] LABS: INR 0.93; PROTHROMBIN TIME 12.7 SECONDS (12.5-14.5)
[2022-11-03 13:34] LABS: PARTIAL THROMBOPLASTIN TIME 34.5 SECONDS (24.8-34.2)
[2022-11-03 13:37] LABS: CPK CREATINE PHOSPHOKINASE 327 U/L (34-145)
[2022-11-03 13:50] LABS: RSV AMPLIFICATION NEGATIVE (NEGATIVE)
[2022-11-03 14:18] LABS: ALBUMIN 3.5 G/DL (3.2-5.2); ALKALINE PHOSPHATASE 89 U/L (46-116); ALT/SGPT 29 U/L (7.0-40); AST/SGOT 25 U/L (<34); BILIRUBIN,DIRECT < 0.1 MG/DL (<0.4); BILIRUBIN,TOTAL 0.3 MG/DL (0.3-1.2); CK-MB VALUE MASS 2.8 NG/ML (<3.6); MAGNESIUM LEVEL 1.8 MG/DL (1.8-2.4); MB/CK RELATIVE INDEX 0.85 (< OR =4)
[2022-11-03 14:43] VITALS: BP 137/63
[2022-11-03 18:24] LABS: TOTAL PROTEIN 7.3 G/DL (5.7-8.2)
== END 2022-11-03 14:53 | disposition home or self-care (01) ==
LOC: M ED 08:40
DX: R20.2 Paresthesia of skin (principal); R06.02 Shortness of breath; R21 Rash and other nonspecific skin eruption; E11.9 Type 2 diabetes mellitus without complications; I10 Essential (primary) hypertension; R51.9 Headache, unspecified; K21.9 Gastro-esophageal reflux disease without esophagitis; E03.9 Hypothyroidism, unspecified; E28.2 Polycystic ovarian syndrome; F41.9 Anxiety disorder, unspecified; E66.9 Obesity, unspecified; R16.1 Splenomegaly, not elsewhere classified; F17.290 Nicotine dependence, other tobacco product, uncomplicated; Z83.2 Family history of diseases of the blood and blood-forming organs and certain disorders involving the immune mechanism; Z79.890 Hormone replacement therapy

== ENCOUNTER 2022-12-30 18:50 | Emergency (ER) | payer OTHER ==
[~2022-12-30] VITALS: Ht 171.4 cm; Wt 136.7 kg
[~2022-12-30 18:50] MED LIST changes: +LEVO112T2
[2022-12-30 18:51] VITALS: BP 136/79
[2022-12-30 20:16] LABS: BASO # 0.1 10^3/uL (0.0-0.2); BASO % 0.8 % (0.0-1.0); EOS # 0.3 10^3/uL (0.0-0.5); EOS % 2.9 % (0.0-3.0); HEMATOCRIT 41.8 % (36.0-47.0); HEMOGLOBIN 13.2 g/dl (12.0-15.5); LYMPH # 2.4 10^3/uL (1.5-5.0); LYMPH % 21.6 % (24.0-44.0); MEAN CORPUSCULAR HEMOGLOBIN 25.4 pg (27.0-33.0); MEAN CORPUSCULAR HGB CONC 31.6 g/dl (32.0-36.5); MEAN CORPUSCULAR VOLUME 80.4 fl (80.0-96.0); MONO % 9.1 % (2.0-8.0); NEUTROPHILS # 7.1 10^3/uL (1.5-8.5); PLATELET COUNT, AUTOMATED 364 10^3/uL (150-450)
[2022-12-30 20:50] LABS: LIPASE 30 U/L (12-53)
[2022-12-30 20:53] LABS: ALBUMIN 3.7 G/DL (3.2-5.2); ALKALINE PHOSPHATASE 93 U/L (46-116); ALT/SGPT 33 U/L (7.0-40); AST/SGOT 25 U/L (<34); BILIRUBIN,DIRECT 0.1 MG/DL (<0.4); BILIRUBIN,TOTAL 0.3 MG/DL (0.3-1.2); BLOOD UREA NITROGEN 16 MG/DL (9-23); CALCIUM LEVEL 8.7 MG/DL (8.5-10.1); CARBON DIOXIDE LEVEL 23 MMOL/L (20-31); CHLORIDE LEVEL 106 MMOL/L (98-107); CREATININE FOR GFR 0.65 MG/DL (0.55-1.30); GLOMERULAR FILTRATION RATE > 60.0 (>60); GLUCOSE, FASTING 97 MG/DL (60-100); SODIUM LEVEL 139 MMOL/L (136-145); TOTAL PROTEIN 7.6 G/DL (5.7-8.2)
[2022-12-30 20:54] LABS: HCG, SERUM QUALITATIVE NEGATIVE (NEGATIVE)
[2022-12-31] MEDS ORDERED: IBUP-1022 PO (00:03)
== END 2022-12-31 00:17 | disposition home or self-care (01) ==
LOC: M ED 18:50
DX: N83.02 Follicular cyst of left ovary (principal); K21.9 Gastro-esophageal reflux disease without esophagitis; E28.2 Polycystic ovarian syndrome; Z91.02 Food additives allergy status; Z79.1 Long term (current) use of non-steroidal anti-inflammatories (NSAID); Z79.890 Hormone replacement therapy

== ENCOUNTER → 2023-04-10 | Outpatient (REF) | payer OTHER ==
[2023-04-11 11:23] LABS: GC DNA AMPLIFICATION NEGATIVE (NEGATIVE)
== END ==
LOC: M LAB REF 09:32
PROVIDERS: ATTEND Registered Nurse
DX: Z11.3 Encounter for screening for infections with a predominantly sexual mode of transmission (principal); N39.0 Urinary tract infection, site not specified

== ENCOUNTER 2023-04-26 20:08 | Emergency (ER) | payer OTHER ==
[~2023-04-26] VITALS: Ht 170.2 cm; Wt 133.5 kg
[2023-04-26 22:02] LABS: BASO # 0.1 10^3/uL (0.0-0.2); BASO % 0.7 % (0.0-1.0); EOS # 0.3 10^3/uL (0.0-0.5); EOS % 2.1 % (0.0-3.0); HEMATOCRIT 39.7 % (36.0-47.0); HEMOGLOBIN 12.8 g/dl (12.0-15.5); LYMPH # 2.7 10^3/uL (1.5-5.0); LYMPH % 22.1 % (24.0-44.0); MEAN CORPUSCULAR HEMOGLOBIN 26.4 pg (27.0-33.0); MEAN CORPUSCULAR HGB CONC 32.2 g/dl (32.0-36.5); MONO # 1.2 10^3/uL (0.0-0.8); MONO % 9.7 % (2.0-8.0); NEUTROPHILS # 7.9 10^3/uL (1.5-8.5); NEUTROPHILS % 64.7 % (36.0-66.0); PLATELET COUNT, AUTOMATED 397 10^3/uL (150-450); RED BLOOD COUNT 4.84 10^6/uL (4.00-5.40); WHITE BLOOD COUNT 12.3 10^3/uL (4.0-10.0)
[2023-04-26 22:25] LABS: LIPASE 28 U/L (12-53)
[2023-04-26 22:27] LABS: ALBUMIN 3.7 G/DL (3.2-5.2); ALKALINE PHOSPHATASE 107 U/L (46-116); ALT/SGPT 25 U/L (7.0-40); AST/SGOT 15 U/L (<34); BILIRUBIN,DIRECT < 0.1 MG/DL (<0.4); BILIRUBIN,TOTAL 0.3 MG/DL (0.3-1.2); BLOOD UREA NITROGEN 13 MG/DL (9-23); CALCIUM LEVEL 9.3 MG/DL (8.5-10.1); CARBON DIOXIDE LEVEL 26 MMOL/L (20-31); CHLORIDE LEVEL 103 MMOL/L (98-107); CREATININE FOR GFR 0.86 MG/DL (0.55-1.30); GLOMERULAR FILTRATION RATE > 60.0 (>60); GLUCOSE, FASTING 91 MG/DL (60-100); POTASSIUM SERUM 3.8 MMOL/L (3.5-5.1); SODIUM LEVEL 139 MMOL/L (136-145); TOTAL PROTEIN 7.6 G/DL (5.7-8.2)
[2023-04-26 22:36] LABS: HCG, SERUM QUALITATIVE NEGATIVE (NEGATIVE)
[2023-04-27 00:55] VITALS: TEMP 97.9
[2023-04-27] MEDS ORDERED: LEVOTHYROXINE 125MCG TABLET (0.125MG) PO STA (08:01)
[2023-04-27 08:22] VITALS: BP 106/61; O2SAT 98
== END 2023-04-27 08:42 | disposition home or self-care (01) ==
LOC: M ED 20:08
DX: N88.8 Other specified noninflammatory disorders of cervix uteri (principal); F10.10 Alcohol abuse, uncomplicated; Z87.42 Personal history of other diseases of the female genital tract; Z90.721 Acquired absence of ovaries, unilateral; Z91.02 Food additives allergy status; Z79.899 Other long term (current) drug therapy

== ENCOUNTER → 2023-05-06 | Outpatient (REF) ==
[2023-05-06 13:05] LABS: RSV AMPLIFICATION NEGATIVE (NEGATIVE)
== END ==
LOC: M EMP 09:19
PROVIDERS: ATTEND Family Medicine
DX: Z11.52 Encounter for screening for COVID-19 (principal)

== ENCOUNTER → 2023-05-19 | Outpatient (REF) | payer OTHER | LOC: M LAB REF 16:07 | PROVIDERS: ATTEND Nurse Practitioner Family | DX: E03.9 Hypothyroidism, unspecified (principal) ==

== ENCOUNTER → 2023-06-01 | Outpatient (REF) | LOC: M EMP 10:27 | PROVIDERS: ATTEND Family Medicine | DX: Z11.52 Encounter for screening for COVID-19 (principal) ==

== ENCOUNTER → 2023-08-02 | Outpatient (REF) ==
[2023-08-02 16:28] LABS: RSV AMPLIFICATION NEGATIVE (NEGATIVE)
== END ==
LOC: M EMP 15:14
PROVIDERS: ATTEND Family Medicine
DX: Z20.822 Contact with and (suspected) exposure to COVID-19 (principal)

== ENCOUNTER → 2023-08-02 | Outpatient (REF) | payer OTHER ==
[2023-08-02 18:32] LABS: CHLAMYDIA DNA AMPLIFICATION NEGATIVE (NEGATIVE); GC DNA AMPLIFICATION NEGATIVE (NEGATIVE)
== END ==
LOC: M LAB REF 16:08
PROVIDERS: ATTEND Registered Nurse
DX: Z20.2 Contact with and (suspected) exposure to infections with a predominantly sexual mode of transmission (principal)

== ENCOUNTER → 2023-08-02 | Outpatient (REF) | payer OTHER ==
[2023-08-02 19:33] LABS: RSV AMPLIFICATION NEGATIVE (NEGATIVE)
== END ==
LOC: M LAB REF 18:22
PROVIDERS: ATTEND Physician Assistant
DX: J06.9 Acute upper respiratory infection, unspecified (principal)

== ENCOUNTER 2023-10-17 13:26 | Emergency (ER) | payer OTHER ==
[~2023-10-17] VITALS: Ht 172.7 cm; Wt 133.8 kg
[2023-10-17 15:27] LABS: BASO # 0.1 10^3/uL (0.0-0.2); BASO % 0.6 % (0.0-1.0); EOS # 0.1 10^3/uL (0.0-0.5); EOS % 0.6 % (0.0-3.0); HEMATOCRIT 43.2 % (36.0-47.0); LYMPH # 1.8 10^3/uL (1.5-5.0); MEAN CORPUSCULAR HEMOGLOBIN 27.9 pg (27.0-33.0); MEAN CORPUSCULAR HGB CONC 32.4 g/dl (32.0-36.5); MEAN CORPUSCULAR VOLUME 86.2 fl (80.0-96.0); MONO # 1.4 10^3/uL (0.0-0.8); NEUTROPHILS # 9.2 10^3/uL (1.5-8.5); NEUTROPHILS % 73.4 % (36.0-66.0); PLATELET COUNT, AUTOMATED 357 10^3/uL (150-450); RED BLOOD COUNT 5.01 10^6/uL (4.00-5.40); WHITE BLOOD COUNT 12.5 10^3/uL (4.0-10.0)
[2023-10-17] MEDS ORDERED: LEVO137T2 (15:34)
[2023-10-17] MEDS ORDERED: LORY1TAB2 (15:34)
[2023-10-17 15:52] LABS: LIPASE 28 U/L (12-53)
[2023-10-17 15:54] LABS: ALBUMIN 3.7 G/DL (3.2-5.2); ALKALINE PHOSPHATASE 94 U/L (46-116); ALT/SGPT 24 U/L (7.0-40); AST/SGOT 19 U/L (<34); BILIRUBIN,DIRECT 0.2 MG/DL (<0.4); BILIRUBIN,TOTAL 0.6 MG/DL (0.3-1.2); BLOOD UREA NITROGEN 16 MG/DL (9-23); CALCIUM LEVEL 9.1 MG/DL (8.5-10.1); CARBON DIOXIDE LEVEL 27 MMOL/L (20-31); CHLORIDE LEVEL 105 MMOL/L (98-107); CREATININE FOR GFR 0.81 MG/DL (0.55-1.30); GLOMERULAR FILTRATION RATE > 60.0 (>60); GLUCOSE, FASTING 82 MG/DL (60-100); SODIUM LEVEL 138 MMOL/L (136-145); TOTAL PROTEIN 7.9 G/DL (5.7-8.2)
[2023-10-17] MEDS: KETOROLAC 30 MG/ML 1ML VIAL IV ONE (17:10)
[2023-10-17] MEDS: ONDANSETRON 4MG 2ML VIAL IV ONE (17:10)
[2023-10-17] MEDS ORDERED: ISOVUE-370 76% 100ML VIAL As Ordered ONE (17:36)
[2023-10-17] MEDS: NS 1,000 ML IV ONE (17:43)
[2023-10-17 18:47] VITALS: BP 118/63; TEMP 97.5; O2SAT 100
[2023-10-17] MEDS ORDERED: OMEP40CA4 PO (18:58)
== END 2023-10-17 19:34 | disposition home or self-care (01) ==
LOC: M ED 13:26
DX: R10.13 Epigastric pain (principal); K21.9 Gastro-esophageal reflux disease without esophagitis; I10 Essential (primary) hypertension; E28.2 Polycystic ovarian syndrome; E03.9 Hypothyroidism, unspecified; Z91.02 Food additives allergy status; Z79.83 Long term (current) use of bisphosphonates; Z79.899 Other long term (current) drug therapy
CPT/HCPCS: 74177; 80048; 80076; 81001; 83690; 84702; 85025; 96360; 99283; Q9967

== ENCOUNTER → 2023-10-24 | Outpatient (REF) | payer OTHER ==
[~2023-10-24] MED LIST changes: +LEVO137T2; +LORY1TAB2; +OMEP40CA4 PO
== END ==
LOC: M LAB REF 21:05
PROVIDERS: ATTEND Physician Assistant Medical
DX: J02.9 Acute pharyngitis, unspecified (principal)

== ENCOUNTER → 2023-11-06 | Outpatient (CLI) | payer OTHER ==
[2023-11-06 12:31] LABS: FREE T4 1.19 NG/DL (0.89-1.76); THYROID STIMULATING HORMONE 5.097 uIU/ML (0.55-4.78)
== END ==
LOC: M LAB 11:23
PROVIDERS: ATTEND Internal Medicine Endocrinology, Diabetes & Metabolism
DX: E03.9 Hypothyroidism, unspecified (principal)

== ENCOUNTER → 2024-02-22 | Outpatient (REF) | payer OTHER ==
[~2024-02-22] MED LIST changes: +ONDA-282 PO; -ONDA4TAB6 PO
[2024-02-22 22:48] LABS: Trichomonas vaginalis (AMP) NOT DETECTED (NEGATIVE)
[2024-02-22 23:11] LABS: GC DNA AMPLIFICATION NEGATIVE (NEGATIVE)
== END ==
LOC: M LAB REF 21:01
PROVIDERS: ATTEND Physician Assistant
DX: Z20.2 Contact with and (suspected) exposure to infections with a predominantly sexual mode of transmission (principal)

== ENCOUNTER → 2024-05-07 | Outpatient (REF) | LOC: M EMP 10:32 | PROVIDERS: ATTEND Family Medicine | DX: Z11.52 Encounter for screening for COVID-19 (principal) ==

== ENCOUNTER → 2024-05-08 | Outpatient (REF) | LOC: M EMP 09:40 | PROVIDERS: ATTEND Family Medicine | DX: Z11.52 Encounter for screening for COVID-19 (principal) ==

== ENCOUNTER 2024-06-30 20:24 | Emergency (ER) | payer OTHER ==
[~2024-06-30] VITALS: Ht 170.2 cm; Wt 136.2 kg
[2024-06-30 21:12] LABS: BASO # 0.1 10^3/uL (0.0-0.2); BASO % 0.6 % (0.0-1.0); EOS # 0.3 10^3/uL (0.0-0.5); EOS % 2.1 % (0.0-3.0); HEMATOCRIT 40.8 % (36.0-47.0); HEMOGLOBIN 13.4 g/dl (12.0-15.5); LYMPH # 3.2 10^3/uL (1.5-5.0); LYMPH % 22.9 % (24.0-44.0); MEAN CORPUSCULAR HEMOGLOBIN 27.9 pg (27.0-33.0); MEAN CORPUSCULAR HGB CONC 32.8 g/dl (32.0-36.5); MEAN CORPUSCULAR VOLUME 84.8 fl (80.0-96.0); MONO # 1.5 10^3/uL (0.0-0.8); MONO % 10.5 % (2.0-8.0); NEUTROPHILS # 8.8 10^3/uL (1.5-8.5); NEUTROPHILS % 63.2 % (36.0-66.0); PLATELET COUNT, AUTOMATED 341 10^3/uL (150-450); RED BLOOD COUNT 4.81 10^6/uL (4.00-5.40)
[2024-06-30 21:36] LABS: LIPASE 27 U/L (12-53)
[2024-06-30 21:37] LABS: HCG, SERUM QUALITATIVE NEGATIVE (NEGATIVE)
[2024-06-30 21:38] LABS: ALBUMIN 3.6 G/DL (3.2-5.2); ALKALINE PHOSPHATASE 100 U/L (46-116); ALT/SGPT 29 U/L (7.0-40); AST/SGOT 25 U/L (<34); BILIRUBIN,DIRECT 0.1 MG/DL (<0.4); BILIRUBIN,TOTAL 0.4 MG/DL (0.3-1.2); BLOOD UREA NITROGEN 12 MG/DL (9-23); CALCIUM LEVEL 9.7 MG/DL (8.5-10.1); CARBON DIOXIDE LEVEL 25 MMOL/L (20-31); CHLORIDE LEVEL 108 MMOL/L (98-107); CREATININE FOR GFR 0.67 MG/DL (0.55-1.30); GLOMERULAR FILTRATION RATE > 60.0 (>60); GLUCOSE, FASTING 87 MG/DL (60-100); POTASSIUM SERUM 4.3 MMOL/L (3.5-5.1); SODIUM LEVEL 138 MMOL/L (136-145)
[2024-06-30 22:30] VITALS: BP 138/86; TEMP 97; O2SAT 97
== END 2024-07-01 00:41 | disposition home or self-care (01) ==
LOC: M ED 20:24
DX: R10.84 Generalized abdominal pain (principal); E03.9 Hypothyroidism, unspecified; E28.2 Polycystic ovarian syndrome; F10.10 Alcohol abuse, uncomplicated; Z91.02 Food additives allergy status; Z79.899 Other long term (current) drug therapy

== ENCOUNTER 2024-09-09 16:16 | Emergency (ER) | payer OTHER ==
[~2024-09-09] VITALS: Ht 170.2 cm; Wt 136.4 kg
[2024-09-09 17:36] LABS: BASO # 0.1 10^3/uL (0.0-0.2); BASO % 0.8 % (0.0-1.0); EOS # 0.2 10^3/uL (0.0-0.5); HEMATOCRIT 40.1 % (36.0-47.0); HEMOGLOBIN 13.2 g/dl (12.0-15.5); LYMPH # 2.8 10^3/uL (1.5-5.0); LYMPH % 26.7 % (24.0-44.0); MEAN CORPUSCULAR HEMOGLOBIN 28.3 pg (27.0-33.0); MEAN CORPUSCULAR HGB CONC 32.9 g/dl (32.0-36.5); MEAN CORPUSCULAR VOLUME 85.9 fl (80.0-96.0); MONO % 9.9 % (2.0-8.0); NEUTROPHILS # 6.3 10^3/uL (1.5-8.5); PLATELET COUNT, AUTOMATED 321 10^3/uL (150-450); RED BLOOD COUNT 4.67 10^6/uL (4.00-5.40); WHITE BLOOD COUNT 10.5 10^3/uL (4.0-10.0)
[2024-09-09 17:42] LABS: KETONE, URINE AUTO RFX NEGATIVE (NEGATIVE); LEUKOCYTE ESTERASE UR AUTO RFX NEGATIVE (NEGATIVE); MUCUS, URINE RFX SMALL (NEGATIVE)
[2024-09-09 18:07] LABS: BLOOD UREA NITROGEN 12 MG/DL (9-23); CARBON DIOXIDE LEVEL 25 MMOL/L (20-31); CHLORIDE LEVEL 105 MMOL/L (98-107); CREATININE FOR GFR 0.79 MG/DL (0.55-1.30); GLOMERULAR FILTRATION RATE > 60.0 (>60); GLUCOSE, FASTING 102 MG/DL (60-100); POTASSIUM SERUM 4.2 MMOL/L (3.5-5.1); SODIUM LEVEL 140 MMOL/L (136-145)
[2024-09-09 18:09] LABS: HCG, SERUM QUALITATIVE NEGATIVE (NEGATIVE)
[2024-09-09 18:43] LABS: Trichomonas vaginalis (AMP) NOT DETECTED (NEGATIVE)
[2024-09-09 19:07] LABS: GC DNA AMPLIFICATION NEGATIVE (NEGATIVE)
[2024-09-09] MEDS: IBUPROFEN 600MG TAB PO ONE (19:55)
[2024-09-09 20:00] VITALS: BP 132/82; TEMP 97.5; O2SAT 98
== END 2024-09-09 20:08 | disposition home or self-care (01) ==
LOC: M ED 16:16
DX: N93.9 Abnormal uterine and vaginal bleeding, unspecified (principal); E11.9 Type 2 diabetes mellitus without complications; K21.9 Gastro-esophageal reflux disease without esophagitis; E28.2 Polycystic ovarian syndrome; K76.0 Fatty (change of) liver, not elsewhere classified; Z91.018 Allergy to other foods; Z79.1 Long term (current) use of non-steroidal anti-inflammatories (NSAID); Z79.899 Other long term (current) drug therapy

== ENCOUNTER → 2024-09-15 | Outpatient (CLI) | payer OTHER ==
[2024-09-15 15:27] LABS: THYROID STIMULATING HORMONE 10.821 uIU/ML (0.55-4.78)
[2024-09-15 15:28] LABS: FREE T4 1.18 NG/DL (0.89-1.76)
== END ==
LOC: M LAB 13:19
PROVIDERS: ATTEND Nurse Practitioner Family
DX: E03.9 Hypothyroidism, unspecified (principal)

== ENCOUNTER 2024-11-09 12:32 | Emergency (ER) | payer MEDICAID, OTHER ==
[~2024-11-09] VITALS: Ht 172.7 cm; Wt 135.7 kg
[2024-11-09 17:06] VITALS: BP 161/88; TEMP 97.5; O2SAT 98
== END 2024-11-09 17:32 | disposition home or self-care (01) ==
LOC: M ED 12:32
DX: M25.531 Pain in right wrist (principal); E28.2 Polycystic ovarian syndrome; E03.9 Hypothyroidism, unspecified; F10.10 Alcohol abuse, uncomplicated; Z91.02 Food additives allergy status; Z79.899 Other long term (current) drug therapy; Z79.1 Long term (current) use of non-steroidal anti-inflammatories (NSAID)

== ENCOUNTER → 2024-11-14 | Outpatient (REF) | payer OTHER ==
[2024-11-14 13:28] LABS: FREE T4 1.64 NG/DL (0.89-1.76); THYROID STIMULATING HORMONE 0.281 uIU/ML (0.55-4.78)
[2024-11-14 14:02] LABS: THYROID PEROXIDASE ANTIBODY > 1300.0 U/ML (<60.0)
== END ==
LOC: M LABWUC 15:10
PROVIDERS: ATTEND Nurse Practitioner Family
DX: E03.9 Hypothyroidism, unspecified (principal)

== ENCOUNTER → 2024-11-14 | Outpatient (CLI) | payer OTHER ==
[2024-11-14 12:51] LABS: HEMATOCRIT 41.5 % (36.0-47.0); HEMOGLOBIN 13.3 g/dl (12.0-15.5); MEAN CORPUSCULAR HEMOGLOBIN 27.9 pg (27.0-33.0); PLATELET COUNT, AUTOMATED 345 10^3/uL (150-450); RED BLOOD COUNT 4.77 10^6/uL (4.00-5.40); WHITE BLOOD COUNT 10.8 10^3/uL (4.0-10.0)
[2024-11-14 13:26] LABS: BLOOD UREA NITROGEN 12 MG/DL (9-23); CALCIUM LEVEL 8.9 MG/DL (8.5-10.1); CARBON DIOXIDE LEVEL 26 MMOL/L (20-31); CHLORIDE LEVEL 106 MMOL/L (98-107); CREATININE FOR GFR 0.69 MG/DL (0.55-1.30); GLOMERULAR FILTRATION RATE > 60.0 (>60); GLUCOSE, FASTING 85 MG/DL (60-100); IRON (FE) 33 UG/DL (50-170); PERCENT SATURATION 9.5 % (13.2-45.0); POTASSIUM SERUM 4.1 MMOL/L (3.5-5.1); SODIUM LEVEL 140 MMOL/L (136-145); TOTAL IRON BINDING CAPACITY 346 UG/DL (250-425)
[2024-11-14 13:28] LABS: FERRITIN 43.7 NG/ML (7.3-270.7)
== END ==
LOC: M WUC 10:49
PROVIDERS: ATTEND Physician Assistant
DX: Z86.32 Personal history of gestational diabetes (principal); N92.1 Excessive and frequent menstruation with irregular cycle; E03.9 Hypothyroidism, unspecified

== ENCOUNTER → 2024-11-26 | Outpatient (REF) | payer OTHER ==
[2024-11-26 21:55] LABS: URINE PREG TEST NEGATIVE (NEGATIVE)
[2024-11-26 21:56] LABS: APPEARANCE, URINE CLEAR (CLEAR); BACTERIA, URINE AUTO NEGATIVE (NEGATIVE); BILIRUBIN, URINE AUTO NEGATIVE (NEGATIVE); BLOOD, URINE BLOOD NEGATIVE (NEGATIVE); COLOR, URINE YELLOW (YELLOW); GLUCOSE, URINE (UA) AUTO NEGATIVE (NEGATIVE); KETONE, URINE AUTO NEGATIVE (NEGATIVE); LEUKOCYTE ESTERASE, URINE AUTO NEGATIVE (NEGATIVE); MUCUS, URINE SMALL (NEGATIVE); NITRITE, URINE AUTO NEGATIVE (NEGATIVE); PROTEIN, URINE AUTO NEGATIVE (NEGATIVE); RBC, URINE AUTO 0 /HPF (0-3); SPECIFIC GRAVITY URINE AUTO 1.024 (1.002-1.035); SQUAMOUS EPITHELIAL CELL UR AU 1 /HPF (0-6); UROBILINOGEN, URINE AUTO 0.2 mg/dL (0.0-2.0); WBC, URINE AUTO 1 /HPF (0-3)
[2024-11-26 23:03] LABS: Trichomonas vaginalis (AMP) NOT DETECTED (NEGATIVE)
[2024-11-26 23:26] LABS: GC DNA AMPLIFICATION NEGATIVE (NEGATIVE)
== END ==
LOC: M LAB REF 21:36
PROVIDERS: ATTEND Physician Assistant Medical
DX: N39.0 Urinary tract infection, site not specified (principal)

== ENCOUNTER → 2025-01-25 | Outpatient (CLI) | payer OTHER, MEDICAID ==
[~2025-01-25] MED LIST changes: -NYST-13 TOP; +NYST0.1C TOP; +PROP10TA56 PO
[2025-01-25 13:25] LABS: FREE T4 1.45 NG/DL (0.89-1.76); THYROID STIMULATING HORMONE 0.053 uIU/ML (0.55-4.78)
== END ==
LOC: M WUC 10:12
PROVIDERS: ATTEND Nurse Practitioner Family
DX: E06.3 Autoimmune thyroiditis (principal)

== ENCOUNTER → 2025-01-25 | Outpatient (CLI) | payer OTHER ==
[2025-01-25 12:09] LABS: FREE T4 1.56 NG/DL (0.89-1.76); THYROID STIMULATING HORMONE 0.053 uIU/ML (0.55-4.78)
== END ==
LOC: M LAB 11:12
PROVIDERS: ATTEND Physician Assistant
DX: E06.3 Autoimmune thyroiditis (principal)

== ENCOUNTER 2025-01-26 14:36 | Emergency (ER) | payer OTHER ==
[~2025-01-26] VITALS: Ht 172.7 cm; Wt 134.9 kg
[~2025-01-26 14:36] MED LIST changes: -PROP10TA56 PO
[2025-01-26 16:33] LABS: BASO # 0.1 10^3/uL (0.0-0.2); BASO % 0.6 % (0.0-1.0); EOS # 0.2 10^3/uL (0.0-0.5); EOS % 1.9 % (0.0-3.0); HEMATOCRIT 37.6 % (36.0-47.0); HEMOGLOBIN 12.5 g/dl (12.0-15.5); LYMPH # 2.3 10^3/uL (1.5-5.0); LYMPH % 21.9 % (24.0-44.0); MEAN CORPUSCULAR HEMOGLOBIN 28.4 pg (27.0-33.0); MEAN CORPUSCULAR HGB CONC 33.2 g/dl (32.0-36.5); MEAN CORPUSCULAR VOLUME 85.5 fl (80.0-96.0); MONO # 1.3 10^3/uL (0.0-0.8); MONO % 12.1 % (2.0-8.0); NEUTROPHILS # 6.7 10^3/uL (1.5-8.5); PLATELET COUNT, AUTOMATED 322 10^3/uL (150-450); WHITE BLOOD COUNT 10.6 10^3/uL (4.0-10.0)
[2025-01-26 17:01] LABS: BLOOD UREA NITROGEN 14 MG/DL (9-23); CALCIUM LEVEL 8.6 MG/DL (8.5-10.1); CARBON DIOXIDE LEVEL 23 MMOL/L (20-31); CHLORIDE LEVEL 107 MMOL/L (98-107); CREATININE FOR GFR 0.62 MG/DL (0.55-1.30); GLOMERULAR FILTRATION RATE > 90.0 (>60); GLUCOSE, FASTING 110 MG/DL (60-100); SODIUM LEVEL 141 MMOL/L (136-145)
[2025-01-26 17:03] LABS: FREE T4 1.46 NG/DL (0.89-1.76)
[2025-01-26 17:04] LABS: THYROID STIMULATING HORMONE 0.067 uIU/ML (0.55-4.78)
[2025-01-26 17:06] LABS: FREE T3 3.7 PG/ML (2.3-4.2)
[2025-01-26 17:12] LABS: HCG, SERUM QUALITATIVE NEGATIVE (NEGATIVE)
[2025-01-26] MEDS ORDERED: AMOX875T PO (18:55)
[2025-01-26 19:15] VITALS: TEMP 99
[2025-01-26 20:09] LABS: ALBUMIN 3.5 G/DL (3.2-5.2); ALKALINE PHOSPHATASE 86 U/L (35-104); ALT/SGPT 39 U/L (7.0-40); AST/SGOT 27 U/L (<34); BILIRUBIN,DIRECT 0.1 MG/DL (<0.4); BILIRUBIN,TOTAL 0.4 MG/DL (0.3-1.2); CK-MB VALUE MASS 1.4 NG/ML (<3.6); CPK CREATINE PHOSPHOKINASE 285 U/L (34-145); MB/CK RELATIVE INDEX 0.49 (< OR =4); TOTAL PROTEIN 7.3 G/DL (5.7-8.2)
[2025-01-26] MEDS ORDERED: PROP10TA56 PO (20:19)
[2025-01-26 20:51] VITALS: BP 123/65; O2SAT 98
== END 2025-01-26 20:54 | disposition home or self-care (01) ==
LOC: M ED 14:36
DX: E03.9 Hypothyroidism, unspecified (principal); K21.9 Gastro-esophageal reflux disease without esophagitis; E28.2 Polycystic ovarian syndrome; Z91.02 Food additives allergy status; Z79.2 Long term (current) use of antibiotics; Z79.899 Other long term (current) drug therapy; Z79.1 Long term (current) use of non-steroidal anti-inflammatories (NSAID)

== ENCOUNTER → 2025-01-29 | Outpatient (CLI) | payer OTHER ==
[~2025-01-29] MED LIST changes: +PROP10TA56 PO
[2025-01-29 17:22] LABS: C REACTIVE PROTEIN QUANTITATIV 0.97 MG/DL (<1.0); RHEUMATOID FACTOR QUANT < 3.5 IU/ML (<14)
[2025-02-02 02:32] LABS: SSA SJOGRENS A <1.0 NEG AI (<1.0 NEG); SSB SJOGRENS B <1.0 NEG AI (<1.0 NEG)
== END ==
LOC: M LAB 16:05
PROVIDERS: ATTEND Physician Assistant
DX: M79.18 Myalgia, other site (principal); M25.50 Pain in unspecified joint

== ENCOUNTER → 2025-03-20 | Outpatient (CLI) | payer OTHER ==
[2025-03-20 20:11] LABS: FREE T4 1.03 NG/DL (0.89-1.76)
== END ==
LOC: M PLALAB 15:33
PROVIDERS: ATTEND Nurse Practitioner Family
DX: E06.3 Autoimmune thyroiditis (principal)

== ENCOUNTER → 2025-03-21 | Outpatient (REF) | LOC: M EMP 12:39 | PROVIDERS: ATTEND Family Medicine | DX: Z11.52 Encounter for screening for COVID-19 (principal) ==

== ENCOUNTER → 2025-05-10 | Outpatient (CLI) | payer OTHER ==
[~2025-05-10] MED LIST changes: -IBUP-1022 PO; +IBUP600T42 PO
[2025-05-10 14:11] LABS: HCG, SERUM QUANTITATIVE < 2.6 MIU/ML (<4.2)
[2025-05-10 14:15] LABS: THYROXINE (T4) 7.4 UG/DL (4.5-10.9)
[2025-05-10 14:20] LABS: TOTAL T3 105.8 NG/DL (60.0-181.0)
== END ==
LOC: M LAB 13:15
PROVIDERS: ATTEND Student in an Organized Health Care Education/Training Program
DX: E06.3 Autoimmune thyroiditis (principal)

== ENCOUNTER → 2025-05-14 | Outpatient (CLI) | payer OTHER ==
[2025-05-14 19:52] LABS: FREE T4 1.07 NG/DL (0.89-1.76)
== END ==
LOC: M LAB 17:41
PROVIDERS: ATTEND Nurse Practitioner Family
DX: E06.3 Autoimmune thyroiditis (principal)

== ENCOUNTER → 2025-06-18 | Outpatient (CLI) | payer OTHER ==
[2025-06-18 15:39] LABS: FREE T4 1.06 NG/DL (0.89-1.76)
== END ==
LOC: M WUC 12:24
PROVIDERS: ATTEND Nurse Practitioner Family
DX: E06.3 Autoimmune thyroiditis (principal)